=== PATIENT | female | born 1945 | race American Indian/Alaskan Native ===

== ENCOUNTER 2016-02-13 12:05 | Emergency (ER) | payer MEDICARE ==
[2016-02-13 12:13] VITALS: BP 118/74
--- NOTE | 2016-02-13 13:30 | Emergency Department Report ---
Chief Complaint: Chest Pain Stated Complaint: CHEST PAIN/EAR PAIN Time Seen by Provider: 02/13/16 13:30 - HPI History of Present Illness: Patient here complaining of mid chest pain and left ear pain 2 hours prior to coming to the emergency room. Patient says she has a history of fibromyalgia, hypertension, stage III kidney disease, dementia, left-sided., CHF in the past. She says she was in the hospital by [facility] felt January 30, 2020 716 for congestive heart failure. Her chest pain and ear pain is 6-7 out of 10 and feels sharp. She denies any shortness of breath. Denies any nausea vomiting. Denies any radiation of pain. - ROS Review of Systems: All systems are negative unless stated in HPI above. - Exam Vital Signs: Vital Signs 02/13/16 12:09 Temperature 98.3 F Pulse Rate 72 Respiratory 22 Rate Blood Pressure 118/74 O2 Sat by Pulse 100 Oximetry Physical Exam: General: This is a 70-year-old female well-nourished well-developed in no acute distress. CV: S1, S2. Regular rate rhythm negative murmur Lungs:Clear Auscultated bilaterally, no rhonchi wheezes or rales. Normal work of breathing Extremity: Trace edema to legs. No clubbing or cyanosis. +2 pedal pulses MSE screening note: Focused history and physical exam performed. Due to findings the following was ordered:see mdm ED Medical Decision Making - Medical Decision Making Medical decision making: Patient seen by provider in triage area. Appropriate protocol activated and patient to main ED to be seen by physician. ED Disposition for MSE Condition: Stable
[2016-02-13 14:05] LABS: Hematocrit 36.6 % (30.3-42.9); Hemoglobin 11.6 gm/dl (10.1-14.3); Mean Corpuscular HGB Conc 32 % (30-34); Mean Corpuscular Volume 74 fl (79-97); Platelet Count 278 K/mm3 (140-440); Red Blood Count 4.92 M/mm3 (3.65-5.03); Red Cell Distribution Width 16.3 % (13.2-15.2); White Blood Count 17.5 K/mm3 (4.5-11.0)
[2016-02-13 14:16] LABS: Mean Corpuscular Hemoglobin 24 pg (28-32)
[2016-02-13 14:18] LABS: BUN/Creatinine Ratio 14.28; Blood Urea Nitrogen 20 mg/dL (7-17); Calcium 9.2 mg/dL (8.4-10.2); Carbon Dioxide 26 mmol/L (22-30); Glucose 120 mg/dL (65-100)
[2016-02-13 14:19] LABS: Chloride 101.3 mmol/L (98-107); Potassium 4.4 mmol/L (3.6-5.0); Sodium 142 mmol/L (137-145)
[2016-02-13 14:20] LABS: Anion Gap 19 mmol/L
[2016-02-13 14:39] LABS: Creatine Kinase MB 1.5 ng/mL (0.0-4.0)
[2016-02-13 15:03] LABS: Bilirubin,Urine NEG (Negative); Blood,Urine NEG (Negative); Ketones,Urine NEG (Negative); Leukocyte Esterase,Urine LG (Negative); Mucus,Urine FEW /HPF; Nitrite,Urine NEG (Negative); Protein,Urine <15 mg/dL mg/dL (Negative); Urobilinogen,Urine < 2.0 mg/dL (<2.0)
[2016-02-13 15:10] LABS: Anisocytosis 1+; Basophils % (Manual) 0 % (0.0-1.8); Blastocytes % (Manual) 0 %
[2016-02-13 15:11] LABS: Hypochromasia 1+
[2016-02-13 15:12] LABS: Diff Status Complete; Target Cells 1+
--- NOTE | 2016-02-14 01:06 | ED Elopement Review ---
ED Pt Elopement review - Results review Lab results: Laboratory Tests 02/13/16 02/13/16 02/13/16 13:55 13:55 13:55 WBC 17.5 H RBC 4.92 Hgb 11.6 Hct 36.6 MCV 74 L MCH 24 L MCHC 32 RDW 16.3 H Plt Count 278 Add Manual Diff Complete Total Counted 100 Seg Neutrophils % Marine Gear Keeper Seg Neuts % (Manual) 82.0 H Band Neutrophils % 2.0 Lymphocytes % (Manual) 9.0 L Reactive Lymphs % (Man) 2.0 Monocytes % (Manual) 4.0 Eosinophils % (Manual) 1.0 Basophils % (Manual) 0 Metamyelocytes % 0 Myelocytes % 0 Promyelocytes % 0 Blast Cells % 0 Nucleated RBC % Not Reportable Seg Neutrophils # Man 14.4 H Band Neutrophils # 0.4 Lymphocytes # (Manual) 1.6 Abs React Lymphs (Man) 0.4 Monocytes # (Manual) 0.7 Eosinophils # (Manual) 0.2 Basophils # (Manual) 0.0 Metamyelocytes # 0.0 Myelocytes # 0.0 Promyelocytes # 0.0 Blast Cells # 0.0 WBC Morphology Not Reportable Hypersegmented Neuts Not Reportable Hyposegmented Neuts Not Reportable Hypogranular Neuts Not Reportable Smudge Cells Not Reportable Toxic Granulation Not Reportable Toxic Vacuolation Not Reportable Dohle Bodies Not Reportable Pelger-Huet Anomaly Not Reportable [place] Rods Not Reportable Platelet Estimate Not Reportable Clumped Platelets Not Reportable Plt Clumps, EDTA Not Reportable Large Platelets Not Reportable Giant Platelets Not Reportable Platelet Satelliting Not Reportable Plt Morphology Comment Not Reportable RBC Morphology Not Reportable Dimorphic RBCs Not Reportable Polychromasia Not Reportable Hypochromasia 1+ Poikilocytosis Not Reportable Anisocytosis 1+ Microcytosis Not Reportable Macrocytosis Not Reportable Spherocytes Not Reportable Pappenheimer Bodies Not Reportable Sickle Cells Not Reportable Target Cells 1+ Tear Drop Cells Not Reportable Ovalocytes Not Reportable Helmet Cells Not Reportable [place] Bodies Not Reportable [place] Rings Not Reportable Marcella Cells Not Reportable Bite Cells Not Reportable Crenated Cell Not Reportable Elliptocytes Not Reportable Acanthocytes (Spur) Not Reportable Rouleaux Not Reportable Hemoglobin C Crystals Not Reportable Schistocytes Not Reportable Malaria parasites Not Reportable Barrett Bodies Not Reportable Hem Pathologist Commnt No Sodium 142 Potassium 4.4 Chloride 101.3 Carbon Dioxide 26 Anion Gap 19 BUN 20 H Creatinine 1.4 H Estimated GFR 45 BUN/Creatinine Ratio 14.28 Glucose 120 H Calcium 9.2 Total Creatine Kinase 29 L CK-MB (CK-2) 1.5 CK-MB (CK-2) Rel Index 5.1 H Troponin T < 0.010 NT-Pro-B Natriuret Pep 219.5 Urine Color Urine Turbidity Urine pH Ur Specific [place] Urine Protein Urine Glucose (UA) Urine Ketones Urine Blood Urine Nitrite Urine Bilirubin Urine Urobilinogen Ur Leukocyte Esterase Urine WBC (Auto) Urine RBC (Auto) U Epithel Cells (Auto) Urine Mucus 02/13/16 14:10 WBC RBC Hgb Hct MCV MCH MCHC RDW Plt Count Add Manual Diff Total Counted Seg Neutrophils % Seg Neuts % (Manual) Band Neutrophils % Lymphocytes % (Manual) Reactive Lymphs % (Man) Monocytes % (Manual) Eosinophils % (Manual) Basophils % (Manual) Metamyelocytes % Myelocytes % Promyelocytes % Blast Cells % Nucleated RBC % Seg Neutrophils # Man Band Neutrophils # Lymphocytes # (Manual) Abs React Lymphs (Man) Monocytes # (Manual) Eosinophils # (Manual) Basophils # (Manual) Metamyelocytes # Myelocytes # Promyelocytes # Blast Cells # WBC Morphology Hypersegmented Neuts Hyposegmented Neuts Hypogranular Neuts Smudge Cells Toxic Granulation Toxic Vacuolation Dohle Bodies Pelger-Huet Anomaly [place] Rods Platelet Estimate Clumped Platelets Plt Clumps, EDTA Large Platelets Giant Platelets Platelet Satelliting Plt Morphology Comment RBC Morphology Dimorphic RBCs Polychromasia Hypochromasia Poikilocytosis Anisocytosis Microcytosis Macrocytosis Spherocytes Pappenheimer Bodies Sickle Cells Target Cells Tear Drop Cells Ovalocytes Helmet Cells Melgar-[place] Bodies [place] Rings Marcella Cells Bite Cells Crenated Cell Elliptocytes Acanthocytes (Spur) Rouleaux Hemoglobin C Crystals Schistocytes Malaria parasites Barrett Bodies Hem Pathologist Commnt Sodium Potassium Chloride Carbon Dioxide Anion Gap BUN Creatinine Estimated GFR BUN/Creatinine Ratio Glucose Calcium Total Creatine Kinase CK-MB (CK-2) CK-MB (CK-2) Rel Index Troponin T NT-Pro-B Natriuret Pep Urine Color Yellow Urine Turbidity Clear Urine pH 6.0 Ur Specific [place] 1.018 Urine Protein <15 mg/dl Urine Glucose (UA) Neg Urine Ketones Neg Urine Blood Neg Urine Nitrite Neg Urine Bilirubin Neg Urine Urobilinogen < 2.0 Ur Leukocyte Esterase Lg Urine WBC (Auto) 27.0 H Urine RBC (Auto) 3.0 U Epithel Cells (Auto) 7.0 Urine Mucus Few - Call Back decision Pt Call Back Decision: Call pt to return to ED JONNA (chest pain and leukocytosis should be further evaluated)
== END 2016-02-13 16:22 | disposition left against medical advice (07) ==
LOC: ED 12:05
DX: R07.89 Other chest pain (principal); H92.02 Otalgia, left ear; M79.7 Fibromyalgia; I13.0 Hypertensive heart and chronic kidney disease with heart failure and stage 1 through stage 4 chronic kidney disease, or unspecified chronic kidney disease; N18.3 Chronic kidney disease, stage 3 (moderate); F03.90 Unspecified dementia, unspecified severity, without behavioral disturbance, psychotic disturbance, mood disturbance, and anxiety; Z53.21 Procedure and treatment not carried out due to patient leaving prior to being seen by health care provider
CPT/HCPCS: 36415; 80048; 81001; 82550; 82553; 83880; 84484; 85007; 85025; 93005; 93010

== ENCOUNTER 2016-05-03 10:20 | Emergency (ER) | payer MEDICARE ==
[2016-05-03 12:15] LABS: Basophils % (Auto) 0.7 % (0.0-1.8); Eosinophils % (Auto) 1.5 % (0.0-4.3); Hematocrit 38.4 % (30.3-42.9); Hemoglobin 12.1 gm/dl (10.1-14.3); Mean Corpuscular HGB Conc 31 % (30-34); Mean Corpuscular Volume 75 fl (79-97); Platelet Count 220 K/mm3 (140-440); Red Blood Count 5.14 M/mm3 (3.65-5.03); White Blood Count 8.3 K/mm3 (4.5-11.0)
[2016-05-03 12:25] LABS: Mean Corpuscular Hemoglobin 24 pg (28-32)
[2016-05-03 12:30] LABS: BUN/Creatinine Ratio 15.83; Calcium 9.6 mg/dL (8.4-10.2); Chloride 102.7 mmol/L (98-107); Potassium 3.9 mmol/L (3.6-5.0)
[2016-05-03 15:38] LABS: Bilirubin,Urine NEG (Negative); Blood,Urine NEG (Negative); Ketones,Urine NEG (Negative); Leukocyte Esterase,Urine SM (Negative); Mucus,Urine FEW /HPF; Nitrite,Urine NEG (Negative); Protein,Urine <15 mg/dL mg/dL (Negative); Urobilinogen,Urine < 2.0 mg/dL (<2.0)
[2016-05-03] MEDS ORDERED: PERCOCET 5/325 PO ONE (19:34)
--- NOTE | 2016-05-03 20:58 | Cat Scan Report ---
FINAL REPORT PROCEDURE: CT ABDOMEN PELVIS WO CON TECHNIQUE: Computerized axial tomography of the abdomen and pelvis was performed without intravenous contrast. HISTORY: right flank COMPARISON: June 05, 2015 FINDINGS: Visualized lower thorax: No significant abnormality. Liver: Normal size and attenuation. Spleen: Normal size and attenuation. Gallbladder and biliary system: Cholecystectomy clips. Pancreas: Normal. Adrenals: Normal. Kidneys: Normal. No stones or hydronephrosis. GI tract: Normal. No dilated loops of large or small bowel. Appendix is not visualized Lymph nodes and mesentery: Normal. Vasculature: Atherosclerotic calcifications. Bladder: Normal. Reproductive organs: Atrophic uterus. Peritoneum: No free fluid. Musculoskeletal structures: Degenerative change of the lower spine. Other: None. IMPRESSION: No stones or hydronephrosis. No mass or obstruction. Appendix is not visualized.
--- NOTE | 2016-05-03 21:12 | Emergency Department Report ---
ED Back Pain/Injury HPI - General Chief Complaint: Pain General Stated Complaint: HAND AND FEET SWELLING Time Seen by Provider: 05/03/16 19:25 Source: patient Limitations: No Limitations - History of Present Illness Initial Comments: 70-year-old female with a past medical history of lupus, herniated disc, CVA, dementia, hypertension, hypothyroidism and previous appendectomy cholecystectomy presents to Hospital complaints of right flank painyesterday. Pain is rated moderate to severe in intensity, described as a constant ache along the right side of the back and flank, worse with palpation and movement. Improved with lying on the left side is to the right. Patient denies any recent fall or injury. Denies associated symptoms such as hematuria, dysuria, nausea, vomiting, urinary incontinence/retention, leg weakness or numbness. Patient complains of chronic intermittent swelling to bilateral feet that improves at leg elevation. Also complains of mild swelling to hands. Patient also complaining of diarrhea 1 week. Bowel movements are stimulated by eating and drinking. Patient states diarrhea usually worse with drinking coffee and milk products. - Related Data Home Medications Medication Instructions Recorded Confirmed Last Taken Carvedilol 25 mg PO BID 03/18/13 08/04/15 06/05/15 Levothyroxine [Synthroid] 0.25 tab PO DAILY 03/18/13 08/04/15 06/05/15 Namenda 10 mg PO BID 06/05/15 08/04/15 06/05/15 Prednisone 5 mg PO DAILY 06/05/15 08/04/15 06/05/15 Mirtazapine [Remeron] 45 mg PO QHS 08/04/15 08/04/15 Unknown Quetiapine Fumarate [SEROquel XR] 400 mg PO QDAY 08/04/15 08/04/15 Unknown Trazodone HCl 150 mg PO QHS 08/04/15 08/04/15 Unknown Previous Rx's Medication Instructions Recorded Last Taken Type Clopidogrel [Plavix] 75 mg PO QDAY #30 tablet 07/10/14 06/05/15 Rx Amlodipine Besylate [Norvasc] 2.5 mg PO DAILY #30 tab 06/05/15 Unknown Rx HYDROcodone/APAP 5-325 [[place] 1 each PO Q6HR PRN #12 tablet 08/04/15 Unknown Rx 5/325] Meclizine [Antivert] 12.5 mg PO BID PRN #14 tablet 08/04/15 Unknown Rx HYDROcodone/APAP 5-325 [[place] 1 each PO Q6HR PRN #20 tablet 05/03/16 Unknown Rx 5-325 mg TAB] Loperamide [Imodium] 2 mg PO Q2HR #20 capsule 05/03/16 Unknown Rx Allergies Allergy/AdvReac Type Severity Reaction Status Date / Time captopril Allergy Rash Verified 09/18/14 10:41 clindamycin Allergy Diarrhea Verified 09/18/14 10:41 NSAIDS (Non-Steroidal Allergy Rash Verified 09/18/14 10:41 Anti-Inflamma Penicillins Allergy Rash Verified 09/18/14 10:41 Sulfa (Sulfonamide Allergy Rash Verified 09/18/14 10:41 Antibiotics) ED Review of Systems ROS: Stated complaint: HAND AND FEET SWELLING Other details as noted in HPI Comment: All other systems reviewed and negative Other: Constitutional: No fevers chills Eyes: No eye pain visual changes ENT: No ear pain or throat pain Neck: Denies pain Respiratory: Denies cough wheezing shortness of breath Cardiovascular: Denies chest pain, palpitations, syncope GI: Denies abdominal pain, nausea, vomiting : Denies dysuria Musculoskeletal: as per hpi. Skin: Denies rash, lesions, erythema Neurologic: Denies headache, numbness, weakness Psychiatric: Denies suicidal ideation, hallucinations ED Past Medical Hx - Past Medical History Previous Medical History?: Yes Hx Hypertension: Yes Hx CVA: Yes (07/07/14) Hx Renal Disease: Yes (Stage III renal dx) Hx Asthma: No Hx COPD: No Hx Dementia: Yes (takes aricept) Additional medical history: 3 herniated discs. LUPUS. hypothyroid - Surgical History Past Surgical History?: Yes Hx Cholecystectomy: Yes Hx Appendectomy: Yes - Social History Smoking Status: Current Every Day Smoker Substance Use Type: Prescribed - Medications Home Medications: Home Medications Medication Instructions Recorded Confirmed Last Taken Type Carvedilol 25 mg PO BID 03/18/13 08/04/15 06/05/15 History Levothyroxine [Synthroid] 0.25 tab PO DAILY 03/18/13 08/04/15 06/05/15 History Clopidogrel [Plavix] 75 mg PO QDAY #30 tablet 07/10/14 08/04/15 06/05/15 Rx Amlodipine Besylate [Norvasc] 2.5 mg PO DAILY #30 tab 06/05/15 08/04/15 Unknown Rx Namenda 10 mg PO BID 06/05/15 08/04/15 06/05/15 History Prednisone 5 mg PO DAILY 06/05/15 08/04/15 06/05/15 History HYDROcodone/APAP 5-325 [[place] 1 each PO Q6HR PRN #12 tablet 08/04/15 Unknown Rx 5/325] Meclizine [Antivert] 12.5 mg PO BID PRN #14 tablet 08/04/15 Unknown Rx Mirtazapine [Remeron] 45 mg PO QHS 08/04/15 08/04/15 Unknown History Quetiapine Fumarate [SEROquel XR] 400 mg PO QDAY 08/04/15 08/04/15 Unknown History Trazodone HCl 150 mg PO QHS 08/04/15 08/04/15 Unknown History HYDROcodone/APAP 5-325 [[place] 1 each PO Q6HR PRN #20 tablet 05/03/16 Unknown Rx 5-325 mg TAB] Loperamide [Imodium] 2 mg PO Q2HR #20 capsule 05/03/16 Unknown Rx ED Physical Exam - General Limitations: No Limitations - Other Other exam information: General: No limitations, patient is alert in no acute distress Head exam: Atraumatic, normocephalic Eyes exam: Normal appearance ENT: Moist mucous membrane, normal oropharynx Neck exam: Normal inspection, full range of motion Respiratory exam: Clear to auscultation bilateral, no wheezes, rales, crackles Cardiovascular: Normal rate and rhythm, normal heart sounds Abdomen: Soft, nondistended, and nontender, with normal bowel sounds, no rebound, or guarding Extremity: Full range of motion normal inspection no deformity Back: Normal Inspection, full range of motion, right sided lower back tenderness to palpation, also inc with movement Neurologic: Alert, oriented x3, cranial nerves intact, no motor or sensory deficit Psychiatric: normal affect, normal mood Skin: Dark discoloration to bilateral feet back and chronic skin changes secondary to intermittent edema. No edema noted at this ED Course Vital Signs 05/03/16 05/03/16 05/03/16 11:34 16:49 16:55 Temperature 97.5 F L 97.7 F Pulse Rate 80 78 Respiratory 18 18 16 Rate Blood Pressure 154/91 Blood Pressure 150/77 [Left] O2 Sat by Pulse 100 100 100 Oximetry - Reevaluation(s) Reevaluation #1: 05/03/16 21:12 Patient received Percocet 5/325 ED Medical Decision Making - Lab Data Result diagrams: 05/03/16 11:54 05/03/16 11:54 Lab Results 05/03/16 05/03/16 05/03/16 Range/Units 11:54 11:54 14:42 WBC 8.3 (4.5-11.0) K/mm3 RBC 5.14 H (3.65-5.03) M/mm3 Hgb 12.1 (10.1-14.3) gm/dl Hct 38.4 (30.3-42.9) % MCV 75 L (79-97) fl MCH 24 L (28-32) pg MCHC 31 (30-34) % RDW 16.0 H (13.2-15.2) % Plt Count 220 (140-440) K/mm3 Lymph % (Auto) 16.6 (13.4-35.0) % [place] % (Auto) 6.3 (0.0-7.3) % Eos % (Auto) 1.5 (0.0-4.3) % Baso % (Auto) 0.7 (0.0-1.8) % Lymph # 1.4 (1.2-5.4) K/mm3 [place] # 0.5 (0.0-0.8) K/mm3 Eos # 0.1 (0.0-0.4) K/mm3 Baso # 0.1 (0.0-0.1) K/mm3 Seg Neutrophils % 74.9 H (40.0-70.0) % Seg Neutrophils # 6.2 (1.8-7.7) K/mm3 Sodium 140 (137-145) mmol/L Potassium 3.9 (3.6-5.0) mmol/L Chloride 102.7 (98-107) mmol/L Carbon Dioxide 24 (22-30) mmol/L Anion Gap 17 mmol/L BUN 19 H (7-17) mg/dL Creatinine 1.2 (0.7-1.2) mg/dL Estimated GFR 54 ml/min BUN/Creatinine Ratio 15.83 % Glucose 104 H (65-100) mg/dL Calcium 9.6 (8.4-10.2) mg/dL Urine Color Yellow (Yellow) Urine Turbidity Slightly-cloudy (Clear) Urine pH 5.0 (5.0-7.0) Ur Specific [place] 1.014 (1.003-1.030) Urine Protein <15 mg/dl (Negative) mg/dL Urine Glucose (UA) Neg (Negative) mg/dL Urine Ketones Neg (Negative) mg/dL Urine Blood Neg (Negative) Urine Nitrite Neg (Negative) Urine Bilirubin Neg (Negative) Urine Urobilinogen < 2.0 (<2.0) mg/dL Ur Leukocyte Esterase Sm (Negative) Urine WBC (Auto) 1.0 (0.0-6.0) /HPF Urine RBC (Auto) 2.0 (0.0-6.0) /HPF U Epithel Cells (Auto) 20.0 H (0-13.0) /HPF Urine Mucus Few /HPF - Medical Decision Making Patient has normal renal function today and has a surgeon's assistant that monitors her creatinine ratio provided a copy of her laboratory request. I suspect the patient's pain is musculoskeletal in origin with unremarkable ED workup including labs, UA, and CT. - Differential Diagnosis UTI, renal colic, renal sufficiency Critical Care Time: No Critical care attestation.: If time is entered above; I have spent that time in minutes in the direct care of this critically ill patient, excluding procedure time. ED Disposition Clinical Impression: Acute diarrhea, Back strain Disposition: DISCHARGED TO HOME OR SELFCARE Is pt being admited?: No Condition: Stable Instructions: Low Back Strain (ED), Acute Diarrhea (ED) Additional Instructions: Take the medications as prescribed. You have been provided a copy of the lab work as requested to take to your doctor. If the diarrhea does not improve or your symptoms worsen you may need GI follow-up. Follow up with your GI doctor for further workup and evaluation but she may return here if you feel worse. Avoid caffeine and milk product intake. Prescriptions: HYDROcodone/APAP 5-325 [[place] 5-325 mg TAB] 1 each PO Q6HR PRN #20 tablet PRN Reason: Pain Loperamide [Imodium] 2 mg PO Q2HR #20 capsule Referrals: ELOINA WARD MD [Primary Care Provider] - 2-3 Days your, gi [Other] - 3-5 Days Time of Disposition: 21:24
[2016-05-03 21:54] VITALS: BP 136/77
== END 2016-05-03 21:45 | disposition home or self-care (01) ==
LOC: ED 10:20
DX: S39.012A Strain of muscle, fascia and tendon of lower back, initial encounter (principal); R19.7 Diarrhea, unspecified; I12.9 Hypertensive chronic kidney disease with stage 1 through stage 4 chronic kidney disease, or unspecified chronic kidney disease; N18.3 Chronic kidney disease, stage 3 (moderate); F03.90 Unspecified dementia, unspecified severity, without behavioral disturbance, psychotic disturbance, mood disturbance, and anxiety; E03.9 Hypothyroidism, unspecified; F17.200 Nicotine dependence, unspecified, uncomplicated; Z86.73 Personal history of transient ischemic attack (TIA), and cerebral infarction without residual deficits; Z90.49 Acquired absence of other specified parts of digestive tract; Z88.0 Allergy status to penicillin; Z88.1 Allergy status to other antibiotic agents; Z88.2 Allergy status to sulfonamides; Z88.8 Allergy status to other drugs, medicaments and biological substances; X58.XXXA Exposure to other specified factors, initial encounter; Y93.89 Activity, other specified; Y99.8 Other external cause status; Y92.89 Other specified places as the place of occurrence of the external cause
CPT/HCPCS: 36415; 74176; 80048; 81001; 85025

== ENCOUNTER 2016-05-14 17:24 | Inpatient (IN) | payer MEDICARE ==
--- NOTE | 2016-05-14 18:03 | Cat Scan Report ---
FINAL REPORT EXAM: CT HEAD/BRAIN WO CON HISTORY: Syncope TECHNIQUE: CT examination of the head without IV contrast PRIORS: 03/12/2015 FINDINGS: No acute air-fluid level visualized in the included air-filled sinuses. Bone windows demonstrate no fracture. The brain is without mass, mass effect, hemorrhage, or acute infarct. There is no extra-axial intracranial bleed, brain bleed, or midline shift. The ventricles and sulci are age-appropriate. IMPRESSION: No acute CVA, intracranial bleed, or brain mass
[2016-05-14 18:50] LABS: Basophils % (Auto) 0.5 % (0.0-1.8); Eosinophils % (Auto) 0.9 % (0.0-4.3); Hematocrit 38.6 % (30.3-42.9); Hemoglobin 12.1 gm/dl (10.1-14.3); Mean Corpuscular HGB Conc 31 % (30-34); Mean Corpuscular Volume 75 fl (79-97); Platelet Count 217 K/mm3 (140-440); Red Blood Count 5.12 M/mm3 (3.65-5.03); Red Cell Distribution Width 15.7 % (13.2-15.2); White Blood Count 7.4 K/mm3 (4.5-11.0)
[2016-05-14 18:56] LABS: Creatine Kinase MB 1.6 ng/mL (0.0-4.0)
[2016-05-14 18:58] LABS: Alanine Aminotransferase 15 units/L (7-56); Albumin 3.4 g/dL (3.9-5); Albumin/Globulin Ratio 0.9 %; Alkaline Phosphatase 78 units/L (35-129); Anion Gap 19 mmol/L; BUN/Creatinine Ratio 24.54; Bilirubin,Total 0.2 mg/dL (0.1-1.2); Blood Urea Nitrogen 27 mg/dL (7-17); Calcium 9.3 mg/dL (8.4-10.2); Carbon Dioxide 25 mmol/L (22-30); Chloride 100.6 mmol/L (98-107); Creatine Kinase 46 units/L (30-135); Glucose 86 mg/dL (65-100); Mean Corpuscular Hemoglobin 24 pg (28-32); Sodium 141 mmol/L (137-145); Total Protein 7.4 g/dL (6.3-8.2)
[2016-05-14 19:20] LABS: Bilirubin,Urine NEG (Negative); Blood,Urine NEG (Negative); Ketones,Urine NEG (Negative); Leukocyte Esterase,Urine SM (Negative); Nitrite,Urine NEG (Negative); Protein,Urine <15 mg/dL mg/dL (Negative); Urobilinogen,Urine < 2.0 mg/dL (<2.0)
--- NOTE | 2016-05-14 21:13 | Emergency Department Report ---
ED Syncope HPI - General Chief Complaint: Syncope Stated Complaint: LT SIDE WEAKNESS Time Seen by Provider: 05/14/16 21:07 - History of Present Illness Initial Comments: This is a pleasant 70-year-old female who is brought in by her daughter after a syncopal episode at a restaurant today. The patient reports waking up this morning feeling increased fatigue in general. She does have history of lupus and frequently has fatigue. She describes a 52 spell today being greater than when she is typically experiencing with her lupus however. Patient indicates that she later on in bed for most of the day. She still slightly go out to dinner with her daughter this evening. While sitting at the dinner table she slumped over briefly. She was only out for a few seconds. She had no prodrome prior to this that she can recall. She states states in general that she is still feeling fatigued. She denies any headache or chest pain or shortness of breath. She denies any palpitations. She states that she's had decreased oral intake today. She does again endorse increased weakness that this global in nature. She does describe it feeling somewhat more weak on the left compared to right toe. She does indicate his while she's having some blurring of her vision. She has noted her blood pressure elevated today compared to her baseline. She states her blood pressure is normally 120/80. She states today her blood pressure is about 150/90. - Related Data Allergies/Adverse Reactions: Allergies captopril Allergy (Verified 09/18/14 10:41) Rash clindamycin Allergy (Verified 09/18/14 10:41) Diarrhea NSAIDS (Non-Steroidal Anti-Inflamma Allergy (Verified 09/18/14 10:41) Rash Penicillins Allergy (Verified 09/18/14 10:41) Rash Sulfa (Sulfonamide Antibiotics) Allergy (Verified 09/18/14 10:41) Rash Home Medications: Ambulatory Orders Carvedilol 25 mg PO BID 03/18/13 Levothyroxine [Synthroid] 0.25 tab PO DAILY 03/18/13 Clopidogrel [Plavix] 75 mg PO QDAY #30 tablet 07/10/14 Amlodipine Besylate [Norvasc] 2.5 mg PO DAILY #30 tab 06/05/15 Namenda 10 mg PO BID 06/05/15 Prednisone 5 mg PO DAILY 06/05/15 HYDROcodone/APAP 5-325 [[place] 5/325] 1 each PO Q6HR PRN #12 tablet 08/04/15 Meclizine [Antivert] 12.5 mg PO BID PRN #14 tablet 08/04/15 Mirtazapine [Remeron] 45 mg PO QHS 08/04/15 Quetiapine Fumarate [SEROquel XR] 400 mg PO QDAY 08/04/15 Trazodone HCl 150 mg PO QHS 08/04/15 HYDROcodone/APAP 5-325 [[place] 5-325 mg TAB] 1 each PO Q6HR PRN #20 tablet Loperamide [Imodium] 2 mg PO Q2HR #20 capsule 05/03/16 ED Review of Systems ROS: Stated complaint: LT SIDE WEAKNESS Other details as noted in HPI Comment: All other systems reviewed and negative Constitutional: weakness. denies: chills, fever Eyes: vision change. denies: eye pain, eye discharge ENT: denies: ear pain, throat pain Respiratory: denies: cough, shortness of breath, wheezing Cardiovascular: denies: chest pain, palpitations Endocrine: no symptoms reported Gastrointestinal: denies: abdominal pain, nausea, diarrhea Genitourinary: denies: urgency, dysuria, discharge Musculoskeletal: denies: back pain, joint swelling, arthralgia Skin: denies: rash, lesions Neurological: denies: headache, weakness, paresthesias Psychiatric: denies: anxiety, depression Hematological/Lymphatic: denies: easy bleeding, easy bruising ED Past Medical Hx - Past Medical History Hx Hypertension: Yes Hx CVA: Yes (07/07/14) Hx Renal Disease: Yes (Stage III renal dx) Hx Asthma: No Hx COPD: No Hx Dementia: Yes (takes aricept) Additional medical history: 3 herniated discs. LUPUS. hypothyroid - Surgical History Hx Cholecystectomy: Yes Hx Appendectomy: Yes - Social History Smoking Status: Never Smoker Substance Use Type: None - Medications Home Medications: Home Medications Medication Instructions Recorded Confirmed Last Taken Type Carvedilol 25 mg PO BID 03/18/13 08/04/15 06/05/15 History Levothyroxine [Synthroid] 0.25 tab PO DAILY 03/18/13 08/04/15 06/05/15 History Clopidogrel [Plavix] 75 mg PO QDAY #30 tablet 0608/04/15 06/05/15 Rx Amlodipine Besylate [Norvasc] 2.5 mg PO DAILY #30 tab 06/05/15 08/04/15 Unknown Rx Namenda 10 mg PO BID 06/05/15 08/04/15 06/05/15 History Prednisone 5 mg PO DAILY 06/05/15 08/04/15 06/05/15 History HYDROcodone/APAP 5-325 [[place] 1 each PO Q6HR PRN #12 tablet 08/04/15 Unknown Rx 5/325] Meclizine [Antivert] 12.5 mg PO BID PRN #14 tablet 08/04/15 Unknown Rx Mirtazapine [Remeron] 45 mg PO QHS 08/04/15 08/04/15 Unknown History Quetiapine Fumarate [SEROquel XR] 400 mg PO QDAY 08/04/15 08/04/15 Unknown History Trazodone HCl 150 mg PO QHS 08/04/15 08/04/15 Unknown History HYDROcodone/APAP 5-325 [[place] 1 each PO Q6HR PRN #20 tablet 05/03/16 Unknown Rx 5-325 mg TAB] Loperamide [Imodium] 2 mg PO Q2HR #20 capsule 05/03/16 Unknown Rx ED Physical Exam - General Limitations: No Limitations General appearance: alert, in no apparent distress - Head Head exam: Present: atraumatic, normocephalic - Eye Eye exam: Present: normal appearance, EOMI. Absent: scleral icterus - ENT ENT exam: Present: normal exam, normal orophraynx, mucous membranes moist - Neck Neck exam: Present: normal inspection. Absent: tenderness - Respiratory Respiratory exam: Present: normal lung sounds bilaterally, rales, other (mild chest wall defect tenderness diffusely.). Absent: respiratory distress, wheezes - Cardiovascular Cardiovascular Exam: Present: regular rate, normal rhythm. Absent: systolic murmur, diastolic murmur, rubs, gallop - GI/Abdominal GI/Abdominal exam: Present: soft, tenderness (mild tenderness diffusely.), normal bowel sounds - Extremities Exam Extremities exam: Present: normal inspection, normal capillary refill. Absent: tenderness, pedal edema, calf tenderness - Back Exam Back exam: Present: normal inspection. Absent: tenderness, CVA tenderness (R), CVA tenderness (L) - Neurological Exam Neurological exam: Present: alert, oriented X3, CN II-XII intact, other (moving all extremities properly for me. No facial droop is appreciated. Has excellent strength in the upper and lower extremities. Normal sensation is noted throughout as well.) - Psychiatric Psychiatric exam: Present: normal affect, normal mood - Skin Skin exam: Present: warm, dry, intact, normal color. Absent: rash ED Course Vital Signs 05/14/16 05/14/16 05/15/16 17:30 20:28 00:00 Temperature 97.8 F 97.5 F L Pulse Rate 74 70 72 Respiratory 18 19 18 Rate Blood Pressure 185/110 Blood Pressure 141/78 146/81 [Right] O2 Sat by Pulse 100 99 99 Oximetry - Reevaluation(s) Reevaluation #1: 05/14/16 21:08 ECG at 1741 with normal sinus rhythm at 66 bpm. Isoelectric. Normal [place] and QRS. Normal ECG. Reevaluation #2: 05/14/16 21:42 This patient has a nonfocal neurologic exam for me. She does appear tired in the bed but otherwise does not appear to be in any acute distress. Her ECG is normal. She has continued in sinus rhythm on the monitor. CT head is negative. I will give her a gentle saline bolus here. She does have normal vitals signs and normal labs for me as well. I have considered the possibility of stroke. This is a possibility. I just do not see specific objective evidence of this. Reevaluation #3: 05/14/16 23:30 Patient reports subjectively feeling somewhat improved after IV fluids. She still feels generally weak compared to her baseline though and still endorses a slight weakness on the left side compared to the right. I can't objectively I cannot appreciate this but it is of concern to me. I did have a long conversation with patient has not seen a hospital and she is agreeable with this. I feel this is inappropriate action given the syncopal episode as well as the weakness with questionable concerns regarding the weakness in the left side as well. Patient given an aspirin here. She is otherwise stable and appropriate. ED Medical Decision Making - Lab Data Result diagrams: 05/14/16 18:23 05/14/16 18:23 - Radiology Data Radiology results: report reviewed, image reviewed NEgative CT brain Critical care attestation.: If time is entered above; I have spent that time in minutes in the direct care of this critically ill patient, excluding procedure time. ED Disposition Clinical Impression: Weakness Syncope Qualifiers: Encounter type: initial encounter Disposition: OP ADMITTED IP TO THIS HOSP Is pt being admited?: Yes Does the pt Need Aspirin: No Condition: Stable Time of Disposition: 23:34
[2016-05-14] MEDS ORDERED: MORPHINE IV ONE (21:37)
[2016-05-14] MEDS ORDERED: NACL 0.9% 1000 ML 1,000 ML IV ONE (21:37)
[2016-05-14] MEDS ORDERED: PLAVIX PO ONE (23:33)
[2016-05-15] MEDS ORDERED: ANTIVERT PO PRN (01:49)
--- NOTE | 2016-05-15 01:49 | History and Physical Report ---
History of Present Illness Date of examination: 05/14/16 Date of admission: 05/14/16 Chief complaint: Loss of consciousness History of present illness: Patient is a 70-year-old woman with a plethora of co-morbidities including CVA, hypertension, SLE with nephritis, CKD3, discord lupus, bipolar with psych admissions for bipolar disorder, hypothyroidism and chronic back pain with osteoarthritis who presents with transient loss consciousness while sitting at the dinner table. GEN no prodromal symptoms such assessed pain or palpitation. Early in the morning she did have headaches with some blurry vision and her blood pressure was above normal. Currently she is denies any symptoms. She is awake alert oriented 3. There is no seizure activities. She denies any headaches. Past History Past Medical History: other (hpi) Past Surgical History: appendectomy, cholecystectomy, Other (venous stripping, tubal ligation) Social history: smoking, full code. denies: alcohol abuse, prescription drug abuse, IV drug use Family history: hypertension Medications and Allergies Allergies Allergy/AdvReac Type Severity Reaction Status Date / Time captopril Allergy Rash Verified 09/18/14 10:41 clindamycin Allergy Diarrhea Verified 09/18/14 10:41 NSAIDS (Non-Steroidal Allergy Rash Verified 09/18/14 10:41 Anti-Inflamma Penicillins Allergy Rash Verified 09/18/14 10:41 Sulfa (Sulfonamide Allergy Rash Verified 09/18/14 10:41 Antibiotics) Home Medications Medication Instructions Recorded Confirmed Last Taken Type Carvedilol 25 mg PO BID 03/18/13 08/04/15 06/05/15 History Levothyroxine [Synthroid] 0.25 tab PO DAILY 03/18/13 08/04/15 06/05/15 History Clopidogrel [Plavix] 75 mg PO QDAY #30 tablet 07/10/14 08/04/15 06/05/15 Rx Amlodipine Besylate [Norvasc] 2.5 mg PO DAILY #30 tab 06/05/15 08/04/15 Unknown Rx Namenda 10 mg PO BID 06/05/15 08/04/15 06/05/15 History Prednisone 5 mg PO DAILY 06/05/15 08/04/15 06/05/15 History HYDROcodone/APAP 5-325 [[place] 1 each PO Q6HR PRN #12 tablet 08/04/15 Unknown Rx 5/325] Meclizine [Antivert] 12.5 mg PO BID PRN #14 tablet 08/04/15 Unknown Rx Mirtazapine [Remeron] 45 mg PO QHS 08/04/15 08/04/15 Unknown History Quetiapine Fumarate [SEROquel XR] 400 mg PO QDAY 08/04/15 08/04/15 Unknown History Trazodone HCl 150 mg PO QHS 08/04/15 08/04/15 Unknown History HYDROcodone/APAP 5-325 [[place] 1 each PO Q6HR PRN #20 tablet 05/03/16 Unknown Rx 5-325 mg TAB] Loperamide [Imodium] 2 mg PO Q2HR #20 capsule 05/03/16 Unknown Rx Active Meds: Active Medications Heparin Sodium (Porcine) (Heparin) 5,000 unit SUB-Q Q12HR [place] Review of Systems All systems: negative (as HPI and all other ROS reviewed and negative.) Exam - Physical Exam Narrative exam: GEN: WDWN, NAD, AWAKE, ALERT, ORIENTATED 3 HEENT: NCAT, PERRL, EOMI, OP CLEAR NECK: SUPPLE, NO THYROMEGALY, NO JVD, NO LAD CVS: RRR, NORMAL S1S2 LUNGS/CHEST: CTA B, NORMAL CHEST EXPANSION B, GOOD AIR ENTRY B ABD: SOFT NTND, GBS, NO REBOUND OR GUARDING EXT/SKIN: NO SIGNIFICANT EDEMA OR RASH, Palms with discord lupus MSK: FROM X 4 EXTREMITIES NEURO: CN 2-12 GROSSLY INTACT, NO new FOCAL DEFICITS PSY: CALM - Constitutional Vitals: Temp Pulse Resp BP Pulse Ox 97.5 F L 70 19 141/78 99 05/14/16 20:28 05/14/16 20:28 05/14/16 20:28 05/14/16 20:28 05/14/16 20:28 Results - Labs CBC & Chem 7: 05/14/16 18:23 05/14/16 18:23 Labs: Abnormal lab results 05/14/16 05/14/16 Range/Units 18:23 18:23 RBC 5.12 H (3.65-5.03) M/mm3 MCV 75 L (79-97) fl MCH 24 L (28-32) pg RDW 15.7 H (13.2-15.2) % [place] % (Auto) 9.6 H (0.0-7.3) % BUN 27 H (7-17) mg/dL Albumin 3.4 L (3.9-5) g/dL Assessment and Plan Patient is a 70-year-old woman with a plethora of co-morbidities including CVA, hypertension, SLE with nephritis, CKD3, discord lupus, bipolar with psych admissions for bipolar disorder, hypothyroidism and chronic back pain with osteoarthritis who presents with transient loss consciousness while sitting at the dinner table. GEN no prodromal symptoms such assessed pain or palpitation. Early in the morning she did have headaches with some blurry vision but no vision loss or eye pains and her blood pressure was above normal. Currently, she is denies any symptoms. She is awake alert oriented 3. There is no seizure activities. She denies any headaches. - Syncope, appears vasovagal: monitor rhythm overnight, check echo - H/o cva: check lipid and carotid doppler - Accelerated hypertension: iv hydralazine prn - SLE, chronic, ? worsening - DVT prophylaxis with sc heparin
[2016-05-15] MEDS ORDERED: APRESOLINE IV PRN (01:51)
[2016-05-15] MEDS ORDERED: PLAVIX ONE (01:57)
[2016-05-15] MEDS ORDERED: IMODIUM PO PRN (02:00)
[2016-05-15] MEDS: NORCO 5/325 PO PRN ×3 (03:31→21:33)
[2016-05-15] MEDS ORDERED: SYNTHROID PO SCH (06:00)
[2016-05-15] MEDS: SYNTHROID PO SCH (06:22)
[2016-05-15] MEDS ORDERED: NON-FORMULARY (Quetiapine Fumarate [Seroquel Xr] 400 MG) PO SCH (10:00)
[2016-05-15] MEDS: NORVASC PO SCH (10:12)
[2016-05-15] MEDS: PLAVIX PO SCH (10:13)
[2016-05-15] MEDS: DELTASONE PO SCH (10:13)
[2016-05-15] MEDS: COREG PO SCH ×2 (10:14→21:32)
[2016-05-15] MEDS: NAMENDA XR PO SCH (10:14)
[2016-05-15] MEDS: HEPARIN SUB-Q SCH ×2 (10:15→21:33)
[2016-05-15] MEDS ORDERED: MILK OF MAGNESIA PO PRN (12:17)
--- NOTE | 2016-05-15 13:32 | Progress Note ---
Assessment and Plan Assessment and plan: Patient is a 70-year-old woman with a plethora of co-morbidities including CVA, hypertension, SLE with nephritis, CKD3, discord lupus, bipolar with psych admissions for bipolar disorder, hypothyroidism and chronic back pain with osteoarthritis who presents with transient loss consciousness while sitting at the dinner table. GEN no prodromal symptoms such assessed pain or palpitation. Early in the morning she did have headaches with some blurry vision and her blood pressure was above normal. Currently, she is denies any symptoms. She is awake alert oriented 3. There is no seizure activities. She denies any headaches. - Autonomic disequilibrium -Syncope, appears vasovagal: monitor rhythm overnight , check echo, obtain cardiology consultation she is well-developed. No events noted on telemetry May benefit from an event monitor. - H/o cva: check lipid and carotid doppler - Accelerated hypertension: iv hydralazine prn - SLE, chronic, ? worsening - DVT prophylaxis with sc heparin -1 of care discussed with patient also with hard tile setter anticipate discharge. If all symptoms remain the same. History Interval history: Patient seen and examined today in no acute distress, reports resolution of symptoms. Denies any chest pain, nausea, vomiting, diarrhea denies any palpitation . No other adverse events reported by nursing staff Hospitalist Physical - Physical exam Narrative exam: VITAL SIGNS: Reviewed. GENERAL: The patient appeared well nourished and normally developed. Vital signs as documented. HEAD: No signs of head trauma. EYES: Pupils are equal. Extraocular motions intact. EARS: Hearing grossly intact. MOUTH: Oropharynx is normal. NECK: No adenopathy, no JVD. CHEST: Chest with clear breath sounds bilaterally. No wheezes, rales, or rhonchi. CARDIAC: Regular rate and rhythm. S1 and S2, without murmurs, gallops, or rubs. VASCULAR: No Edema. Peripheral pulses normal and equal in all extremities. ABDOMEN: Soft, without detectable tenderness. No sign of distention. No rebound or guarding, and no masses palpated. Bowel Sounds normal. MUSCULOSKELETAL: Good range of motion of all major joints. Extremities without clubbing, cyanosis or edema. NEUROLOGIC EXAM: Alert and oriented x 3. No focal sensory or strength deficits. Speech normal. Follows commands. PSYCHIATRIC: Mood normal. SKIN: No rash or lesions. - Constitutional Vitals: Temp Pulse Resp BP Pulse Ox 97 F L 73 18 140/81 98 05/15/16 11:00 05/15/16 11:00 05/15/16 11:00 05/15/16 11:00 05/15/16 11:00 Results - Labs CBC & Chem 7: 05/14/16 18:23 05/14/16 18:23 Labs: Laboratory Last Values WBC 7.4 K/mm3 (4.5-11.0) 05/14/16 18:23 RBC 5.12 M/mm3 (3.65-5.03) H 05/14/16 18:23 Hgb 12.1 gm/dl (10.1-14.3) 05/14/16 18:23 Hct 38.6 % (30.3-42.9) 05/14/16 18: MCV 75 fl (79-97) L 05/14/16 18: MCH 24 pg (28-32) L 05/14/16 18: MCHC 31 % (30-34) 05/14/16 18:23 RDW 15.7 % (13.2-15.2) H 05/14/16 18:23 Plt Count 217 K/mm3 (140-440) 05/14/16 18:23 Lymph % (Auto) 28.2 % (13.4-35.0) 05/14/16 18:23 [place] % (Auto) 9.6 % (0.0-7.3) H 05/14/16 18:23 Eos % (Auto) 0.9 % (0.0-4.3) 05/14/16 18: Baso % (Auto) 0.5 % (0.0-1.8) 05/14/16 18:23 Lymph # 2.1 K/mm3 (1.2-5.4) 05/14/16 18:23 [place] # 0.7 K/mm3 (0.0-0.8) 05/14/16 18: Eos # 0.1 K/mm3 (0.0-0.4) 05/14/16 18:23 Baso # 0.0 K/mm3 (0.0-0.1) 05/14/16 18: Seg Neutrophils % 60.8 % (40.0-70.0) 05/14/16 18:23 Seg Neutrophils # 4.5 K/mm3 (1.8-7.7) 05/14/16 18:23 Carbon Dioxide 25 mmol/L (22-30) 05/14/16 18:23 BUN 27 mg/dL (7-17) H 05/14/16 18:23 Creatinine 1.1 mg/dL (0.7-1.2) 05/14/16 18:23 Estimated GFR 60 ml/min 05/14/16 18:23 BUN/Creatinine Ratio 24.54 % 05/14/16 18:23 Glucose 86 mg/dL (65-100) 05/14/16 18:23 POC Glucose 105 (70-105) 05/14/16 17:34 Calcium 9.3 mg/dL (8.4-10.2) 05/14/16 18:23 Total Bilirubin 0.2 mg/dL (0.1-1.2) 05/14/16 18:23 AST 17 units/L (5-40) 05/14/16 18:23 ALT 15 units/L (7-56) 05/14/16 18:23 Alkaline Phosphatase 78 units/L (35-129) 05/14/16 18:23 Total Creatine Kinase 46 units/L (30-135) 05/14/16 18:23 CK-MB (CK-2) Rel Index 3.4 (0-4) 05/14/16 18:23 Troponin T < 0.010 ng/mL (0.00-0.029) 05/14/16 18:23 Total Protein 7.4 g/dL (6.3-8.2) 05/14/16 18:23 Albumin 3.4 g/dL (3.9-5) L 05/14/16 18:23 Albumin/Globulin Ratio 0.9 % 05/14/16 18:23 Triglycerides 120 mg/dL (2-149) 05/15/16 06:51 Cholesterol 164 mg/dL (50-199) 05/15/16 06:51 LDL Cholesterol Direct 72 mg/dL (50-130) 05/15/16 06:51 HDL Cholesterol 68 mg/dL (40-59) H 05/15/16 06:51 Cholesterol/HDL Ratio 2.41 % 05/15/16 06:51 TSH 1.570 mlU/mL (0.270-4.200) 05/15/16 06:51 Urine Color Yellow (Yellow) 05/14/16 19:04 Urine Turbidity Clear (Clear) 05/14/16 19:04 Urine pH 6.0 (5.0-7.0) 05/14/16 19:04 Ur Specific [place] 1.018 (1.003-1.030) 05/14/16 19:04 Urine Protein <15 mg/dl mg/dL (Negative) 05/14/16 19:04 Urine Glucose (UA) Neg mg/dL (Negative) 05/14/16 19:04 Urine Ketones Neg mg/dL (Negative) 05/14/16 19:04 Urine Blood Neg (Negative) 05/14/16 19:04 Urine Nitrite Neg (Negative) 05/14/16 19:04 Urine Bilirubin Neg (Negative) 05/14/16 19:04 Urine Urobilinogen < 2.0 mg/dL (<2.0) 05/14/16 19:04 Ur Leukocyte Esterase Sm (Negative) 05/14/16 19:04 Urine WBC (Auto) 4.0 /HPF (0.0-6.0) 05/14/16 19:04 Urine RBC (Auto) 6.0 /HPF (0.0-6.0) 05/14/16 19:04 U Epithel Cells (Auto) 3.0 /HPF (0-13.0) 05/14/16 19:04 Amorphous Crystals Few 05/14/16 19:04 - Imaging and Cardiology CT Scan - head: image reviewed (no acute pathology)
[2016-05-15] MEDS ORDERED: XANAX PO PRN (13:46)
--- NOTE | 2016-05-15 14:02 | Consultation ---
History of Present Illness Consult date: 05/15/16 Consult reason: syncope History of present illness: The patient is a 70-year-old woman with multiple medical problems, history of bipolar disorder, lupus, chronic hypertension, prior CVA and chronic tobacco abuse. She presented to the hospital at this time with syncope. There was no chest pain, no palpitations and no shortness of breath. She has no lower extremity edema. Consultation was requested for syncope. EKG is normal sinus rhythm, a ECG. Initial cardiac enzymes and negative. The patient has no significant cardiac history on my review of her hospital records. Outpatient records are not available for review at this time. Patient is a poor historian. She is on Plavix therapy, uncertain if this is cardiac indication or for her history of CVA. Past History Past Medical History: other (hpi) Past Surgical History: appendectomy, cholecystectomy, Other (venous stripping, tubal ligation) Social history: smoking, full code. denies: alcohol abuse, prescription drug abuse, IV drug use Family history: hypertension Medications and Allergies Allergies Allergy/AdvReac Type Severity Reaction Status Date / Time captopril Allergy Rash Verified 09/18/14 10:41 clindamycin Allergy Diarrhea Verified 09/18/14 10:41 NSAIDS (Non-Steroidal Allergy Rash Verified 09/18/14 10:41 Anti-Inflamma Penicillins Allergy Rash Verified 09/18/14 10:41 Sulfa (Sulfonamide Allergy Rash Verified 09/18/14 10:41 Antibiotics) Home Medications Medication Instructions Recorded Confirmed Last Taken Type Carvedilol 25 mg PO BID 03/18/13 08/04/15 06/05/15 History Levothyroxine [Synthroid] 0.25 tab PO DAILY 03/18/13 08/04/15 06/05/15 History Clopidogrel [Plavix] 75 mg PO QDAY #30 tablet 07/10/14 08/04/15 06/05/15 Rx Amlodipine Besylate [Norvasc] 2.5 mg PO DAILY #30 tab 06/05/15 08/04/15 Unknown Rx Namenda 10 mg PO BID 06/05/15 08/04/15 06/05/15 History Prednisone 5 mg PO DAILY 06/05/15 08/04/15 06/05/15 History HYDROcodone/APAP 5-325 [[place] 1 each PO Q6HR PRN #12 tablet 08/04/15 Unknown Rx 5/325] Meclizine [Antivert] 12.5 mg PO BID PRN #14 tablet 08/04/15 Unknown Rx Mirtazapine [Remeron] 45 mg PO QHS 08/04/15 08/04/15 Unknown History Quetiapine Fumarate [SEROquel XR] 400 mg PO QDAY 08/04/15 08/04/15 Unknown History Trazodone HCl 150 mg PO QHS 08/04/15 08/04/15 Unknown History HYDROcodone/APAP 5-325 [[place] 1 each PO Q6HR PRN #20 tablet 05/03/16 Unknown Rx 5-325 mg TAB] Loperamide [Imodium] 2 mg PO Q2HR #20 capsule 05/03/16 Unknown Rx Active Meds: Active Medications Acetaminophen/Hydrocodone Bitart ([place] 5/325) 1 each PO Q6H PRN PRN Reason: Pain Last Admin: 05/15/16 13:42 Dose: 1 each Alprazolam (Xanax) 0.25 mg PO Q8H PRN PRN Reason: Anxiety Amlodipine Besylate (Norvasc) 2.5 mg PO DAILY [facility] Last Admin: 05/15/16 10:12 Dose: 2.5 mg Carvedilol (Coreg) 25 mg PO BID [facility] Last Admin: 05/15/16 10:14 Dose: 25 mg Clopidogrel Bisulfate (Plavix) 75 mg PO QDAY [facility] Last Admin: 05/15/16 10:13 Dose: 75 mg Heparin Sodium (Porcine) (Heparin) 5,000 unit SUB-Q Q12HR [facility] Last Admin: 05/15/16 10:15 Dose: 5,000 unit Hydralazine HCl (Apresoline) 10 mg IV Q4H PRN PRN Reason: Blood Pressure Levothyroxine Sodium (Synthroid) 50 mcg PO 0600 [facility] Last Admin: 05/15/16 06:22 Dose: 50 mcg Loperamide HCl (Imodium) 2 mg PO Q2H PRN PRN Reason: Diarrhea Magnesium Hydroxide (Milk Of Magnesia) 30 ml PO QDAY PRN PRN Reason: Constipation Meclizine HCl (Antivert) 12.5 mg PO BID PRN PRN Reason: Vertigo Memantine (Namenda Xr) 28 mg PO QAM [facility] Last Admin: 04/08/17 10:14 Dose: 28 mg Mirtazapine (Remeron) 45 mg PO QHS [facility] Miscellaneous Medication (Quetiapine Fumarate [Seroquel Xr]) 400 mg PO QDAY [facility] Prednisone (Deltasone) 5 mg PO DAILY [facility] Last Admin: 05/15/16 10:13 Dose: 5 mg Trazodone HCl (Desyrel) 150 mg PO QHS [facility] Review of Systems Cardiovascular: syncope, no chest pain, no orthopnea, no palpitations, no rapid/ irregular heart beat, no edema, no lightheadedness, no shortness of breath Physical Examination Vital Signs Temp Pulse Resp BP Pulse Ox 97.8 F 74 18 185/110 100 05/14/16 17:30 05/14/16 17:30 05/14/16 17:30 05/14/16 17:30 05/14/16 17:30 General appearance: no acute distress HEENT: Positive: PERRL Neck: Positive: neck supple Cardiac: Positive: Reg Rate and Rhythm Lungs: Positive: Decreased Breath Sounds Neuro: Positive: Grossly Intact Abdomen: Positive: Soft Female genitourinary: deferred Skin: Positive: Clear Extremities: Absent: edema Results 05/14/16 18:23 05/14/16 18:23 Lipids 05/15/16 Range/Units 06:51 Triglycerides 120 (2-149) mg/dL Cholesterol 164 (50-199) mg/dL HDL Cholesterol 68 H (40-59) mg/dL Cholesterol/HDL Ratio 2.41 % EKG interpretations - Telemetry EKG Rhythm: Sinus Rhythm Assessment and Plan - Patient Problems (1) Syncope Current Visit: Yes Status: Acute Qualifiers: Syncope type: S Encounter type: initial encounter Plan to address problem: Patient presented with syncope, ECG is normal, cardiac enzymes and negative. An echocardiogram has been ordered for left ventricular function assessment, and this will be reviewed. Further cardiac evaluation and management will depend on clinical course.
[2016-05-15] MEDS ORDERED: REMERON PO SCH (22:00)
[2016-05-15] MEDS ORDERED: DESYREL PO SCH (22:00)
--- NOTE | 2016-05-16 01:28 | Admit Criteria Form ---
Admission Criteria Documentation: SYNCOPE Clinical Indications for Admission to Inpatient Care ( Place 'X' for any and all applicable criteria): Admission is indicated for syncope and ANY ONE of the following (1)(2)(3)(4)(5) (6)(7) : [X ]I. Inpatient admission required rather than observation care (Also use Syncope: Observation Care Criteria as appropriate) because of ANY ONE of the following: [ ]a) Hemodynamic instability that is severe or persistent [ ]b) Cardiac arrhythmias of immediate concern identified or strongly suspected (eg, needs electrophysiologic study) [ ]c) Acute coronary syndrome identified (Also use Myocardial Infarction or Angina Criteria form ) [ ]d) Structural cardiac disorder (eg, aortic stenosis) suspected as cause that requires immediate correction [ ]e) Respiratory symptoms (eg, dyspnea, tachypnea) that are severe or persistent [ ]f) Neurologic signs or symptoms that are severe or persistent ( eg, stroke, seizures, altered mental status) [ ]g) Severe electrolyte abnormalities requiring inpatient care [ ]h) Supplemental oxygen or respiratory treatment for over 24 hrs that are performable only in acute inpatient setting [ ]i) IV fluid to replace significant ongoing (eg, for over 24 hrs ) losses (>3 L/m2 per day) [ ]j) Continuous intravenous infusion of anticoagulation, platelet inhibitor, vasoactive, or antiarrhythmic medication(15)(16) [ ]k) Pulmonary artery catheter monitoring [ ]l) Temporary pacemaker placement(17) [ ]m) Emergent cardioversion(18) [ X]n) Other conditions, treatment or monitoring requiring inpatient admission [ ]II. Suspicion of imminently dangerous cause (eg, rare causes like pericardial tamponade, pulmonary embolism) [ ]III. Syncope causing severe injury requiring hospitalization Extended stay beyond goal length of stay may be needed for(28) [ ]a) Dangerous arrhythmia(15)(23)(27)(29) [ ]b) Myocardial ischemia [ ]c) Seizure disorder [ ]d) Syncope-related injuries The original [employer] content created by [email or web address] has been revised. The portions of the content which have been revised are identified through the use of italic text or in bold, and [employer] has neither reviewed nor approved the modified material. All other unmodified content is copyright [email or web address]. Please see references footnoted in the original [facility] edition 2016 Admission Criteria Met: Yes
[2016-05-16] MEDS: NORCO 5/325 PO PRN (05:46)
[2016-05-16] MEDS: SYNTHROID PO SCH (05:46)
--- NOTE | 2016-05-16 10:20 | Discharge Summary ---
Providers - Providers Date of Admission: 05/15/16 01:41 Date of discharge: 05/16/16 Attending physician: IVETT FELIX MD 05/15/16 11:52 Consult to Physician [CONS] Routine Consulting Provider: GREGORIA VINES Reason For Exam: syncope Place consult to:: DR. VINES Notified:: ANSWERING SERVICE Phone number called:: [phone] Was contact made?: Yes If yes, spoke with:: CYNTHIA Time called:: 12:27 Comment:: CONSULT COMPLETED - APRIL Primary care physician: MEDICAL SUPERINTENDENT Hospitalization Reason for admission: syncope Condition: Stable Hospital course: Patient is a 70-year-old woman with a plethora of co-morbidities including CVA, hypertension, SLE with nephritis, CKD3, discord lupus, bipolar with psych admissions for bipolar disorder, hypothyroidism and chronic back pain with osteoarthritis who presents with transient loss consciousness while sitting at the dinner table. GEN no prodromal symptoms such assessed pain or palpitation. Early in the morning she did have headaches with some blurry vision and her blood pressure was above normal. Currently, she is denies any symptoms. She is awake alert oriented 3. There is no seizure activities. She denies any headaches. Patient was seen by cardiology echocardiogram was done and left ventricle looks normal. Did recommend to follow up with cardiology outpatient for further evaluation. We also recommended an event monitor. Benefit left eye irritation which appears with mild erythema she states that she was recently started on some eyedrops she does not recall the name I encouraged her to resume the eyedrops in the meantime advice and was given as this appears more from allergic reaction or erythema in the surrounding areas. No evidence of trauma. Discharge diagnosis - Autonomic disequilibrium -Syncope, - H/o cva: -Hypertensive urgency - SLE, Disposition: DC/TX HOME UNDER HOME HEALTH Time spent for discharge: 35 MINS Core Measure Documentation - Palliative Care Palliative Care/ Comfort Measures: Not Applicable - Core Measures Any of the following diagnoses?: none - VTE Discharge Requirements Deep Vein Thrombosis/Pulmonary Embolism Present on Admission: No Exam - Physical Exam Narrative exam: VITAL SIGNS: Reviewed. GENERAL: The patient appeared well nourished and normally developed. Vital signs as documented. HEAD: No signs of head trauma. EYES: Pupils are equal. Extraocular motions intact. EARS: Hearing grossly intact. MOUTH: Oropharynx is normal. NECK: No adenopathy, no JVD. CHEST: Chest with clear breath sounds bilaterally. No wheezes, rales, or rhonchi. CARDIAC: Regular rate and rhythm. S1 and S2, without murmurs, gallops, or rubs. VASCULAR: No Edema. Peripheral pulses normal and equal in all extremities. ABDOMEN: Soft, without detectable tenderness. No sign of distention. No rebound or guarding, and no masses palpated. Bowel Sounds normal. MUSCULOSKELETAL: Good range of motion of all major joints. Extremities without clubbing, cyanosis or edema. NEUROLOGIC EXAM: Alert and oriented x 3. No focal sensory or strength deficits. Speech normal. Follows commands. PSYCHIATRIC: Mood normal. SKIN: No rash or lesions. - Constitutional Vitals: Temp Pulse Resp BP Pulse Ox 97.7 F 84 20 102/62 97 05/16/16 08:00 05/16/16 08:00 05/16/16 08:00 05/16/16 08:00 05/16/16 08:00 Plan Activity: advance as tolerated, fall precautions Diet: low fat Special Instructions: record daily BP diary, home health RN Additional Instructions: NEEDS CARDIAC EVENT MONITOR OUTPATIENT. SHOULD FOLLOW UP WITH CARDIOLOGY FOR THIS TO BE SET UP. Follow up with: BAUDILIO DU MD [Primary Care Provider] - 3-5 Days GREGORIA VINES MD [Staff Physician] - 7 Days
[2016-05-16] MEDS: PLAVIX PO SCH (10:55)
[2016-05-16] MEDS: NAMENDA XR PO SCH (10:55)
[2016-05-16] MEDS: HEPARIN SUB-Q SCH (10:55)
[2016-05-16] MEDS: COREG PO SCH (10:55)
[2016-05-16] MEDS: DELTASONE PO SCH (10:55)
[2016-05-16] MEDS: NORVASC PO SCH (10:55)
--- NOTE | 2016-05-16 12:28 | Progress Note ---
Assessment and Plan - Patient Problems (1) Syncope Current Visit: Yes Status: Acute Qualifiers: Syncope type: S Encounter type: initial encounter Plan to address problem: Patient presented with syncope, ECG is normal, cardiac enzymes and negative. An echocardiogram has been ordered for left ventricular function assessment, and this will be reviewed. Further cardiac evaluation and management will depend on clinical course. Subjective Date of service: 05/16/16 Interval history: Patient looks and feels comfortable, no acute distress. No new cardiac complaints. Echocardiogram was done today, results pending. Objective Vital Signs Temp Pulse Pulse Pulse Resp Resp BP 05/16/16 10:55 84 102/62 05/16/16 08:00 97.7 F 84 20 05/16/16 06:46 20 05/16/16 05:46 98.3 F 79 20 05/16/16 01:03 97.9 F 72 96 H 05/15/16 22:33 20 05/15/16 21:37 20 05/15/16 21:33 20 05/15/16 21:32 75 172/65 05/15/16 21:01 97.7 F 75 20 05/15/16 19:59 74 20 05/15/16 19:56 74 05/15/16 19:44 20 BP Pulse Ox 05/16/16 10:55 05/16/16 08:00 102/62 97 05/16/16 06:46 05/16/16 05:46 135/69 95 05/16/16 01:03 147/73 96 05/15/16 22:33 05/15/16 21:37 05/15/16 21:33 05/15/16 21:32 05/15/16 21:01 172/65 99 05/15/16 19:59 99 05/15/16 19:56 05/15/16 19:44 - Physical Examination General: No Apparent Distress HEENT: Positive: PERRL Neck: Positive: neck supple Cardiac: Positive: Reg Rate and Rhythm Lungs: Positive: Decreased Breath Sounds Neuro: Positive: Grossly Intact Abdomen: Positive: Soft Skin: Positive: Clear Extremities: Absent: edema
[2016-05-16] MEDS ORDERED: VISINE-A OU PRN (13:00)
[2016-05-16 14:45] VITALS: BP 140/63
--- NOTE | 2016-05-19 08:04 | Vascular Lab Report ---
CAROTID DUPLEX STUDY: RIGHT PSVEDV CCA PROX:[id number] CCA DIST:[id number] ICA PROX:6513 ICA MID:7728 ICA DIST:6425 ECA: 56 VERT: 43 18 LEFT PSVEDV CCA PROX:9524 CCA DIST:5916 ICA PROX:7918 ICA MID:7628 ICA DIST:6724 ECA: 66 VERT: 48 18 REASON FOR EXAM: CVA. COMMENTS ON THE RIGHT: Doppler frequency analysis is consistent with 16 to 49 percent diameter reduction of the internal carotid artery. Minimal amount of plaque is seen. The common carotid artery is patent. The external carotid artery is patent. The vertebral artery has antegrade flow. COMMENTS ON THE LEFT: Doppler frequency analysis is consistent with 16 to 49 percent diameter reduction of the internal carotid artery. Minimal amount of plaque is seen. The common carotid artery is patent. The external carotid artery is patent. The vertebral artery has antegrade flow. IMPRESSION: Less than 50% diameter reduction in the internal carotid arteries bilaterally. Consider repeat carotid artery duplex in 12 months.
== END 2016-05-16 16:30 | disposition home health service (06) | DRG 312 ==
LOC: ED 17:24 → 4A 05-15 01:41
PROVIDERS: ADMIT Internal Medicine; ATTEND Internal Medicine
DX: R55 Syncope and collapse (principal); M32.9 Systemic lupus erythematosus, unspecified; I12.9 Hypertensive chronic kidney disease with stage 1 through stage 4 chronic kidney disease, or unspecified chronic kidney disease; N18.3 Chronic kidney disease, stage 3 (moderate); E87.8 Other disorders of electrolyte and fluid balance, not elsewhere classified; F31.9 Bipolar disorder, unspecified; I16.0 Hypertensive urgency; F17.200 Nicotine dependence, unspecified, uncomplicated; E03.9 Hypothyroidism, unspecified; F03.90 Unspecified dementia, unspecified severity, without behavioral disturbance, psychotic disturbance, mood disturbance, and anxiety; M19.90 Unspecified osteoarthritis, unspecified site; G89.29 Other chronic pain; Z82.49 Family history of ischemic heart disease and other diseases of the circulatory system; Z88.2 Allergy status to sulfonamides; Z88.1 Allergy status to other antibiotic agents; Z88.0 Allergy status to penicillin; Z88.8 Allergy status to other drugs, medicaments and biological substances; Z86.73 Personal history of transient ischemic attack (TIA), and cerebral infarction without residual deficits; Z90.49 Acquired absence of other specified parts of digestive tract; Z79.899 Other long term (current) drug therapy
CPT/HCPCS: 36415; 70450; 80053; 80061; 81001; 82550; 82553; 82962; 84443; 84484; 85025; 93005; 93010; 93306; 93880; 96361; 96374; 99406; J1644; J2270; J7030; J7512

== ENCOUNTER 2016-05-27 08:04 | Emergency (ER) | payer MEDICARE ==
[2016-05-27 08:54] LABS: Eosinophils % (Auto) 2.2 % (0.0-4.3); Hematocrit 38.5 % (30.3-42.9); Hemoglobin 12.2 gm/dl (10.1-14.3); Mean Corpuscular HGB Conc 32 % (30-34); Mean Corpuscular Volume 75 fl (79-97); Platelet Count 230 K/mm3 (140-440); Red Blood Count 5.11 M/mm3 (3.65-5.03); Red Cell Distribution Width 15.5 % (13.2-15.2); White Blood Count 6.8 K/mm3 (4.5-11.0)
[2016-05-27 08:59] LABS: BUN/Creatinine Ratio 17.5; Calcium 9.5 mg/dL (8.4-10.2); Chloride 104.5 mmol/L (98-107); Potassium 3.8 mmol/L (3.6-5.0)
[2016-05-27 09:00] LABS: Mean Corpuscular Hemoglobin 24 pg (28-32)
--- NOTE | 2016-05-27 10:23 | Emergency Department Report ---
ED General Adult HPI - General Chief complaint: Back Pain/Injury Stated complaint: LOWER BACK PAIN Time Seen by Provider: 05/27/16 10:22 Source: patient Mode of arrival: Ambulatory Limitations: Language Barrier - History of Present Illness Initial comments: Patient is here with chronic back pain. It is unknown and uncertain why she did not go to her primary care doctor Brock Ward. She admits that she has been chronic pain management the floor and somehow this was discontinued. SHe states he was seen by Brock Ward 2 weeks ago. SHe states the pain has been worse over the past 2 days. She describes it as lower back pain which is accompanied by a burning sensation down both her legs. This pain pattern has not changed for her. She reports no bowel or bladder symptoms. She really reports no focal weakness or numbness. She states she is out of her pain medicine. CT showed degenerative changes of the lower spine and 05/03/2016 there are is mention of any disc herniations or cord impingement. -: days(s) (worse for 2 days), year(s) (Present for years.) Location: back (lower) Radiation: other (burning both legs) Quality: burning Consistency: intermittent Improves with: movement Worsens with: none Associated Symptoms: denies other symptoms - Related Data Home Medications Medication Instructions Recorded Confirmed Last Taken Carvedilol 25 mg PO BID 03/18/13 05/27/16 06/05/15 Levothyroxine [Synthroid] 0.25 tab PO DAILY 03/18/13 05/27/16 06/05/15 Namenda 10 mg PO BID 06/05/15 05/27/16 06/05/15 Prednisone 5 mg PO DAILY 06/05/15 05/27/16 06/05/15 Mirtazapine [Remeron] 45 mg PO QHS 08/04/15 05/27/16 Unknown Quetiapine Fumarate [SEROquel XR] 400 mg PO QDAY 08/04/15 05/27/16 Unknown Trazodone HCl 150 mg PO QHS 08/04/15 05/27/16 Unknown Previous Rx's Medication Instructions Recorded Last Taken Type Clopidogrel [Plavix] 75 mg PO QDAY #30 tablet 07/10/14 06/05/15 Rx Amlodipine Besylate [Norvasc] 2.5 mg PO DAILY #30 tab 06/05/15 Unknown Rx HYDROcodone/APAP 5-325 [Point 1 each PO Q6HR PRN #12 tablet 08/04/15 Unknown Rx 5-325 mg TAB] Meclizine [Antivert] 12.5 mg PO BID PRN #14 tablet 08/04/15 Unknown Rx HYDROcodone/APAP 5-325 [Point 1 each PO Q6HR PRN #20 tablet 05/03/16 Unknown Rx 5-325 mg TAB] Loperamide [Imodium] 2 mg PO Q2HR #20 capsule 05/03/16 Unknown Rx Cyclobenzaprine HCl [Flexeril 5 MG 5 mg PO TID PRN #14 tab 05/27/16 Unknown Rx TAB] HYDROcodone/APAP 7.5-325 [Point 1 each PO Q6HR PRN #14 tablet 05/27/16 Unknown Rx 7.5/325] Allergies Allergy/AdvReac Type Severity Reaction Status Date / Time captopril Allergy Rash Verified 09/18/14 10:41 clindamycin Allergy Diarrhea Verified 09/18/14 10:41 NSAIDS (Non-Steroidal Allergy Rash Verified 09/18/14 10:41 Anti-Inflamma Penicillins Allergy Rash Verified 09/18/14 10:41 Sulfa (Sulfonamide Allergy Rash Verified 09/18/14 10:41 Antibiotics) ED Review of Systems ROS: Stated complaint: LOWER BACK PAIN Other details as noted in HPI Constitutional: denies: chills, fever Eyes: denies: eye pain, eye discharge, vision change ENT: denies: ear pain, throat pain Respiratory: denies: cough, shortness of breath, wheezing Cardiovascular: denies: chest pain, palpitations Endocrine: no symptoms reported Gastrointestinal: denies: abdominal pain, nausea, diarrhea Genitourinary: denies: urgency, dysuria, discharge Musculoskeletal: as per HPI, back pain. denies: joint swelling Skin: as per HPI. denies: rash, lesions Neurological: denies: headache, weakness, paresthesias Psychiatric: denies: anxiety, depression Hematological/Lymphatic: denies: easy bleeding, easy bruising ED Past Medical Hx - Past Medical History Previous Medical History?: Yes Hx Hypertension: Yes Hx CVA: Yes (07/07/14) Hx Heart Attack/AMI: No Hx Congestive Heart Failure: No Hx Diabetes: No Hx Deep Vein Thrombosis: No Hx Pulmonary Embolism: No Hx Liver Disease: No Hx Renal Disease: Yes (Stage III renal dx) Hx Sickle Cell Disease: No Hx Arthritis: Yes Hx Seizures: No Hx Kidney Stones: No Hx Asthma: No Hx COPD: No Hx Tuberculosis: No Hx Dementia: Yes (takes aricept) Hx HIV: No Additional medical history: 3 herniated discs. LUPUS. hypothyroid - Surgical History Past Surgical History?: Yes Hx Coronary Stent: No Hx Open Heart Surgery: No Hx Pacemaker: No Hx Internal Defibrillator: No Hx Cholecystectomy: Yes Hx Appendectomy: Yes Hx Breast Surgery: No - Social History Smoking Status: Current Every Day Smoker Substance Use Type: None - Medications Home Medications: Home Medications Medication Instructions Recorded Confirmed Last Taken Type Carvedilol 25 mg PO BID 03/18/13 05/27/16 06/05/15 History Levothyroxine [Synthroid] 0.25 tab PO DAILY 03/18/13 05/27/16 06/05/15 History Clopidogrel [Plavix] 75 mg PO QDAY #30 tablet 07/10/14 05/27/16 06/05/15 Rx Amlodipine Besylate [Norvasc] 2.5 mg PO DAILY #30 tab 06/05/15 05/27/16 Unknown Rx Namenda 10 mg PO BID 06/05/15 05/27/16 06/05/15 History Prednisone 5 mg PO DAILY 06/05/15 05/27/16 06/05/15 History HYDROcodone/APAP 5-325 [Point 1 each PO Q6HR PRN #12 tablet 08/04/15 05/27/16 Unknown Rx 5-325 mg TAB] Meclizine [Antivert] 12.5 mg PO BID PRN #14 tablet 08/04/15 05/27/16 Unknown Rx Mirtazapine [Remeron] 45 mg PO QHS 08/04/15 05/27/16 Unknown History Quetiapine Fumarate [SEROquel XR] 400 mg PO QDAY 08/04/15 05/27/16 Unknown History Trazodone HCl 150 mg PO QHS 08/04/15 05/27/16 Unknown History HYDROcodone/APAP 5-325 [Point 1 each PO Q6HR PRN #20 tablet 05/03/16 05/27/16 Unknown Rx 5-325 mg TAB] Loperamide [Imodium] 2 mg PO Q2HR #20 capsule 05/03/16 05/27/16 Unknown Rx Cyclobenzaprine HCl [Flexeril 5 MG 5 mg PO TID PRN #14 tab 05/27/16 Unknown Rx TAB] HYDROcodone/APAP 7.5-325 [Point 1 each PO Q6HR PRN #14 tablet 05/27/16 Unknown Rx 7.5/325] ED Physical Exam - General Limitations: Language Barrier General appearance: alert, in no apparent distress - Head Head exam: Present: atraumatic, normocephalic - Eye Eye exam: Present: normal appearance. Absent: scleral icterus - ENT ENT exam: Present: normal exam, mucous membranes moist - Neck Neck exam: Present: normal inspection - Respiratory Respiratory exam: Present: normal lung sounds bilaterally. Absent: respiratory distress - Cardiovascular Cardiovascular Exam: Present: regular rate, normal rhythm. Absent: systolic murmur, diastolic murmur, rubs, gallop - GI/Abdominal GI/Abdominal exam: Present: soft, normal bowel sounds. Absent: distended, tenderness, guarding, rebound, rigid, organomegaly, mass, bruit, pulsatile mass , hernia - Extremities Exam Extremities exam: Present: normal inspection, other (straight leg raise negative laterally) - Back Exam Back exam: Present: normal inspection, paraspinal tenderness. Absent: full ROM (not full but no acute change), tenderness, CVA tenderness (L), muscle spasm, vertebral tenderness - Neurological Exam Neurological exam: Present: alert, oriented X3, CN II-XII intact. Absent: motor sensory deficit - Psychiatric Psychiatric exam: Present: normal affect, normal mood - Skin Skin exam: Present: warm, dry, intact, normal color. Absent: rash ED Course Vital Signs 05/27/16 05/27/16 05/27/16 08:14 10:04 10:10 Temperature 97.7 F Pulse Rate 93 H Respiratory 20 Rate Blood Pressure 187/122 140/91 140/91 Blood Pressure [Left] O2 Sat by Pulse 100 100 Oximetry 05/27/16 05/27/16 05/27/16 10:21 10:27 10:31 Temperature 97.5 F L Pulse Rate 70 Respiratory 16 16 Rate Blood Pressure 140/91 Blood Pressure 140/91 [Left] O2 Sat by Pulse 100 100 Oximetry - Reevaluation(s) Reevaluation #1: Analgesia given. Orthopedic referral. Chronic pain management recommended. 05/27/16 10:57 ED Medical Decision Making - Lab Data Result diagrams: 05/27/16 08:26 05/27/16 08:26 Laboratory Results - last 24 hr 05/27/16 05/27/16 05/27/16 08:26 08:26 08:26 WBC 6.8 RBC 5.11 H Hgb 12.2 Hct 38.5 MCV 75 L MCH 24 L MCHC 32 RDW 15.5 H Plt Count 230 Lymph % (Auto) 38.3 H Mcnairy % (Auto) 8.7 H Eos % (Auto) 2.2 Baso % (Auto) 1.0 Lymph # 2.6 Mcnairy # 0.6 Eos # 0.1 Baso # 0.1 Seg Neutrophils % 49.8 Seg Neutrophils # 3.4 Sodium 142 Potassium 3.8 Chloride 104.5 Carbon Dioxide 24 Anion Gap 17 BUN 21 H Creatinine 1.2 Estimated GFR 54 BUN/Creatinine Ratio 17.50 Glucose 80 Calcium 9.5 Troponin T < 0.010 - EKG Data -: EKG Interpreted by Me EKG shows normal: sinus rhythm, axis, intervals, QRS complexes, ST-T waves Rate: normal - EKG Data Interpretation: normal EKG Critical care attestation.: If time is entered above; I have spent that time in minutes in the direct care of this critically ill patient, excluding procedure time. ED Disposition Clinical Impression: Lower back pain Qualifiers: Chronicity: unspecified Back pain laterality: bilateral Sciatica presence: without sciatica Qualified Code(s): M54.5 - Low back pain Chronic pain Qualifiers: Chronic pain type: other chronic pain Qualified Code(s): G89.29 - Other chronic pain Disposition: DISCHARGED TO HOME OR SELFCARE Is pt being admited?: No Does the pt Need Aspirin: No Condition: Stable Instructions: Low Back Strain (ED), Arthralgia (ED) Additional Instructions: Return any acute change or problem. I've given you an orthopedic referral. Please discuss chronic pain management with Dr. Brock Ward walk with him as well. Prescriptions: Cyclobenzaprine HCl [Flexeril 5 MG TAB] 5 mg PO TID PRN #14 tab PRN Reason: Spasms HYDROcodone/APAP 7.5-325 [Point 7.5/325] 1 each PO Q6HR PRN #14 tablet PRN Reason: Pain Referrals: BROCK WARD MD [Primary Care Provider] - 2-3 Days VINCENT GOLDEN MD [Staff Physician] - 3-5 Days Time of Disposition: 11:00
[2016-05-27] MEDS ORDERED: DILAUDID IM ONE (11:02)
[2016-05-27] MEDS ORDERED: BENADRYL PO ONE (11:03)
[2016-05-27] MEDS ORDERED: ZOFRAN ODT PO ONE (11:03)
[2016-05-27 11:22] LABS: Creatine Kinase MB 1.4 ng/mL (0.0-4.0)
[2016-05-27 11:31] VITALS: BP 135/65
== END 2016-05-27 11:50 | disposition home or self-care (01) ==
LOC: ED 08:04
DX: M54.5 Low back pain (principal); G89.29 Other chronic pain; F17.200 Nicotine dependence, unspecified, uncomplicated; I10 Essential (primary) hypertension; N18.3 Chronic kidney disease, stage 3 (moderate); F03.90 Unspecified dementia, unspecified severity, without behavioral disturbance, psychotic disturbance, mood disturbance, and anxiety; E03.9 Hypothyroidism, unspecified; Z86.73 Personal history of transient ischemic attack (TIA), and cerebral infarction without residual deficits; Z90.49 Acquired absence of other specified parts of digestive tract
CPT/HCPCS: 36415; 80048; 82550; 82553; 84484; 85025; 93005; 93010; 96372; 99284; J1170; Q0162

== ENCOUNTER 2016-09-03 08:48 | Emergency (ER) | payer MEDICARE ==
[2016-09-03 09:47] LABS: Basophils % (Auto) 0.8 % (0.0-1.8); Eosinophils % (Auto) 2.4 % (0.0-4.3); Hematocrit 39.1 % (30.3-42.9); Hemoglobin 12.3 gm/dl (10.1-14.3); Mean Corpuscular HGB Conc 31 % (30-34); Mean Corpuscular Hemoglobin 23 pg (28-32); Mean Corpuscular Volume 74 fl (79-97); Platelet Count 225 K/mm3 (140-440); Red Blood Count 5.32 M/mm3 (3.65-5.03); Red Cell Distribution Width 15.8 % (13.2-15.2); White Blood Count 6.5 K/mm3 (4.5-11.0)
[2016-09-03 10:02] LABS: Albumin 3.7 g/dL (3.9-5); Albumin/Globulin Ratio 0.9 %; BUN/Creatinine Ratio 12.14; Bilirubin,Total 0.4 mg/dL (0.1-1.2); Calcium 9.3 mg/dL (8.4-10.2); Chloride 103.4 mmol/L (98-107); Magnesium 1.8 mg/dL (1.7-2.3); Potassium 3.9 mmol/L (3.6-5.0); Total Protein 7.9 g/dL (6.3-8.2)
--- NOTE | 2016-09-03 11:15 | Emergency Department Report ---
ED General Adult HPI - General Chief complaint: Altered Mental Status Stated complaint: FATIGUE/TIRED SHAKEN/CONFUSED Time Seen by Provider: 09/03/16 10:22 Source: patient Mode of arrival: Ambulatory Limitations: No Limitations - History of Present Illness Initial comments: Patient is a 70-year-old female who presents with confusion, decrease appetite has been going on for the last week and a half. Patient states she has been stressed by her son is in rehabilitation. Because of this she has not been eating much. She states she is lost 4 pounds without trying. Patient denies any headache or vision changes. Patient has been compliant with all her medications. Nothing makes her symptoms better or worse. Patient denies having any suicidal or homicidal thoughts. - Related Data Home Medications Medication Instructions Recorded Confirmed Last Taken Carvedilol 25 mg PO BID 03/18/13 05/27/16 06/05/15 Levothyroxine [Synthroid] 0.25 tab PO DAILY 03/18/13 05/27/16 06/05/15 Namenda 10 mg PO BID 06/05/15 05/27/16 06/05/15 Prednisone 5 mg PO DAILY 06/05/15 05/27/16 06/05/15 Mirtazapine [Remeron] 45 mg PO QHS 08/04/15 05/27/16 Unknown Quetiapine Fumarate [SEROquel XR] 400 mg PO QDAY 08/04/15 05/27/16 Unknown Trazodone HCl 150 mg PO QHS 08/04/15 05/27/16 Unknown Previous Rx's Medication Instructions Recorded Last Taken Type Clopidogrel [Plavix] 75 mg PO QDAY #30 tablet 07/10/14 06/05/15 Rx Amlodipine Besylate [Norvasc] 2.5 mg PO DAILY #30 tab 06/05/15 Unknown Rx HYDROcodone/APAP 5-325 [[place] 1 each PO Q6HR PRN #12 tablet 08/04/15 Unknown Rx 5-325 mg TAB] Meclizine [Antivert] 12.5 mg PO BID PRN #14 tablet 08/04/15 Unknown Rx HYDROcodone/APAP 5-325 [[place] 1 each PO Q6HR PRN #20 tablet 05/03/16 Unknown Rx 5-325 mg TAB] Loperamide [Imodium] 2 mg PO Q2HR #20 capsule 05/03/16 Unknown Rx Cyclobenzaprine HCl [Flexeril 5 MG 5 mg PO TID PRN #14 tab 05/27/16 Unknown Rx TAB] HYDROcodone/APAP 7.5-325 [[place] 1 each PO Q6HR PRN #14 tablet 05/27/16 Unknown Rx 7.5-325 mg TAB] Ciprofloxacin HCl [Ciprofloxacin 500 mg PO BID #10 tablet 09/03/16 Unknown Rx TAB] Allergies Allergy/AdvReac Type Severity Reaction Status Date / Time captopril Allergy Rash Verified 09/18/14 10:41 clindamycin Allergy Diarrhea Verified 09/18/14 10:41 NSAIDS (Non-Steroidal Allergy Rash Verified 09/18/14 10:41 Anti-Inflamma Penicillins Allergy Rash Verified 09/18/14 10:41 Sulfa (Sulfonamide Allergy Rash Verified 09/18/14 10:41 Antibiotics) ED Review of Systems ROS: Stated complaint: FATIGUE/TIRED SHAKEN/CONFUSED Other details as noted in HPI Constitutional: denies: chills, fever Eyes: denies: eye pain, eye discharge, vision change ENT: denies: ear pain, throat pain Respiratory: denies: cough, shortness of breath, wheezing Cardiovascular: denies: chest pain, palpitations Endocrine: no symptoms reported Gastrointestinal: denies: abdominal pain, nausea, diarrhea Genitourinary: denies: urgency, dysuria, discharge Musculoskeletal: denies: back pain, joint swelling, arthralgia Skin: denies: rash, lesions Neurological: weakness, confusion, other Psychiatric: anxiety, depression. denies: homicidal thoughts, suicidal thoughts Hematological/Lymphatic: denies: easy bleeding, easy bruising ED Past Medical Hx - Past Medical History Previous Medical History?: Yes Hx Hypertension: Yes Hx CVA: Yes (07/07/14) Hx Heart Attack/AMI: No Hx Congestive Heart Failure: No Hx Diabetes: No Hx Deep Vein Thrombosis: No Hx Pulmonary Embolism: No Hx Liver Disease: No Hx Renal Disease: Yes (Stage III renal dx) Hx Sickle Cell Disease: No Hx Arthritis: Yes Hx Seizures: No Hx Kidney Stones: No Hx Psychiatric Treatment: Yes (Depression) Hx Asthma: No Hx COPD: No Hx Tuberculosis: No Hx Dementia: Yes (takes aricept) Hx HIV: No Additional medical history: 3 herniated discs. LUPUS. hypothyroid - Surgical History Hx Coronary Stent: No Hx Open Heart Surgery: No Hx Pacemaker: No Hx Internal Defibrillator: No Hx Cholecystectomy: Yes Hx Appendectomy: Yes Hx Breast Surgery: No - Social History Smoking Status: Current Every Day Smoker Substance Use Type: None - Medications Home Medications: Home Medications Medication Instructions Recorded Confirmed Last Taken Type Carvedilol 25 mg PO BID 03/18/13 05/27/16 06/05/15 History Levothyroxine [Synthroid] 0.25 tab PO DAILY 03/18/13 05/27/16 06/05/15 History Clopidogrel [Plavix] 75 mg PO QDAY #30 tablet 07/10/14 05/27/16 06/05/15 Rx Amlodipine Besylate [Norvasc] 2.5 mg PO DAILY #30 tab 06/05/15 05/27/16 Unknown Rx Namenda 10 mg PO BID 06/05/15 05/27/16 06/05/15 History Prednisone 5 mg PO DAILY 06/05/15 05/27/16 06/05/15 History HYDROcodone/APAP 5-325 [[place] 1 each PO Q6HR PRN #12 tablet 08/04/15 05/27/16 Unknown Rx 5-325 mg TAB] Meclizine [Antivert] 12.5 mg PO BID PRN #14 tablet 08/04/15 05/27/16 Unknown Rx Mirtazapine [Remeron] 45 mg PO QHS 08/04/15 05/27/16 Unknown History Quetiapine Fumarate [SEROquel XR] 400 mg PO QDAY 08/04/15 05/27/16 Unknown History Trazodone HCl 150 mg PO QHS 08/04/15 05/27/16 Unknown History HYDROcodone/APAP 5-325 [[place] 1 each PO Q6HR PRN #20 tablet 05/03/16 05/27/16 Unknown Rx 5-325 mg TAB] Loperamide [Imodium] 2 mg PO Q2HR #20 capsule 05/03/16 05/27/16 Unknown Rx Cyclobenzaprine HCl [Flexeril 5 MG 5 mg PO TID PRN #14 tab 05/27/16 Unknown Rx TAB] HYDROcodone/APAP 7.5-325 [[place] 1 each PO Q6HR PRN #14 tablet 05/27/16 Unknown Rx 7.5-325 mg TAB] Ciprofloxacin HCl [Ciprofloxacin 500 mg PO BID #10 tablet 09/03/16 Unknown Rx TAB] ED Physical Exam - General Limitations: No Limitations General appearance: alert, in no apparent distress - Head Head exam: Present: atraumatic, normocephalic - Eye Eye exam: Present: normal appearance, EOMI - ENT ENT exam: Present: normal exam - Neck Neck exam: Present: normal inspection - Respiratory Respiratory exam: Present: normal lung sounds bilaterally - Cardiovascular Cardiovascular Exam: Present: regular rate, normal rhythm - GI/Abdominal GI/Abdominal exam: Present: soft. Absent: distended, tenderness - Extremities Exam Extremities exam: Present: normal inspection - Neurological Exam Neurological exam: Present: alert, oriented X3, CN II-XII intact, reflexes normal - Psychiatric Psychiatric exam: Present: depressed, anxious. Absent: homicidal ideation, suicidal ideation - Skin Skin exam: Present: warm, dry. Absent: intact ED Course Vital Signs 09/03/16 09/03/16 09/03/16 09:06 10:45 12:03 Temperature 98.4 F Pulse Rate 80 68 Respiratory 16 16 16 Rate Blood Pressure 157/90 Blood Pressure 149/85 [Left] O2 Sat by Pulse 100 98 98 Oximetry - Reevaluation(s) Reevaluation #1: 09/03/16 11:25 Patient gave urine sample she states that she has a slight headache but does not want any pain medication. Patient is still waiting for CT head. Reevaluation #2: 09/03/16 13:08 Patient has some WBCs in her urine will treat patient with cipro and I will send pt home. Reevaluation #3: 09/03/16 13:18 Discussed with patient mild creatinine elevation of 1.4 patient states that she will take oral rehydration at home and that she does not want IV hydration in the hospital. l will send patient home. L ED Medical Decision Making - Lab Data Result diagrams: 09/03/16 09:22 09/03/16 09:22 Laboratory Tests 09/03/16 09/03/16 09/03/16 09:22 09:22 09:22 WBC 6.5 RBC 5.32 H Hgb 12.3 Hct 39.1 MCV 74 L MCH 23 L MCHC 31 RDW 15.8 H Plt Count 225 Lymph % (Auto) 28.2 [place] % (Auto) 9.5 H Eos % (Auto) 2.4 Baso % (Auto) 0.8 Lymph # 1.8 [place] # 0.6 Eos # 0.2 Baso # 0.1 Seg Neutrophils % 59.1 Seg Neutrophils # 3.8 Sodium 143 Potassium 3.9 Chloride 103.4 Carbon Dioxide 23 Anion Gap 21 BUN 17 Creatinine 1.4 H Estimated GFR 45 BUN/Creatinine Ratio 12.14 Glucose 89 Lactic Acid 2.00 Calcium 9.3 Magnesium 1.80 Total Bilirubin 0.40 AST 20 ALT 17 Alkaline Phosphatase 83 Total Protein 7.9 Albumin 3.7 L Albumin/Globulin Ratio 0.9 TSH 09/03/16 09:22 WBC RBC Hgb Hct MCV MCH MCHC RDW Plt Count Lymph % (Auto) [place] % (Auto) Eos % (Auto) Baso % (Auto) Lymph # [place] # Eos # Baso # Seg Neutrophils % Seg Neutrophils # Sodium Potassium Chloride Carbon Dioxide Anion Gap BUN Creatinine Estimated GFR BUN/Creatinine Ratio Glucose Lactic Acid Calcium Magnesium Total Bilirubin AST ALT Alkaline Phosphatase Total Protein Albumin Albumin/Globulin Ratio TSH 1.230 - Radiology Data Radiology results: pending - Medical Decision Making Chief medical diagnosis: Depression Differential diagnosis: Metabolic abnormality, drug use, pneumonia, UTI We'll urinalysis, CBC, UDS, troponin, chest x-ray, CT head, lactic acid. Urinalysis shows some wbc's in the urine we'll treat for UTI and give patient's we'll send patient home. Critical care attestation.: If time is entered above; I have spent that time in minutes in the direct care of this critically ill patient, excluding procedure time. ED Disposition Clinical Impression: Anxiety, UTI (urinary tract infection), Weakness, Lupus Disposition: TO HOME OR SELFCARE Is pt being admited?: No Does the pt Need Aspirin: No Condition: Good Instructions: Urinary Tract Infection in Women (ED) Prescriptions: Ciprofloxacin HCl [Ciprofloxacin TAB] 500 mg PO BID #10 tablet Referrals: ELOINA WARD MD [Primary Care Provider] - 3-5 Days Time of Disposition: 13:10
[2016-09-03 11:34] LABS: Urine Drugs of Abuse Note Disclamer
[2016-09-03 11:45] LABS: Bacteria,Urine 1+ /HPF (Negative); Bilirubin,Urine NEG (Negative); Blood,Urine NEG (Negative); Ketones,Urine NEG (Negative); Leukocyte Esterase,Urine LG (Negative); Mucus,Urine FEW /HPF; Nitrite,Urine NEG (Negative); Urobilinogen,Urine < 2.0 mg/dL (<2.0)
--- NOTE | 2016-09-03 12:00 | Cat Scan Report ---
CT HEAD WITHOUT CONTRAST INDICATION: Confusion. COMPARISON: 05/14/2016. FINDINGS: Noncontrast head CT demonstrates symmetric, age-appropriate ventricles and sulci without acute or recent infarct, hemorrhage, mass effect or midline shift. Minimal benign right basal ganglia calcification and a 3 mm left basal ganglia lacunar infarct again noted. No abnormal extra-axial fluid collections. Posterior fossa structures and basilar cisterns appear within normal limits. Symmetric eye globes. Clear paranasal sinuses and mastoid air cells. Intact calvarium. Normal overlying scalp soft tissues. Mild ICA atherosclerotic calcifications. Numerous missing teeth. CONCLUSION: No acute intracranial CT abnormality, as described. Thank you for the opportunity to participate in this patient's care.
[2016-09-03 13:49] VITALS: BP 146/86
== END 2016-09-03 13:45 | disposition home or self-care (01) ==
LOC: ED 08:48
DX: N39.0 Urinary tract infection, site not specified (principal); L93.0 Discoid lupus erythematosus; F41.9 Anxiety disorder, unspecified; R53.1 Weakness; I12.9 Hypertensive chronic kidney disease with stage 1 through stage 4 chronic kidney disease, or unspecified chronic kidney disease; N18.3 Chronic kidney disease, stage 3 (moderate); F17.200 Nicotine dependence, unspecified, uncomplicated
CPT/HCPCS: 36415; 70450; 80053; 80307; 81001; 82140; 83735; 84443; 84484; 85025; 93005; 93010; 99285; G0480; 80320

== ENCOUNTER 2016-09-23 10:53 | Emergency (ER) | payer MEDICARE ==
[2016-09-23 11:55] VITALS: BP 118/77
--- NOTE | 2016-09-23 22:45 | Emergency Department Report ---
Entered by BATHSEVA MILLER, acting as scribe for EDWIN JENSEN NP. - General Chief complaint: Multiple Trauma Stated complaint: HEAD SORE Time Seen by Provider: 09/23/16 12:19 Source: patient Mode of arrival: Ambulatory Limitations: No Limitations - History of Present Illness Initial comments: This is a 70 y/o female, nontoxic, well nourished in appearance, no acute signs of distress pwith a PMHx of arthritis, CVA, depression, renal disease, lupus, and hypothyroidism presents to the ED c/o a gradually worsening wound to top of scalp that began 8 days ago. Rates pain an 8/10 in severity, which she describes as sharp and burning in quality. Aggravated with palpation and alleviated with nothing. Reports associated purulent drainage, but she denies fever, chills, chest pain, SOB, LORD or dizziness, numbness, tingling. Notes Hx of similar scalp wounds. Denies getting bit by an insect. MD complaint: other (wound) Onset/Timin -: days(s) Tetanus Up to Date: unsure Location: head (top of scalp) Severity: severe Severity scale (0 -10): 8 Quality: burning, sharp Consistency: constant Improves with: none Worsens with: palpation Associated symptoms: denies other symptoms Treatments Prior to Arrival: none - Related Data Home Medications Medication Instructions Recorded Confirmed Last Taken Carvedilol 25 mg PO BID 03/18/13 05/27/16 06/05/15 Levothyroxine [Synthroid] 0.25 tab PO DAILY 03/18/13 05/27/16 06/05/15 Namenda 10 mg PO BID 06/05/15 05/27/16 06/05/15 Prednisone 5 mg PO DAILY 06/05/15 05/27/16 06/05/15 Mirtazapine [Remeron] 45 mg PO QHS 08/04/15 05/27/16 Unknown Quetiapine Fumarate [SEROquel XR] 400 mg PO QDAY 08/04/15 05/27/16 Unknown Trazodone HCl 150 mg PO QHS 08/04/15 05/27/16 Unknown Previous Rx's Medication Instructions Recorded Last Taken Type Clopidogrel [Plavix] 75 mg PO QDAY #30 tablet 07/10/14 06/05/15 Rx Amlodipine Besylate [Norvasc] 2.5 mg PO DAILY #30 tab 06/05/15 Unknown Rx HYDROcodone/APAP 5-325 [[place] 1 each PO Q6HR PRN #12 tablet 08/04/15 Unknown Rx 5-325 mg TAB] Meclizine [Antivert] 12.5 mg PO BID PRN #14 tablet 08/04/15 Unknown Rx HYDROcodone/APAP 5-325 [[place] 1 each PO Q6HR PRN #20 tablet 05/03/16 Unknown Rx 5-325 mg TAB] Loperamide [Imodium] 2 mg PO Q2HR #20 capsule 05/03/16 Unknown Rx Cyclobenzaprine HCl [Flexeril 5 MG 5 mg PO TID PRN #14 tab 05/27/16 Unknown Rx TAB] HYDROcodone/APAP 7.5-325 [[place] 1 each PO Q6HR PRN #14 tablet 05/27/16 Unknown Rx 7.5-325 mg TAB] Ciprofloxacin HCl [Ciprofloxacin 500 mg PO BID #10 tablet 09/03/16 Unknown Rx TAB] Doxycycline [Vibramycin CAP] 100 mg PO Q12HR #14 capsule 09/23/16 Unknown Rx Allergies Allergy/AdvReac Type Severity Reaction Status Date / Time captopril Allergy Rash Verified 09/18/14 10:41 clindamycin Allergy Diarrhea Verified 09/18/14 10:41 NSAIDS (Non-Steroidal Allergy Rash Verified 09/18/14 10:41 Anti-Inflamma Penicillins Allergy Rash Verified 09/18/14 10:41 Sulfa (Sulfonamide Allergy Rash Verified 09/18/14 10:41 Antibiotics) Abscess Boil HPI - HPI Chief Complaint: Multiple Trauma Stated Complaint: HEAD SORE Duration: >1 Week (8 days) Location: Head (top of head) Severity: Severe (09/16) History: Yes Pain (to affected area on top of scalp), Yes Purulent Drainage (to affected area on top of scalp), Yes Previous History, No Fever, No Numbness, No Foreign Body, No Insect Bite Home Medications: Home Medications Medication Instructions Recorded Confirmed Last Taken Carvedilol 25 mg PO BID 03/18/13 05/27/16 06/05/15 Levothyroxine [Synthroid] 0.25 tab PO DAILY 03/18/13 05/27/16 06/05/15 Namenda 10 mg PO BID 06/05/15 05/27/1606/04/16 Prednisone 5 mg PO DAILY 06/05/15 05/27/16 06/05/15 Mirtazapine [Remeron] 45 mg PO QHS 08/04/15 05/27/16 Unknown Quetiapine Fumarate [SEROquel XR] 400 mg PO QDAY 08/04/15 05/27/16 Unknown Trazodone HCl 150 mg PO QHS 08/04/15 05/27/16 Unknown Previous Rx's Medication Instructions Recorded Last Taken Type Clopidogrel [Plavix] 75 mg PO QDAY #30 tablet 07/10/14 06/05/15 Rx Amlodipine Besylate [Norvasc] 2.5 mg PO DAILY #30 tab 06/05/15 Unknown Rx HYDROcodone/APAP 5-325 [[place] 1 each PO Q6HR PRN #12 tablet 08/04/15 Unknown Rx 5-325 mg TAB] Meclizine [Antivert] 12.5 mg PO BID PRN #14 tablet 08/04/15 Unknown Rx HYDROcodone/APAP 5-325 [[place] 1 each PO Q6HR PRN #20 tablet 05/03/16 Unknown Rx 5-325 mg TAB] Loperamide [Imodium] 2 mg PO Q2HR #20 capsule 05/03/16 Unknown Rx Cyclobenzaprine HCl [Flexeril 5 MG 5 mg PO TID PRN #14 tab 05/27/16 Unknown Rx TAB] HYDROcodone/APAP 7.5-325 [[place] 1 each PO Q6HR PRN #14 tablet 05/27/16 Unknown Rx 7.5-325 mg TAB] Ciprofloxacin HCl [Ciprofloxacin 500 mg PO BID #10 tablet 09/03/16 Unknown Rx TAB] Doxycycline [Vibramycin CAP] 100 mg PO Q12HR #14 capsule 09/23/16 Unknown Rx Allergies/Adverse Reactions: Allergies Allergy/AdvReac Type Severity Reaction Status Date / Time captopril Allergy Rash Verified 09/18/14 10:41 clindamycin Allergy Diarrhea Verified 09/18/14 10:41 NSAIDS (Non-Steroidal Allergy Rash Verified 09/18/14 10:41 Anti-Inflamma Penicillins Allergy Rash Verified 09/18/14 10:41 Sulfa (Sulfonamide Allergy Rash Verified 09/18/14 10:41 Antibiotics) ED Review of Systems Comment: All other systems reviewed and negative Constitutional: denies: chills, diaphoresis, fever, weakness Eyes: denies: eye pain, eye discharge, vision change ENT: denies: ear pain, throat pain Respiratory: denies: cough, orthopnea, shortness of breath, SOB with exertion, SOB at rest, stridor, wheezing Cardiovascular: denies: chest pain, palpitations, dyspnea on exertion, orthopnea , edema, syncope, paroxysmal nocturnal dyspnea Endocrine: no symptoms reported Gastrointestinal: denies: abdominal pain, nausea, vomiting, diarrhea Genitourinary: denies: urgency, dysuria, discharge Musculoskeletal: denies: back pain, joint swelling, arthralgia Skin: other (wound on top of scalp). denies: rash, lesions Neurological: denies: headache, weakness, numbness, paresthesias Psychiatric: denies: anxiety, depression Hematological/Lymphatic: denies: easy bleeding, easy bruising ED Past Medical Hx - Past Medical History Previous Medical History?: Yes Hx Hypertension: Yes Hx CVA: Yes (07/07/14) Hx Heart Attack/AMI: No Hx Congestive Heart Failure: No Hx Diabetes: No Hx Deep Vein Thrombosis: No Hx Pulmonary Embolism: No Hx GERD: No Hx Liver Disease: No Hx Renal Disease: Yes (Stage III renal dx) Hx of Cancer: No Hx Sickle Cell Disease: No Hx Arthritis: Yes Hx Headaches / Migraines: No Hx Seizures: No Hx Kidney Stones: No Hx Psychiatric Treatment: Yes (Depression) Hx Asthma: No Hx COPD: No Hx Tuberculosis: No Hx Dementia: Yes (takes aricept) Hx HIV: No Additional medical history: 3 herniated discs. LUPUS. hypothyroid - Surgical History Past Surgical History?: Yes Hx Coronary Stent: No Hx Open Heart Surgery: No Hx Pacemaker: No Hx Internal Defibrillator: No Hx Cholecystectomy: Yes Hx Appendectomy: Yes Hx Breast Surgery: No Additional Surgical History: vein stripping - Family History Family history: no significant - Social History Smoking Status: Current Every Day Smoker Substance Use Type: None - Medications Home Medications: Home Medications Medication Instructions Recorded Confirmed Last Taken Type Carvedilol 25 mg PO BID 03/18/13 05/27/16 06/05/15 History Levothyroxine [Synthroid] 0.25 tab PO DAILY 03/18/13 05/27/16 06/05/15 History Clopidogrel [Plavix] 75 mg PO QDAY #30 tablet 06/04/2105/27/16 06/05/15 Rx Amlodipine Besylate [Norvasc] 2.5 mg PO DAILY #30 tab 06/05/15 05/27/16 Unknown Rx Namenda 10 mg PO BID 06/05/15 05/27/16 06/05/15 History Prednisone 5 mg PO DAILY 06/05/15 05/27/16 06/05/15 History HYDROcodone/APAP 5-325 [[place] 1 each PO Q6HR PRN #12 tablet 08/04/15 05/27/16 Unknown Rx 5-325 mg TAB] Meclizine [Antivert] 12.5 mg PO BID PRN #14 tablet 08/04/15 05/27/16 Unknown Rx Mirtazapine [Remeron] 45 mg PO QHS 08/04/15 05/27/16 Unknown History Quetiapine Fumarate [SEROquel XR] 400 mg PO QDAY 08/04/15 05/27/16 Unknown History Trazodone HCl 150 mg PO QHS 08/04/15 05/27/16 Unknown History HYDROcodone/APAP 5-325 [[place] 1 each PO Q6HR PRN #20 tablet 05/03/16 05/27/16 Unknown Rx 5-325 mg TAB] Loperamide [Imodium] 2 mg PO Q2HR #20 capsule 05/03/16 05/27/16 Unknown Rx Cyclobenzaprine HCl [Flexeril 5 MG 5 mg PO TID PRN #14 tab 05/27/16 Unknown Rx TAB] HYDROcodone/APAP 7.5-325 [[place] 1 each PO Q6HR PRN #14 tablet 05/27/16 Unknown Rx 7.5-325 mg TAB] Ciprofloxacin HCl [Ciprofloxacin 500 mg PO BID #10 tablet 09/03/16 Unknown Rx TAB] Doxycycline [Vibramycin CAP] 100 mg PO Q12HR #14 capsule 09/23/16 Unknown Rx ED Physical Exam - General Limitations: No Limitations General appearance: alert, in no apparent distress - Head Head exam: Present: atraumatic, normocephalic, other (2 cm erythema with purulant drainage to occiptal scalp region. no induration or swelling. ) - Eye Eye exam: Present: normal appearance, PERRL, EOMI. Absent: scleral icterus, conjunctival injection, nystagmus, periorbital swelling, periorbital tenderness Pupils: Present: normal accommodation - ENT ENT exam: Present: normal exam, normal orophraynx, mucous membranes moist, TM's normal bilaterally, normal external ear exam - Neck Neck exam: Present: normal inspection, full ROM. Absent: tenderness, meningismus, lymphadenopathy, thyromegaly - Respiratory Respiratory exam: Present: normal lung sounds bilaterally. Absent: respiratory distress, wheezes, rales, rhonchi, stridor, chest wall tenderness, accessory muscle use, decreased breath sounds, prolonged expiratory - Cardiovascular Cardiovascular Exam: Present: regular rate, normal rhythm, normal heart sounds. Absent: bradycardia, tachycardia, irregular rhythm, systolic murmur, diastolic murmur, rubs, gallop - GI/Abdominal GI/Abdominal exam: Present: soft, normal bowel sounds. Absent: distended, tenderness, guarding, rebound, rigid - Extremities Exam Extremities exam: Present: normal inspection, full ROM, normal capillary refill. Absent: tenderness, pedal edema, joint swelling, calf tenderness - Back Exam Back exam: Present: normal inspection, full ROM. Absent: tenderness, CVA tenderness (R), CVA tenderness (L), muscle spasm, paraspinal tenderness, vertebral tenderness, rash noted - Neurological Exam Neurological exam: Present: alert, oriented X3, CN II-XII intact, normal gait, reflexes normal. Absent: motor sensory deficit - Psychiatric Psychiatric exam: Present: normal affect, normal mood - Skin Skin exam: Present: warm, dry, intact. Absent: rash ED Course Vital Signs 09/23/16 11:49 Temperature 97.9 F Pulse Rate 68 Respiratory 12 Rate Blood Pressure 118/77 Blood Pressure 118/77 [Right] O2 Sat by Pulse 100 Oximetry - Reevaluation(s) Reevaluation #1: 09/23/16 12:43 Patient is speaking in full sentences with no signs of distress. ED Medical Decision Making - Medical Decision Making Patient was examined myself. Patient is stable. Signs and symptoms consists with cellulitis. Patient will be treated with Doxy due to type I allergies for PCN, Sulfa, and clinda. Patient agrees to the plan of care with no signs noted. ED Disposition Clinical Impression: Cellulitis Qualifiers: Site of cellulitis: head Qualified Code(s): L03.811 - Cellulitis of head [any part, except face] Disposition: DC-01 TO HOME OR SELFCARE Is pt being admited?: No Does the pt Need Aspirin: No Condition: Stable Instructions: Cellulitis (ED), Doxycycline (By mouth) Additional Instructions: Follow-up with your primary care doctor in 3-5 days or if symptoms worse and continue return to the ED as soon as possible. Prescriptions: Doxycycline [Vibramycin CAP] 100 mg PO Q12HR #14 capsule Referrals: PRIMARY CARE, [Primary Care Provider] - 3-5 Days MELODY DEJESUS MD [Staff Physician] - 3-5 Days [facility] [Outside] - 3-5 Days [facility] [Outside] - 3-5 Days This documentation as recorded by the ANGELA daigle JASMINE,accurately reflects the service I personally performed and the decisions made by me,EDWIN JENSEN, [employer].
== END 2016-09-23 12:54 | disposition home or self-care (01) ==
LOC: ED 10:53
DX: L03.811 Cellulitis of head [any part, except face] (principal); I12.9 Hypertensive chronic kidney disease with stage 1 through stage 4 chronic kidney disease, or unspecified chronic kidney disease; N18.3 Chronic kidney disease, stage 3 (moderate); M19.90 Unspecified osteoarthritis, unspecified site; F17.210 Nicotine dependence, cigarettes, uncomplicated; Z79.02 Long term (current) use of antithrombotics/antiplatelets; Z88.1 Allergy status to other antibiotic agents; Z88.0 Allergy status to penicillin; Z88.2 Allergy status to sulfonamides; Z88.8 Allergy status to other drugs, medicaments and biological substances; Z86.73 Personal history of transient ischemic attack (TIA), and cerebral infarction without residual deficits
CPT/HCPCS: 99282

== ENCOUNTER 2016-09-30 09:13 | Emergency (ER) | payer MEDICARE ==
[2016-09-30 10:01] LABS: Basophils % (Auto) 0.7 % (0.0-1.8); Eosinophils % (Auto) 1.5 % (0.0-4.3); Hematocrit 35.7 % (30.3-42.9); Hemoglobin 11.6 gm/dl (10.1-14.3); Mean Corpuscular HGB Conc 33 % (30-34); Mean Corpuscular Volume 73 fl (79-97); Platelet Count 205 K/mm3 (140-440); Red Blood Count 4.92 M/mm3 (3.65-5.03); Red Cell Distribution Width 15.5 % (13.2-15.2)
[2016-09-30 10:04] LABS: Mean Corpuscular Hemoglobin 24 pg (28-32)
[2016-09-30 10:16] LABS: BUN/Creatinine Ratio 18.57; Calcium 8.9 mg/dL (8.4-10.2); Chloride 106.1 mmol/L (98-107); Potassium 3.8 mmol/L (3.6-5.0)
--- NOTE | 2016-09-30 10:34 | Emergency Department Report ---
HPI - General Chief Complaint: Psych Time Seen by Provider: 09/30/16 10:13 - HPI HPI: 70-year-old -[place] female presents to the emergency department with complaint of depression and suicidal ideations. She says she has been depressed for the past 2 weeks and suicidal for the past 3 days with a plan to overdose on her medications. The patient says that she has been feeling depressed due to her her and leaving her 2 years ago, she is "tired of being sick" with lupus, "my son is in rehabilitation" and "my daughter is always fussing." She has a past medical history of CVA, mild dementia but is AAO 3, hypertension, chronic kidney disease, lupus and hypothyroidism. She has a psychiatric history of depression and bipolar disorder. Her primary care doctor is Dr. Brock Zepeda and her psychiatrist is Dr. Eagle. ED Past Medical Hx - Past Medical History Hx Hypertension: Yes Hx CVA: Yes (07/07/14) Hx Heart Attack/AMI: No Hx Congestive Heart Failure: No Hx Diabetes: No Hx Deep Vein Thrombosis: No Hx Pulmonary Embolism: No Hx GERD: No Hx Liver Disease: No Hx Renal Disease: Yes (Stage III renal dx) Hx Sickle Cell Disease: No Hx Arthritis: Yes Hx Headaches / Migraines: No Hx Seizures: No Hx Kidney Stones: No Hx Psychiatric Treatment: Yes (Depression) Hx Asthma: No Hx COPD: No Hx Tuberculosis: No Hx Dementia: Yes (takes aricept) Hx HIV: No Additional medical history: 3 herniated discs. LUPUS. hypothyroid - Surgical History Past Surgical History?: Yes Hx Coronary Stent: No Hx Open Heart Surgery: No Hx Pacemaker: No Hx Internal Defibrillator: No Hx Cholecystectomy: Yes Hx Appendectomy: Yes Hx Breast Surgery: No Additional Surgical History: vein stripping - Social History Smoking Status: Current Every Day Smoker Substance Use Type: None - Medications Home Medications: Home Medications Medication Instructions Recorded Confirmed Last Taken Type Carvedilol 25 mg PO BID 03/18/13 09/30/16 06/05/15 History Clopidogrel [Plavix] 75 mg PO QDAY #30 tablet 07/10/14 09/30/16 06/05/15 Rx Mirtazapine [Remeron] 45 mg PO QHS 08/04/15 09/30/16 Unknown History Amlodipine Besylate [Norvasc] 5 mg PO DAILY 09/30/16 09/30/16 Unknown History Calcitriol [Rocaltrol] 1 tab PO DAILY 09/30/16 09/30/16 Unknown History Donepezil HCl 10 mg PO QPM 09/30/16 09/30/16 Unknown History Ergocalciferol [Vitamin D2] 1 cap PO QWEEK 09/30/16 09/30/16 Unknown History Levothyroxine [Synthroid] 50 mcg PO QAM 09/30/16 09/30/16 Unknown History Memantine HCl 10 mg PO DAILY 09/30/16 09/30/16 Unknown History Sertraline HCl [Zoloft] 50 mg PO DAILY 09/30/16 09/30/16 Unknown History Solifenacin Succinate (Nf) 10 mg PO DAILY 09/30/16 09/30/16 Unknown History [Vesicare (Nf)] hydrOXYzine PAMOATE [Vistaril] 50 mg PO QPM 09/30/16 09/30/16 Unknown History predniSONE [Deltasone] 5 mg PO QDAY 09/30/16 09/30/16 Unknown History ED Review of Systems ROS: Stated complaint: SUICIDAL THOUGHTS/MH Other details as noted in HPI Comment: All other systems reviewed and negative Constitutional: denies: chills, fever Eyes: denies: eye pain, eye discharge, vision change ENT: denies: ear pain, throat pain Respiratory: denies: cough, shortness of breath, wheezing Cardiovascular: denies: chest pain, palpitations Gastrointestinal: denies: abdominal pain, nausea, diarrhea Genitourinary: denies: urgency, dysuria, discharge Musculoskeletal: denies: back pain, joint swelling, arthralgia Skin: denies: rash, lesions Neurological: denies: headache, weakness, paresthesias Psychiatric: depression, suicidal thoughts. denies: auditory hallucinations, visual hallucinations, homicidal thoughts Physical Exam - Physical Exam Physical Exam: GENERAL: The patient is well-developed well-nourished. HENT: Normocephalic. Atraumatic. Patient has moist mucous membranes. EYES: Extraocular motions are intact. Pupils equal reactive to light bilaterally. NECK: Supple. Trachea is midline. CHEST/LUNGS: Clear to auscultation. There is no respiratory distress noted. HEART/CARDIOVASCULAR: Regular. There is no tachycardia. There is no gallop rub or murmur. ABDOMEN: Abdomen is soft, nontender. Patient has normal bowel sounds. There is no abdominal distention. SKIN: Skin is warm and dry. NEURO: The patient is awake, alert, and oriented. The patient is cooperative. The patient has no focal neurologic deficits. The patient has normal speech and gait. MUSCULOSKELETAL: There is no tenderness or deformity. There is no limitation range of motion. There is no evidence of acute injury. ED Medical Decision Making - Lab Data Result diagrams: 09/30/16 09:46 09/30/16 09:46 - Medical Decision Making 70-year-old female presents to the emergency department with complaint of depression and suicidal ideations. She is depressed about multiple issues with her family including divorce from 2 years ago, son's rehabilitation and the daughter is "fussy." She has a history of depression and bipolar disorder. Because of her suicidal ideation she has been rated a 1013. Vital signs stable. He course. She does have some renal insufficiency but does have a history of chronic kidney disease. The rest of her labs are mostly unremarkable. She is medically clear for psychiatric placement. - Differential Diagnosis depression, bipolar disorder, schizophrenia, substance abuse Critical Care Time: No Critical care attestation.: If time is entered above; I have spent that time in minutes in the direct care of this critically ill patient, excluding procedure time. ED Disposition Clinical Impression: Suicidal ideations Depression Qualifiers: Depression Type: unspecified Qualified Code(s): F32.9 - Major depressive disorder, single episode, unspecified CKD (chronic kidney disease) Qualifiers: Chronic kidney disease stage: unspecified stage Qualified Code(s): N18.9 - Chronic kidney disease, unspecified Disposition: DC/TX-65 PSY HOSP/PSY UNIT Is pt being admited?: No Condition: Stable Referrals: PRIMARY CARE, [Primary Care Provider] - 3-5 Days Time of Disposition: 12:42
[2016-09-30 11:00] LABS: Urine Drugs of Abuse Note Disclamer
[2016-09-30 11:18] LABS: Bacteria,Urine 1+ /HPF (Negative); Bilirubin,Urine NEG (Negative); Blood,Urine NEG (Negative); Ketones,Urine NEG (Negative); Leukocyte Esterase,Urine TR (Negative); Mucus,Urine FEW /HPF; Nitrite,Urine NEG (Negative); Protein,Urine <15 mg/dL mg/dL (Negative); Urobilinogen,Urine < 2.0 mg/dL (<2.0)
[2016-09-30 19:20] VITALS: BP 134/86
== END 2016-09-30 19:37 ==
LOC: ED 09:13
DX: F32.9 Major depressive disorder, single episode, unspecified (principal); I12.9 Hypertensive chronic kidney disease with stage 1 through stage 4 chronic kidney disease, or unspecified chronic kidney disease; N18.3 Chronic kidney disease, stage 3 (moderate); M19.90 Unspecified osteoarthritis, unspecified site; F17.210 Nicotine dependence, cigarettes, uncomplicated; Z86.73 Personal history of transient ischemic attack (TIA), and cerebral infarction without residual deficits; Z79.02 Long term (current) use of antithrombotics/antiplatelets
CPT/HCPCS: 36415; 80048; 80307; 81001; 84443; 85025; 99285; G0480; 80320

== ENCOUNTER 2016-11-02 10:01 | Emergency (ER) | payer MEDICARE ==
[2016-11-02] MEDS ORDERED: XYLOCAINE 2% INFILTRATI ONE ×2 (15:36→15:39)
--- NOTE | 2016-11-02 16:04 | Emergency Department Report ---
- General Chief complaint: Skin/Abscess/Foreign Body Stated complaint: VAGINAL BOIL Time Seen by Provider: 11/02/16 14:03 Source: patient Mode of arrival: Ambulatory Limitations: No Limitations - Related Data Home Medications Medication Instructions Recorded Confirmed Last Taken Carvedilol 25 mg PO BID 03/18/13 09/30/16 06/05/15 Mirtazapine [Remeron] 45 mg PO QHS 08/04/15 09/30/16 Unknown Amlodipine Besylate [Norvasc] 5 mg PO DAILY 09/30/16 09/30/16 Unknown Calcitriol [Rocaltrol] 1 tab PO DAILY 09/30/16 09/30/16 Unknown Donepezil HCl 10 mg PO QPM 09/30/16 09/30/16 Unknown Ergocalciferol [Vitamin D2] 1 cap PO QWEEK 09/30/16 09/30/16 Unknown Levothyroxine [Synthroid] 50 mcg PO QAM 09/30/16 09/30/16 Unknown Memantine HCl 10 mg PO DAILY 09/30/16 09/30/16 Unknown Sertraline HCl [Zoloft] 50 mg PO DAILY 09/30/16 09/30/16 Unknown Solifenacin Succinate (Nf) 10 mg PO DAILY 09/30/16 09/30/16 Unknown [Vesicare (Nf)] hydrOXYzine PAMOATE [Vistaril] 50 mg PO QPM 09/30/16 09/30/16 Unknown predniSONE [Deltasone] 5 mg PO QDAY 09/30/16 09/30/16 Unknown Previous Rx's Medication Instructions Recorded Last Taken Type Clopidogrel [Plavix] 75 mg PO QDAY #30 tablet 07/10/14 06/05/15 Rx Acetaminophen/Codeine [Tylenol 1 tab PO Q6H PRN #15 tab 11/02/16 Unknown Rx /Codeine # 3 tab] Doxycycline [Vibramycin CAP] 100 mg PO Q12HR #14 capsule 11/02/16 Unknown Rx Allergies Allergy/AdvReac Type Severity Reaction Status Date / Time captopril Allergy Rash Verified 09/18/14 10:41 clindamycin Allergy Diarrhea Verified 09/18/14 10:41 NSAIDS (Non-Steroidal Allergy Rash Verified 09/18/14 10:41 Anti-Inflamma Penicillins Allergy Rash Verified 09/18/14 10:41 Sulfa (Sulfonamide Allergy Rash Verified 09/18/14 10:41 Antibiotics) Abscess Boil HPI - HPI Chief Complaint: Skin/Abscess/Foreign Body Stated Complaint: VAGINAL BOIL Time Seen by Provider: 11/02/16 14:03 Duration: 4 Days Location: Other (left labia) Severity: Mild History: Yes Pain, No Fever, No Purulent Drainage, No Numbness, No Foreign Body , No Previous History, No Insect Bite HPI: Patient is a 70 y/o female who presents due to abscess in the left labia x 4 days. Patient denies any fever or chills. Patient denies any h/o diabetes. Home Medications: Home Medications Medication Instructions Recorded Confirmed Last Taken Carvedilol 25 mg PO BID 03/18/13 09/30/16 06/05/15 Mirtazapine [Remeron] 45 mg PO QHS 08/04/15 09/30/16 Unknown Amlodipine Besylate [Norvasc] 5 mg PO DAILY 09/30/16 09/30/16 Unknown Calcitriol [Rocaltrol] 1 tab PO DAILY 09/30/16 09/30/16 Unknown Donepezil HCl 10 mg PO QPM 09/30/16 09/30/16 Unknown Ergocalciferol [Vitamin D2] 1 cap PO QWEEK 09/30/16 09/30/16 Unknown Levothyroxine [Synthroid] 50 mcg PO QAM 09/30/16 09/30/16 Unknown Memantine HCl 10 mg PO DAILY 09/30/16 09/30/16 Unknown Sertraline HCl [Zoloft] 50 mg PO DAILY 09/30/16 09/30/16 Unknown Solifenacin Succinate (Nf) 10 mg PO DAILY 09/30/16 09/30/16 Unknown [Vesicare (Nf)] hydrOXYzine PAMOATE [Vistaril] 50 mg PO QPM 09/30/16 09/30/16 Unknown predniSONE [Deltasone] 5 mg PO QDAY 09/30/16 09/30/16 Unknown Previous Rx's Medication Instructions Recorded Last Taken Type Clopidogrel [Plavix] 75 mg PO QDAY #30 tablet 07/10/14 06/05/15 Rx Acetaminophen/Codeine [Tylenol 1 tab PO Q6H PRN #15 tab 11/02/16 Unknown Rx /Codeine # 3 tab] Doxycycline [Vibramycin CAP] 100 mg PO Q12HR #14 capsule 11/02/16 Unknown Rx Allergies/Adverse Reactions: Allergies Allergy/AdvReac Type Severity Reaction Status Date / Time captopril Allergy Rash Verified 09/18/14 10:41 clindamycin Allergy Diarrhea Verified 09/18/14 10:41 NSAIDS (Non-Steroidal Allergy Rash Verified 09/18/14 10:41 Anti-Inflamma Penicillins Allergy Rash Verified 09/18/14 10:41 Sulfa (Sulfonamide Allergy Rash Verified 09/18/14 10:41 Antibiotics) ED Review of Systems ROS: Stated complaint: VAGINAL BOIL Other details as noted in HPI Comment: All other systems reviewed and negative Constitutional: no symptoms reported. denies: chills, diaphoresis, fever, malaise, weakness Gastrointestinal: denies: abdominal pain, nausea, vomiting Skin: other (abscess in the left labia) Neurological: denies: headache ED Past Medical Hx - Past Medical History Previous Medical History?: Yes Hx Hypertension: Yes Hx CVA: Yes (07/07/14) Hx Heart Attack/AMI: No Hx Congestive Heart Failure: No Hx Diabetes: No Hx Deep Vein Thrombosis: No Hx Pulmonary Embolism: No Hx GERD: No Hx Liver Disease: No Hx Renal Disease: Yes (Stage III renal dx) Hx Sickle Cell Disease: No Hx Arthritis: Yes Hx Headaches / Migraines: No Hx Seizures: No Hx Kidney Stones: No Hx Psychiatric Treatment: Yes (Depression) Hx Asthma: No Hx COPD: No Hx Tuberculosis: No Hx Dementia: Yes (takes aricept) Hx HIV: No Additional medical history: 3 herniated discs. LUPUS. hypothyroid - Surgical History Past Surgical History?: Yes Hx Coronary Stent: No Hx Open Heart Surgery: No Hx Pacemaker: No Hx Internal Defibrillator: No Hx Cholecystectomy: Yes Hx Appendectomy: Yes Hx Breast Surgery: No Additional Surgical History: vein stripping - Social History Smoking Status: Current Every Day Smoker Substance Use Type: None - Medications Home Medications: Home Medications Medication Instructions Recorded Confirmed Last Taken Type Carvedilol 25 mg PO BID 03/18/13 09/30/16 06/05/15 History Clopidogrel [Plavix] 75 mg PO QDAY #30 tablet 07/10/14 09/30/16 06/05/15 Rx Mirtazapine [Remeron] 45 mg PO QHS 08/04/15 09/30/16 Unknown History Amlodipine Besylate [Norvasc] 5 mg PO DAILY 09/30/16 09/30/16 Unknown History Calcitriol [Rocaltrol] 1 tab PO DAILY 09/30/16 09/30/16 Unknown History Donepezil HCl 10 mg PO QPM 09/30/16 09/30/16 Unknown History Ergocalciferol [Vitamin D2] 1 cap PO QWEEK 09/30/16 09/30/16 Unknown History Levothyroxine [Synthroid] 50 mcg PO QAM 09/30/16 09/30/16 Unknown History Memantine HCl 10 mg PO DAILY 09/30/16 09/30/16 Unknown History Sertraline HCl [Zoloft] 50 mg PO DAILY 09/30/16 09/30/16 Unknown History Solifenacin Succinate (Nf) 10 mg PO DAILY 09/30/16 09/30/16 Unknown History [Vesicare (Nf)] hydrOXYzine PAMOATE [Vistaril] 50 mg PO QPM 09/30/16 09/30/16 Unknown History predniSONE [Deltasone] 5 mg PO QDAY 09/30/16 09/30/16 Unknown History Acetaminophen/Codeine [Tylenol 1 tab PO Q6H PRN #15 tab 11/02/16 Unknown Rx /Codeine # 3 tab] Doxycycline [Vibramycin CAP] 100 mg PO Q12HR #14 capsule 11/02/16 Unknown Rx ED Physical Exam - General Limitations: No Limitations General appearance: alert, in no apparent distress - Head Head exam: Present: atraumatic, normocephalic, normal inspection - External exam: Present: other (patient had a 2 x 2 cm area of fluctauation in the left outer labia. no erythema, no streaking. ) - Back Exam Back exam: Present: normal inspection, full ROM. Absent: tenderness, CVA tenderness (R) - Neurological Exam Neurological exam: Present: alert, oriented X3, normal gait - Psychiatric Psychiatric exam: Present: normal affect - Skin Skin exam: Present: warm, dry ED Course Vital Signs 11/02/16 10:26 Temperature 98.4 F Pulse Rate 76 Respiratory 16 Rate Blood Pressure 155/86 O2 Sat by Pulse 98 Oximetry - I & D Vagina Type of Procedure: Simple Site: left labia majora Blade Size: 11 I & D Procedure: betadine prep Progress: the area of fluctuation in the left labia majora was prepped with betadine. 2% lidocaine was used anesthetize the area. 11 blade was used to make an incision, small purulent fluid was drained. the area was packed with iodoform packing. Pressure dressing was applied and patient tolerated procedure well. ED Medical Decision Making - Medical Decision Making Patient was in no acute distress, incision and drainage was performed on the left labia majora. Packing was inserted and pressure dressing was applied. Patient was told to return in 2-3 days for packing removal and abscess check. Patient was discharged with a prescription for doxycycline and Tylenol with codeine. - Differential Diagnosis Bartholin's cyst, cellulitis, folliculitis, abscess Critical care attestation.: If time is entered above; I have spent that time in minutes in the direct care of this critically ill patient, excluding procedure time. ED Disposition Clinical Impression: Bartholin's cyst Disposition: TO HOME OR SELFCARE Is pt being admited?: No Does the pt Need Aspirin: No Condition: Good Instructions: Bartholin Cyst (ED), Incision and Drainage (ED) Additional Instructions: Take doxycycline 100 mg be twice a day for 7 days. Take Tylenol with codeine 1 tablet every 6 hours as needed for moderate pain. You can change the dressing daily, you can apply warm compress. Try not to pull out the packing. Return to the ER in 2-3 days for packing removal and abscess check. Prescriptions: Acetaminophen/Codeine [Tylenol /Codeine # 3 tab] 1 tab PO Q6H PRN #15 tab PRN Reason: pain Doxycycline [Vibramycin CAP] 100 mg PO Q12HR #14 capsule Referrals: ELOINA WARD MD [Primary Care Provider] - 3-5 Days Time of Disposition: 16:10
[2016-11-02 16:18] VITALS: BP 143/80
== END 2016-11-02 16:18 | disposition home or self-care (01) ==
LOC: ED 10:01
DX: N75.0 Cyst of Bartholin's gland (principal); Z86.73 Personal history of transient ischemic attack (TIA), and cerebral infarction without residual deficits; M19.90 Unspecified osteoarthritis, unspecified site; F32.9 Major depressive disorder, single episode, unspecified; Z88.2 Allergy status to sulfonamides; Z88.0 Allergy status to penicillin; I12.9 Hypertensive chronic kidney disease with stage 1 through stage 4 chronic kidney disease, or unspecified chronic kidney disease; N18.3 Chronic kidney disease, stage 3 (moderate); F17.200 Nicotine dependence, unspecified, uncomplicated; Z88.8 Allergy status to other drugs, medicaments and biological substances

== ENCOUNTER 2016-11-04 09:46 | Emergency (ER) | payer MEDICARE ==
--- NOTE | 2016-11-04 13:49 | Emergency Department Report ---
ED Recheck HPI - General Chief Complaint: Skin/Abscess/Foreign Body Stated Complaint: BOIL, PACKING TAKEN OUT Time Seen by Provider: 11/04/16 13:00 Source: patient Mode of arrival: Ambulatory Limitations: No Limitations - History of Present Illness Initial Comments: This is a 70-year-old female nontoxic, well nourished in appearance, no acute signs of distress presents to the ED complaining of reevaluation of abscess that was incision and drained in the left Bartholin abscess 2 days ago in the ED. Patient denies any pus, drainage, fever, chills, nausea, vomiting, abdominal pain, stiff neck, chest pain or shortness of breath. Patient stated swelling has subsided. Patient allergies to clindamycin, NSAIDs, penicillin, sulfa, and captopril. Past medical history includes arthritis, CVA, dementia, hypertension, depression, renal disease. Patient states she is still currently taking her doxycycline that was prescribed. Patient also stated that the packing has fell off the same night that the incision and drainage was performed. MD Complaint: wound re-check -: Gradual, days(s) (2) Initial Visit For: abscess Returns Today for: wound recheck Symptoms Since Prior Visit: no new symptoms, improved Context: planned re-check Associated Symptoms: none. denies: fever, chills, chest pain, shortness of breath, rash, malaise, nasuea, abdominal pain - Related Data Home Medications Medication Instructions Recorded Confirmed Last Taken Carvedilol 25 mg PO BID 03/18/13 09/30/16 06/05/15 Mirtazapine [Remeron] 45 mg PO QHS 08/04/15 09/30/16 Unknown Amlodipine Besylate [Norvasc] 5 mg PO DAILY 09/30/16 09/30/16 Unknown Calcitriol [Rocaltrol] 1 tab PO DAILY 09/30/16 09/30/16 Unknown Donepezil HCl 10 mg PO QPM 09/30/16 09/30/16 Unknown Ergocalciferol [Vitamin D2] 1 cap PO QWEEK 09/30/16 09/30/16 Unknown Levothyroxine [Synthroid] 50 mcg PO QAM 09/30/16 09/30/16 Unknown Memantine HCl 10 mg PO DAILY 09/30/16 09/30/16 Unknown Sertraline HCl [Zoloft] 50 mg PO DAILY 09/30/16 09/30/16 Unknown Solifenacin Succinate (Nf) 10 mg PO DAILY 09/30/16 09/30/16 Unknown [Vesicare (Nf)] hydrOXYzine PAMOATE [Vistaril] 50 mg PO QPM 09/30/16 09/30/16 Unknown predniSONE [Deltasone] 5 mg PO QDAY 09/30/16 09/30/16 Unknown Previous Rx's Medication Instructions Recorded Last Taken Type Clopidogrel [Plavix] 75 mg PO QDAY #30 tablet 07/10/14 06/05/15 Rx Acetaminophen/Codeine [Tylenol 1 tab PO Q6H PRN #15 tab 11/02/16 Unknown Rx /Codeine # 3 tab] Doxycycline [Vibramycin CAP] 100 mg PO Q12HR #14 capsule 11/02/16 Unknown Rx Allergies Allergy/AdvReac Type Severity Reaction Status Date / Time captopril Allergy Rash Verified 09/18/14 10:41 clindamycin Allergy Diarrhea Verified 09/18/14 10:41 NSAIDS (Non-Steroidal Allergy Rash Verified 09/18/14 10:41 Anti-Inflamma Penicillins Allergy Rash Verified 09/18/14 10:41 Sulfa (Sulfonamide Allergy Rash Verified 09/18/14 10:41 Antibiotics) ED Review of Systems ROS: Stated complaint: BOIL, PACKING TAKEN OUT Other details as noted in HPI Constitutional: denies: chills, fever Eyes: denies: eye pain, eye discharge, vision change ENT: denies: ear pain, throat pain Respiratory: denies: cough, shortness of breath, wheezing Cardiovascular: denies: chest pain, palpitations Endocrine: no symptoms reported Gastrointestinal: denies: abdominal pain, nausea, diarrhea Genitourinary: denies: urgency, dysuria, discharge Musculoskeletal: denies: back pain, joint swelling, arthralgia Skin: denies: rash, lesions Neurological: denies: headache, weakness, paresthesias Psychiatric: denies: anxiety, depression Hematological/Lymphatic: denies: easy bleeding, easy bruising ED Past Medical Hx - Past Medical History Hx Hypertension: Yes Hx CVA: Yes (07/07/14) Hx Heart Attack/AMI: No Hx Congestive Heart Failure: No Hx Diabetes: No Hx Deep Vein Thrombosis: No Hx Pulmonary Embolism: No Hx GERD: No Hx Liver Disease: No Hx Renal Disease: Yes (Stage III renal dx) Hx Sickle Cell Disease: No Hx Arthritis: Yes Hx Headaches / Migraines: No Hx Seizures: No Hx Kidney Stones: No Hx Psychiatric Treatment: Yes (Depression) Hx Asthma: No Hx COPD: No Hx Tuberculosis: No Hx Dementia: Yes (takes aricept) Hx HIV: No Additional medical history: 3 herniated discs. LUPUS. hypothyroid - Surgical History Hx Coronary Stent: No Hx Open Heart Surgery: No Hx Pacemaker: No Hx Internal Defibrillator: No Hx Cholecystectomy: Yes Hx Appendectomy: Yes Hx Breast Surgery: No Additional Surgical History: vein stripping - Social History Smoking Status: Current Every Day Smoker - Medications Home Medications: Home Medications Medication Instructions Recorded Confirmed Last Taken Type Carvedilol 25 mg PO BID 03/18/13 09/30/16 06/05/15 History Clopidogrel [Plavix] 75 mg PO QDAY #30 tablet 07/10/14 09/30/16 06/05/15 Rx Mirtazapine [Remeron] 45 mg PO QHS 08/04/15 09/30/16 Unknown History Amlodipine Besylate [Norvasc] 5 mg PO DAILY 09/30/16 09/30/16 Unknown History Calcitriol [Rocaltrol] 1 tab PO DAILY 09/30/16 09/30/16 Unknown History Donepezil HCl 10 mg PO QPM 09/30/16 09/30/16 Unknown History Ergocalciferol [Vitamin D2] 1 cap PO QWEEK 09/30/16 09/30/16 Unknown History Levothyroxine [Synthroid] 50 mcg PO QAM 09/30/16 09/30/16 Unknown History Memantine HCl 10 mg PO DAILY 09/30/16 09/30/16 Unknown History Sertraline HCl [Zoloft] 50 mg PO DAILY 09/30/16 09/30/16 Unknown History Solifenacin Succinate (Nf) 10 mg PO DAILY 09/30/16 09/30/16 Unknown History [Vesicare (Nf)] hydrOXYzine PAMOATE [Vistaril] 50 mg PO QPM 09/30/16 09/30/16 Unknown History predniSONE [Deltasone] 5 mg PO QDAY 09/30/16 09/30/16 Unknown History Acetaminophen/Codeine [Tylenol 1 tab PO Q6H PRN #15 tab 11/02/16 Unknown Rx /Codeine # 3 tab] Doxycycline [Vibramycin CAP] 100 mg PO Q12HR #14 capsule 11/02/16 Unknown Rx ED Physical Exam - General Limitations: No Limitations General appearance: alert, in no apparent distress - Head Head exam: Present: atraumatic, normocephalic, normal inspection - Eye Eye exam: Present: normal appearance, PERRL, EOMI. Absent: scleral icterus, conjunctival injection, nystagmus, periorbital swelling, periorbital tenderness Pupils: Present: normal accommodation - ENT ENT exam: Present: normal exam, normal orophraynx, mucous membranes moist, TM's normal bilaterally, normal external ear exam - Neck Neck exam: Present: normal inspection, full ROM. Absent: tenderness, meningismus, lymphadenopathy, thyromegaly - Respiratory Respiratory exam: Present: normal lung sounds bilaterally. Absent: respiratory distress, wheezes, rales, rhonchi, stridor, chest wall tenderness, accessory muscle use, decreased breath sounds, prolonged expiratory - Cardiovascular Cardiovascular Exam: Present: regular rate, normal rhythm, normal heart sounds. Absent: bradycardia, tachycardia, irregular rhythm, systolic murmur, diastolic murmur, rubs, gallop - GI/Abdominal GI/Abdominal exam: Present: soft, normal bowel sounds. Absent: distended, tenderness, guarding, rebound, rigid, diminished bowel sounds - Rectal Rectal exam: Present: deferred - External exam: Present: normal external exam, other (1 cm closed wound. Healing well with no signs of induration or fluctuance. No postnasal drainage noted. No packing seen. Bilingual Manager Judi present during exam). Absent: erythema, swelling, lesions, lacerations, ecchymosis, bleeding - Extremities Exam Extremities exam: Present: normal inspection, full ROM, normal capillary refill. Absent: tenderness, pedal edema, joint swelling, calf tenderness - Back Exam Back exam: Present: normal inspection, full ROM. Absent: tenderness, CVA tenderness (R), CVA tenderness (L), muscle spasm, paraspinal tenderness, vertebral tenderness, rash noted - Neurological Exam Neurological exam: Present: alert, oriented X3, CN II-XII intact, normal gait, reflexes normal - Psychiatric Psychiatric exam: Present: normal affect, normal mood - Skin Skin exam: Present: warm, dry, intact, normal color. Absent: rash ED Course Vital Signs 11/04/16 09:52 Temperature 98.6 F Pulse Rate 76 Respiratory 20 Rate Blood Pressure 148/86 O2 Sat by Pulse 98 Oximetry - Reevaluation(s) Reevaluation #1: 11/04/16 13:50 Patient is speaking in full sentences with no signs of distress noted. Critical care attestation.: If time is entered above; I have spent that time in minutes in the direct care of this critically ill patient, excluding procedure time. ED Disposition Clinical Impression: Encounter for recheck of abscess following incision and drainage Disposition: DC-01 TO HOME OR SELFCARE Is pt being admited?: No Does the pt Need Aspirin: No Condition: Stable Instructions: Acute Wound Care (ED) Additional Instructions: Follow-up with a primary care doctor in 3-5 days or if symptoms worsen and continue return to emergency room as soon as possible possible. Continue taking full course of antibiotic that was prescribed. Referrals: PRIMARY MD ANA LAURA [Primary Care Provider] - 3-5 Days MELODY DEJESUS MD [Staff Physician] - 3-5 Days [facility] [Outside] - 3-5 Days [facility] [Outside] - 3-5 Days Forms: Work/School Release Form(ED)
[2016-11-04 14:00] VITALS: BP 144/92
== END 2016-11-04 14:01 | disposition home or self-care (01) ==
LOC: ED 09:46
DX: Z48.01 Encounter for change or removal of surgical wound dressing (principal); I10 Essential (primary) hypertension; F03.90 Unspecified dementia, unspecified severity, without behavioral disturbance, psychotic disturbance, mood disturbance, and anxiety

== ENCOUNTER 2016-11-21 08:00 | Emergency (ER) | payer MEDICARE ==
--- NOTE | 2016-11-21 11:35 | Emergency Department Report ---
ED Back Pain/Injury HPI - General Chief Complaint: Back Pain/Injury Stated Complaint: BACK PAIN Time Seen by Provider: 11/21/16 10:29 Source: patient Mode of arrival: Ambulatory Limitations: No Limitations - History of Present Illness Complaint: back pain, other (stepped off curb funny about a week ago and has had pain since but given her ckd she is worried about kidney) -: Gradual Similar Symptoms Previously: No Place: home Radiation: none Severity: mild Quality: dull Consistency: constant Improves With: none Worsens With: movement Associated Symptoms: denies: confusion, weakness, chest pain, numbness, difficulty walking, cough, difficulty urinating, diaphoresis, incontinence, fever/chills, constipation, headaches, abdominal pain, loss of appetite, malaise , nausea/vomiting, rash, seizure, shortness of breath, syncope - Related Data Home Medications Medication Instructions Recorded Confirmed Last Taken Carvedilol 25 mg PO BID 03/18/13 09/30/16 06/05/15 Mirtazapine [Remeron] 45 mg PO QHS 08/04/15 09/30/16 Unknown Amlodipine Besylate [Norvasc] 5 mg PO DAILY 09/30/16 09/30/16 Unknown Calcitriol [Rocaltrol] 1 tab PO DAILY 09/30/16 09/30/16 Unknown Donepezil HCl 10 mg PO QPM 09/30/16 09/30/16 Unknown Ergocalciferol [Vitamin D2] 1 cap PO QWEEK 09/30/16 09/30/16 Unknown Levothyroxine [Synthroid] 50 mcg PO QAM 09/30/16 09/30/16 Unknown Memantine HCl 10 mg PO DAILY 09/30/16 09/30/16 Unknown Sertraline HCl [Zoloft] 50 mg PO DAILY 09/30/16 09/30/16 Unknown Solifenacin Succinate (Nf) 10 mg PO DAILY 09/30/16 09/30/16 Unknown [Vesicare (Nf)] hydrOXYzine PAMOATE [Vistaril] 50 mg PO QPM 09/30/16 09/30/16 Unknown predniSONE [Deltasone] 5 mg PO QDAY 09/30/16 09/30/16 Unknown Previous Rx's Medication Instructions Recorded Last Taken Type Clopidogrel [Plavix] 75 mg PO QDAY #30 tablet 07/10/14 06/05/15 Rx traMADol [Ultram] 50 mg PO Q6HR PRN #12 tablet 11/21/16 Unknown Rx Allergies Allergy/AdvReac Type Severity Reaction Status Date / Time captopril Allergy Rash Verified 09/18/14 10:41 clindamycin Allergy Diarrhea Verified 09/18/14 10:41 NSAIDS (Non-Steroidal Allergy Rash Verified 09/18/14 10:41 Anti-Inflamma Penicillins Allergy Rash Verified 09/18/14 10:41 Sulfa (Sulfonamide Allergy Rash Verified 09/18/14 10:41 Antibiotics) ED Review of Systems ROS: Stated complaint: BACK PAIN Other details as noted in HPI Comment: Unobtainable due to pts medical conditions Constitutional: no symptoms reported, see HPI. denies: fever Eyes: as per HPI. denies: eye pain ENT: as per HPI. denies: ear pain, throat pain Respiratory: no symptoms reported. denies: see HPI, cough, orthopnea, shortness of breath, SOB with exertion, SOB at rest, stridor Cardiovascular: as per HPI. denies: chest pain, palpitations, dyspnea on exertion, orthopnea Endocrine: no symptoms reported, see HPI. denies: excessive sweating, flushing , intolerance to cold, intolerance to heat Gastrointestinal: as per HPI. denies: abdominal pain, nausea, vomiting Genitourinary: as per HPI. denies: urgency, dysuria Musculoskeletal: as per HPI, back pain Skin: as per HPI. denies: rash, lesions Neurological: as per HPI. denies: headache, weakness Psychiatric: as per HPI. denies: anxiety, depression Hematological/Lymphatic: as per HPI. denies: easy bleeding ED Past Medical Hx - Past Medical History Previous Medical History?: Yes Hx Hypertension: Yes Hx CVA: Yes (07/07/14) Hx Heart Attack/AMI: No Hx Congestive Heart Failure: No Hx Diabetes: No Hx Deep Vein Thrombosis: No Hx Pulmonary Embolism: No Hx GERD: No Hx Liver Disease: No Hx Renal Disease: Yes (Stage III renal dx) Hx Sickle Cell Disease: No Hx Arthritis: Yes Hx Headaches / Migraines: No Hx Seizures: No Hx Kidney Stones: No Hx Psychiatric Treatment: Yes (Depression) Hx Asthma: No Hx COPD: No Hx Tuberculosis: No Hx Dementia: Yes (takes aricept) Hx HIV: No Additional medical history: 3 herniated discs. LUPUS. hypothyroid - Surgical History Past Surgical History?: Yes Hx Coronary Stent: No Hx Open Heart Surgery: No Hx Pacemaker: No Hx Internal Defibrillator: No Hx Cholecystectomy: Yes Hx Appendectomy: Yes Hx Breast Surgery: No Additional Surgical History: vein stripping - Social History Smoking Status: Current Every Day Smoker Substance Use Type: Prescribed - Medications Home Medications: Home Medications Medication Instructions Recorded Confirmed Last Taken Type Carvedilol 25 mg PO BID 03/18/13 09/30/16 06/05/15 History Clopidogrel [Plavix] 75 mg PO QDAY #30 tablet 07/10/14 09/30/16 06/05/15 Rx Mirtazapine [Remeron] 45 mg PO QHS 08/04/15 09/30/16 Unknown History Amlodipine Besylate [Norvasc] 5 mg PO DAILY 09/30/16 09/30/16 Unknown History Calcitriol [Rocaltrol] 1 tab PO DAILY 09/30/16 09/30/16 Unknown History Donepezil HCl 10 mg PO QPM 09/30/16 09/30/16 Unknown History Ergocalciferol [Vitamin D2] 1 cap PO QWEEK 09/30/16 09/30/16 Unknown History Levothyroxine [Synthroid] 50 mcg PO QAM 09/30/16 09/30/16 Unknown History Memantine HCl 10 mg PO DAILY 09/30/16 09/30/16 Unknown History Sertraline HCl [Zoloft] 50 mg PO DAILY 09/30/16 09/30/16 Unknown History Solifenacin Succinate (Nf) 10 mg PO DAILY 09/30/16 09/30/16 Unknown History [Vesicare (Nf)] hydrOXYzine PAMOATE [Vistaril] 50 mg PO QPM 09/30/16 09/30/16 Unknown History predniSONE [Deltasone] 5 mg PO QDAY 09/30/16 09/30/16 Unknown History traMADol [Ultram] 50 mg PO Q6HR PRN #12 tablet 11/21/16 Unknown Rx ED Physical Exam - General Limitations: No Limitations General appearance: alert - Head Head exam: Present: atraumatic - Eye Eye exam: Present: PERRL - ENT ENT exam: Present: mucous membranes moist - Neck Neck exam: Present: normal inspection - Respiratory Respiratory exam: Present: normal lung sounds bilaterally - Cardiovascular Cardiovascular Exam: Present: regular rate - GI/Abdominal GI/Abdominal exam: Present: soft, normal bowel sounds - Rectal Rectal exam: Present: deferred - Extremities Exam Extremities exam: Present: normal inspection, full ROM - Back Exam Back exam: Present: normal inspection, full ROM. Absent: tenderness, CVA tenderness (R), CVA tenderness (L), muscle spasm, paraspinal tenderness, vertebral tenderness - Neurological Exam Neurological exam: Present: alert, oriented X3 - Psychiatric Psychiatric exam: Present: normal affect, normal mood - Skin Skin exam: Present: warm, dry, intact ED Course Vital Signs 11/21/16 08:19 Temperature 97.4 F L Pulse Rate 83 Respiratory 20 Rate Blood Pressure 152/88 O2 Sat by Pulse 98 Oximetry - Reevaluation(s) Reevaluation #1: 11/21/16 13:43 to er today w r sided thoracic- butt - to lle pain she stepped off curb tues when this then started however, she adds she has ckd IV and shes concerned its her kidney no fall no cva tenderness no abd pain no fever non toxic neuro intact pain is worse w movement. ua noted cx sent labs noted pt updated will dc home w ultram ED Medical Decision Making - Lab Data Result diagrams: 11/21/16 12:15 11/21/16 12:15 - Medical Decision Making see note Critical care attestation.: If time is entered above; I have spent that time in minutes in the direct care of this critically ill patient, excluding procedure time. ED Disposition Clinical Impression: Musculoligamentous strain, Hypertension Disposition: DC-01 TO HOME OR SELFCARE Is pt being admited?: No Does the pt Need Aspirin: No Condition: Stable Instructions: Musculoskeletal Pain (ED) Additional Instructions: warm compresses continue home meds labs look good today urine has been sent for culture follow up pcp and let him know you where here and seen Prescriptions: traMADol [Ultram] 50 mg PO Q6HR PRN #12 tablet PRN Reason: Pain Referrals: ELOINA WARD MD [Primary Care Provider] - 3-5 Days Time of Disposition: 13:22
[2016-11-21 11:43] LABS: Bacteria,Urine 1+ /HPF (Negative); Bilirubin,Urine NEG (Negative); Blood,Urine NEG (Negative); Ketones,Urine NEG (Negative); Leukocyte Esterase,Urine TR (Negative); Mucus,Urine FEW /HPF; Nitrite,Urine NEG (Negative); Protein,Urine <15 mg/dL mg/dL (Negative); Urobilinogen,Urine < 2.0 mg/dL (<2.0)
[2016-11-21 12:34] LABS: Mean Corpuscular HGB Conc 30 % (30-34); Mean Corpuscular Volume 78 fl (79-97); Platelet Count 216 K/mm3 (140-440); Red Blood Count 5.49 M/mm3 (3.65-5.03); Red Cell Distribution Width 16.9 % (13.2-15.2); White Blood Count 7.8 K/mm3 (4.5-11.0)
[2016-11-21 12:40] LABS: Hematocrit 42.6 % (30.3-42.9); Mean Corpuscular Hemoglobin 23 pg (28-32)
[2016-11-21 12:41] LABS: Hemoglobin 12.8 gm/dl (10.1-14.3)
[2016-11-21 13:17] LABS: Alanine Aminotransferase 25 units/L (7-56); Albumin 4.2 g/dL (3.9-5); Albumin/Globulin Ratio 1.3 %; Alkaline Phosphatase 76 units/L (35-129); Anion Gap 22 mmol/L; BUN/Creatinine Ratio 17; Blood Urea Nitrogen 17 mg/dL (7-17); Calcium 9.6 mg/dL (8.4-10.2); Carbon Dioxide 20 mmol/L (22-30); Chloride 102.3 mmol/L (98-107); Glucose 80 mg/dL (65-100); Potassium 4.5 mmol/L (3.6-5.0); Sodium 140 mmol/L (137-145); Total Protein 7.5 g/dL (6.3-8.2)
[2016-11-21 13:29] LABS: Anisocytosis 1+; Blastocytes % (Manual) 0 %; Diff Status Complete; Hypochromasia Few; Platelet Estimate Consistent w Auto
[2016-11-21 13:50] VITALS: BP 167/94
== END 2016-11-21 13:51 | disposition home or self-care (01) ==
LOC: ED 08:00
DX: S39.012A Strain of muscle, fascia and tendon of lower back, initial encounter (principal); I10 Essential (primary) hypertension; M19.90 Unspecified osteoarthritis, unspecified site; E03.9 Hypothyroidism, unspecified; F17.200 Nicotine dependence, unspecified, uncomplicated; X58.XXXA Exposure to other specified factors, initial encounter; Y93.9 Activity, unspecified; Y99.9 Unspecified external cause status; Y92.009 Unspecified place in unspecified non-institutional (private) residence as the place of occurrence of the external cause
CPT/HCPCS: 36415; 80053; 81001; 85007; 85025; 87086; 99283

== ENCOUNTER 2017-05-18 07:45 | Emergency (ER) | payer MEDICARE ==
--- NOTE | 2017-05-18 08:20 | Emergency Department Report ---
ED Back Pain/Injury HPI - General Chief Complaint: Back Pain/Injury Stated Complaint: BACK PAIN Time Seen by Provider: 05/18/17 08:01 Source: patient Limitations: No Limitations - History of Present Illness Initial Comments: This is a 71 y.o. female that presents with low bilateral low back pain that started yesterday. Patient reports going to [employer] yesterday to workout, which is something she has been doing for the past year with no problems. History of 3 herniated disc, which have not been bothering her for 1 year. She was seeing [place] [facility] but they closed and she has been feeling okay without pain medication. She denies lifting weights or hearing a loud pop while working out. She is taking tylenol with no improvement of symptoms. States pain to low back is worse on left and constant. Admits to frequency, urgency, and dysuria for 2 weeks. MD Complaint: back pain (bilateral low back pain) -: days(s) (1) Similar Symptoms Previously: No Place: home Radiation: none Severity: moderate Severity scale (0 -10): 6 Quality: aching Consistency: constant Improves With: none Worsens With: none Context: unknown Associated Symptoms: denies other symptoms Treatments Prior to Arrival: acetaminophen - Related Data Home Medications Medication Instructions Recorded Confirmed Last Taken Carvedilol 25 mg PO BID 03/18/13 09/30/16 06/05/15 Mirtazapine [Remeron] 45 mg PO QHS 08/04/15 09/30/16 Unknown Amlodipine Besylate [Norvasc] 5 mg PO DAILY 09/30/16 09/30/16 Unknown Calcitriol [Rocaltrol] 1 tab PO DAILY 09/30/16 09/30/16 Unknown Donepezil HCl 10 mg PO QPM 09/30/16 09/30/16 Unknown Ergocalciferol [Vitamin D2] 1 cap PO QWEEK 09/30/16 09/30/16 Unknown Levothyroxine [Synthroid] 50 mcg PO QAM 09/30/16 09/30/16 Unknown Memantine HCl 10 mg PO DAILY 09/30/16 09/30/16 Unknown Sertraline HCl [Zoloft] 50 mg PO DAILY 09/30/16 09/30/16 Unknown Solifenacin Succinate (Nf) 10 mg PO DAILY 09/30/16 09/30/16 Unknown [Vesicare (Nf)] hydrOXYzine PAMOATE [Vistaril] 50 mg PO QPM 09/30/16 09/30/16 Unknown predniSONE [Deltasone] 5 mg PO QDAY 09/30/16 09/30/16 Unknown Previous Rx's Medication Instructions Recorded Last Taken Type Clopidogrel [Plavix] 75 mg PO QDAY #30 tablet 07/10/14 06/05/15 Rx traMADol [Ultram] 50 mg PO Q6HR PRN #12 tablet 11/21/16 Unknown Rx Ciprofloxacin HCl [Cipro] 500 mg PO BID 5 Days #10 tablet 05/18/17 Unknown Rx Phenazopyridine [Pyridium] 200 mg PO TID #6 tab 05/18/17 Unknown Rx Allergies Allergy/AdvReac Type Severity Reaction Status Date / Time captopril Allergy Rash Verified 09/18/14 10:41 clindamycin Allergy Diarrhea Verified 09/18/14 10:41 NSAIDS (Non-Steroidal Allergy Rash Verified 09/18/14 10:41 Anti-Inflamma Penicillins Allergy Rash Verified 09/18/14 10:41 Sulfa (Sulfonamide Allergy Rash Verified 09/18/14 10:41 Antibiotics) ED Review of Systems ROS: Stated complaint: BACK PAIN Other details as noted in HPI Constitutional: denies: chills, fever Respiratory: denies: cough, shortness of breath, wheezing Cardiovascular: denies: chest pain, palpitations Gastrointestinal: denies: abdominal pain, nausea, diarrhea Genitourinary: urgency, dysuria, frequency. denies: discharge Musculoskeletal: back pain (bilateral low back pain). denies: joint swelling, arthralgia Skin: denies: rash, lesions Psychiatric: denies: anxiety, depression ED Past Medical Hx - Past Medical History 3 herniated discs. LUPUS. hypothyroid Family history: no significant family history ED Back Pain Physical Exam - Exam General: Vital signs noted. No distress. Alert and acting appropriately. Back/Abdomen: Yes Flank Tenderness (bilateral CVA tenderness), No Abdominal Tenderness, No Perithoracic Tenderness, No Perilumbar Tenderness, No Sacroiliac Tenderness, No Straight Leg Raise Pain Neuro: Yes Normal Sensation, Yes Normal DTR's, Yes Normal Gait, No Motor Weakness ED Course Vital Signs 05/18/17 07:48 Temperature 97.6 F Pulse Rate 80 Respiratory 18 Rate Blood Pressure 164/87 O2 Sat by Pulse 100 Oximetry Ed Back Pain Tests - Tests Tests: Abnormal UA ED Medical Decision Making - Medical Decision Making 71 y.o. female that presents with low back pain for 1 day. Patient examined by me and stable. No distress noted. Obtained urinalysis. Vitals stable. Physical findings susceptible of acute cystitis, bilateral CVA tenderness. Discharged home. Start cipro 500 mg po bid x 5 days and pyridium 100 mg po tid x 2 days. Discussed plan with patient and she agreed with plan. Follow up with PCP in 2-3 days. Critical care attestation.: If time is entered above; I have spent that time in minutes in the direct care of this critically ill patient, excluding procedure time. ED Disposition Clinical Impression: Acute cystitis Qualifiers: Hematuria presence: without hematuria Qualified Code(s): N30.00 - Acute cystitis without hematuria Disposition: TO HOME OR SELFCARE Is pt being admited?: No Does the pt Need Aspirin: No Condition: Stable Instructions: Urinary Tract Infection in Women (ED) Additional Instructions: Increase fluid intake. Wipe from front to back. Attempt to urinate every time you have the urge to and avoid holding urine. Follow up with primary care provider in 2-3 days. Prescriptions: Ciprofloxacin HCl [Cipro] 500 mg PO BID 5 Days #10 tablet Phenazopyridine [Pyridium] 200 mg PO TID #6 tab Referrals: OSEAS ZARATE MD [Staff Physician] - 3-5 Days [facility], [facility] [Provider Group] - 3-5 Days [facility] [Provider Group] - 3-5 Days Time of Disposition: 08:45 Print Language: UKRAINIAN
[2017-05-18 08:24] LABS: Bilirubin,Urine NEG (Negative); Blood,Urine NEG (Negative); Color,Urine Yellow (Yellow); Mucus,Urine FEW /HPF; Protein,Urine <15 mg/dL mg/dL (Negative); Urobilinogen,Urine < 2.0 mg/dL (<2.0)
[2017-05-18 09:15] VITALS: BP 147/82
== END 2017-05-18 09:15 | disposition home or self-care (01) ==
LOC: ED 07:45
DX: N30.00 Acute cystitis without hematuria (principal); Z88.1 Allergy status to other antibiotic agents; Z88.0 Allergy status to penicillin; Z88.2 Allergy status to sulfonamides; Z88.8 Allergy status to other drugs, medicaments and biological substances
CPT/HCPCS: 81001; 99283

== ENCOUNTER 2017-06-17 11:02 | Outpatient (CLI) | payer MEDICARE ==
[2017-06-17 11:22] LABS: Hematocrit 37.1 % (30.3-42.9); Hemoglobin 11.6 gm/dl (10.1-14.3)
[2017-06-17 11:45] LABS: Albumin 3.6 g/dL (3.9-5); Calcium 9.3 mg/dL (8.4-10.2); Uric Acid 4.9 mg/dL (3.5-7.6)
[2017-06-17 11:59] LABS: Creatinine,Urine 228.8 mg/dL (0.1-20.0); Protein/Creatinine Ratio,Urine 0.18
== END 2017-06-17 11:03 | disposition home or self-care (01) ==
LOC: LAB 11:02
PROVIDERS: ATTEND Internal Medicine Nephrology
DX: R94.4 Abnormal results of kidney function studies (principal); I10 Essential (primary) hypertension; E78.00 Pure hypercholesterolemia, unspecified; E03.9 Hypothyroidism, unspecified; F17.200 Nicotine dependence, unspecified, uncomplicated
CPT/HCPCS: 36415; 80048; 82040; 82570; 84100; 84156; 84550; 85014; 85018

== ENCOUNTER 2017-07-14 13:40 | Emergency (ER) | payer MEDICARE ==
[2017-07-14 14:24] VITALS: BP 149/78
[2017-07-14] MEDS ORDERED: ULTRAM PO ONE (14:50)
--- NOTE | 2017-07-14 14:52 | Emergency Department Report ---
Tamia Doc - Documentation Documentation: Patient is a 71-year-old [place] female who last night fell and struck the left side of her head. Patient states that she was walking and her knees gave out and she fell backwards. Patient states she hit her head with his no loss of consciousness. Patient also complaining of generalized body soreness most notably in the left humerus where she does have a bruise, the lower back, and the bilateral thighs. Patient is able to walk exam with Toradol states it does hurt when she tries to stand secondary to soreness. Patient also is complaining of some mild neck tenderness on the left side as well. Patient will have x-rays and CTs done to rule o injury and the patient will be reassessed by the JAIR
--- NOTE | 2017-07-14 15:08 | Emergency Department Report ---
<NORMA العلي - Last Filed: 07/14/17 15:08> ED Fall HPI - General Chief Complaint: Fall Stated Complaint: HIT HEAD ON LEFT SIDE, BRUISE ON LEFT ARM Time Seen by Provider: 07/14/17 14:42 Source: patient Mode of arrival: Ambulatory - History of Present Illness Initial Comments: Patient is a 71-year-old [place] female who last night fell and struck the left side of her head. Patient states that she was walking and her knees gave out and she fell backwards. Patient states she hit her head with his no loss of consciousness. Patient also complaining of generalized body soreness most notably in the left humerus where she does have a bruise, the lower back, and the bilateral thighs. Patient is able to walk exam with Toradol states it does hurt when she tries to stand secondary to soreness. Patient also is complaining of some mild neck tenderness on the left side as well. Patient will have x-rays and CTs done to rule o injury and the patient will be reassessed by the JAIR MD Complaint: fall - Related Data Home Medications Medication Instructions Recorded Confirmed Last Taken Carvedilol 25 mg PO BID 03/18/13 09/30/16 06/05/15 Mirtazapine [Remeron] 45 mg PO QHS 08/04/15 09/30/16 Unknown Amlodipine Besylate [Norvasc] 5 mg PO DAILY 09/30/16 09/30/16 Unknown Calcitriol [Rocaltrol] 1 tab PO DAILY 09/30/16 09/30/16 Unknown Donepezil HCl 10 mg PO QPM 09/30/16 09/30/16 Unknown Ergocalciferol [Vitamin D2] 1 cap PO QWEEK 09/30/16 09/30/16 Unknown Levothyroxine [Synthroid] 50 mcg PO QAM 09/30/16 09/30/16 Unknown Memantine HCl 10 mg PO DAILY 09/30/16 09/30/16 Unknown Sertraline HCl [Zoloft] 50 mg PO DAILY 09/30/16 09/30/16 Unknown Solifenacin Succinate (Nf) 10 mg PO DAILY 09/30/16 09/30/16 Unknown [Vesicare (Nf)] hydrOXYzine PAMOATE [Vistaril] 50 mg PO QPM 09/30/16 09/30/16 Unknown predniSONE [Deltasone] 5 mg PO QDAY 09/30/16 09/30/16 Unknown Previous Rx's Medication Instructions Recorded Last Taken Type Clopidogrel [Plavix] 75 mg PO QDAY #30 tablet 07/10/14 06/05/15 Rx traMADol [Ultram] 50 mg PO Q6HR PRN #12 tablet 11/21/16 Unknown Rx Ciprofloxacin HCl [Cipro] 500 mg PO BID 5 Days #10 tablet 05/18/17 Unknown Rx Phenazopyridine [Pyridium] 200 mg PO TID #6 tab 05/18/17 Unknown Rx traMADol [Ultram] 50 mg PO Q6HR PRN #10 tablet 07/14/17 Unknown Rx Allergies Allergy/AdvReac Type Severity Reaction Status Date / Time captopril Allergy Rash Verified 09/18/14 10:41 clindamycin Allergy Diarrhea Verified 09/18/14 10:41 NSAIDS (Non-Steroidal Allergy Rash Verified 09/18/14 10:41 Anti-Inflamma Penicillins Allergy Rash Verified 09/18/14 10:41 Sulfa (Sulfonamide Allergy Rash Verified 09/18/14 10:41 Antibiotics) ED Review of Systems ROS: Stated complaint: HIT HEAD ON LEFT SIDE, BRUISE ON LEFT ARM Other details as noted in HPI ED Past Medical Hx - Past Medical History Previous Medical History?: Yes Hx Hypertension: Yes Hx CVA: Yes (07/07/14) Hx Heart Attack/AMI: No Hx Congestive Heart Failure: No Hx Diabetes: No Hx Deep Vein Thrombosis: No Hx Pulmonary Embolism: No Hx GERD: No Hx Liver Disease: No Hx Renal Disease: Yes (Stage III renal dx) Hx of Cancer: No Hx Sickle Cell Disease: No Hx Arthritis: Yes Hx Headaches / Migraines: No Hx Seizures: No Hx Kidney Stones: No Hx Psychiatric Treatment: Yes (Depression) Hx Asthma: No Hx COPD: No Hx Tuberculosis: No Hx Dementia: Yes (takes aricept) Hx HIV: No Additional medical history: 3 herniated discs. LUPUS. hypothyroid - Surgical History Past Surgical History?: Yes Hx Coronary Stent: No Hx Open Heart Surgery: No Hx Pacemaker: No Hx Internal Defibrillator: No Hx Cholecystectomy: Yes Hx Appendectomy: Yes Hx Breast Surgery: No Additional Surgical History: vein stripping - Social History Smoking Status: Current Every Day Smoker Substance Use Type: None - Medications Home Medications: Home Medications Medication Instructions Recorded Confirmed Last Taken Type Carvedilol 25 mg PO BID 03/18/13 09/30/16 06/05/15 History Clopidogrel [Plavix] 75 mg PO QDAY #30 tablet 07/10/14 09/30/16 06/05/15 Rx Mirtazapine [Remeron] 45 mg PO QHS 08/04/15 09/30/16 Unknown History Amlodipine Besylate [Norvasc] 5 mg PO DAILY 09/30/16 09/30/16 Unknown History Calcitriol [Rocaltrol] 1 tab PO DAILY 09/30/16 09/30/16 Unknown History Donepezil HCl 10 mg PO QPM 09/30/16 09/30/16 Unknown History Ergocalciferol [Vitamin D2] 1 cap PO QWEEK 09/30/16 09/30/16 Unknown History Levothyroxine [Synthroid] 50 mcg PO QAM 09/30/16 09/30/16 Unknown History Memantine HCl 10 mg PO DAILY 09/30/16 09/30/16 Unknown History Sertraline HCl [Zoloft] 50 mg PO DAILY 09/30/16 09/30/16 Unknown History Solifenacin Succinate (Nf) 10 mg PO DAILY 09/30/16 09/30/16 Unknown History [Vesicare (Nf)] hydrOXYzine PAMOATE [Vistaril] 50 mg PO QPM 09/30/16 09/30/16 Unknown History predniSONE [Deltasone] 5 mg PO QDAY 09/30/16 09/30/16 Unknown History traMADol [Ultram] 50 mg PO Q6HR PRN #12 tablet 11/21/16 Unknown Rx Ciprofloxacin HCl [Cipro] 500 mg PO BID 5 Days #10 tablet 05/18/17 Unknown Rx Phenazopyridine [Pyridium] 200 mg PO TID #6 tab 05/18/17 Unknown Rx traMADol [Ultram] 50 mg PO Q6HR PRN #10 tablet 07/14/17 Unknown Rx ED Physical Exam - General Limitations: No Limitations ED Course Vital Signs 07/14/17 07/14/17 14:18 15:00 Temperature 98.8 F Pulse Rate 93 H Respiratory 18 18 Rate Blood Pressure 149/78 Blood Pressure 149/78 [Right] O2 Sat by Pulse 98 Oximetry Critical care attestation.: If time is entered above; I have spent that time in minutes in the direct care of this critically ill patient, excluding procedure time. ED Disposition Clinical Impression: Musculoskeletal pain, Chest wall pain Fall with injury Qualifiers: Encounter type: initial encounter Qualified Code(s): W19.XXXA - Unspecified fall, initial encounter Closed head injury Qualifiers: Encounter type: initial encounter Qualified Code(s): S09.90XA - Unspecified injury of head, initial encounter Disposition: TO HOME OR SELFCARE Condition: Stable Instructions: Musculoskeletal Pain (ED) Additional Instructions: Please follow-up with your primary care physician as needed <EMERY CHINO - Last Filed: 07/14/17 16:48> ED Medical Decision Making - Medical Decision Making X-ray of the humerus on the left the lumbar spine and the pelvis are all within normal limits and show no acute bony abnormality. Head CT and CT of the C- spine also showed no acute abnormality. ED Disposition Is pt being admited?: No Does the pt Need Aspirin: No
--- NOTE | 2017-07-14 15:34 | Cat Scan Report ---
FINAL REPORT EXAM: CT CERVICAL SPINE WO CON HISTORY: fall neck pain TECHNIQUE: CT of the Cervical Spine without IV contrast. Coronal and sagittal reformatted images were provided. PRIORS: None currently available. FINDINGS: There is no fracture. There is no subluxation. There is no atlantooccipital dislocation. Occipitocervical joint is intact. C1-C2: Mild arthrosis with exostosis or dystrophic calcification the tip of the dens. No significant canal narrowing. No significant subluxation. Mild discogenic disease at C4-C6. No significant canal or foraminal narrowing. Remaining cervical levels do not demonstrate significant canal or foraminal narrowing. Prevertebral soft tissue structures are unremarkable. Mild emphysema noted within both apical lungs. Small retention cysts in the left maxillary sinus. Heterogenous thyroid gland. A distinct nodules not evident; however, nodules are not excluded. IMPRESSION: No acute fracture.
--- NOTE | 2017-07-14 15:39 | Cat Scan Report ---
FINAL REPORT EXAM: CT HEAD/BRAIN WO CON HISTORY: fall TECHNIQUE: CT of the Head without IV contrast. PRIORS: CT head September 03, 2016. FINDINGS: There is no evidence for acute ischemia. There is no hemorrhage. There is no midline shift. There is no hydrocephalus. There is no mass. Age appropriate davidson-white matter attenuation is noted. There is no calvarial fracture. The temporal bones demonstrate aerated mastoid air cells. The middle ears appear unremarkable. Small retention cyst in the right maxillary sinus measures 7 mm. Globes are intact. IMPRESSION: No acute intracranial findings.
--- NOTE | 2017-07-14 16:12 | XRay Report ---
FINAL REPORT EXAM: XR HUMERUS 2+V LT HISTORY: fall with left upper arm pain TECHNIQUE: AP and lateral views of the left humerus PRIORS: None. FINDINGS: There is no evidence for acute fracture or dislocation. No soft tissue swelling or radiopaque foreign bodies are seen. Bony mineralization is normal and joint spaces are maintained. IMPRESSION: No acute bony or soft tissue abnormality noted.
--- NOTE | 2017-07-14 16:24 | XRay Report ---
FINAL REPORT EXAM: XR SPINE LUMBOSACRAL 2-3V HISTORY: fall with low back pain TECHNIQUE: AP and lateral views of the lumbar spine PRIORS: None. FINDINGS: The vertebral body heights are well maintained. The alignment is normal. No evidence for spondylolysis or spondylolisthesis is seen. Pedicles are intact bilaterally at all levels. The paraspinal soft tissues are unremarkable. Surgical clips in the right upper quadrant are noted. Moderate to severe degenerative narrowing of the L4-L5 and L5-S1 disc spaces is seen. IMPRESSION: No acute abnormality. Moderate to severe degenerative disc narrowing at L4 through S1.
--- NOTE | 2017-07-14 16:25 | XRay Report ---
FINAL REPORT EXAM: XR PELVIS 1-2V HISTORY: fall with pelvic pain TECHNIQUE: AP view of the pelvis PRIORS: None FINDINGS: No evidence for acute fracture or dislocation is seen. Joint spaces are maintained. Sacroiliac joints are normal. The soft tissues are unremarkable. Bony mineralization is normal. IMPRESSION: No acute soft tissue or bony abnormality noted in pelvis.
== END 2017-07-14 17:03 | disposition home or self-care (01) ==
LOC: ED 13:40
DX: S09.90XA Unspecified injury of head, initial encounter (principal); R07.89 Other chest pain; M79.652 Pain in left thigh; M79.651 Pain in right thigh; M54.2 Cervicalgia; I12.9 Hypertensive chronic kidney disease with stage 1 through stage 4 chronic kidney disease, or unspecified chronic kidney disease; N18.3 Chronic kidney disease, stage 3 (moderate); M19.90 Unspecified osteoarthritis, unspecified site; F17.200 Nicotine dependence, unspecified, uncomplicated; Z88.1 Allergy status to other antibiotic agents; Z88.0 Allergy status to penicillin; Z88.2 Allergy status to sulfonamides; Z88.8 Allergy status to other drugs, medicaments and biological substances; Z86.73 Personal history of transient ischemic attack (TIA), and cerebral infarction without residual deficits; W18.30XA Fall on same level, unspecified, initial encounter; Y93.89 Activity, other specified; Y92.89 Other specified places as the place of occurrence of the external cause; Y99.8 Other external cause status
CPT/HCPCS: 70450; 72100; 72125; 72170; 93005; 93010; 99284

== ENCOUNTER 2017-09-13 16:43 | Emergency (ER) | payer MEDICARE ==
[2017-09-13 16:58] VITALS: BP 131/85
[2017-09-13] MEDS ORDERED: ASPIRIN PO ONE (16:58)
[2017-09-13 17:27] LABS: Basophils # (Auto) 0.1 K/mm3 (0.0-0.1); Eosinophils # (Auto) 0.1 K/mm3 (0.0-0.4); Eosinophils % (Auto) 0.9 % (0.0-4.3); Hematocrit 37.9 % (30.3-42.9); Hemoglobin 12.1 gm/dl (10.1-14.3); Lymphocytes # (Auto) 1.6 K/mm3 (1.2-5.4); Lymphocytes % (Auto) 20.8 % (13.4-35.0); Mean Corpuscular HGB Conc 32 % (30-34); Mean Corpuscular Hemoglobin 24 pg (28-32); Mean Corpuscular Volume 74 fl (79-97); Monocytes # (Auto) 0.5 K/mm3 (0.0-0.8); Monocytes % (Auto) 6.3 % (0.0-7.3); Platelet Count 206 K/mm3 (140-440); Red Blood Count 5.15 M/mm3 (3.65-5.03); Red Cell Distribution Width 16.1 % (13.2-15.2)
[2017-09-13 17:46] LABS: BUN/Creatinine Ratio 11; Blood Urea Nitrogen 16 mg/dL (7-17); Calcium 9.4 mg/dL (8.4-10.2); Hemolysis Index 66
--- NOTE | 2017-09-13 20:28 | Emergency Department Report ---
ED Chest Pain HPI - General Chief Complaint: Chest Pain Stated Complaint: LFT BREAST PAIN Time Seen by Provider: 09/13/17 20:07 Source: patient Mode of arrival: Ambulatory Limitations: No Limitations - History of Present Illness Initial Comments: Patient 8-year-old female history of hypertension and CAD COPD Lupus NH 2 years ago presents for left-sided ch est pain started on yesterday pain described as aching exacerbated by deep breathing associated symptoms include bilateral lower extremity edema patient denies shortness of breath no nausea vomiting no back pain No dizziness no lightheadedness patientappears to all medication regimen there is no shortness of breath this time Onset/Timin -: days(s) Onset: during rest Pain Location: left chest Pain Radiation: LUE Severity: moderate Quality: aching Consistency: intermittent Improves With: rest Worsens With: inspiration, movement re: denies: nausea, vomting, diaphoresis, dyspnea, sense of impending doom Other Symptoms: leg swelling. denies: cough, fever, syncope, rash, acid taste in mouth, palpitations, burping Treatments Prior to Arrival: none Aspirin use within the Past 7 Days: (0) No - Related Data On Oral Contraceptives: No Home Medications Medication Instructions Recorded Confirmed Last Taken Carvedilol 25 mg PO BID 03/18/13 09/30/16 06/05/15 Mirtazapine [Remeron] 45 mg PO QHS 08/04/15 09/30/16 Unknown Amlodipine Besylate [Norvasc] 5 mg PO DAILY 09/30/16 09/30/16 Unknown Calcitriol [Rocaltrol] 1 tab PO DAILY 09/30/16 09/30/16 Unknown Donepezil HCl 10 mg PO QPM 09/30/16 09/30/16 Unknown Ergocalciferol [Vitamin D2] 1 cap PO QWEEK 09/30/16 09/30/16 Unknown Levothyroxine [Synthroid] 50 mcg PO QAM 09/30/16 09/30/16 Unknown Memantine HCl 10 mg PO DAILY 09/30/16 09/30/16 Unknown Sertraline HCl [Zoloft] 50 mg PO DAILY 09/30/16 09/30/16 Unknown Solifenacin Succinate (Nf) 10 mg PO DAILY 09/30/16 09/30/16 Unknown [Vesicare (Nf)] hydrOXYzine PAMOATE [Vistaril] 50 mg PO QPM 09/30/16 09/30/16 Unknown predniSONE [Deltasone] 5 mg PO QDAY 09/30/16 09/30/16 Unknown Previous Rx's Medication Instructions Recorded Last Taken Type Clopidogrel [Plavix] 75 mg PO QDAY #30 tablet 07/10/14 06/05/15 Rx traMADol [Ultram] 50 mg PO Q6HR PRN #12 tablet 11/21/16 Unknown Rx Ciprofloxacin HCl [Cipro] 500 mg PO BID 5 Days #10 tablet 05/18/17 Unknown Rx Phenazopyridine [Pyridium] 200 mg PO TID #6 tab 05/18/17 Unknown Rx traMADol [Ultram] 50 mg PO Q6HR PRN #10 tablet 07/14/17 Unknown Rx Acetaminophen 650 mg PO QID #60 tablet 09/13/17 Unknown Rx Allergies Allergy/AdvReac Type Severity Reaction Status Date / Time captopril Allergy Rash Verified 09/18/14 10:41 clindamycin Allergy Diarrhea Verified 09/18/14 10:41 NSAIDS (Non-Steroidal Allergy Rash Verified 09/18/14 10:41 Anti-Inflamma Penicillins Allergy Rash Verified 09/18/14 10:41 Sulfa (Sulfonamide Allergy Rash Verified 09/18/14 10:41 Antibiotics) Heart Score - HEART Score History: Slightly suspicious EKG: Normal Age: > 65 Risk factors: > 3 risk factors or hx of atherosclerotic disease Troponin: < normal limit HEART Score: 4 - Critical Actions Critical Actions: 0-3 pts:0.9-1.7%risk of adverse cardiac event.Candidate for discharge ED Review of Systems ROS: Stated complaint: LFT BREAST PAIN Other details as noted in HPI Constitutional: denies: chills, fever Eyes: denies: eye pain, eye discharge, vision change ENT: denies: ear pain, throat pain Respiratory: denies: cough, shortness of breath, wheezing Cardiovascular: chest pain Endocrine: no symptoms reported Gastrointestinal: denies: abdominal pain, nausea, diarrhea Genitourinary: denies: urgency, dysuria, discharge Musculoskeletal: denies: back pain, joint swelling, arthralgia Skin: denies: rash, lesions Neurological: denies: headache, weakness, paresthesias Psychiatric: denies: anxiety, depression Hematological/Lymphatic: denies: easy bleeding, easy bruising ED Past Medical Hx - Past Medical History Hx Hypertension: Yes Hx CVA: Yes (07/07/14) Hx Heart Attack/AMI: No Hx Congestive Heart Failure: No Hx Diabetes: No Hx Deep Vein Thrombosis: No Hx Pulmonary Embolism: No Hx GERD: No Hx Liver Disease: No Hx Renal Disease: Yes (Stage III renal dx) Hx Sickle Cell Disease: No Hx Arthritis: Yes Hx Headaches / Migraines: No Hx Seizures: No Hx Kidney Stones: No Hx Psychiatric Treatment: Yes (Depression) Hx Asthma: No Hx COPD: No Hx Tuberculosis: No Hx Dementia: Yes (takes aricept) Hx HIV: No Additional medical history: 3 herniated discs. LUPUS. hypothyroid - Surgical History Hx Coronary Stent: No Hx Open Heart Surgery: No Hx Pacemaker: No Hx Internal Defibrillator: No Hx Cholecystectomy: Yes Hx Appendectomy: Yes Hx Breast Surgery: No Additional Surgical History: vein stripping - Social History Smoking Status: Current Every Day Smoker Substance Use Type: None - Medications Home Medications: Home Medications Medication Instructions Recorded Confirmed Last Taken Type Carvedilol 25 mg PO BID 03/18/13 09/30/16 06/05/15 History Clopidogrel [Plavix] 75 mg PO QDAY #30 tablet 07/10/14 09/30/16 06/05/15 Rx Mirtazapine [Remeron] 45 mg PO QHS 08/04/15 09/30/16 Unknown History Amlodipine Besylate [Norvasc] 5 mg PO DAILY 09/30/16 09/30/16 Unknown History Calcitriol [Rocaltrol] 1 tab PO DAILY 09/30/16 09/30/16 Unknown History Donepezil HCl 10 mg PO QPM 09/30/16 09/30/16 Unknown History Ergocalciferol [Vitamin D2] 1 cap PO QWEEK 09/30/16 09/30/16 Unknown History Levothyroxine [Synthroid] 50 mcg PO QAM 09/30/16 09/30/16 Unknown History Memantine HCl 10 mg PO DAILY 09/30/16 09/30/16 Unknown History Sertraline HCl [Zoloft] 50 mg PO DAILY 09/30/16 09/30/16 Unknown History Solifenacin Succinate (Nf) 10 mg PO DAILY 09/30/16 09/30/16 Unknown History [Vesicare (Nf)] hydrOXYzine PAMOATE [Vistaril] 50 mg PO QPM 09/30/16 09/30/16 Unknown History predniSONE [Deltasone] 5 mg PO QDAY 09/30/16 09/30/16 Unknown History traMADol [Ultram] 50 mg PO Q6HR PRN #12 tablet 11/21/16 Unknown Rx Ciprofloxacin HCl [Cipro] 500 mg PO BID 5 Days #10 tablet 05/18/17 Unknown Rx Phenazopyridine [Pyridium] 200 mg PO TID #6 tab 05/18/17 Unknown Rx traMADol [Ultram] 50 mg PO Q6HR PRN #10 tablet 07/14/17 Unknown Rx Acetaminophen 650 mg PO QID #60 tablet 09/13/17 Unknown Rx ED Physical Exam - General Limitations: No Limitations General appearance: alert, in no apparent distress - Head Head exam: Present: atraumatic, normocephalic - Eye Eye exam: Present: normal appearance, PERRL - ENT ENT exam: Present: normal exam, mucous membranes moist - Neck Neck exam: Present: normal inspection, full ROM. Absent: lymphadenopathy, thyromegaly - Respiratory Respiratory exam: Present: normal lung sounds bilaterally, chest wall tenderness. Absent: respiratory distress, wheezes, stridor, accessory muscle use, decreased breath sounds, prolonged expiratory - Cardiovascular Cardiovascular Exam: Present: regular rate, normal rhythm. Absent: systolic murmur, diastolic murmur, rubs, gallop - GI/Abdominal GI/Abdominal exam: Present: soft, normal bowel sounds. Absent: distended, rebound, organomegaly, mass, bruit, pulsatile mass - Rectal Rectal exam: Present: deferred - Extremities Exam Extremities exam: Present: full ROM, normal capillary refill. Absent: calf tenderness - Back Exam Back exam: Present: normal inspection, full ROM. Absent: tenderness, CVA tenderness (R), CVA tenderness (L), muscle spasm, paraspinal tenderness, vertebral tenderness - Neurological Exam Neurological exam: Present: alert, oriented X3, CN II-XII intact, normal gait. Absent: reflexes normal - Psychiatric Psychiatric exam: Present: normal affect, normal mood - Skin Skin exam: Present: warm, dry, intact, normal color. Absent: rash ED Course Vital Signs 09/13/17 16:55 Temperature 98.5 F Pulse Rate 82 Respiratory 16 Rate Blood Pressure 131/85 O2 Sat by Pulse 98 Oximetry LINETTE score - Linette Score Age > 65: (1) Yes Aspirin use within the Past 7 Days: (0) No 3 or more CAD Risk Factors: (1) Yes 2 or more Angina events in past 24 hrs: (0) No Known CAD with more than 50% Stenosis: (1) Yes Elevated Cardiac Markers: (0) No ST Deviation Greater than 0.5mm: (0) No LINETTE Score: 3 ED Medical Decision Making - Lab Data Result diagrams: 09/13/17 17:11 09/13/17 17:11 - Radiology Data Radiology results: report reviewed, image reviewed no infiltrates no opacities - Medical Decision Making Chest pain relieved to 0 10 there is no chest pain or shortness of breath no dizziness no headache no nausea vomiting troponin negative 3 heart scores 3 LINETTE score for patient has been overweight for UA Ativan for negative UA symptoms no dysuria no hematuria no frequency no urgency plan DC home with Tylenol when necessary for chest wall pain follow up with PCP Dr. Eloina Ward tomorrow patient patient verbalized understanding and agreement with same will be DC'd home in stable condition at this time Critical care attestation.: If time is entered above; I have spent that time in minutes in the direct care of this critically ill patient, excluding procedure time. ED Disposition Clinical Impression: Chest wall pain, Atypical chest pain Disposition: DC-01 TO HOME OR SELFCARE Is pt being admited?: No Does the pt Need Aspirin: No Condition: Good Instructions: Chest Pain (ED) Prescriptions: Acetaminophen 650 mg PO QID #60 tablet Referrals: ELOINA WARD MD [Staff Physician] - 3-5 Days Forms: Work/School Release Form(ED) Time of Disposition: 23:43
--- NOTE | 2017-09-13 21:10 | XRay Report ---
FINAL REPORT PROCEDURE: XR CHEST ROUTINE 2V TECHNIQUE: PA and lateral chest radiographs were obtained. CPT 57825 HISTORY: chest pain COMPARISON: No prior studies are available for comparison. FINDINGS: Heart: Normal. Mediastinum/Vessels: Normal. Lungs/Pleural space: No infiltrate, effusion, or pneumothorax. Bony thorax: No acute osseous abnormality. Other: IMPRESSION: No radiographic evidence of acute abnormality
[2017-09-13] MEDS ORDERED: TYLENOL #3 PO ONE (22:01)
== END 2017-09-13 23:55 | disposition home or self-care (01) ==
LOC: ED 16:43
DX: R07.89 Other chest pain (principal); R22.43 Localized swelling, mass and lump, lower limb, bilateral; F17.200 Nicotine dependence, unspecified, uncomplicated; N18.3 Chronic kidney disease, stage 3 (moderate); F03.90 Unspecified dementia, unspecified severity, without behavioral disturbance, psychotic disturbance, mood disturbance, and anxiety; F32.9 Major depressive disorder, single episode, unspecified; Z86.73 Personal history of transient ischemic attack (TIA), and cerebral infarction without residual deficits; Z90.49 Acquired absence of other specified parts of digestive tract; Z79.899 Other long term (current) drug therapy; Z88.0 Allergy status to penicillin; Z88.1 Allergy status to other antibiotic agents; Z88.2 Allergy status to sulfonamides; Z88.8 Allergy status to other drugs, medicaments and biological substances
CPT/HCPCS: 36415; 71046; 80048; 84484; 85025; 93005; 93010

== ENCOUNTER 2017-09-26 09:45 | Outpatient (CLI) | payer MEDICARE ==
[2017-09-26 10:51] LABS: Basophils # (Auto) 0.1 K/mm3 (0.0-0.1); Basophils % (Auto) 0.9 % (0.0-1.8); Eosinophils # (Auto) 0.1 K/mm3 (0.0-0.4); Eosinophils % (Auto) 1.4 % (0.0-4.3); Hematocrit 36.8 % (30.3-42.9); Hemoglobin 11.7 gm/dl (10.1-14.3); Lymphocytes # (Auto) 2.2 K/mm3 (1.2-5.4); Lymphocytes % (Auto) 31.9 % (13.4-35.0); Mean Corpuscular HGB Conc 32 % (30-34); Mean Corpuscular Volume 74 fl (79-97); Monocytes # (Auto) 0.5 K/mm3 (0.0-0.8); Monocytes % (Auto) 7.3 % (0.0-7.3); Platelet Count 228 K/mm3 (140-440); Red Blood Count 5.01 M/mm3 (3.65-5.03); Red Cell Distribution Width 16.2 % (13.2-15.2)
[2017-09-26 10:53] LABS: Mean Corpuscular Hemoglobin 23 pg (28-32)
[2017-09-26 11:00] LABS: Albumin 3.8 g/dL (3.9-5); Calcium 9.4 mg/dL (8.4-10.2); Uric Acid 4.2 mg/dL (3.5-7.6)
[2017-09-26 12:56] LABS: Creatinine,Urine 123.7 mg/dL (0.1-20.0)
== END 2017-09-26 09:46 | disposition home or self-care (01) ==
LOC: LAB 09:45
PROVIDERS: ATTEND Internal Medicine Nephrology
DX: R94.4 Abnormal results of kidney function studies (principal); I12.9 Hypertensive chronic kidney disease with stage 1 through stage 4 chronic kidney disease, or unspecified chronic kidney disease; N18.3 Chronic kidney disease, stage 3 (moderate); E78.00 Pure hypercholesterolemia, unspecified; M19.90 Unspecified osteoarthritis, unspecified site; E03.9 Hypothyroidism, unspecified; Z88.6 Allergy status to analgesic agent; Z88.2 Allergy status to sulfonamides; Z88.8 Allergy status to other drugs, medicaments and biological substances; Z88.1 Allergy status to other antibiotic agents; Z90.49 Acquired absence of other specified parts of digestive tract; Z86.73 Personal history of transient ischemic attack (TIA), and cerebral infarction without residual deficits; F17.210 Nicotine dependence, cigarettes, uncomplicated
CPT/HCPCS: 36415; 80048; 82040; 82565; 82570; 82575; 84100; 84156; 84550; 85025

== ENCOUNTER 2017-11-16 09:34 | Outpatient (CLI) | payer MEDICARE ==
[2017-11-16 09:57] LABS: Hematocrit 37.3 % (30.3-42.9); Hemoglobin 11.9 gm/dl (10.1-14.3); Mean Corpuscular HGB Conc 32 % (30-34); Mean Corpuscular Volume 74 fl (79-97); Platelet Count 243 K/mm3 (140-440); Red Blood Count 5.04 M/mm3 (3.65-5.03); Red Cell Distribution Width 16.1 % (13.2-15.2)
[2017-11-16 10:01] LABS: Mean Corpuscular Hemoglobin 24 pg (28-32)
[2017-11-16 10:23] LABS: Calcium 9.6 mg/dL (8.4-10.2)
== END 2017-11-16 09:35 | disposition home or self-care (01) ==
LOC: LAB 09:34
PROVIDERS: ATTEND Internal Medicine Rheumatology
DX: M32.10 Systemic lupus erythematosus, organ or system involvement unspecified (principal); R53.83 Other fatigue; I10 Essential (primary) hypertension; E78.00 Pure hypercholesterolemia, unspecified; M19.90 Unspecified osteoarthritis, unspecified site; Z90.49 Acquired absence of other specified parts of digestive tract; Z87.891 Personal history of nicotine dependence; Z79.899 Other long term (current) drug therapy
CPT/HCPCS: 36415; 80053; 82607; 85027; 86038

== ENCOUNTER 2018-02-08 08:38 | Emergency (ER) | payer MEDICARE ==
[2018-02-08 08:46] VITALS: BP 174/84
[2018-02-08] MEDS ORDERED: IBUPROFEN PO ONE (09:05)
[2018-02-08] MEDS ORDERED: DELTASONE PO ONE (09:05)
[2018-02-08] MEDS ORDERED: TYLENOL #3 PO ONE (09:08)
--- NOTE | 2018-02-08 09:11 | Emergency Department Report ---
ED Back Pain/Injury HPI - General Chief Complaint: Extremity Problem,Nontraumatic Stated Complaint: LT CHEEK PAIN/RASH IN MOUTH Time Seen by Provider: 02/08/18 09:01 Source: patient Limitations: No Limitations - History of Present Illness Initial Comments: This is a 72-year-old female nontoxic, well nourished in appearance, no acute signs of distress presents to the ED with c/o of acute on chronic lower back pain. Patient stated she has history of lumbar herniated disc. Patient stated has a pain specialist and orthopedic appointment beginning of this month. Patient states has history of sciatica nerve pain which is similar symptoms as today. Patient states that pain radiates through to his left lower extremity. Patient denies any trauma. Denies any bladder or bowel instability. Patient denies any urinary symptoms. Denies any fever, chills, nausea, vomiting, headache, stiff neck, chest pain or shortness of breath. Patient denies any numbness or tingling. Patient states allergies to Toradol, clindamycin, NSAIDs, penicillin and sulfa drugs. MD Complaint: back pain -: This morning Similar Symptoms Previously: Yes Place: home Radiation: left leg Severity: mild Severity scale (0 -10): 8 Quality: aching Consistency: intermittent Improves With: immobilization, sitting upright Worsens With: movement, walking Associated Symptoms: denies other symptoms. denies: confusion, weakness, chest pain, numbness, difficulty walking, cough, difficulty urinating, diaphoresis, incontinence, fever/chills, constipation, headaches, abdominal pain, loss of appetite, malaise, nausea/vomiting, rash, seizure, shortness of breath, syncope - Related Data Home Medications Medication Instructions Recorded Confirmed Last Taken Carvedilol 25 mg PO BID 03/18/13 09/30/16 06/05/15 Mirtazapine [Remeron] 45 mg PO QHS 08/04/15 09/30/16 Unknown Amlodipine Besylate [Norvasc] 5 mg PO DAILY 09/30/16 09/30/16 Unknown Calcitriol [Rocaltrol] 1 tab PO DAILY 09/30/16 09/30/16 Unknown Donepezil HCl 10 mg PO QPM 09/30/16 09/30/16 Unknown Ergocalciferol [Vitamin D2] 1 cap PO QWEEK 09/30/16 09/30/16 Unknown Levothyroxine [Synthroid] 50 mcg PO QAM 09/30/16 09/30/16 Unknown Memantine HCl 10 mg PO DAILY 09/30/16 09/30/16 Unknown Sertraline HCl [Zoloft] 50 mg PO DAILY 09/30/16 09/30/16 Unknown Solifenacin Succinate (Nf) 10 mg PO DAILY 09/30/16 09/30/16 Unknown [Vesicare (Nf)] hydrOXYzine PAMOATE [Vistaril] 50 mg PO QPM 09/30/16 09/30/16 Unknown predniSONE [Deltasone] 5 mg PO QDAY 09/30/16 09/30/16 Unknown Previous Rx's Medication Instructions Recorded Last Taken Type Clopidogrel [Plavix] 75 mg PO QDAY #30 tablet 07/10/14 06/05/15 Rx traMADol [Ultram] 50 mg PO Q6HR PRN #12 tablet 11/21/16 Unknown Rx Ciprofloxacin HCl [Cipro] 500 mg PO BID 5 Days #10 tablet 05/18/17 Unknown Rx Phenazopyridine [Pyridium] 200 mg PO TID #6 tab 05/18/17 Unknown Rx traMADol [Ultram] 50 mg PO Q6HR PRN #10 tablet 07/14/17 Unknown Rx Acetaminophen 650 mg PO QID #60 tablet 09/13/17 Unknown Rx HYDROcodone/ACETAMINOPHEN [[place] 1 each PO Q6HR PRN #15 tablet 01/25/18 Unknown Rx 5-325 Tablet] Prednisone [predniSONE 10 mg 10 mg PO .TAPER #1 tab.ds.pk 01/25/18 Unknown Rx (6-Day Pack, 21 Tabs)] Acetaminophen/Codeine [Tylenol 1 tab PO Q6H PRN #12 tab 02/08/18 Unknown Rx /Codeine # 3 tab] methOCARBAMOL [Robaxin TAB] 500 mg PO BID PRN #10 tab 02/08/18 Unknown Rx Allergies Allergy/AdvReac Type Severity Reaction Status Date / Time captopril Allergy Rash Verified 09/18/14 10:41 clindamycin Allergy Diarrhea Verified 09/18/14 10:41 NSAIDS (Non-Steroidal Allergy Rash Verified 09/18/14 10:41 Anti-Inflamma Penicillins Allergy Rash Verified 09/18/14 10:41 Sulfa (Sulfonamide Allergy Rash Verified 09/18/14 10:41 Antibiotics) ED Review of Systems ROS: Stated complaint: LT CHEEK PAIN/RASH IN MOUTH Other details as noted in HPI Constitutional: denies: chills, fever Eyes: denies: eye pain, eye discharge, vision change ENT: denies: ear pain, throat pain Respiratory: denies: cough, shortness of breath, wheezing Cardiovascular: denies: chest pain, palpitations Endocrine: no symptoms reported Gastrointestinal: denies: abdominal pain, nausea, diarrhea Genitourinary: denies: urgency, dysuria, discharge Musculoskeletal: back pain. denies: joint swelling, arthralgia Skin: denies: rash, lesions Neurological: denies: headache, weakness, paresthesias Psychiatric: denies: anxiety, depression Hematological/Lymphatic: denies: easy bleeding, easy bruising ED Past Medical Hx - Past Medical History Previous Medical History?: Yes Hx Hypertension: Yes Hx CVA: Yes (07/07/14) Hx Heart Attack/AMI: No Hx Congestive Heart Failure: No Hx Diabetes: No Hx Deep Vein Thrombosis: No Hx Pulmonary Embolism: No Hx GERD: No Hx Liver Disease: No Hx Renal Disease: Yes (Stage III renal dx) Hx Sickle Cell Disease: No Hx Arthritis: Yes Hx Headaches / Migraines: No Hx Seizures: No Hx Kidney Stones: No Hx Psychiatric Treatment: Yes (Depression) Hx Asthma: No Hx COPD: No Hx Tuberculosis: No Hx Dementia: Yes (takes aricept) Hx HIV: No Additional medical history: 3 herniated discs. LUPUS. hypothyroid. Lung Nodules 01/2018 - Surgical History Past Surgical History?: Yes Hx Coronary Stent: No Hx Open Heart Surgery: No Hx Pacemaker: No Hx Internal Defibrillator: No Hx Cholecystectomy: Yes Hx Appendectomy: Yes Hx Breast Surgery: No Additional Surgical History: vein stripping - Social History Smoking Status: Current Every Day Smoker Substance Use Type: None - Medications Home Medications: Home Medications Medication Instructions Recorded Confirmed Last Taken Type Carvedilol 25 mg PO BID 03/18/13 09/30/16 06/05/15 History Clopidogrel [Plavix] 75 mg PO QDAY #30 tablet 07/10/14 09/30/16 06/05/15 Rx Mirtazapine [Remeron] 45 mg PO QHS 08/04/15 09/30/16 Unknown History Amlodipine Besylate [Norvasc] 5 mg PO DAILY 09/30/16 09/30/16 Unknown History Calcitriol [Rocaltrol] 1 tab PO DAILY 09/30/16 09/30/16 Unknown History Donepezil HCl 10 mg PO QPM 09/30/16 09/30/16 Unknown History Ergocalciferol [Vitamin D2] 1 cap PO QWEEK 09/30/16 09/30/16 Unknown History Levothyroxine [Synthroid] 50 mcg PO QAM 09/30/16 09/30/16 Unknown History Memantine HCl 10 mg PO DAILY 09/30/16 09/30/16 Unknown History Sertraline HCl [Zoloft] 50 mg PO DAILY 09/30/16 09/30/16 Unknown History Solifenacin Succinate (Nf) 10 mg PO DAILY 09/30/16 09/30/16 Unknown History [Vesicare (Nf)] hydrOXYzine PAMOATE [Vistaril] 50 mg PO QPM 09/30/16 09/30/16 Unknown History predniSONE [Deltasone] 5 mg PO QDAY 09/30/16 09/30/16 Unknown History traMADol [Ultram] 50 mg PO Q6HR PRN #12 tablet 11/21/16 Unknown Rx Ciprofloxacin HCl [Cipro] 500 mg PO BID 5 Days #10 tablet 05/18/17 Unknown Rx Phenazopyridine [Pyridium] 200 mg PO TID #6 tab 05/18/17 Unknown Rx traMADol [Ultram] 50 mg PO Q6HR PRN #10 tablet 07/14/17 Unknown Rx Acetaminophen 650 mg PO QID #60 tablet 09/13/17 Unknown Rx HYDROcodone/ACETAMINOPHEN [[place] 1 each PO Q6HR PRN #15 tablet 01/25/18 Unknown Rx 5-325 Tablet] Prednisone [predniSONE 10 mg 10 mg PO .TAPER #1 tab.ds.pk 01/25/18 Unknown Rx (6-Day Pack, 21 Tabs)] Acetaminophen/Codeine [Tylenol 1 tab PO Q6H PRN #12 tab 02/08/18 Unknown Rx /Codeine # 3 tab] methOCARBAMOL [Robaxin TAB] 500 mg PO BID PRN #10 tab 02/08/18 Unknown Rx ED Physical Exam - General Limitations: No Limitations General appearance: alert, in no apparent distress - Head Head exam: Present: atraumatic, normocephalic - Neck Neck exam: Present: normal inspection, full ROM - Extremities Exam Extremities exam: Present: normal inspection, full ROM - Back Exam Back exam: Present: normal inspection, full ROM, paraspinal tenderness (left lumbar paraspinal). Absent: tenderness, CVA tenderness (R), CVA tenderness (L), muscle spasm, vertebral tenderness, rash noted - Expanded Back Exam Expanded Back exam: Negative Straight Leg Raising: Left, Right - Neurological Exam Neurological exam: Present: alert, oriented X3 - Psychiatric Psychiatric exam: Present: normal affect, normal mood - Skin Skin exam: Present: warm, dry, intact, normal color. Absent: rash ED Course Vital Signs 02/08/18 08:43 Temperature 98.1 F Pulse Rate 88 Respiratory 18 Rate Blood Pressure 174/84 O2 Sat by Pulse 97 Oximetry - Reevaluation(s) Reevaluation #1: 02/08/18 09:10 Patient is speaking in full sentences with no signs of distress noted. ED Medical Decision Making - Medical Decision Making This is a 72-year-old female that presents with low back strain. Patient is stable was examined by me. There is no spinal tenderness. There is no cauda equina syndrome during examination. No bladder or bowel instability. Patient received Tyneol #3 and Predsnieon in the ED which stated that her symptoms has resolved and subsided. Patient stated that a family member will drive her home after discharged to possible drowsiness of Tylenol 3. Patient is discharged with muscle relaxant and Tylenol #3. Patient was instructed not to operate any machinery while taking muscle relaxant as they cause her drowsiness. Patient was referred to Follow-up with a primary care doctor in 3-5 days or if symptoms worsen and continue return to emergency room as soon as possible. At time of discharge, the patient does not seem toxic or ill in appearance. No acute signs of distress noted. Patient agrees to discharge treatment plan of care. No further questions noted by the patient. This chart is dictated with using [employer] Critical care attestation.: If time is entered above; I have spent that time in minutes in the direct care of this critically ill patient, excluding procedure time. ED Disposition Clinical Impression: Lumbar radiculopathy Low back strain Qualifiers: Encounter type: initial encounter Qualified Code(s): S39.012A - Strain of muscle, fascia and tendon of lower back, initial encounter Sciatica Qualifiers: Laterality: left Qualified Code(s): M54.32 - Sciatica, left side Disposition: DC-01 TO HOME OR SELFCARE Is pt being admited?: No Does the pt Need Aspirin: No Condition: Stable Instructions: Lumbar Radiculopathy (ED), Methocarbamol (By mouth), Acetaminophen/Codeine (By mouth) Additional Instructions: Follow-up with a primary care doctor in 3-5 days or if symptoms worsen and cont inue return to emergency room as soon as possible. Do not operate any machinery while taking Tylenol with codeine as this may cause drowsiness. Prescriptions: Acetaminophen/Codeine [Tylenol /Codeine # 3 tab] 1 tab PO Q6H PRN #12 tab PRN Reason: Pain , Severe (7-10) methOCARBAMOL [Robaxin TAB] 500 mg PO BID PRN #10 tab PRN Reason: Muscle Spasm Referrals: PRIMARY CARE, [Primary Care Provider] - 3-5 Days AUNDREA TAYLOR MD [Staff Physician] - 3-5 Days [facility] [place] [Outside] - 3-5 Days [facility] [Outside] - 3-5 Days Forms: Work/School Release Form(ED)
== END 2018-02-08 09:18 | disposition home or self-care (01) ==
LOC: ED 08:38
DX: S39.012A Strain of muscle, fascia and tendon of lower back, initial encounter (principal); M54.16 Radiculopathy, lumbar region; M54.32 Sciatica, left side; I12.9 Hypertensive chronic kidney disease with stage 1 through stage 4 chronic kidney disease, or unspecified chronic kidney disease; N18.3 Chronic kidney disease, stage 3 (moderate); F03.90 Unspecified dementia, unspecified severity, without behavioral disturbance, psychotic disturbance, mood disturbance, and anxiety; F32.9 Major depressive disorder, single episode, unspecified; F17.200 Nicotine dependence, unspecified, uncomplicated
CPT/HCPCS: 99282; J7512

== ENCOUNTER 2018-03-24 14:54 | Inpatient (IN) | payer MEDICARE ==
--- NOTE | 2018-03-24 15:05 | Emergency Department Report ---
Chief Complaint: Extremity Injury, Upper Stated Complaint: LFT ARM PAIN/LFT BREAST PAIN Time Seen by Provider: 03/24/18 15:04 - HPI History of Present Illness: l breast pain no abscess/rash no n/v/d pain is described as superficial pmh sle htn abc intact VSS MSE completed - Exam Vital Signs: Vital Signs 03/24/18 14:59 Temperature 97.9 F Pulse Rate 99 H Respiratory 16 Rate Blood Pressure 189/94 O2 Sat by Pulse 97 Oximetry MSE screening note: Focused history and physical exam performed. Due to findings the following was ordered: ED Disposition for MSE Condition: Stable
[2018-03-24 16:59] LABS: Alanine Aminotransferase 19 units/L (7-56); Albumin 3.9 g/dL (3.9-5); BUN/Creatinine Ratio 12; Blood Urea Nitrogen 15 mg/dL (7-17); Calcium 9.3 mg/dL (8.4-10.2); Hemolysis Index 60
[2018-03-24 18:17] LABS: Hemoglobin 11.8 gm/dl (10.1-14.3); Mean Corpuscular HGB Conc 32 % (30-34); Mean Corpuscular Volume 74 fl (79-97); Red Blood Count 5.03 M/mm3 (3.65-5.03); Red Cell Distribution Width 16.8 % (13.2-15.2)
[2018-03-24 18:20] LABS: Platelet Count 211 K/mm3 (140-440)
--- NOTE | 2018-03-24 18:30 | Emergency Department Report ---
ED Chest Pain HPI - General Chief Complaint: Extremity Injury, Upper Stated Complaint: LFT ARM PAIN/LFT BREAST PAIN Time Seen by Provider: 03/24/18 15:04 Source: patient Mode of arrival: Ambulatory Limitations: No Limitations - History of Present Illness Initial Comments: 72-year-old female with history of lupus and hypertension presents the ED with complaint of left-sided chest pain. Patient states pain feels like a squeezing sensation, is intermittent,and radiates to the left arm and neck. Reports associated dizziness. Patient denies shortness of breath, nausea, vomiting or diaphoresis, leg pain or leg swelling. Patient denies history of CAD. 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 Complaint: chest pain -: This morning Onset: during rest Pain Location: left chest Pain Radiation: LUE, neck Severity: moderate Severity scale (0 -10): 5 Quality: squeezing Consistency: intermittent Improves With: nothing Worsens With: nothing re: denies: nausea, vomting, diaphoresis, dyspnea Other Symptoms: denies: cough, fever, leg swelling Treatments Prior to Arrival: none - Related Data Home Medications Medication Instructions Recorded Confirmed Last Taken Carvedilol 25 mg PO BID 03/18/13 09/30/16 06/05/15 Mirtazapine [Remeron] 45 mg PO QHS 08/04/15 09/30/16 Unknown Amlodipine Besylate [Norvasc] 5 mg PO DAILY 09/30/16 09/30/16 Unknown Calcitriol [Rocaltrol] 1 tab PO DAILY 09/30/16 09/30/16 Unknown Donepezil HCl 10 mg PO QPM 09/30/16 09/30/16 Unknown Ergocalciferol [Vitamin D2] 1 cap PO QWEEK 09/30/16 09/30/16 Unknown Levothyroxine [Synthroid] 50 mcg PO QAM 09/30/16 09/30/16 Unknown Memantine HCl 10 mg PO DAILY 09/30/16 09/30/16 Unknown Sertraline HCl [Zoloft] 50 mg PO DAILY 09/30/16 09/30/16 Unknown Solifenacin Succinate (Nf) 10 mg PO DAILY 09/30/16 09/30/16 Unknown [Vesicare (Nf)] hydrOXYzine PAMOATE [Vistaril] 50 mg PO QPM 09/30/16 09/30/16 Unknown predniSONE [Deltasone] 5 mg PO QDAY 09/30/16 09/30/16 Unknown Previous Rx's Medication Instructions Recorded Last Taken Type Clopidogrel [Plavix] 75 mg PO QDAY #30 tablet 07/10/14 06/05/15 Rx traMADol [Ultram] 50 mg PO Q6HR PRN #12 tablet 11/21/16 Unknown Rx Ciprofloxacin HCl [Cipro] 500 mg PO BID 5 Days #10 tablet 05/18/17 Unknown Rx Phenazopyridine [Pyridium] 200 mg PO TID #6 tab 05/18/17 Unknown Rx traMADol [Ultram] 50 mg PO Q6HR PRN #10 tablet 07/14/17 Unknown Rx Acetaminophen 650 mg PO QID #60 tablet 09/13/17 Unknown Rx HYDROcodone/ACETAMINOPHEN [[place] 1 each PO Q6HR PRN #15 tablet 01/25/18 Unknown Rx 5-325 Tablet] Prednisone [predniSONE 10 mg 10 mg PO .TAPER #1 tab.ds.pk 01/25/18 Unknown Rx (6-Day Pack, 21 Tabs)] Acetaminophen/Codeine [Tylenol 1 tab PO Q6H PRN #12 tab 02/08/18 Unknown Rx /Codeine # 3 tab] methOCARBAMOL [Robaxin TAB] 500 mg PO BID PRN #10 tab 02/08/18 Unknown Rx Allergies Allergy/AdvReac Type Severity Reaction Status Date / Time captopril Allergy Rash Verified 03/24/18 14:56 clindamycin Allergy Diarrhea Verified 03/24/18 14:56 NSAIDS (Non-Steroidal Allergy Rash Verified 03/24/18 14:56 Anti-Inflamma Penicillins Allergy Rash Verified 03/24/18 14:56 Sulfa (Sulfonamide Allergy Rash Verified 03/24/18 14:56 Antibiotics) Heart Score - HEART Score History: Moderately suspicious EKG: Normal Age: > 65 Risk factors: 1-2 risk factors Troponin: < normal limit HEART Score: 4 ED Review of Systems ROS: Stated complaint: LFT ARM PAIN/LFT BREAST PAIN Other details as noted in HPI Comment: All other systems reviewed and negative Constitutional: denies: chills, fever Respiratory: denies: cough, shortness of breath Cardiovascular: chest pain Gastrointestinal: denies: nausea, vomiting Musculoskeletal: other (denies leg pain or swelling) ED Past Medical Hx - Past Medical History Hx Hypertension: Yes Hx CVA: Yes (07/07/14) Hx Heart Attack/AMI: No Hx Congestive Heart Failure: No Hx Diabetes: No Hx Deep Vein Thrombosis: No Hx Pulmonary Embolism: No Hx GERD: No Hx Liver Disease: No Hx Renal Disease: Yes (Stage III renal dx) Hx Sickle Cell Disease: No Hx Arthritis: Yes Hx Headaches / Migraines: No Hx Seizures: No Hx Kidney Stones: No Hx Psychiatric Treatment: Yes (Depression) Hx Asthma: No Hx COPD: No Hx Tuberculosis: No Hx Dementia: Yes (takes aricept) Hx HIV: No Additional medical history: 3 herniated discs. LUPUS. hypothyroid. Lung Nodules 01/2018 - Surgical History Hx Coronary Stent: No Hx Open Heart Surgery: No Hx Pacemaker: No Hx Internal Defibrillator: No Hx Cholecystectomy: Yes Hx Appendectomy: Yes Hx Breast Surgery: No Additional Surgical History: vein stripping - Social History Smoking Status: Current Every Day Smoker - Medications Home Medications: Home Medications Medication Instructions Recorded Confirmed Last Taken Type Carvedilol 25 mg PO BID 03/18/13 09/30/16 06/05/15 History Clopidogrel [Plavix] 75 mg PO QDAY #30 tablet 07/10/14 09/30/16 06/05/15 Rx Mirtazapine [Remeron] 45 mg PO QHS 08/04/15 09/30/16 Unknown History Amlodipine Besylate [Norvasc] 5 mg PO DAILY 09/30/16 09/30/16 Unknown History Calcitriol [Rocaltrol] 1 tab PO DAILY 09/30/16 09/30/16 Unknown History Donepezil HCl 10 mg PO QPM 09/30/16 09/30/16 Unknown History Ergocalciferol [Vitamin D2] 1 cap PO QWEEK 09/30/16 09/30/16 Unknown History Levothyroxine [Synthroid] 50 mcg PO QAM 09/30/16 09/30/16 Unknown History Memantine HCl 10 mg PO DAILY 09/30/16 09/30/16 Unknown History Sertraline HCl [Zoloft] 50 mg PO DAILY 09/30/16 09/30/16 Unknown History Solifenacin Succinate (Nf) 10 mg PO DAILY 09/30/16 09/30/16 Unknown History [Vesicare (Nf)] hydrOXYzine PAMOATE [Vistaril] 50 mg PO QPM 09/30/16 09/30/16 Unknown History predniSONE [Deltasone] 5 mg PO QDAY 09/30/16 09/30/16 Unknown History traMADol [Ultram] 50 mg PO Q6HR PRN #12 tablet 11/21/16 Unknown Rx Ciprofloxacin HCl [Cipro] 500 mg PO BID 5 Days #10 tablet 05/18/17 Unknown Rx Phenazopyridine [Pyridium] 200 mg PO TID #6 tab 05/18/17 Unknown Rx traMADol [Ultram] 50 mg PO Q6HR PRN #10 tablet 07/14/17 Unknown Rx Acetaminophen 650 mg PO QID #60 tablet 09/13/17 Unknown Rx HYDROcodone/ACETAMINOPHEN [[place] 1 each PO Q6HR PRN #15 tablet 01/25/18 Unknown Rx 5-325 Tablet] Prednisone [predniSONE 10 mg 10 mg PO .TAPER #1 tab.ds.pk 01/25/18 Unknown Rx (6-Day Pack, 21 Tabs)] Acetaminophen/Codeine [Tylenol 1 tab PO Q6H PRN #12 tab 02/08/18 Unknown Rx /Codeine # 3 tab] methOCARBAMOL [Robaxin TAB] 500 mg PO BID PRN #10 tab 02/08/18 Unknown Rx ED Physical Exam - General Limitations: No Limitations General appearance: alert, in no apparent distress - Head Head exam: Present: atraumatic, normocephalic - Eye Eye exam: Present: normal appearance - ENT ENT exam: Present: mucous membranes moist - Neck Neck exam: Present: normal inspection - Respiratory Respiratory exam: Present: normal lung sounds bilaterally. Absent: respiratory distress - Cardiovascular Cardiovascular Exam: Present: regular rate, normal rhythm - GI/Abdominal GI/Abdominal exam: Present: soft. Absent: distended, tenderness - Extremities Exam Extremities exam: Absent: pedal edema, calf tenderness - Neurological Exam Neurological exam: Present: alert, oriented X3 - Psychiatric Psychiatric exam: Present: normal affect, normal mood - Skin Skin exam: Present: warm, dry, intact, normal color. Absent: rash ED Course Vital Signs 03/24/18 03/24/18 14:59 20:09 Temperature 97.9 F 98.6 F Pulse Rate 99 H 69 Respiratory 16 19 Rate Blood Pressure 189/94 Blood Pressure 155/86 [Left] O2 Sat by Pulse 97 99 Oximetry LINETTE score - Linette Score Age > 65: (1) Yes Aspirin use within the Past 7 Days: (0) No 3 or more CAD Risk Factors: (1) Yes 2 or more Angina events in past 24 hrs: (0) No Known CAD with more than 50% Stenosis: (1) Yes Elevated Cardiac Markers: (0) No ST Deviation Greater than 0.5mm: (0) No LINETTE Score: 3 ED Medical Decision Making - Lab Data Result diagrams: 03/24/18 16:07 03/24/18 16:07 - EKG Data -: EKG Interpreted by Me EKG shows normal: sinus rhythm, axis, intervals, QRS complexes, ST-T waves Rate: normal - EKG Data Interpretation: no acute changes - Radiology Data Radiology results: report reviewed, image reviewed CTA report faxed over: no evidence of PE, linear atelectasis in each lung base, bullous changes in upper lobes bilaterally - Medical Decision Making 72-year-old female with hypertension and lupus presents to ED with chest pain 1 day. She reports it is squeezing and radiates to the left arm and left neck as well. Patient denies history of coronary artery disease. EKG unremarkable, and troponin normal. Due to history of lupus, and a d-dimer was checked and was found to be slightly elevated. CTA was done which was negative for PE. Patient was initially hypertensive upon arrival, however that has improved. Will admit patient to hospitalist, Dr. Herrera. Bridge orders placed at request of hospitalist. - Differential Diagnosis ACS, PE, chest wall pain Critical care attestation.: If time is entered above; I have spent that time in minutes in the direct care of this critically ill patient, excluding procedure time. ED Disposition Clinical Impression: Chest pain Disposition: OP ADMIT IP TO THIS HOSP Is pt being admited?: Yes Condition: Stable Time of Disposition: 21:21
[2018-03-24 19:42] LABS: INR 0.97 (0.87-1.13)
[2018-03-24 19:43] LABS: Partial Thromboplastin Time 21.3 Sec. (24.2-36.6)
--- NOTE | 2018-03-24 20:29 | XRay Report ---
FINAL REPORT PROCEDURE: XR CHEST 1V AP TECHNIQUE: Chest radiograph anteroposterior view. CPT 88913 HISTORY: chest pain COMPARISON: September 13, 2017 FINDINGS: Heart: Borderline size. Mediastinum/Vessels: Aorta is tortuous. Lungs/Pleural space: Lungs are under expanded. No focal infiltrate.. Bony thorax: No acute osseous abnormality. Life support devices: None. IMPRESSION: No acute cardiopulmonary abnormality.
[2018-03-24] MEDS ORDERED: NITROSTAT SL PRN (22:18)
[2018-03-24] MEDS ORDERED: ZOFRAN IV PRN (22:18)
[2018-03-24] MEDS ORDERED: TYLENOL PO PRN (22:20)
[2018-03-24] MEDS ORDERED: VISTARIL PO NR (22:26)
[2018-03-25] MEDS: HEPARIN SUB-Q SCH ×3 (00:04→21:46)
[2018-03-25] MEDS: NITRO-BID 2% TP SCH ×5 (00:05→18:12)
[2018-03-25 01:22] LABS: Creatine Kinase MB 1.9 ng/mL (0.0-4.0)
--- NOTE | 2018-03-25 04:52 | History and Physical Report ---
CHIEF COMPLAINT: Chest pain. HISTORY OF PRESENT ILLNESS: The patient is a 72-year-old female, who presented with left-sided chest pain, going on intermittently for some days. Pain is squeezing in nature and radiates to the left upper arm and left side of the neck. Pain is associated with dizziness, but no shortness of breath. No nausea, no vomiting, no diaphoresis. Also, the patient stated that the pain is associated with some anxiety. There is no history of cough or fever. PAST MEDICAL HISTORY: Pertinent for hypertension, cerebrovascular accident. Also, the patient has a past history of chronic kidney disease, arthritis, depression, dementia, lupus erythematosus, hypothyroidism, lung nodule and herniated disk in the back, hypercholesterolemia. PAST SURGICAL HISTORY: Pertinent for cholecystectomy, appendectomy, vein stripping. FAMILY HISTORY: Noncontributory. SOCIAL HISTORY: The patient smokes cigarettes, does not drink alcohol and does not use illicit drugs. FAMILY HISTORY: Noncontributory. SOCIAL HISTORY: The patient is smokes cigarettes daily. Does not drink alcohol and does not use illicit drugs. MEDICATIONS: The patient previously is on multiple medications that were recorded in 2013 up to 2017 and they include carvedilol 25 mg by mouth twice daily, Plavix 75 mg by mouth daily, mirtazapine or Remeron 45 mg by mouth at bedtime, amlodipine besylate 5 mg by mouth daily, calcitriol 1 tablet by mouth daily, donepezil 10 mg by mouth every evening, ergocalciferol or vitamin D2 one by mouth every week, Synthroid 50 mcg by mouth every morning, sertraline 50 mg by mouth daily, VESIcare 10 mg by mouth daily, hydroxyzine pamoate or Vistaril 50 mg by mouth in the evening, prednisone 5 mg by mouth daily, tramadol 50 mg by mouth every 6 hours as needed for pain, ciprofloxacin 500 mg by mouth twice daily given for 5 days, Pyridium 200 mg by mouth 3 times daily, Tylenol 650 mg by mouth 4 times daily, [place] 5/325 mg 1 by mouth every 6 hours as needed for pain, prednisone Dosepak for 6 days, 10 mg, Tylenol No. 3 one by mouth every 6 hours as needed for pain and Robaxin 500 mg by mouth twice daily. ALLERGIES: THE PATIENT IS ALLERGIC TO CAPTOPRIL, CLINDAMYCIN, NON-STEROIDAL ANTI-INFLAMMATORY AGENT. REVIEW OF SYSTEMS: CONSTITUTIONAL: There is no fever, no chills, no diaphoresis. HEENT: There is no headache or sore throat. CARDIOVASCULAR SYSTEM: Chest pain is present. No orthopnea. RESPIRATORY SYSTEM: There is no shortness of breath or cough. GASTROINTESTINAL SYSTEM: There is no nausea, no vomiting, no abdominal pain, diarrhea or constipation. NEUROLOGICAL SYSTEM: There is dizziness, but no altered mental status. MUSCULOSKELETAL SYSTEM: There is no joint pain or swelling. DERMATOLOGICAL SYSTEM: There is no skin rash or itching. GENITOURINARY SYSTEM: There is no dysuria, hematuria or flank pain. Rest of the system review is normal. PHYSICAL EXAMINATION: GENERAL: At the time of exam, the patient was found to be alert, oriented x 3 and not in acute distress. VITAL SIGNS: Shows temperature of 97.9 degrees Fahrenheit, pulse of 99, respirations 16, blood pressure initially was 189/94, but later came down to 155/86, O2 sat of 97% on room air. HEENT: Showed pupils to be equal, round and reactive to light and accommodating. Extraocular muscles are intact. NECK: Supple with no JVD or carotid bruit. CARDIOVASCULAR SYSTEM: Show normal first and second heart sounds with no gallops or murmurs. RESPIRATORY SYSTEM: Show good air entry on both sides of the lungs with no abnormal breath sounds. GASTROINTESTINAL SYSTEM: Show abdomen to be full, soft, nontender with no organomegaly or rigidity. NEUROLOGIC: Shows no focal deficit. MUSCULOSKELETAL SYSTEM: Show no joint swelling or tenderness. DERMATOLOGIC SYSTEM: Show no skin rash. GENITOURINARY SYSTEM: Showing no costovertebral angle tenderness. PERTINENT LABORATORY AND IMAGING STUDIES: The patient has CBC done with normal white count, normal hemoglobin and normal hematocrit. The patient's coagulation studies show high D-dimer level of 241.2. The patient's chemistry was unremarkable except for elevated chloride level of 107.7 and slightly elevated creatinine level of 1.3. The patient's cardiac enzymes including total CPK, CK and CK-MB and troponin all came back unremarkable. DIAGNOSES: 1. Chest pain. 2. Hypertension. PLAN OF CARE: 1. The patient will be admitted to telemetry. 2. The patient will have cardiac enzymes involving troponin, total CK and CK-MB checked serially x 2 more level. 3. The patient will be n.p.o. for Lexiscan stress test in the morning. 4. The patient will be on Tylenol 650 mg by mouth every 4 hours for fever and headache and will be on nitro paste half inch to anterior chest wall q. 6 hours. Also, the patient will be on Nitrostat 0.4 mg every 5 minutes as needed for breakthrough chest pain. 5. The patient will be on morphine IV 2 mg every 3 hours as needed for pain and will be on heparin 5000 units subcutaneous q. 12 hours for DVT prophylaxis. 6. The patient will be on IV Zofran 4 mg every 8 hours as needed for nausea and vomiting and will remain n.p.o. for Lexiscan stress test this morning. 7. The patient will be on oxygen via nasal cannula at 2 liter per minute. JOB# [id number] OCN/NTS
[2018-03-25] MEDS: MORPHINE IV PRN ×3 (05:20→21:46)
[2018-03-25 07:00] LABS: Creatine Kinase MB 1.9 ng/mL (0.0-4.0)
[2018-03-25] MEDS ORDERED: LEXISCAN IV ONE ×2 (08:10→08:31)
[2018-03-25] MEDS ORDERED: ASPIRIN PO SCH (10:00)
[2018-03-25] MEDS ORDERED: NON-FORMULARY (Amlodipine Besylate [Norvasc] 5 MG) PO SCH (10:00)
[2018-03-25] MEDS ORDERED: CIPROFLOXACIN HCL 500 MG PO SCH (10:00)
[2018-03-25] MEDS: PLAVIX PO SCH (13:16)
[2018-03-25] MEDS: COREG PO SCH ×2 (13:16→21:45)
[2018-03-25] MEDS: ROCALTROL PO SCH (13:16)
[2018-03-25] MEDS: BABY ASPIRIN PO SCH (13:17)
[2018-03-25] MEDS: NORVASC PO SCH (13:17)
--- NOTE | 2018-03-25 15:58 | Progress Note ---
Assessment and Plan - Chest pain Continue with ASA, NTG morphine and oxygen For Lexiscan stress - Hypertension Controlled with sarah antihypertensive - DVT PPx With pepecid Subjective Date of service: 03/25/18 Principal diagnosis: chest pain Interval history: Still having chest pain radiating to the left shoulder and arm. No palpitaion Objective - Constitutional Vitals: Vital Signs - 12hr 03/25/18 03/25/18 03/25/18 04:27 05:14 05:20 Temperature 98.4 F Pulse Rate 92 H 92 H Respiratory 12 18 Rate Blood Pressure 141/83 141/83 O2 Sat by Pulse 96 Oximetry 03/25/18 03/25/18 03/25/18 07:39 11:09 11:12 Temperature 97.7 F Pulse Rate 96 H Respiratory 16 Rate Blood Pressure 156/81 148/77 144/74 O2 Sat by Pulse 94 Oximetry 03/25/18 03/25/18 03/25/18 11:14 11:16 11:18 Temperature Pulse Rate Respiratory Rate Blood Pressure 144/77 137/74 161/79 O2 Sat by Pulse Oximetry 03/25/18 03/25/18 03/25/18 11:20 11:22 11:23 Temperature Pulse Rate Respiratory Rate Blood Pressure 150/75 147/79 147/79 O2 Sat by Pulse Oximetry 03/25/18 13:21 Temperature 97.6 F Pulse Rate 86 Respiratory 18 Rate Blood Pressure 130/73 O2 Sat by Pulse 95 Oximetry General appearance: Present: no acute distress, well-nourished - EENT Eyes: PERRL, EOM intact ENT: hearing intact, clear oral mucosa Ears: bilateral: normal - Neck Neck: supple, normal ROM - Respiratory Respiratory effort: normal Respiratory: bilateral: CTA - Cardiovascular Rhythm: regular Heart Sounds: Present: S1 & S2. Absent: gallop, rub Extremities: pulses intact, No edema, normal color, Full ROM - Gastrointestinal General gastrointestinal: Present: soft, non-tender, non-distended, normal bowel sounds - Integumentary Integumentary: clear, warm, dry - Musculoskeletal Musculoskeletal: 1, strength equal bilaterally - Neurologic Neurologic: moves all extremities - Psychiatric Psychiatric: memory intact, appropriate mood/affect, intact judgment & insight - Labs CBC & Chem 7: 03/24/18 16:07 03/24/18 16:07 Labs: Abnormal lab results 03/24/18 03/24/18 03/24/18 Range/Units 16:07 16:07 18:59 MCV 74 L (79-97) fl MCH 24 L (28-32) pg RDW 16.8 H (13.2-15.2) % APTT (24.2-36.6) Sec. D-Dimer 241.2 H (0-234) ng/mlDDU Chloride 107.7 H (98-107) mmol/L Creatinine 1.3 H (0.7-1.2) mg/dL 03/24/18 Range/Units 18:59 MCV (79-97) fl MCH (28-32) pg RDW (13.2-15.2) % APTT 21.3 L (24.2-36.6) Sec. D-Dimer (0-234) ng/mlDDU Chloride (98-107) mmol/L Creatinine (0.7-1.2) mg/dL
[2018-03-25] MEDS ORDERED: ARICEPT PO SCH (18:00)
--- NOTE | 2018-03-25 22:26 | Treadmill Report ---
INDICATION: Chest pain. ORDERING PHYSICIAN: Dr. Evette Herrera. FINDINGS: There is no scintigraphic evidence of myocardial ischemia. There is evidence of a fixed inferior wall defect. There is evidence of a moderate-sized fixed inferior and inferoseptal wall defect that is likely secondary to diaphragmatic attenuation. There is normal wall motion and wall thickening on gated imaging. The left ventricular ejection fraction is measured at 62%. CONCLUSION: 1. No scintigraphic evidence of myocardial ischemia. 2. Moderate-sized fixed inferior, inferoseptal wall defect due to overlying diaphragmatic attenuation. 3. Normal left ventricular size and systolic function. JOB# [id number] SHARIFA/SUNI
[2018-03-26] MEDS: NITRO-BID 2% TP SCH ×3 (06:02→13:40)
[2018-03-26] MEDS ORDERED: XANAX PO ONE (10:00)
[2018-03-26] MEDS: BABY ASPIRIN PO SCH (10:38)
[2018-03-26] MEDS: PLAVIX PO SCH (10:39)
[2018-03-26] MEDS: HEPARIN SUB-Q SCH (10:39)
[2018-03-26] MEDS: COREG PO SCH (10:39)
[2018-03-26] MEDS: ROCALTROL PO SCH (10:39)
[2018-03-26] MEDS: NORVASC PO SCH (10:39)
--- NOTE | 2018-03-26 11:07 | Discharge Summary ---
Providers - Providers Date of Admission: 03/24/18 21:41 Date of discharge: 03/26/18 Attending physician: URIEL valdovinos [facility] Reason for admission: cheat pain Condition: Stable Pertinent studies: Lexiscan stress Procedures: none Hospital course: 72-year-old female with history of lupus and hypertension presents the ED with complaint of left-sided chest pain. Patient states pain feels like a squeezing sensation, is intermittent,and radiates to the left arm and neck. Reports associated dizziness. Patient denies shortness of breath, nausea, vomiting or diaphoresis, leg pain or leg swelling. Patient denies history of CAD.Commencec on oxygen, nitroglycerin, aspirin and morphine. Cardiac S1 normal. Stress test was done. Report was unremarkable for any acute ischemia. Chest pain resolved. Patient is therefore been discharged to follow-up her regular physician is 5 days and gun fertilizer 5-6 days if symptoms persist for possible Cath. Disposition: TO HOME OR SELFCARE Time spent for discharge: >35 min - Discharge Diagnoses (1) Chest pain Status: Acute (2) Constipation Status: Acute Core Measure Documentation - Palliative Care Palliative Care/ Comfort Measures: Not Applicable - Core Measures Any of the following diagnoses?: none Exam - Physical Exam Narrative exam: Constitutional: Well-nourished well-developed. In no distress Head: Normocephalic atraumatic Eyes: Pupils are equal round and reactive to light Nose: No enlarged turbinates, no septal deviation. Mouth: Moist mucous membranes. Neck: Supple no thyromegaly. No bruit. No JVD Heart: Regular rate and rhythm, S1-S2 normal. No rubs murmurs or gallop Lungs: Clear to auscultation bilaterally. no rales or rhonchi Abdomen: Soft, nontender. Bowel sound are present. Extremities: No edema, no cyanosis, no clubbing. Neuro: Alert oriented Oriented x3. No focal sensory or motor deficit. Skin: No rashes or hyperpigmented spots Musculoskeletal system: No joint pain or swelling Hematological: No petechia or subcutanous hemorrhages. Immunological: No multiple septic spots on the skin Lymphatic: No generalized lymphadenopathy Psychiatry: Euthymic. Calm. - Constitutional Vitals: Temp Pulse Resp BP Pulse Ox 97.9 F 74 16 127/53 95 02/17/19 07:43 03/26/18 07:43 03/26/18 07:43 03/26/18 07:43 03/26/18 07:43 Plan Activity: advance as tolerated Weight Bearing Status: Weight Bear as Tolerated Diet: low cholesterol, low salt Follow up with: MARCIANO PLATA MD [Primary Care Provider] - 3-5 Days Prescriptions: amLODIPine [Norvasc] 5 mg PO QDAY #30 tablet Aspirin [Aspirin BABY CHEW TAB] 81 mg PO QDAY #30 tab.chew Calcitriol [Rocaltrol] 1 tab PO DAILY #30 capsule Carvedilol [Coreg] 25 mg PO BID #60 tablet Clopidogrel [Plavix] 75 mg PO QDAY #30 tablet Ergocalciferol [Vitamin D2] 1 cap PO QWEEK #8 capsule HYDROcodone/ACETAMINOPHEN [[place] 5-325 Tablet] 1 each PO Q8HR PRN #15 tablet PRN Reason: pain hydrOXYzine PAMOATE [Vistaril] 50 mg PO QPM #30 capsule Levothyroxine [Synthroid] 50 mcg PO QAM #30 tablet Memantine HCl 10 mg PO DAILY #30 tablet methOCARBAMOL [Robaxin TAB] 500 mg PO BID PRN #10 tab PRN Reason: Muscle Spasm Sertraline HCl [Zoloft] 50 mg PO DAILY #30 tablet Solifenacin Succinate (Nf) [Vesicare (Nf)] 10 mg PO DAILY #30 tablet
[2018-03-26 13:15] VITALS: BP 141/73
--- NOTE | 2018-03-27 14:16 | Cat Scan Report ---
FINAL REPORT EXAM: CT ANGIO CHEST HISTORY: chest pain TECHNIQUE: Enhanced CT of the chest at 2.5 mm axial intervals following a pulmonary embolism protoco l. Coronal and sagittal imaging were also obtained. Coronal oblique MIP projections were obtained. Contrast: Intravenous contrast given PRIORS: None. FINDINGS: There is no evidence for pulmonary embolism in the main pulmonary artery, right and left pulmonary ar teries or their major distributions. However, CT does not exclude distal pulmonary emboli. Small bullous changes are present in the upper lobes bilaterally. Linear atelectasis in each lung bas e posteriorly is seen. Otherwise, the lung parenchyma are expanded and clear with no evidence for parenchymal nodules, infil trates, congestion, or pleural effusion. There is no evidence for mediastinal, hilar, or axillary ad enopathy. Cardiovascular structures are within normal limits. No evidence for ventricular chamber enl argement is seen. Images through the lung bases include the upper abdomen which show no abnormalities of the visualized abdominal viscera. Bony structures demonstrate no focal abnormalities. IMPRESSION: 1. no evidence for pulmonary embolism. 2. Linear atelectasis in each lung base posteriorly 3. Bullous changes present in the upper lobes bilaterally.
== END 2018-03-26 15:20 | disposition home or self-care (01) | DRG 392 ==
LOC: ED 14:54 → 4A 21:41
PROVIDERS: ADMIT Internal Medicine; ATTEND Family Medicine
DX: K21.9 Gastro-esophageal reflux disease without esophagitis (principal); R07.9 Chest pain, unspecified; M32.9 Systemic lupus erythematosus, unspecified; M19.90 Unspecified osteoarthritis, unspecified site; F32.9 Major depressive disorder, single episode, unspecified; F03.90 Unspecified dementia, unspecified severity, without behavioral disturbance, psychotic disturbance, mood disturbance, and anxiety; E03.9 Hypothyroidism, unspecified; F17.210 Nicotine dependence, cigarettes, uncomplicated; I12.9 Hypertensive chronic kidney disease with stage 1 through stage 4 chronic kidney disease, or unspecified chronic kidney disease; R42 Dizziness and giddiness; K59.00 Constipation, unspecified; N18.9 Chronic kidney disease, unspecified; Z88.2 Allergy status to sulfonamides; Z90.49 Acquired absence of other specified parts of digestive tract; Z88.0 Allergy status to penicillin; Z88.8 Allergy status to other drugs, medicaments and biological substances; Z86.73 Personal history of transient ischemic attack (TIA), and cerebral infarction without residual deficits
CPT/HCPCS: 36415; 71045; 71275; 78452; 80053; 82550; 82553; 84484; 85027; 85379; 85610; 85730; 93005; 93010; 93017; 96374; 99285; G0378; A9502; J1644; J2270; J2785; Q0177; Q9967

== ENCOUNTER 2018-05-15 10:11 | Outpatient (CLI) | payer MEDICARE ==
[2018-05-15 10:49] LABS: Hematocrit 37.7 % (30.3-42.9); Hemoglobin 12.2 gm/dl (10.1-14.3); Mean Corpuscular HGB Conc 32 % (30-34); Mean Corpuscular Volume 74 fl (79-97); Platelet Count 237 K/mm3 (140-440); Red Blood Count 5.12 M/mm3 (3.65-5.03); Red Cell Distribution Width 16.1 % (13.2-15.2)
[2018-05-15 11:11] LABS: Albumin 3.8 g/dL (3.9-5); Calcium 9.4 mg/dL (8.4-10.2)
[2018-05-20 12:24] LABS: ANA Screen, IFA Positive (Negative)
== END 2018-05-15 10:12 | disposition home or self-care (01) ==
LOC: LAB 10:11
PROVIDERS: ATTEND Internal Medicine Rheumatology
DX: M32.9 Systemic lupus erythematosus, unspecified (principal); I10 Essential (primary) hypertension; E78.00 Pure hypercholesterolemia, unspecified; M19.90 Unspecified osteoarthritis, unspecified site; E03.9 Hypothyroidism, unspecified; Z90.49 Acquired absence of other specified parts of digestive tract
CPT/HCPCS: 36415; 80053; 85027; 86038; 86225

== ENCOUNTER 2018-05-19 12:49 | Inpatient (IN) | payer MEDICARE ==
--- NOTE | 2018-05-19 13:05 | Emergency Department Report ---
Chief Complaint: GI Bleed Stated Complaint: BLEEDING FROM RECTUM Time Seen by Provider: 05/19/18 13:01 - HPI History of Present Illness: This is a 72 y.o. female that presents to ER with rectal bleeding today while having a bowel movement. Patient states it happened before 2 weeks ago. She saw spots on tissue with wipes. Patient states she checked twice and saw bright red blood both times. History of hemorrhoidectomy years ago. - Exam Vital Signs: Vital Signs 05/19/18 13:00 Temperature 98.1 F Pulse Rate 88 Respiratory 16 Rate Blood Pressure 166/84 O2 Sat by Pulse 99 Oximetry MSE screening note: Focused history and physical exam performed. Due to findings the following was ordered: labs ACC for further evaluation. ED Disposition for MSE Condition: Stable
[2018-05-19 13:35] LABS: Basophils # (Auto) 0.1 K/mm3 (0.0-0.1); Basophils % (Auto) 0.8 % (0.0-1.8); Eosinophils # (Auto) 0.1 K/mm3 (0.0-0.4); Eosinophils % (Auto) 1.9 % (0.0-4.3); Hemoglobin 11.9 gm/dl (10.1-14.3); Lymphocytes # (Auto) 2.4 K/mm3 (1.2-5.4); Lymphocytes % (Auto) 33.5 % (13.4-35.0); Mean Corpuscular HGB Conc 32 % (30-34); Mean Corpuscular Volume 74 fl (79-97); Monocytes # (Auto) 0.9 K/mm3 (0.0-0.8); Monocytes % (Auto) 11.9 % (0.0-7.3); Platelet Count 229 K/mm3 (140-440); Red Blood Count 5.01 M/mm3 (3.65-5.03); Red Cell Distribution Width 15.8 % (13.2-15.2)
--- NOTE | 2018-05-19 14:46 | Emergency Department Report ---
ED GI Bleed HPI - General Chief complaint: GI Bleed Stated complaint: BLEEDING FROM RECTUM Time Seen by Provider: 05/19/18 14:40 Source: patient Mode of arrival: Ambulatory Limitations: No Limitations - History of Present Illness Initial comments: Patient is a 72-year-old female presents emergency room with rectal bleeding. Patient states she had bright red blood 2 this morning. Patient denies abdominal pain. Patient denies fever chills. Patient denies nausea vomiting. Patient states that she had this about a month ago. Patient states she's taken aspirin and Plavix. Patient denies rectal pain. Patient denies hemorrhoids. MD complaint: gross hematochezia -: Sudden Radiation: none Quality: painless Consistency: constant Improves with: rest Worsens with: bowel movement Associated Symptoms: denies: abdominal pain, nausea, vomiting, epistaxis, fever/chills, headaches, loss of appetite, malaise, easy bruising, rash, other bleeding, shortness of breath, syncope, weakness Treatments Prior to Arrival: none - Related Data Home Medications Medication Instructions Recorded Confirmed Last Taken Mirtazapine [Remeron] 45 mg PO QHS 08/04/15 05/19/18 Unknown Donepezil HCl 10 mg PO QPM 09/30/16 05/19/18 Unknown Calcitriol [Rocaltrol] 0.25 mcg PO DAILY 05/19/18 05/19/18 Unknown Memantine HCl 10 mg PO BID 05/19/18 05/19/18 Unknown hydrOXYzine PAMOATE [Vistaril] 50 mg PO DAILY@2100 05/19/18 05/19/18 Unknown lamoTRIgine [LaMICtal] 25 mg PO BID 05/19/18 05/19/18 Unknown predniSONE [Prednisone] 5 mg PO QDAY 05/19/18 05/19/18 Unknown Previous Rx's Medication Instructions Recorded Last Taken Type Carvedilol [Coreg] 25 mg PO BID #60 tablet 03/26/18 05/19/18 Rx Clopidogrel [Plavix] 75 mg PO QDAY #30 tablet 03/26/18 Unknown Rx Ergocalciferol [Vitamin D2] 1 cap PO QWEEK #8 capsule 03/26/18 Unknown Rx Levothyroxine [Synthroid] 50 mcg PO QAM #30 tablet 03/26/18 Unknown Rx Sertraline HCl [Zoloft] 50 mg PO DAILY #30 tablet 03/26/18 Unknown Rx Solifenacin Succinate (Nf) 10 mg PO DAILY #30 tablet 03/26/18 Unknown Rx [Vesicare (Nf)] amLODIPine [Norvasc] 5 mg PO QDAY #30 tablet 03/26/18 Unknown Rx Allergies Allergy/AdvReac Type Severity Reaction Status Date / Time captopril Allergy Rash Verified 05/19/18 12:50 clindamycin Allergy Diarrhea Verified 05/19/18 12:50 NSAIDS (Non-Steroidal Allergy Rash Verified 05/19/18 12:50 Anti-Inflamma Penicillins Allergy Rash Verified 05/19/18 12:50 Sulfa (Sulfonamide Allergy Rash Verified 05/19/18 12:50 Antibiotics) ED Review of Systems ROS: Stated complaint: BLEEDING FROM RECTUM Other details as noted in HPI Constitutional: denies: chills, fever Eyes: denies: eye pain, eye discharge, vision change ENT: denies: ear pain, throat pain Respiratory: denies: cough, shortness of breath, wheezing Cardiovascular: denies: chest pain, palpitations Endocrine: no symptoms reported Gastrointestinal: hematochezia. denies: abdominal pain, nausea, diarrhea Genitourinary: denies: urgency, dysuria, discharge Musculoskeletal: denies: back pain, joint swelling, arthralgia Skin: denies: rash, lesions Neurological: denies: headache, weakness, paresthesias Psychiatric: denies: anxiety, depression Hematological/Lymphatic: denies: easy bleeding, easy bruising ED Past Medical Hx - Past Medical History Previous Medical History?: Yes Hx Hypertension: Yes Hx CVA: Yes (07/07/14) Hx Heart Attack/AMI: No Hx Congestive Heart Failure: No Hx Diabetes: No Hx Deep Vein Thrombosis: No Hx Pulmonary Embolism: No Hx GERD: No Hx Liver Disease: No Hx Renal Disease: Yes (Stage III renal dx) Hx Sickle Cell Disease: No Hx Arthritis: Yes Hx Headaches / Migraines: No Hx Seizures: No Hx Kidney Stones: No Hx Psychiatric Treatment: Yes (Depression) Hx Asthma: No Hx COPD: No Hx Tuberculosis: No Hx Dementia: Yes (takes aricept) Hx HIV: No Additional medical history: 3 herniated discs. LUPUS. hypothyroid. Lung Nodules 01/2018 - Surgical History Past Surgical History?: Yes Hx Coronary Stent: No Hx Open Heart Surgery: No Hx Pacemaker: No Hx Internal Defibrillator: No Hx Cholecystectomy: Yes Hx Appendectomy: Yes Hx Breast Surgery: No Additional Surgical History: vein stripping - Family History Family history: no significant - Social History Smoking Status: Current Every Day Smoker Substance Use Type: None - Medications Home Medications: Home Medications Medication Instructions Recorded Confirmed Last Taken Type Mirtazapine [Remeron] 45 mg PO QHS 08/04/15 05/19/18 Unknown History Donepezil HCl 10 mg PO QPM 09/30/16 05/19/18 Unknown History Carvedilol [Coreg] 25 mg PO BID #60 tablet 03/26/18 05/19/18 05/19/18 Rx Clopidogrel [Plavix] 75 mg PO QDAY #30 tablet 03/26/18 05/19/18 Unknown Rx Ergocalciferol [Vitamin D2] 1 cap PO QWEEK #8 capsule 03/26/18 05/19/18 Unknown Rx Levothyroxine [Synthroid] 50 mcg PO QAM #30 tablet 03/26/18 05/19/18 Unknown Rx Sertraline HCl [Zoloft] 50 mg PO DAILY #30 tablet 03/26/18 05/19/18 Unknown Rx Solifenacin Succinate (Nf) 10 mg PO DAILY #30 tablet 03/26/18 05/19/18 Unknown Rx [Vesicare (Nf)] amLODIPine [Norvasc] 5 mg PO QDAY #30 tablet 03/26/18 05/19/18 Unknown Rx Calcitriol [Rocaltrol] 0.25 mcg PO DAILY 05/19/18 05/19/18 Unknown History Memantine HCl 10 mg PO BID 05/19/18 05/19/18 Unknown History hydrOXYzine PAMOATE [Vistaril] 50 mg PO DAILY@2100 05/19/18 05/19/18 Unknown History lamoTRIgine [LaMICtal] 25 mg PO BID 05/19/18 05/19/18 Unknown History predniSONE [Prednisone] 5 mg PO QDAY 05/19/18 05/19/18 Unknown History ED Physical Exam - General Limitations: No Limitations General appearance: alert, in no apparent distress - Head Head exam: Present: atraumatic, normocephalic - Eye Eye exam: Present: normal appearance - ENT ENT exam: Present: mucous membranes moist - Neck Neck exam: Present: normal inspection - Respiratory Respiratory exam: Present: normal lung sounds bilaterally. Absent: respiratory distress - Cardiovascular Cardiovascular Exam: Present: regular rate, normal rhythm. Absent: systolic murmur, diastolic murmur, rubs, gallop - GI/Abdominal GI/Abdominal exam: Present: soft, normal bowel sounds. Absent: distended, tenderness, guarding, rebound - Rectal Rectal exam: Present: deferred - Extremities Exam Extremities exam: Present: normal inspection - Back Exam Back exam: Present: normal inspection - Neurological Exam Neurological exam: Present: alert, oriented X3 - Psychiatric Psychiatric exam: Present: normal affect, normal mood - Skin Skin exam: Present: warm, dry, intact, normal color. Absent: rash ED Course Vital Signs 05/19/18 05/19/18 05/19/18 13:00 14:52 14:53 Temperature 98.1 F 98.5 F Pulse Rate 88 90 Respiratory 16 17 17 Rate Blood Pressure 166/84 Blood Pressure 188/86 [Left] O2 Sat by Pulse 99 100 100 Oximetry 05/19/18 05/19/18 05/19/18 15:00 16:01 17:01 Temperature Pulse Rate 86 82 86 Respiratory 20 21 24 Rate Blood Pressure 166/83 155/73 152/80 Blood Pressure [Left] O2 Sat by Pulse 99 Oximetry 05/19/18 17:45 Temperature Pulse Rate 79 Respiratory 30 H Rate Blood Pressure 155/73 Blood Pressure [Left] O2 Sat by Pulse 98 Oximetry - Reevaluation(s) Reevaluation #1: Discussed all results with patient. Discussed plan of care with patient. Patient agrees plan of care and admission. 05/19/18 16:45 - Consultations Consultation #1: discussed case with Dr. Gomez, GI. Dr. Gomez recommends admission to the hospitalist service, nothing by mouth after midnight, CBC every 8 hrs, GoLYTELY and a tagged RBC is nuclear scan. 05/19/18 16:15 Consultation #2: Hospitalist consult for admission. Hospitalist to admit patient and assume care of patient. Bridge orders placed. 05/19/18 16:33 ED Medical Decision Making - Lab Data Result diagrams: 05/19/18 13:23 05/19/18 15:07 - Medical Decision Making SHEENT is a 72-year-old female who presents emergency with bright red blood per rectum. Patient will be admitted to the hospitalist service. Patient's labs unremarkable. GI consult. Recommendations per GI, to have a tagged RBC scan, CBC every 8 hours, GoLYTELY, endoscopy in the morning, and nothing by mouth after midnight for endoscopy. Patient will be aced on clear liquids until midnight. Patient's labs unremarkable. She was admitted to the hospitalist service. Patient takes aspirin and Plavix at home. - Differential Diagnosis bright red blood per rectum. GI bleed. Critical Care Time: Yes Critical care attestation.: If time is entered above; I have spent that time in minutes in the direct care of this critically ill patient, excluding procedure time. Critical Care Time: 35 minutes ED Disposition Clinical Impression: GI bleed Qualifiers: GI bleed type/associated pathology: unspecified gastrointestinal hemorrhage type Qualified Code(s): K92.2 - Gastrointestinal hemorrhage, unspecified Hypertension Qualifiers: Hypertension type: essential hypertension Qualified Code(s): I10 - Essential (primary) hypertension Disposition: OP ADMIT IP TO THIS HOSP Is pt being admited?: Yes Does the pt Need Aspirin: No Condition: Critical Forms: Accompanied Note Time of Disposition: 16:34
[2018-05-19 15:33] LABS: INR 0.92 (0.87-1.13); Partial Thromboplastin Time 23.9 Sec. (24.2-36.6)
[2018-05-19 15:41] LABS: Albumin 3.6 g/dL (3.9-5); Calcium 9.3 mg/dL (8.4-10.2)
--- NOTE | 2018-05-19 18:21 | History and Physical Report ---
History of Present Illness Date of examination: 05/19/18 Date of admission: 05/19/18 Chief complaint: BRBPR since AM History of present illness: 72-year-old female with history of HTN CAD Hypothyroidism and OAB presents to emergency room with rectal bleeding. Patient states she had bright red blood 2 this morning. Patient denies abdominal pain. Patient denies fever chills. Patient denies nausea vomiting. Patient states that she had this about a month ago but did not seek medical attention. Patient states she's tiffany aspirin and Plavix. Patient denies rectal pain. Patient denies hemorrhoids. Past Medical History Previous Medical History?: Yes Hypertension: Yes CVA: Yes (07/07/14) Renal Disease: Yes (Stage III renal dx) Arthritis: Yes Psychiatric Treatment: Yes (Depression) Dementia: Yes (takes aricept) Additional medical history: 3 herniated discs. LUPUS. hypothyroid. Lung Nodules 01/2018 Surgical History Cholecystectomy: Yes Appendectomy: Yes Additional Surgical History: vein stripping Family History Htn Social History Smoking Status: Current Every Day Smoker Substance Use Type: None - Medications Home Medications: Home Medications Medication Instructions Recorded Confirmed Last Taken Type Mirtazapine [Remeron] 45 mg PO QHS 08/04/15 05/19/18 Unknown History Donepezil HCl 10 mg PO QPM 09/30/16 05/19/18 Unknown History Carvedilol [Coreg] 25 mg PO BID #60 tablet 03/26/18 05/19/18 05/19/18 Rx Clopidogrel [Plavix] 75 mg PO QDAY #30 tablet 03/26/18 05/19/18 Unknown Rx Ergocalciferol [Vitamin D2] 1 cap PO QWEEK #8 capsule 03/26/18 05/19/18 Unknown Rx Levothyroxine [Synthroid] 50 mcg PO QAM #30 tablet 03/26/18 05/19/18 Unknown Rx Sertraline HCl [Zoloft] 50 mg PO DAILY #30 tablet 03/26/18 05/19/18 Unknown Rx Solifenacin Succinate (Nf) 10 mg PO DAILY #30 tablet 03/26/18 05/19/18 Unknown Rx [Vesicare (Nf)] amLODIPine [Norvasc] 5 mg PO QDAY #30 tablet 03/26/18 05/19/18 Unknown Rx Calcitriol [Rocaltrol] 0.25 mcg PO DAILY 05/19/18 05/19/18 Unknown History Memantine HCl 10 mg PO BID 05/19/18 05/19/18 Unknown History hydrOXYzine PAMOATE [Vistaril] 50 mg PO DAILY@2100 05/19/18 05/19/18 Unknown History lamoTRIgine [LaMICtal] 25 mg PO BID 05/19/18 05/19/18 Unknown History predniSONE [Prednisone] 5 mg PO QDAY 05/19/18 05/19/18 Unknown History Review of Systems ROS: Stated complaint: BLEEDING FROM RECTUM Other details as noted in HPI Constitutional: denies: chills, fever Eyes: denies: eye pain, eye discharge, vision change ENT: denies: ear pain, throat pain Respiratory: denies: cough, shortness of breath, wheezing Cardiovascular: denies: chest pain, palpitations Endocrine: no symptoms reported Gastrointestinal: hematochezia. denies: abdominal pain, nausea, diarrhea Genitourinary: denies: urgency, dysuria, discharge Musculoskeletal: denies: back pain, joint swelling, arthralgia Skin: denies: rash, lesions Neurological: denies: headache, weakness, paresthesias Psychiatric: denies: anxiety, depression Hematological/Lymphatic: denies: easy bleeding, easy bruising Medications and Allergies Allergies Allergy/AdvReac Type Severity Reaction Status Date / Time captopril Allergy Rash Verified 05/19/18 12:50 clindamycin Allergy Diarrhea Verified 05/19/18 12:50 NSAIDS (Non-Steroidal Allergy Rash Verified 05/19/18 12:50 Anti-Inflamma Penicillins Allergy Rash Verified 05/19/18 12:50 Sulfa (Sulfonamide Allergy Rash Verified 05/19/18 12:50 Antibiotics) Home Medications Medication Instructions Recorded Confirmed Last Taken Type Mirtazapine [Remeron] 45 mg PO QHS 08/04/15 05/19/18 Unknown History Donepezil HCl 10 mg PO QPM 09/30/16 05/19/18 Unknown History Carvedilol [Coreg] 25 mg PO BID #60 tablet 03/26/18 05/19/18 05/19/18 Rx Clopidogrel [Plavix] 75 mg PO QDAY #30 tablet 03/26/18 05/19/18 Unknown Rx Ergocalciferol [Vitamin D2] 1 cap PO QWEEK #8 capsule 03/26/18 05/19/18 Unknown Rx Levothyroxine [Synthroid] 50 mcg PO QAM #30 tablet 03/26/18 05/19/18 Unknown Rx Sertraline HCl [Zoloft] 50 mg PO DAILY #30 tablet 03/26/18 05/19/18 Unknown Rx Solifenacin Succinate (Nf) 10 mg PO DAILY #30 tablet 03/26/18 05/19/18 Unknown Rx [Vesicare (Nf)] amLODIPine [Norvasc] 5 mg PO QDAY #30 tablet 03/26/18 05/19/18 Unknown Rx Calcitriol [Rocaltrol] 0.25 mcg PO DAILY 05/19/18 05/19/18 Unknown History Memantine HCl 10 mg PO BID 05/19/18 05/19/18 Unknown History hydrOXYzine PAMOATE [Vistaril] 50 mg PO DAILY@2100 05/19/18 05/19/18 Unknown History lamoTRIgine [LaMICtal] 25 mg PO BID 05/19/18 05/19/18 Unknown History predniSONE [Prednisone] 5 mg PO QDAY 05/19/18 05/19/18 Unknown History Exam - Constitutional Vitals: Temp Pulse Resp BP Pulse Ox 98.5 F 79 30 H 155/73 98 05/19/18 14:52 05/19/18 17:45 05/19/18 17:45 05/19/18 17:45 05/19/18 17:45 General appearance: Present: no acute distress, well-nourished - EENT Eyes: Present: PERRL ENT: hearing intact, clear oral mucosa - Neck Neck: Present: supple, normal ROM - Respiratory Respiratory effort: normal Respiratory: bilateral: CTA - Cardiovascular Heart rate: 78 Rhythm: regular Heart Sounds: Present: S1 & S2. Absent: rub, click - Extremities Extremities: no ischemia, pulses intact, pulses symmetrical, No edema Peripheral Pulses: within normal limits - Abdominal General gastrointestinal: Present: soft, non-tender, non-distended, normal bowel sounds Female genitourinary: Present: normal - Integumentary Integumentary: Present: clear, warm, dry - Musculoskeletal Musculoskeletal: gait normal, strength equal bilaterally - Psychiatric Psychiatric: appropriate mood/affect, intact judgment & insight - Neurologic Neurologic: CNII-XII intact, moves all extremities - Allied Health Allied health notes reviewed: nursing, case management Results - Labs CBC & Chem 7: 05/20/18 02:39 05/20/18 02:39 Labs: Laboratory Last Values WBC 7.2 K/mm3 (4.5-11.0) 05/19/18 13:23 RBC 5.01 M/mm3 (3.65-5.03) 05/19/18 13:23 Hgb 11.9 gm/dl (10.1-14.3) 05/19/18 13:23 Hct 37.0 % (30.3-42.9) 05/19/18 13:23 MCV 74 fl (79-97) L 05/19/18 13:23 MCH 24 pg (28-32) L 05/19/18 13:23 MCHC 32 % (30-34) 05/19/18 13:23 RDW 15.8 % (13.2-15.2) H 05/19/18 13:23 Plt Count 229 K/mm3 (140-440) 05/19/18 13:23 Lymph % (Auto) 33.5 % (13.4-35.0) 05/19/18 13:23 [place] % (Auto) 11.9 % (0.0-7.3) H 05/19/18 13:23 Eos % (Auto) 1.9 % (0.0-4.3) 05/19/18 13:23 Baso % (Auto) 0.8 % (0.0-1.8) 05/19/18 13:23 Lymph # 2.4 K/mm3 (1.2-5.4) 05/19/18 13:23 [place] # 0.9 K/mm3 (0.0-0.8) H 05/19/18 13:23 Eos # 0.1 K/mm3 (0.0-0.4) 05/19/18 13:23 Baso # 0.1 K/mm3 (0.0-0.1) 05/19/18 13:23 Seg Neutrophils % 51.9 % (40.0-70.0) 05/19/18 13:23 Seg Neutrophils # 3.8 K/mm3 (1.8-7.7) 05/19/18 13:23 PT 12.9 Sec. (12.2-14.9) 05/19/18 15:07 INR 0.92 (0.87-1.13) 05/19/18 15:07 APTT 23.9 Sec. (24.2-36.6) L 05/19/18 15:07 Sodium 140 mmol/L (137-145) 05/19/18 15:07 Potassium 4.3 mmol/L (3.6-5.0) 05/19/18 15:07 Chloride 105.4 mmol/L (98-107) 05/19/18 15:07 Carbon Dioxide 22 mmol/L (22-30) 05/19/18 15:07 Anion Gap 17 mmol/L 05/19/18 15:07 BUN 16 mg/dL (7-17) 05/19/18 15:07 Creatinine 1.1 mg/dL (0.7-1.2) 05/19/18 15:07 Estimated GFR 59 ml/min 05/19/18 15:07 BUN/Creatinine Ratio 15 % 05/19/18 15:07 Glucose 87 mg/dL (65-100) 05/19/18 15:07 Calcium 9.3 mg/dL (8.4-10.2) 05/19/18 15:07 Total Bilirubin 0.20 mg/dL (0.1-1.2) 05/19/18 15:07 AST 19 units/L (5-40) 05/19/18 15:07 ALT 14 units/L (7-56) 05/19/18 15:07 Alkaline Phosphatase 85 units/L (35-129) 05/19/18 15:07 Total Protein 7.4 g/dL (6.3-8.2) 05/19/18 15:07 Albumin 3.6 g/dL (3.9-5) L 05/19/18 15:07 Albumin/Globulin Ratio 0.9 % 05/19/18 15:07 Short CBC 05/19/18 05/19/18 05/20/18 Range/Units 13:23 20:24 02:39 WBC 7.2 6.3 (4.5-11.0) K/mm3 Hgb 11.9 11.8 11.1 (10.1-14.3) gm/dl Hct 37.0 37.4 35.2 (30.3-42.9) % Plt Count 229 207 (140-440) K/mm3 BMP 05/19/18 05/20/18 15:07 02:39 Sodium 140 141 Potassium 4.3 3.9 Chloride 105.4 104.6 Carbon Dioxide 22 25 BUN 16 15 Creatinine 1.1 1.0 Glucose 87 82 Calcium 9.3 9.0 Liver Function 05/19/18 05/20/18 Range/Units 15:07 02:39 Total Bilirubin 0.20 0.40 (0.1-1.2) mg/dL AST 19 17 (5-40) units/L ALT 14 11 (7-56) units/L Alkaline Phosphatase 85 80 (35-129) units/L Albumin 3.6 L 3.3 L (3.9-5) g/dL - Imaging and Cardiology Imaging and Cardiology: Bleeding scan IMPRESSION: No scintigraphic evidence of acute gastrointestinal hemorrhage Assessment and Plan Advance Directives: Yes (Full code) VTE prophylaxis?: Mechanical Plan of care discussed with patient/family: Yes - Patient Problems (1) Lower GI bleed Current Visit: Yes Status: Acute Plan to address problem: Probable Diverticulosis BLeeding scan negative H/H q 8x4 Transfuse if H/H below 8/24 GI Consult (2) Hypertension Current Visit: Yes Status: Chronic Qualifiers: Hypertension type: essential hypertension Qualified Code(s): I10 - Essential (primary) hypertension Plan to address problem: Catapress patch for now PO antihypertensives when she resumes eating (3) Hypothyroidism (acquired) Current Visit: Yes Status: Chronic Plan to address problem: IV Synthyroid for now. Resume PO Synthyroid when she starts eating (4) OAB (overactive bladder) Current Visit: Yes Status: Chronic Plan to address problem: Hold vesicare for now (5) HLD (hyperlipidemia) Current Visit: Yes Status: Chronic Qualifiers: Hyperlipidemia type: mixed hyperlipidemia Qualified Code(s): E78.2 - Mixed hyperlipidemia Plan to address problem: Hold statins for now (6) DVT prophylaxis Current Visit: No Status: Acute Plan to address problem: SCD's for now
[2018-05-19] MEDS ORDERED: ZOFRAN IV PRN (18:22)
[2018-05-19] MEDS ORDERED: SODIUM CHLORIDE FLUSH SYRINGE 10 ML IV PRN (18:22)
[2018-05-19] MEDS ORDERED: TYLENOL PO PRN (18:22)
[2018-05-19] MEDS ORDERED: NACL 0.9% 1000 ML 1,000 ML IV SCH (19:00)
[2018-05-19 20:46] LABS: Hematocrit 37.4 % (30.3-42.9); Hemoglobin 11.8 gm/dl (10.1-14.3)
--- NOTE | 2018-05-19 20:51 | Nuclear Medicine Report ---
PROCEDURE: NM GI BLEEDING SCAN HISTORY: gi bleed FINDINGS: Gastrointestinal bleeding study was performed following the injection of 24 mCi technetium 99m labeled tagged red blood cells. These images demonstrate normal tracer activity in the liver and urinary bladder. No scintigraphic evidence of acute gastrointestinal hemorrhage is seen. IMPRESSION: No scintigraphic evidence of acute gastrointestinal hemorrhage This document is electronically signed by Joao Green MD., May 19 2018 08:49:23 PM ET
[2018-05-19] MEDS ORDERED: CATAPRES-TTS PATCH TD SCH (22:00)
[2018-05-19] MEDS: SODIUM CHLORIDE FLUSH SYRINGE 10 ML IV SCH (22:39)
[2018-05-19] MEDS: PROTONIX IV SCH (22:39)
[2018-05-20 02:54] LABS: Basophils # (Auto) 0.1 K/mm3 (0.0-0.1); Basophils % (Auto) 0.9 % (0.0-1.8); Eosinophils # (Auto) 0.1 K/mm3 (0.0-0.4); Eosinophils % (Auto) 2.1 % (0.0-4.3); Hematocrit 35.2 % (30.3-42.9); Hemoglobin 11.1 gm/dl (10.1-14.3); Lymphocytes # (Auto) 1.9 K/mm3 (1.2-5.4); Lymphocytes % (Auto) 30.1 % (13.4-35.0); Mean Corpuscular HGB Conc 32 % (30-34); Mean Corpuscular Volume 74 fl (79-97); Monocytes # (Auto) 0.6 K/mm3 (0.0-0.8); Monocytes % (Auto) 10.2 % (0.0-7.3); Platelet Count 207 K/mm3 (140-440); Red Blood Count 4.79 M/mm3 (3.65-5.03); Red Cell Distribution Width 15.4 % (13.2-15.2)
[2018-05-20 03:21] LABS: Alanine Aminotransferase 11 units/L (7-56); Albumin 3.3 g/dL (3.9-5); BUN/Creatinine Ratio 15; Blood Urea Nitrogen 15 mg/dL (7-17); Hemolysis Index 46
[2018-05-20] MEDS: SYNTHROID IV SCH (05:55)
[2018-05-20] MEDS ORDERED: NACL 0.9% 1000 ML 1,000 ML ONE (08:20)
[2018-05-20] MEDS: PROTONIX IV SCH ×2 (09:28→21:24)
[2018-05-20] MEDS: SODIUM CHLORIDE FLUSH SYRINGE 10 ML IV SCH ×2 (09:28→21:25)
--- NOTE | 2018-05-20 10:43 | Gastroenterology Consultation ---
History of Present Illness - Reason for Consult Consult date: 05/20/18 hematochezia Requesting physician: BRIANNE WOOTEN - History of Present Illness Ms Gavin is a 72 yo aaf who presents from home following episodes of hematochezia. Pt reports having 2 episodes of scant brbpr following bm's. She had a similar episode of bleeding 1 month ago but decided to come to the ED on this occasion due to bright appearing blood. She has not had further bleeding since admission. She denies abdominal pain; pt is on aspirin/plavix for h/o CVA. she denies constipation, change in bowel habits, or straining. Pt had a colonoscopy in 2013 with IH and removal of small polyp, otherwise w/o significant findings. Past History Past Medical History: CAD, hypertension, stroke Past Surgical History: appendectomy, cholecystectomy Social history: smoking Family history: no significant family history Medications and Allergies Allergies Allergy/AdvReac Type Severity Reaction Status Date / Time captopril Allergy Rash Verified 05/19/18 12:50 clindamycin Allergy Diarrhea Verified 05/19/18 12:50 NSAIDS (Non-Steroidal Allergy Rash Verified 05/19/18 12:50 Anti-Inflamma Penicillins Allergy Rash Verified 05/19/18 12:50 Sulfa (Sulfonamide Allergy Rash Verified 05/19/18 12:50 Antibiotics) Home Medications Medication Instructions Recorded Confirmed Last Taken Type Mirtazapine [Remeron] 45 mg PO QHS 08/04/15 05/19/18 Unknown History Donepezil HCl 10 mg PO QPM 09/30/16 05/19/18 Unknown History Carvedilol [Coreg] 25 mg PO BID #60 tablet 03/26/18 05/19/18 05/19/18 Rx Clopidogrel [Plavix] 75 mg PO QDAY #30 tablet 03/26/18 05/19/18 Unknown Rx Ergocalciferol [Vitamin D2] 1 cap PO QWEEK #8 capsule 03/26/18 05/19/18 Unknown Rx Levothyroxine [Synthroid] 50 mcg PO QAM #30 tablet 03/26/18 05/19/18 Unknown Rx Sertraline HCl [Zoloft] 50 mg PO DAILY #30 tablet 03/26/18 05/19/18 Unknown Rx Solifenacin Succinate (Nf) 10 mg PO DAILY #30 tablet 03/26/18 05/19/18 Unknown Rx [Vesicare (Nf)] amLODIPine [Norvasc] 5 mg PO QDAY #30 tablet 03/26/18 05/19/18 Unknown Rx Calcitriol [Rocaltrol] 0.25 mcg PO DAILY 05/19/18 05/19/18 Unknown History Memantine HCl 10 mg PO BID 05/19/18 05/19/18 Unknown History hydrOXYzine PAMOATE [Vistaril] 50 mg PO DAILY@2100 05/19/18 05/19/18 Unknown History lamoTRIgine [LaMICtal] 25 mg PO BID 05/19/18 05/19/18 Unknown History predniSONE [Prednisone] 5 mg PO QDAY 05/19/18 05/19/18 Unknown History Active Meds: Active Medications Acetaminophen (Tylenol) 650 mg PO Q4H PRN PRN Reason: Pain MILD(1-3)/Fever >100.5/LORD Clonidine HCl (Catapres-Tts Patch) 0.1 mg TD Fr [facility] Last Admin: 05/19/18 22:39 Dose: 0.1 mg Documented by: Hydromorphone HCl (Dilaudid) 0.5 mg IV Q3H PRN PRN Reason: Pain , Severe (7-10) Sodium Chloride (Nacl 0.9% 1000 Ml) 1,000 mls @ 75 mls/hr IV DIRECT [facility] Last Admin: 05/19/18 22:38 Dose: 75 mls/hr Documented by: Levothyroxine Sodium (Synthroid) 50 mcg IV DAILY@0600 [facility] Last Admin: 05/20/18 05:55 Dose: 50 mcg Documented by: Ondansetron HCl (Zofran) 4 mg IV Q8H PRN PRN Reason: Nausea And Vomiting Pantoprazole Sodium (Protonix) 40 mg IV BID [facility] Last Admin: 05/20/18 09:28 Dose: 40 mg Documented by: Sodium Chloride (Sodium Chloride Flush Syringe 10 Ml) 10 ml IV BID [facility] Last Admin: 05/20/18 09:28 Dose: 10 ml Documented by: Sodium Chloride (Sodium Chloride Flush Syringe 10 Ml) 10 ml IV PRN PRN PRN Reason: LINE FLUSH Last Admin: 05/20/18 05:55 Dose: 10 ml Documented by: Review of Systems - Review of Systems All systems: negative (per HPI) Exam - Constitutional Vital Signs: Temp Pulse Resp BP Pulse Ox 97.3 F L 89 18 144/56 99 05/20/18 07:28 05/20/18 07:28 05/20/18 07:28 05/20/18 07:28 05/20/18 07:28 General appearance: no acute distress - EENT Eyes: PERRL, EOM intact - Respiratory Respiratory effort: normal Respiratory: bilateral: CTA - Cardiovascular Rhythm: regular Heart Sounds: Present: S1 & S2 Extremities: No edema - Gastrointestinal General gastrointestinal: Present: soft, non-tender, non-distended - Integumentary Integumentary: Present: clear, warm - Neurologic Neurological: alert and oriented x3 - Psychiatric Psychiatric: appropriate mood/affect - Labs CBC & Chem 7: 05/20/18 02:39 05/20/18 02:39 Lab Results: Laboratory Results - last 24 hr 05/19/18 05/19/18 05/19/18 13:23 13:23 15:07 WBC 7.2 RBC 5.01 Hgb 11.9 Hct 37.0 MCV 74 L MCH 24 L MCHC 32 RDW 15.8 H Plt Count 229 Lymph % (Auto) 33.5 [place] % (Auto) 11.9 H Eos % (Auto) 1.9 Baso % (Auto) 0.8 Lymph # 2.4 [place] # 0.9 H Eos # 0.1 Baso # 0.1 Seg Neutrophils % 51.9 Seg Neutrophils # 3.8 PT 12.9 INR 0.92 APTT 23.9 L Sodium Potassium Chloride Carbon Dioxide Anion Gap BUN Creatinine Estimated GFR BUN/Creatinine Ratio Glucose Hemoglobin A1c 5.2 Calcium Total Bilirubin AST ALT Alkaline Phosphatase Total Protein Albumin Albumin/Globulin Ratio 05/19/18 05/19/18 05/20/18 15:07 20:24 02:39 WBC 6.3 RBC 4.79 Hgb 11.8 11.1 Hct 37.4 35.2 MCV 74 L MCH 23 L MCHC 32 RDW 15.4 H Plt Count 207 Lymph % (Auto) 30.1 [place] % (Auto) 10.2 H Eos % (Auto) 2.1 Baso % (Auto) 0.9 Lymph # 1.9 [place] # 0.6 Eos # 0.1 Baso # 0.1 Seg Neutrophils % 56.7 Seg Neutrophils # 3.6 PT INR APTT Sodium 140 Potassium 4.3 Chloride 105.4 Carbon Dioxide 22 Anion Gap 17 BUN 16 Creatinine 1.1 Estimated GFR 59 BUN/Creatinine Ratio 15 Glucose 87 Hemoglobin A1c Calcium 9.3 Total Bilirubin 0.20 AST 19 ALT 14 Alkaline Phosphatase 85 Total Protein 7.4 Albumin 3.6 L Albumin/Globulin Ratio 0.9 05/20/18 02:39 WBC RBC Hgb Hct MCV MCH MCHC RDW Plt Count Lymph % (Auto) [place] % (Auto) Eos % (Auto) Baso % (Auto) Lymph # [place] # Eos # Baso # Seg Neutrophils % Seg Neutrophils # PT INR APTT Sodium 141 Potassium 3.9 Chloride 104.6 Carbon Dioxide 25 Anion Gap 15 BUN 15 Creatinine 1.0 Estimated GFR > 60 BUN/Creatinine Ratio 15 Glucose 82 Hemoglobin A1c Calcium 9.0 Total Bilirubin 0.40 AST 17 ALT 11 Alkaline Phosphatase 80 Total Protein 6.5 Albumin 3.3 L Albumin/Globulin Ratio 1.0 Assessment and Plan 1. Hematochezia - symptoms/description of bleeding suggestive of ano- rectal/outlet source. no further episodes since admission, negative tagged RBC scan; pt had colonoscopy in 2013 with IH and small polyp removed. okay to start diet, and d/c home tomorrow if no further bleeding and labs stable. will need outpatient colonoscopy for surveillance within 1-2 months with plavix held prior to procedure (pt sees Dr Luna in clinic).
[2018-05-20 11:03] LABS: Hematocrit 37.6 % (30.3-42.9); Hemoglobin 12.1 gm/dl (10.1-14.3)
[2018-05-20] MEDS ORDERED: APRESOLINE PO PRN (16:39)
[2018-05-20] MEDS: DILAUDID IV PRN ×2 (16:58→21:23)
[2018-05-20] MEDS ORDERED: GOLYTELY PO ONE (17:00)
--- NOTE | 2018-05-20 17:30 | Progress Note ---
Assessment and Plan - Patient Problems (1) Lower GI bleed Current Visit: Yes Status: Acute Plan to address problem: Probable Diverticulosis BLeeding scan negative H/H q 8x4 Transfuse if H/H below 8/24 GI Consult For colonoscopy tomorrow (2) Hypertension Current Visit: Yes Status: Chronic Qualifiers: Hypertension type: essential hypertension Qualified Code(s): I10 - Essential (primary) hypertension Plan to address problem: Catapress patch for now PO antihypertensives when she resumes eating IV Hydralazinre as necessary (3) Hypothyroidism (acquired) Current Visit: Yes Status: Chronic Plan to address problem: IV Synthyroid for now. Resume PO Synthyroid when she starts eating (4) OAB (overactive bladder) Current Visit: Yes Status: Chronic Plan to address problem: Hold vesicare for now (5) HLD (hyperlipidemia) Current Visit: Yes Status: Chronic Qualifiers: Hyperlipidemia type: mixed hyperlipidemia Qualified Code(s): E78.2 - Mixed hyperlipidemia Plan to address problem: Hold statins for now (6) DVT prophylaxis Current Visit: No Status: Acute Plan to address problem: SCD's for now Subjective Date of service: 05/20/18 Principal diagnosis: Lower GI Bleed Interval history: 72-year-old female with history of HTN CAD Hypothyroidism and OAB presents to emergency room with rectal bleeding. Patient states she had bright red blood 2 this morning. Patient denies abdominal pain. Patient denies fever chills. Patient denies nausea vomiting. Patient states that she had this about a month ago but did not seek medical attention. Patient states she's tiffany aspirin and Plavix. Patient denies rectal pain. Patient denies hemorrhoids. Patient due for colonoscopy tomorrow.No further rectal bleed Objective - Constitutional Vitals: Vital Signs - 12hr 05/20/18 05/20/18 05/20/18 07:28 10:00 14:32 Temperature 97.3 F L 97.8 F Pulse Rate 89 96 H Pulse Rate [ 89 Apical] Respiratory 18 20 20 Rate Blood Pressure 144/56 185/95 O2 Sat by Pulse 99 99 99 Oximetry 05/20/18 16:57 Temperature Pulse Rate Pulse Rate [ Apical] Respiratory Rate Blood Pressure 185/95 O2 Sat by Pulse Oximetry General appearance: Present: no acute distress, well-nourished - EENT Eyes: PERRL, EOM intact ENT: hearing intact, clear oral mucosa Ears: bilateral: normal - Neck Neck: supple, normal ROM - Respiratory Respiratory effort: normal Respiratory: bilateral: CTA - Breasts Breasts: normal - Cardiovascular Heart rate: 78 Rhythm: regular Heart Sounds: Present: S1 & S2. Absent: gallop, rub Extremities: no ischemia, pulses intact, No edema, normal color, Full ROM - Gastrointestinal General gastrointestinal: Present: soft, non-tender, non-distended, normal bowel sounds - Genitourinary Female genitourinary: deferred - Integumentary Integumentary: clear, warm, dry - Musculoskeletal Musculoskeletal: 1, strength equal bilaterally - Neurologic Neurologic: moves all extremities - Psychiatric Psychiatric: memory intact, appropriate mood/affect, intact judgment & insight - Labs CBC & Chem 7: 05/20/18 10:33 05/20/18 02:39 Labs: Abnormal lab results 05/20/18 05/20/18 Range/Units 02:39 02:39 MCV 74 L (79-97) fl MCH 23 L (28-32) pg RDW 15.4 H (13.2-15.2) % [place] % (Auto) 10.2 H (0.0-7.3) % Albumin 3.3 L (3.9-5) g/dL
[2018-05-20 19:40] LABS: Hematocrit 35.5 % (30.3-42.9); Hemoglobin 11.3 gm/dl (10.1-14.3)
[2018-05-21] MEDS: SYNTHROID IV SCH (05:48)
[2018-05-21 07:00] LABS: Basophils % (Auto) 0.6 % (0.0-1.8); Eosinophils # (Auto) 0.1 K/mm3 (0.0-0.4); Eosinophils % (Auto) 1.9 % (0.0-4.3); Hematocrit 33.9 % (30.3-42.9); Lymphocytes % (Auto) 35.1 % (13.4-35.0); Mean Corpuscular HGB Conc 32 % (30-34); Mean Corpuscular Volume 73 fl (79-97); Monocytes # (Auto) 0.7 K/mm3 (0.0-0.8); Monocytes % (Auto) 12.2 % (0.0-7.3); Platelet Count 215 K/mm3 (140-440); Red Blood Count 4.65 M/mm3 (3.65-5.03); Red Cell Distribution Width 15.6 % (13.2-15.2)
[2018-05-21 07:13] LABS: Calcium 8.6 mg/dL (8.4-10.2)
[2018-05-21] MEDS: DILAUDID IV PRN (07:40)
[2018-05-21 09:26] VITALS: BP 145/82
[2018-05-21] MEDS ORDERED: PROTONIX PO SCH (10:00)
[2018-05-21] MEDS: SODIUM CHLORIDE FLUSH SYRINGE 10 ML IV SCH (10:34)
--- NOTE | 2018-05-21 10:56 | Discharge Summary ---
Providers - Providers Date of Admission: 05/19/18 18:22 Date of discharge: 05/21/18 Attending physician: MARIELOS MCCRARY 05/19/18 16:31 Consult to Physician [CONS] Routine Comment: called answ. serv./ jose antonio Consulting Provider: CHRISTOPHER MILLS Physician Instructions: Reason For Exam: gi bleed Primary care physician: ELOINA WARD Hospitalization Condition: Critical Disposition: DC-01 TO HOME OR SELFCARE Time spent for discharge: 32 min Core Measure Documentation - Palliative Care Palliative Care/ Comfort Measures: Not Applicable - Core Measures Any of the following diagnoses?: none Exam - Constitutional Vitals: Temp Pulse Resp BP Pulse Ox 98.6 F 90 20 145/82 99 05/21/18 07:56 05/21/18 09:45 05/21/18 09:45 05/21/18 07:56 05/21/18 09:45 General appearance: Present: no acute distress, well-nourished - EENT Eyes: Present: PERRL, EOM intact - Neck Neck: Present: supple, normal ROM - Respiratory Respiratory effort: normal Respiratory: negative: diminished, rales, rhonchi - Cardiovascular Rhythm: regular Heart Sounds: Present: S1 & S2 - Extremities Extremities: no ischemia, No edema - Abdominal General gastrointestinal: Present: soft, non-tender, non-distended, normal bowel sounds - Integumentary Integumentary: Present: clear, warm - Musculoskeletal Musculoskeletal: strength equal bilaterally - Psychiatric Psychiatric: appropriate mood/affect, cooperative - Neurologic Neurologic: CNII-XII intact, moves all extremities Plan Activity: advance as tolerated, fall precautions Diet: advance as tolerated Special Instructions: smoking cessation Additional Instructions: If you notice any rectal bleeding ,contact MD or go to ER. Smoking cessation advised. Fall precautions. Advised weight reduction when medically stable Follow up with: ELOINA WARD MD [Primary Care Provider] - 7 Days HERNANDO BECKER MD [Staff Physician] - 14 Days Forms: Accompanied Note Prescriptions: Pantoprazole [Protonix TAB] 40 mg PO BID #60 tablet
== END 2018-05-21 13:25 | disposition home or self-care (01) | DRG 379 ==
LOC: ED 12:49 → 2B-ACE 18:22
PROVIDERS: ADMIT Internal Medicine; ATTEND Internal Medicine
DX: K57.31 Diverticulosis of large intestine without perforation or abscess with bleeding (principal); I25.10 Atherosclerotic heart disease of native coronary artery without angina pectoris; E03.9 Hypothyroidism, unspecified; I12.9 Hypertensive chronic kidney disease with stage 1 through stage 4 chronic kidney disease, or unspecified chronic kidney disease; M32.9 Systemic lupus erythematosus, unspecified; F17.210 Nicotine dependence, cigarettes, uncomplicated; F32.9 Major depressive disorder, single episode, unspecified; N32.81 Overactive bladder; E78.2 Mixed hyperlipidemia; F03.90 Unspecified dementia, unspecified severity, without behavioral disturbance, psychotic disturbance, mood disturbance, and anxiety; Z86.73 Personal history of transient ischemic attack (TIA), and cerebral infarction without residual deficits; Z82.49 Family history of ischemic heart disease and other diseases of the circulatory system; Z79.899 Other long term (current) drug therapy; Z88.1 Allergy status to other antibiotic agents; Z88.0 Allergy status to penicillin; Z88.2 Allergy status to sulfonamides; Z88.8 Allergy status to other drugs, medicaments and biological substances
CPT/HCPCS: 36415; 78278; 80048; 80053; 83036; 85014; 85018; 85025; 85610; 85730; 99406; G0378; A9560; C9113; J1170; J7030

== ENCOUNTER 2018-05-25 09:50 | Outpatient (CLI) | payer MEDICARE ==
[2018-05-25 10:24] LABS: Hematocrit 37.5 % (30.3-42.9); Hemoglobin 12.1 gm/dl (10.1-14.3); Mean Corpuscular HGB Conc 32 % (30-34); Mean Corpuscular Volume 74 fl (79-97); Platelet Count 244 K/mm3 (140-440); Red Cell Distribution Width 15.7 % (13.2-15.2)
[2018-05-25 10:37] LABS: Creatinine,Urine 145.2 mg/dL (0.1-20.0); Protein/Creatinine Ratio,Urine 0.14
[2018-05-25 10:59] LABS: Albumin 3.9 g/dL (3.9-5); Calcium 9.3 mg/dL (8.4-10.2)
== END 2018-05-25 09:51 | disposition home or self-care (01) ==
LOC: LAB 09:50
PROVIDERS: ATTEND Internal Medicine
DX: R94.4 Abnormal results of kidney function studies (principal); R60.0 Localized edema; I10 Essential (primary) hypertension; N25.81 Secondary hyperparathyroidism of renal origin; M32.9 Systemic lupus erythematosus, unspecified
CPT/HCPCS: 36415; 80053; 82570; 84156; 85027

== ENCOUNTER 2018-06-09 11:56 | Inpatient (IN) | payer MEDICARE ==
--- NOTE | 2018-06-09 12:54 | Emergency Department Report ---
HPI - General Chief Complaint: Weakness Time Seen by Provider: 06/09/18 12:26 - HPI HPI: 72-year-old -[place] female presents to the emergency department with complaint of a headache, blurry vision, pain in the neck, left arm numbness and tingling. Patient says that this occurred one time yesterday and it lasted for about one hour and went away. It came back about 2 hours ago and has not yet resolved. She has a past medical history of previous TIA, chronic kidney disease, hypertension, lupus. She did not take anything for her symptoms prior to presentation. Her primary care physician is Dr. Brock Zepeda and her inspecting and testing lead hand is Dr. Otero. ED Past Medical Hx - Past Medical History Hx Hypertension: Yes Hx CVA: Yes (07/07/14) Hx Heart Attack/AMI: No Hx Congestive Heart Failure: No Hx Diabetes: No Hx Deep Vein Thrombosis: No Hx Pulmonary Embolism: No Hx GERD: No Hx Liver Disease: No Hx Renal Disease: Yes (Stage III renal dx) Hx Sickle Cell Disease: No Hx Arthritis: Yes Hx Headaches / Migraines: No Hx Seizures: No Hx Kidney Stones: No Hx Psychiatric Treatment: Yes (Depression) Hx Asthma: No Hx COPD: No Hx Tuberculosis: No Hx Dementia: Yes (takes aricept) Hx HIV: No Additional medical history: 3 herniated discs. LUPUS. hypothyroid. Lung Nodules 01/2018 - Surgical History Past Surgical History?: Yes Hx Coronary Stent: No Hx Open Heart Surgery: No Hx Pacemaker: No Hx Internal Defibrillator: No Hx Cholecystectomy: Yes Hx Appendectomy: Yes Hx Breast Surgery: No Additional Surgical History: vein stripping - Social History Smoking Status: Current Every Day Smoker Substance Use Type: None - Medications Home Medications: Home Medications Medication Instructions Recorded Confirmed Last Taken Type Mirtazapine [Remeron] 45 mg PO QHS 08/04/15 06/09/18 Unknown History Donepezil HCl 10 mg PO QPM 09/30/16 06/09/18 Unknown History Carvedilol [Coreg] 25 mg PO BID #60 tablet 03/26/18 06/09/18 05/19/18 Rx Clopidogrel [Plavix] 75 mg PO QDAY #30 tablet 03/26/18 06/09/18 Unknown Rx Ergocalciferol [Vitamin D2] 1 cap PO QWEEK #8 capsule 03/26/18 06/09/18 Unknown Rx Levothyroxine [Synthroid] 50 mcg PO QAM #30 tablet 03/26/18 06/09/18 Unknown Rx Sertraline HCl [Zoloft] 50 mg PO DAILY #30 tablet 03/26/18 06/09/18 Unknown Rx Solifenacin Succinate (Nf) 10 mg PO DAILY #30 tablet 03/26/18 06/09/18 Unknown Rx [Vesicare (Nf)] amLODIPine [Norvasc] 5 mg PO QDAY #30 tablet 03/26/18 06/09/18 Unknown Rx Calcitriol [Rocaltrol] 0.25 mcg PO DAILY 05/19/18 06/09/18 Unknown History Memantine HCl 10 mg PO BID 05/19/18 06/09/18 Unknown History hydrOXYzine PAMOATE [Vistaril] 50 mg PO DAILY@2100 05/19/18 06/09/18 Unknown History lamoTRIgine [LaMICtal] 25 mg PO BID 05/19/18 06/09/18 Unknown History predniSONE [Prednisone] 5 mg PO QDAY 05/19/18 06/09/18 Unknown History Pantoprazole [Protonix TAB] 40 mg PO BID #60 tablet 05/21/18 06/09/18 Unknown Rx ED Review of Systems ROS: Stated complaint: GENERAL WEAKNESS Other details as noted in HPI Constitutional: weakness. denies: chills, fever Eyes: vision change. denies: eye pain ENT: denies: ear pain, throat pain Respiratory: denies: cough, shortness of breath Cardiovascular: denies: chest pain, palpitations Gastrointestinal: denies: abdominal pain, vomiting Genitourinary: denies: dysuria, discharge Musculoskeletal: denies: back pain, joint swelling Skin: denies: rash, lesions Neurological: headache, numbness, paresthesias Physical Exam - Physical Exam Vital Signs: Vital Signs 06/09/18 06/09/18 12:15 12:19 Temperature 98.2 F Pulse Rate 80 Respiratory 15 15 Rate Blood Pressure 148/74 Blood Pressure 148/74 [Left] O2 Sat by Pulse 96 96 Oximetry Physical Exam: GENERAL: The patient is well-developed well-nourished. HENT: Normocephalic. Atraumatic. Patient has moist mucous membranes. EYES: Extraocular motions are intact. Pupils equal reactive to light bilater ally. NECK: Supple. Trachea is midline. CHEST/LUNGS: Clear to auscultation. There is no respiratory distress noted. HEART/CARDIOVASCULAR: Regular. There is no tachycardia. There is no murmur. ABDOMEN: Abdomen is soft, nontender. Patient has normal bowel sounds. There is no abdominal distention. SKIN: Skin is warm and dry. NEURO: The patient is awake, alert, and oriented. The patient is cooperative. There is subjective decreased sensation to the left side of the face and left arm when compared to the right. The patient has normal speech. Cranial nerves II through XII grossly intact. No pronator drift. No dysmetria. MUSCULOSKELETAL: There is no tenderness or deformity. There is no limitation range of motion. There is no evidence of acute injury. ED Course Vital Signs 06/09/18 06/09/18 12:15 12:19 Temperature 98.2 F Pulse Rate 80 Respiratory 15 15 Rate Blood Pressure 148/74 Blood Pressure 148/74 [Left] O2 Sat by Pulse 96 96 Oximetry ED Medical Decision Making - Lab Data Result diagrams: 06/09/18 13:29 06/09/18 13:29 - EKG Data -: EKG Interpreted by Mi EKG shows normal: sinus rhythm, axis, intervals, QRS complexes, ST-T waves Rate: normal - EKG Data When compared to previous EKG there are: previous EKG unavailable Interpretation: normal EKG - Radiology Data Radiology results: report reviewed CT of the head does not show any acute intracranial process including no ischemia, shift, mass, bleeding or skull fracture. - Medical Decision Making The patient presents to the emergency department with a complaint of a headache, neck pain, left-sided numbness and tingling. She had one episode of this yesterday and then again today, started 2 hours prior to arrival. She is a [address] the NIH stroke scale. CT of the head did not show any bleed, shift, mass, ischemia, or any other acute process. Labs have been mostly unremarkable except for some chronic kidney disease. She was given an aspirin and is already on Plavix. She will be admitted to the hospital for further evaluation and treatment and was accepted for admission by the hospitalist, Dr Smith. - Differential Diagnosis CVA, TIA, electrolyte abnormalities, dysrythmia Critical Care Time: No Critical care attestation.: If time is entered above; I have spent that time in minutes in the direct care of this critically ill patient, excluding procedure time. ED Disposition Clinical Impression: TIA (transient ischemic attack), Left sided numbness SLE (systemic lupus erythematosus) Qualifiers: Systemic lupus erythematosus type: unspecified Systemic lupus erythematosus organ involvement: unspecified Qualified Code(s): M32.9 - Systemic lupus erythematosus, unspecified CKD (chronic kidney disease) Qualifiers: Chronic kidney disease stage: unspecified stage Qualified Code(s): N18.9 - Chronic kidney disease, unspecified Disposition: 09 OP ADMIT IP TO THIS HOSP Is pt being admited?: Yes Condition: Fair Time of Disposition: 15:39 - Assessment Assessment Interval: Baseline - Level of Consciousness 1a. Level of Consciousness: alert/keenly responsive - LOC Questions 1b. LOC Questions: answers both correctly - LOC Command 1c. LOC Commands: performs tasks correctly - Best Gaze 2. Best Gaze: normal - Visual 3. Visual: no visual loss - Facial Palsy 4. Facial Palsy: normal symmetrical movement - Motor Arm 5a. Motor Arm Left: no drift 5b. Motor Arm Right: no drift - Motor Leg 6a. Motor Leg Left: no drift 6b. Motor Leg Right: no drift - Limb Ataxia 7. Limb Ataxia: absent - Sensory 8. Sensory: mild/moderate sensory loss - Best Language 9. Best Language: no aphasia - Dysarthria 10. Dysarthria: normal - Extinction and Inattention 11. Extinction/Inattention: no abnormality - Scoring Total Score: 1 Stroke Severity: Minor Stroke
--- NOTE | 2018-06-09 13:41 | Cat Scan Report ---
CT HEAD WITHOUT CONTRAST INDICATION: Weakness. COMPARISON: 07/14/2017. FINDINGS: Noncontrast head CT again demonstrates age appropriate, normal ventricles and sulci without acute or recent infarct, hemorrhage, mass effect or midline shift. Minimal benign basal ganglia calcifications again noted. No abnormal extra-axial fluid collections. Posterior fossa structures and basilar cisterns within normal limits. Motion artifact partly limits exam. Symmetric eye globes. Mild left maxillary sinus mucosal thickening inferiorly again partially imaged. Clear remainder paranasal sinuses and mastoid air cells. Intact calvarium. Normal overlying scalp soft tissues. Atherosclerotic ICA and vertebral artery calcifications. Edentulous jaw. CONCLUSION: No acute intracranial CT abnormality, as described. Thank you for the opportunity to participate in this patient's care.
[2018-06-09 13:49] LABS: Basophils # (Auto) 0.2 K/mm3 (0.0-0.1); Basophils % (Auto) 2.6 % (0.0-1.8); Eosinophils # (Auto) 0.1 K/mm3 (0.0-0.4); Eosinophils % (Auto) 1.7 % (0.0-4.3); Hematocrit 37.9 % (30.3-42.9); Hemoglobin 12.1 gm/dl (10.1-14.3); Lymphocytes # (Auto) 2.1 K/mm3 (1.2-5.4); Lymphocytes % (Auto) 30.6 % (13.4-35.0); Mean Corpuscular HGB Conc 32 % (30-34); Mean Corpuscular Volume 74 fl (79-97); Monocytes # (Auto) 0.6 K/mm3 (0.0-0.8); Monocytes % (Auto) 9.3 % (0.0-7.3); Platelet Count 235 K/mm3 (140-440); Red Blood Count 5.14 M/mm3 (3.65-5.03); Red Cell Distribution Width 15.8 % (13.2-15.2)
[2018-06-09 14:04] LABS: INR 0.87 (0.87-1.13)
[2018-06-09 14:14] LABS: Albumin 3.7 g/dL (3.9-5); BUN/Creatinine Ratio 11; Blood Urea Nitrogen 16 mg/dL (7-17); Calcium 9.2 mg/dL (8.4-10.2); Hemolysis Index 92
[2018-06-09 14:15] LABS: Alanine Aminotransferase 15 units/L (7-56)
[2018-06-09] MEDS ORDERED: BABY ASPIRIN PO ONE (14:24)
--- NOTE | 2018-06-09 14:34 | History and Physical Report ---
History of Present Illness Chief complaint: I dont feel right History of present illness: 72 YO Female with HTN, CVA, CKD 3, Depression, Dementia, SLE, Hypothyroidism, LDD, OA, Nicotine Dependence presents to ED for evaluation. Pt states that she experienced multiple episodes of headache, blurry vision, left arm numbness and tingling over the past 2-3 days with worsening symptoms over the past 2 hours. Patient states that her symptoms occurred once yesterday and lasted for about an hour and went away. Pt resports recurrent symptoms today with onset of symptoms several hours ago with worsening symptoms over the past 2 hours. EMS notified and upon arrival the patient was found to be in distress, and transported to [facility]. Pt seen and evaluated in ED and found to have symptoms consistent with CVA. Pt is outside therapeutic window for TPA at time of my evaluation. Pt denies fever, chills, CP, Palpitations, NVD, Trauma, Productive cough, BRBPR, skin rash, vertigo, seizures, or recent ill contacts. Pt admitted to telemetry and initiated on CVA Protocol. Prior admission on 05/19/18 reviewed. All listed medication reconciled at time of admission. Nephrology consulted in ED, Neurology consulted in ED. PCP: Dr. Brock Zepeda, Loop Machine Operator: Dr. Otero. Past History Past Medical History: hypertension, hypothyroidism, renal failure, stroke, other (Dementia, SLE, Depression, LDD) Past Surgical History: Other (vein stripping) Social history: , smoking. denies: alcohol abuse, prescription drug abuse, IV drug use Family history: diabetes, hypertension Medications and Allergies Allergies Allergy/AdvReac Type Severity Reaction Status Date / Time captopril Allergy Rash Verified 05/19/18 12:50 clindamycin Allergy Diarrhea Verified 05/19/18 12:50 NSAIDS (Non-Steroidal Allergy Rash Verified 05/19/18 12:50 Anti-Inflamma Penicillins Allergy Rash Verified 05/19/18 12:50 Sulfa (Sulfonamide Allergy Rash Verified 05/19/18 12:50 Antibiotics) Home Medications Medication Instructions Recorded Confirmed Last Taken Type Mirtazapine [Remeron] 45 mg PO QHS 08/04/15 06/09/18 Unknown History Donepezil HCl 10 mg PO QPM 09/30/16 06/09/18 Unknown History Carvedilol [Coreg] 25 mg PO BID #60 tablet 03/26/18 06/09/18 05/19/18 Rx Clopidogrel [Plavix] 75 mg PO QDAY #30 tablet 03/26/18 06/09/18 Unknown Rx Ergocalciferol [Vitamin D2] 1 cap PO QWEEK #8 capsule 03/26/18 06/09/18 Unknown Rx Levothyroxine [Synthroid] 50 mcg PO QAM #30 tablet 03/26/18 06/09/18 Unknown Rx Sertraline HCl [Zoloft] 50 mg PO DAILY #30 tablet 03/26/18 06/09/18 Unknown Rx Solifenacin Succinate (Nf) 10 mg PO DAILY #30 tablet 03/26/18 06/09/18 Unknown Rx [Vesicare (Nf)] amLODIPine [Norvasc] 5 mg PO QDAY #30 tablet 03/26/18 06/09/18 Unknown Rx Calcitriol [Rocaltrol] 0.25 mcg PO DAILY 05/19/18 06/09/18 Unknown History Memantine HCl 10 mg PO BID 05/19/18 06/09/18 Unknown History hydrOXYzine PAMOATE [Vistaril] 50 mg PO DAILY@2100 05/19/18 06/09/18 Unknown History lamoTRIgine [LaMICtal] 25 mg PO BID 05/19/18 06/09/18 Unknown History predniSONE [Prednisone] 5 mg PO QDAY 05/19/18 06/09/18 Unknown History Pantoprazole [Protonix TAB] 40 mg PO BID #60 tablet 05/21/18 06/09/18 Unknown Rx Review of Systems Constitutional: no weight loss, no weight gain, no fever, no chills Ears, nose, mouth and throat: no ear pain, no ear discharge, no tinnitis, no decreased hearing, no nose pain Breasts: no change in shape, no swelling, no mass Cardiovascular: no chest pain, no orthopnea, no palpitations, no syncope, no shortness of breath Respiratory: no cough, no cough with sputum, no excessive sputum, no shortness of breath Gastrointestinal: no abdominal pain, no nausea, no vomiting, no diarrhea, no change in bowel habits Genitourinary Female: no dysmenorrhea, no pelvic pain, no flank pain, no dysuria, no urinary frequency, no urgency, no stress incontinence Rectal: no pain, no incontinence, no bleeding Musculoskeletal: low back pain, no neck stiffness, no neck pain, no arm numbness/tingling, no shooting leg pain, no leg numbness/tingling Integumentary: no rash, no pruritis, no redness, no sores Neurological: weakness, numbness, headaches, double vision, no head injury, no tingling, no seizures, no syncope Psychiatric: no anxiety, no memory loss, no change in sleep habits, no sleep disturbances, no insomnia, no hypersomnia, no change in appetite Endocrine: no cold intolerance, no heat intolerance, no polyphagia, no polydipsia, no polyuria, no excessive sweating, no weight change Hematologic/Lymphatic: no easy bruising, no easy bleeding, no lymphadenopathy, no lymphedema Allergic/Immunologic: no urticaria, no allergic rhinitis, no persistent infections, no anaphylaxis, no angioedema Exam - Constitutional Vitals: Temp Pulse Resp BP Pulse Ox 98.2 F 88 20 150/69 97 06/09/18 12:15 06/09/18 13:59 06/09/18 13:59 06/09/18 13:59 06/09/18 13:59 General appearance: Present: mild distress, obese - EENT Eyes: Present: PERRL ENT: hearing intact, clear oral mucosa - Neck Neck: Present: supple, normal ROM - Respiratory Respiratory effort: normal Respiratory: bilateral: CTA - Cardiovascular Heart Sounds: Present: S1 & S2. Absent: rub, click - Extremities Extremities: pulses symmetrical, No edema Peripheral Pulses: within normal limits - Abdominal General gastrointestinal: Present: soft, non-tender, non-distended, normal bowel sounds Female genitourinary: Present: normal - Integumentary Integumentary: Present: clear, warm, dry - Musculoskeletal Musculoskeletal: gait normal, strength equal bilaterally - Psychiatric Psychiatric: appropriate mood/affect, intact judgment & insight - Neurologic Neurologic: CNII-XII intact, moves all extremities Results - Labs CBC & Chem 7: 06/09/18 13:29 06/09/18 13:29 Labs: Abnormal lab results 06/09/18 06/09/18 Range/Units 13:29 13:29 RBC 5.14 H (3.65-5.03) M/mm3 MCV 74 L (79-97) fl MCH 24 L (28-32) pg RDW 15.8 H (13.2-15.2) % [place] % (Auto) 9.3 H (0.0-7.3) % Baso % (Auto) 2.6 H (0.0-1.8) % Baso # 0.2 H (0.0-0.1) K/mm3 Creatinine 1.4 H (0.7-1.2) mg/dL Albumin 3.7 L (3.9-5) g/dL Assessment and Plan - Patient Problems (1) CVA (cerebral vascular accident) Current Visit: Yes Status: Acute Qualifiers: Laterality of affected vessel: unspecified Plan to address problem: Stroke Protocol: CT Head, Neuro checks, MRI Brain, MRA Brain, Echo, Carotid doppler, Antiplatelet therapy, PT/OT/Speech therapy, statin therapy, lipid panel, seizure precautions, (2) Hypothyroid Current Visit: Yes Status: Acute Qualifiers: Hypothyroidism type: acquired Qualified Code(s): E03.9 - Hypothyroidism, unspecified Plan to address problem: Synthroid therapy, supportive care. (3) HTN (hypertension) Current Visit: Yes Status: Acute Qualifiers: Hypertension type: essential hypertension Qualified Code(s): I10 - Essential (primary) hypertension Plan to address problem: Monitor BP q shift, permissive HTN overnight, gaol systolic less than 185 overnight. (4) Renal failure (ARF), acute on chronic Current Visit: Yes Status: Acute Qualifiers: Acute renal failure type: with acute tubular necrosis Plan to address problem: Nephrology consulted in ED, monitor uop q shift, strict I/O, daily weight, bmp to monitor serum creatnine, avoid nephrotoxic agents. (5) SLE (systemic lupus erythematosus) Current Visit: Yes Status: Acute Qualifiers: Systemic lupus erythematosus type: unspecified Plan to address problem: continue current therapy, Continue steroid therapy. (6) Dementia Current Visit: Yes Status: Acute Qualifiers: Dementia behavioral disturbance: without behavioral disturbance Plan to address problem: continue aricept, and memantine, supportive care. (7) DVT prophylaxis Current Visit: Yes Status: Acute Plan to address problem: SCD to BLE while in bed, prophylactic heparin.
[2018-06-09] MEDS ORDERED: PHENERGAN PR PRN (14:50)
[2018-06-09] MEDS ORDERED: SODIUM CHLORIDE FLUSH SYRINGE 10 ML IV PRN (14:50)
[2018-06-09] MEDS ORDERED: PROVENTIL IH PRN (14:50)
[2018-06-09] MEDS ORDERED: REGLAN PO PRN (14:50)
[2018-06-09] MEDS ORDERED: MILK OF MAGNESIA PO PRN (14:50)
[2018-06-09] MEDS ORDERED: ZOFRAN IV PRN (14:50)
[2018-06-09] MEDS ORDERED: DULCOLAX PR PRN (14:50)
--- NOTE | 2018-06-09 18:10 | Consultation ---
History of Present Illness Consult date: 06/09/18 Chief complaint: headache, blurred vision, left arm pain History of present illness: This is a 72 YO F who presented to the ED with l arm pain, headache and blurred vision. All pt's symptoms are currently improved. Pt says symptoms had been going on for several days prior to her presentation. Denied any focal neuro deficits. Past History Past Medical History: hypertension, hypothyroidism, renal failure, stroke, other (Dementia, SLE, Depression, LDD) Past Surgical History: Other (vein stripping) Social history: , smoking. denies: alcohol abuse, prescription drug abuse, IV drug use Family history: diabetes, hypertension Medications and Allergies Allergies Allergy/AdvReac Type Severity Reaction Status Date / Time captopril Allergy Rash Verified 05/19/18 12:50 clindamycin Allergy Diarrhea Verified 05/19/18 12:50 NSAIDS (Non-Steroidal Allergy Rash Verified 05/19/18 12:50 Anti-Inflamma Penicillins Allergy Rash Verified 05/19/18 12:50 Sulfa (Sulfonamide Allergy Rash Verified 05/19/18 12:50 Antibiotics) Home Medications Medication Instructions Recorded Confirmed Last Taken Type Mirtazapine [Remeron] 45 mg PO QHS 08/04/15 06/09/18 Unknown History Donepezil HCl 10 mg PO QPM 09/30/16 06/09/18 Unknown History Carvedilol [Coreg] 25 mg PO BID #60 tablet 03/26/18 06/09/18 05/19/18 Rx Clopidogrel [Plavix] 75 mg PO QDAY #30 tablet 03/26/18 06/09/18 Unknown Rx Ergocalciferol [Vitamin D2] 1 cap PO QWEEK #8 capsule 03/26/18 06/09/18 Unknown Rx Levothyroxine [Synthroid] 50 mcg PO QAM #30 tablet 03/26/18 06/09/18 Unknown Rx Sertraline HCl [Zoloft] 50 mg PO DAILY #30 tablet 03/26/18 06/09/18 Unknown Rx Solifenacin Succinate (Nf) 10 mg PO DAILY #30 tablet 03/26/18 06/09/18 Unknown Rx [Vesicare (Nf)] amLODIPine [Norvasc] 5 mg PO QDAY #30 tablet 03/26/18 06/09/18 Unknown Rx Calcitriol [Rocaltrol] 0.25 mcg PO DAILY 05/19/18 06/09/18 Unknown History Memantine HCl 10 mg PO BID 05/19/18 06/09/18 Unknown History hydrOXYzine PAMOATE [Vistaril] 50 mg PO DAILY@2100 05/19/18 06/09/18 Unknown History lamoTRIgine [LaMICtal] 25 mg PO BID 05/19/18 06/09/18 Unknown History predniSONE [Prednisone] 5 mg PO QDAY 05/19/18 06/09/18 Unknown History Pantoprazole [Protonix TAB] 40 mg PO BID #60 tablet 05/21/18 06/09/18 Unknown Rx Active Meds: Active Medications Acetaminophen (Tylenol) 650 mg PO Q4H PRN PRN Reason: Pain, Mild (1-3) Albuterol (Proventil) 2.5 mg IH Q3HRT PRN PRN Reason: Shortness Of Breath Aspirin (Aspirin) 325 mg PO QDAY [facility] Atorvastatin Calcium (Lipitor) 40 mg PO QHS [facility] Bisacodyl (Dulcolax) 10 mg MA QDAY PRN PRN Reason: Constipation Calcitriol (Rocaltrol) 0.25 mcg PO DAILY [facility] Clopidogrel Bisulfate (Plavix) 75 mg PO QDAY [facility] Donepezil HCl (Aricept) 10 mg PO QPM [facility] Ergocalciferol (Vitamin D2) 50,000 unit PO Fr [facility] Heparin Sodium (Porcine) (Heparin) 5,000 unit SUB-Q Q12HR [facility] Hydroxyzine Pamoate (Vistaril) 50 mg PO DAILY@2100 [facility] Lamotrigine (Lamictal) 25 mg PO BID [facility] Levothyroxine Sodium (Synthroid) 50 mcg PO 0600 [facility] Magnesium Hydroxide (Milk Of Magnesia) 30 ml PO Q4H PRN PRN Reason: Constipation Memantine (Namenda) 10 mg PO BID [facility] Metoclopramide HCl (Reglan) 10 mg PO Q6H PRN PRN Reason: Nausea And Vomiting Mirtazapine (Remeron) 45 mg PO QHS [facility] Miscellaneous Medication (Solifenacin Succinate (Nf)) 10 mg PO DAILY [facility] Ondansetron HCl (Zofran) 4 mg IV Q8H PRN PRN Reason: Nausea And Vomiting Pantoprazole Sodium (Protonix) 40 mg PO BID [facility] Prednisone (Deltasone) 5 mg PO QDAY [facility] Promethazine HCl (Phenergan) 25 mg MA Q6H PRN PRN Reason: Nausea And Vomiting Sertraline HCl (Zoloft) 50 mg PO DAILY [facility] Sodium Chloride (Sodium Chloride Flush Syringe 10 Ml) 10 ml IV PRN PRN PRN Reason: LINE FLUSH Review of Systems Eyes: bilateral: blurred vision Musculoskeletal: arm numbness/tingling Neurological: headaches Physical Examination - Vital Signs Vital Signs: Vital Signs Temp Pulse Resp BP Pulse Ox 98.2 F 80 15 148/74 96 06/09/18 12:15 06/09/18 12:15 06/09/18 12:15 06/09/18 12:15 06/09/18 12:15 - Constitutional General appearance: comfortable - EENT EENT: Present: PERRL, mucous membranes moist - Respiratory Respiratory: Present: lungs clear - Cardiovascular Cardiovascular: Present: regular rate Extremities: Present: no peripheral edema bilatateraly - Gastrointestinal Gastrointestinal: Present: normoactive bowel sounds - Neurologic Cranial nerve examination: PERRL, EOMI, face symmetric, tongue midline, intact Detailed motor examination: grossly full strength in Motor examination - right side: 5/5: biceps, triceps, wrist flexion, wrist extension, casting molder, hip flexors, knee extensors, dorsiflexion, toe extension (EHL), plantarflexion Motor examination - left side: 5/5: biceps, triceps, wrist flexion, wrist extension, casting molder, hip flexors, knee extensors, dorsiflexion, toe extension (EHL), plantarflexion Reflex and gait examination: intact Reflexes: 1+: ankle, bicep, knee, tricep Results - Laboratory Findings CBC and BMP: 06/09/18 13:29 06/09/18 13:29 Abnormal Lab Findings: Abnormal Labs 06/09/18 06/09/18 13:29 13:29 RBC 5.14 H MCV 74 L MCH 24 L RDW 15.8 H [place] % (Auto) 9.3 H Baso % (Auto) 2.6 H Baso # 0.2 H Creatinine 1.4 H Albumin 3.7 L - Diagnostic Findings Additional findings: CT head no acute changes Assessment and Plan This is a 72 YO F with headache, blurred vision and left arm pain, better clinically. REcommend: MRI Brain ordered, consider MR cervical if brain does not show pathology. Doubt stroke but if MRI brain shows stroke would do full stroke work up PRN analgesics for headache Continue care for her medical issues as you are doing Fine to continue aspirin and statin as pt has risk factors.
[2018-06-09] MEDS: TYLENOL PO PRN (18:48)
[2018-06-09] MEDS: ARICEPT PO SCH (18:48)
--- NOTE | 2018-06-09 20:11 | Vascular Lab Report ---
PROCEDURE: VL CAROTID DUPLEX BILAT HISTORY: stroke FINDINGS: Real-time ultrasound of the cervical arterial vasculature was performed using grayscale and color Doppler images. On the right, peak systolic velocity in the common carotid artery was 103 cm/s. In the internal carot id it was 69 cm/s and in the external carotid 64 cm/s. Flow in the vertebral artery was antegrade at 38 cm/s. The ratio of flow of the internal carotid to the common carotid was 0.67 which is within nor mal limits. On the left, peak systolic velocity in the common carotid artery was 108 cm/s. In the internal caroti d it was 118 cm/s and in the external carotid 73 cm/s. Flow in the vertebral artery was antegrade at 43 cm/s. The ratio of flow of the internal carotid to the common carotid was 1.1, which is within nor mal limits. IMPRESSION: No stenosis of greater than 50% is seen in the cervical arterial vasculature This document is electronically signed by Joao Green MD., Jun 09 2018 08:09:21 PM ET
[2018-06-09] MEDS: NAMENDA PO SCH (21:52)
[2018-06-09] MEDS: REMERON PO SCH (21:53)
[2018-06-09] MEDS: VISTARIL PO SCH (21:53)
[2018-06-09] MEDS: HEPARIN SUB-Q SCH (21:53)
[2018-06-09] MEDS: PROTONIX PO SCH (21:53)
[2018-06-09] MEDS ORDERED: NON-FORMULARY (Mirtazapine [Remeron] 45 MG) PO SCH (22:00)
[2018-06-09] MEDS: LaMICtal PO SCH (23:03)
[2018-06-10] MEDS: SYNTHROID PO SCH (05:42)
[2018-06-10] MEDS ORDERED: SOLIFENACIN SUCCINATE 10 MG PO SCH (10:00)
--- NOTE | 2018-06-10 11:21 | Progress Note ---
Assessment and Plan Assessment and plan: Left arm pain. Await MRI/MRA and echocardiogram results. Consider MRI cervical spine is negative. Hypothyroidism. Continue Synthroid. Hypertension. Resume antihypertensive medications. Acute renal failure. Renal consultation pending. Etiology likely secondary to vasomotor nephropathy/dehydration. SLE. Continue current therapy/steroid therapy. Dementia. Continue Aricept and Namenda. DVT prophylaxis. History Interval history: No new issues overnight. Patient states her symptoms have resolved. Hospitalist Physical - Constitutional Vitals: Temp Pulse Resp BP Pulse Ox 97.9 F 88 16 161/97 95 06/10/18 07:49 06/10/18 07:49 06/10/18 07:49 06/10/18 07:49 06/10/18 09:07 General appearance: Present: no acute distress, obese - EENT Eyes: Present: PERRL, EOM intact ENT: hearing intact, clear oral mucosa, dentition normal - Neck Neck: Present: supple, normal ROM - Respiratory Respiratory effort: normal Respiratory: bilateral: CTA - Cardiovascular Rhythm: regular Heart Sounds: Present: S1 & S2. Absent: gallop, rub - Extremities Extremities: no ischemia, No edema, Full ROM - Abdominal General gastrointestinal: soft, non-tender, non-distended, normal bowel sounds - Integumentary Integumentary: Present: clear, warm, dry - Neurologic Neurologic: CNII-XII intact, moves all extremities Results - Labs CBC & Chem 7: 06/09/18 13:29 06/09/18 13:29 Labs: Laboratory Last Values WBC 6.9 K/mm3 (4.5-11.0) 06/09/18 13:29 RBC 5.14 M/mm3 (3.65-5.03) H 06/09/18 13:29 Hgb 12.1 gm/dl (10.1-14.3) 06/09/18 13:29 Hct 37.9 % (30.3-42.9) 06/09/18 13:29 MCV 74 fl (79-97) L 06/09/18 13:29 MCH 24 pg (28-32) L 06/09/18 13:29 MCHC 32 % (30-34) 06/09/18 13:29 RDW 15.8 % (13.2-15.2) H 06/09/18 13:29 Plt Count 235 K/mm3 (140-440) 06/09/18 13:29 Lymph % (Auto) 30.6 % (13.4-35.0) 06/09/18 13:29 [place] % (Auto) 9.3 % (0.0-7.3) H 06/09/18 13:29 Eos % (Auto) 1.7 % (0.0-4.3) 06/09/18 13:29 Baso % (Auto) 2.6 % (0.0-1.8) H 06/09/18 13:29 Lymph # 2.1 K/mm3 (1.2-5.4) 06/09/18 13:29 [place] # 0.6 K/mm3 (0.0-0.8) 06/09/18 13:29 Eos # 0.1 K/mm3 (0.0-0.4) 06/09/18 13:29 Baso # 0.2 K/mm3 (0.0-0.1) H 06/09/18 13:29 Seg Neutrophils % 55.8 % (40.0-70.0) 06/09/18 13:29 Seg Neutrophils # 3.9 K/mm3 (1.8-7.7) 06/09/18 13:29 PT 12.4 Sec. (12.2-14.9) 06/09/18 13:29 INR 0.87 (0.87-1.13) 06/09/18 13:29 Sodium 140 mmol/L (137-145) 06/09/18 13:29 Potassium 4.2 mmol/L (3.6-5.0) 06/09/18 13:29 Chloride 104.2 mmol/L (98-107) 06/09/18 13:29 Carbon Dioxide 24 mmol/L (22-30) 06/09/18 13:29 Anion Gap 16 mmol/L 06/09/18 13:29 BUN 16 mg/dL (7-17) 06/09/18 13:29 Creatinine 1.4 mg/dL (0.7-1.2) H 06/09/18 13:29 Estimated GFR 45 ml/min 06/09/18 13:29 BUN/Creatinine Ratio 11 % 06/09/18 13:29 Glucose 77 mg/dL (65-100) 06/09/18 13:29 Calcium 9.2 mg/dL (8.4-10.2) 06/09/18 13:29 Total Bilirubin 0.20 mg/dL (0.1-1.2) 06/09/18 13:29 AST 25 units/L (5-40) 06/09/18 13:29 ALT 15 units/L (7-56) 06/09/18 13:29 Alkaline Phosphatase 75 units/L (35-129) 06/09/18 13:29 Troponin T < 0.010 ng/mL (0.00-0.029) 06/09/18 13:29 Total Protein 7.4 g/dL (6.3-8.2) 06/09/18 13:29 Albumin 3.7 g/dL (3.9-5) L 06/09/18 13:29 Albumin/Globulin Ratio 1.0 % 06/09/18 13:29 TSH 0.768 mlU/mL (0.270-4.200) 06/09/18 13:29 Active Medications - Current Medications Current Medications: Generic Name Dose Route Start Last Admin Trade Name Freq PRN Reason Stop Dose Admin Acetaminophen 650 mg 06/09/18 14:50 06/09/18 18:48 Tylenol PO 650 mg Q4H PRN Administration Pain, Mild (1-3) Albuterol 2.5 mg 06/09/18 14:50 Proventil IH Q3HRT PRN Shortness Of Breath Aspirin 325 mg 06/10/18 10:00 Aspirin PO QDAY [facility] Atorvastatin Calcium 40 mg 06/09/18 22:00 06/09/18 21:53 Lipitor PO 40 mg QHS [facility] Administration Bisacodyl 10 mg 06/09/18 14:50 Dulcolax HI QDAY PRN Constipation Calcitriol 0.25 mcg 06/10/18 10:00 Rocaltrol PO DAILY [facility] Clopidogrel Bisulfate 75 mg 06/10/18 10:00 Plavix PO QDAY [facility] Donepezil HCl 10 mg 06/09/18 18:00 06/09/18 18:48 Aricept PO 10 mg QPM [facility] Administration Ergocalciferol 50,000 unit 06/16/18 10:00 Vitamin D2 PO Fr [facility] Heparin Sodium (Porcine) 5,000 unit 06/09/18 22:00 06/09/18 21:53 Heparin SUB-Q 5,000 unit Q12HR [facility] Administration Hydroxyzine Pamoate 50 mg 06/09/18 21:00 06/09/18 21:53 Vistaril PO 50 mg DAILY@2100 [facility] Administration Lamotrigine 25 mg 06/09/18 22:00 06/09/18 23:03 Lamictal PO 25 mg BID [facility] Administration Levothyroxine Sodium 50 mcg 06/10/18 06:00 06/10/18 05:42 Synthroid PO 50 mcg 0600 [facility] Administration Magnesium Hydroxide 30 ml 06/09/18 14:50 Milk Of Magnesia PO Q4H PRN Constipation Memantine 10 mg 06/09/18 22:00 06/09/18 21:52 Namenda PO 10 mg BID [facility] Administration Metoclopramide HCl 10 mg 06/09/18 14:50 Reglan PO Q6H PRN Nausea And Vomiting Mirtazapine 45 mg 06/09/18 22:00 06/09/18 21:53 Remeron PO 45 mg QHS [facility] Administration Miscellaneous Medication 10 mg 06/10/18 10:00 Solifenacin Succinate (Nf) PO DAILY [facility] Ondansetron HCl 4 mg 06/09/18 14:50 Zofran IV Q8H PRN Nausea And Vomiting Pantoprazole Sodium 40 mg 06/09/18 22:00 06/09/18 21:53 Protonix PO 40 mg BID [facility] Administration Prednisone 5 mg 06/10/18 10:00 Deltasone PO QDAY [facility] Promethazine HCl 25 mg 06/09/18 14:50 Phenergan HI Q6H PRN Nausea And Vomiting Sertraline HCl 50 mg 06/10/18 10:00 Zoloft PO DAILY [facility] Sodium Chloride 10 ml 06/09/18 14:50 Sodium Chloride Flush Syringe 10 Ml IV PRN PRN LINE FLUSH
[2018-06-10] MEDS: HEPARIN SUB-Q SCH ×2 (11:44→21:13)
[2018-06-10] MEDS: ROCALTROL PO SCH (11:49)
[2018-06-10] MEDS: DELTASONE PO SCH (11:50)
[2018-06-10] MEDS: ASPIRIN PO SCH (11:51)
[2018-06-10] MEDS: PROTONIX PO SCH ×2 (11:51→21:12)
[2018-06-10] MEDS: ZOLOFT PO SCH (11:51)
[2018-06-10] MEDS: NAMENDA PO SCH ×2 (11:52→21:12)
[2018-06-10] MEDS: PLAVIX PO SCH (12:37)
[2018-06-10] MEDS: LaMICtal PO SCH ×2 (12:37→21:13)
--- NOTE | 2018-06-10 14:34 | Magnetic Resonance Report ---
PROCEDURE: MR BRAIN WO CON TECHNIQUE: MRI brain without IV contrast. HISTORY: stroke COMPARISONS: None currently available. FINDINGS: T2/FLAIR hyperintensities in the periventricular and subcortical white matter are nonspecific. Differ ential diagnosis includes migraines, microvascular ischemic disease, demyelinating process, encephali tis/encephalopathy, and trauma. Midline structures are unremarkable. There is no tonsillar ectopy. Age appropriate davidson-white matter differentiation is noted. There is no hydrocephalus. There is no mass. There is no hemorrhage. There is no midline shift. There is no restricted diffusion to suggest acute ischemia. The CP angles are grossly noted. Major flow voids are present. Paranasal sinuses are unremarkable. Globes are intact. Calvarial signal characteristics are grossly unremarkable. Extracranial soft tissues are intact. IMPRESSION: * No acute intracranial findings. * Chronic ischemic disease. This document is electronically signed by Torsten Mackay MD., Jun 10 2018 02:31:55 PM ET
--- NOTE | 2018-06-10 14:35 | Magnetic Resonance Report ---
PROCEDURE: MR MRA/MRV HEAD WO CON TECHNIQUE: Axial 3-D [id number] MR angiography of the [place] of the brain was performe d. The source images were reconstructed in various views using maximum intensity projection. HISTORY: stroke COMPARISONS: None currently available. FINDINGS: Intracranial carotids: Unremarkable. Anterior Cerebral: Unremarkable. Middle Cerebral: Unremarkable. Posterior Cerebral: Unremarkable. Basilar: Unremarkable. Intracranial Vertebral Arteries: Unremarkable. There is no aneurysm, dissection, vascular malformation, or significant vascular stenosis. There is n o evidence for vasculitis. IMPRESSION: * Unremarkable MRA of the head. This document is electronically signed by Torsten Mackay MD., Jun 10 2018 02:33:31 PM ET
--- NOTE | 2018-06-10 17:16 | Consultation ---
History of Present Illness - History of Present Illness 72-year-old with medical history significant for hypertension, chronic kidney disease stage III, discoid lupus/SLE, previous CVA essentially admitted with complaints of headache feeling unwell She is well known to our practice denies any orthopnea PND reports headache is improved denies any fevers chills nausea vomiting denies any weakness denies any NSAID use tries to stay hydrated denies any nausea vomiting or diarrhea Past History Past Medical History: hypertension, hypothyroidism, renal failure, stroke, other (Dementia, SLE, Depression, LDD) Past Surgical History: Other (vein stripping) Social history: , smoking. denies: alcohol abuse, prescription drug abuse, IV drug use Family history: diabetes, hypertension Medications and Allergies Allergies Allergy/AdvReac Type Severity Reaction Status Date / Time captopril Allergy Rash Verified 05/19/18 12:50 clindamycin Allergy Diarrhea Verified 05/19/18 12:50 NSAIDS (Non-Steroidal Allergy Rash Verified 05/19/18 12:50 Anti-Inflamma Penicillins Allergy Rash Verified 05/19/18 12:50 Sulfa (Sulfonamide Allergy Rash Verified 05/19/18 12:50 Antibiotics) Home Medications Medication Instructions Recorded Confirmed Last Taken Type Mirtazapine [Remeron] 45 mg PO QHS 08/04/15 06/09/18 Unknown History Donepezil HCl 10 mg PO QPM 09/30/16 06/09/18 Unknown History Carvedilol [Coreg] 25 mg PO BID #60 tablet 03/26/18 06/09/18 05/19/18 Rx Clopidogrel [Plavix] 75 mg PO QDAY #30 tablet 03/26/18 06/09/18 Unknown Rx Ergocalciferol [Vitamin D2] 1 cap PO QWEEK #8 capsule 03/26/18 06/09/18 Unknown Rx Levothyroxine [Synthroid] 50 mcg PO QAM #30 tablet 03/26/18 06/09/18 Unknown Rx Sertraline HCl [Zoloft] 50 mg PO DAILY #30 tablet 03/26/18 06/09/18 Unknown Rx Solifenacin Succinate (Nf) 10 mg PO DAILY #30 tablet 03/26/18 06/09/18 Unknown Rx [Vesicare (Nf)] amLODIPine [Norvasc] 5 mg PO QDAY #30 tablet 03/26/18 06/09/18 Unknown Rx Calcitriol [Rocaltrol] 0.25 mcg PO DAILY 05/19/18 06/09/18 Unknown History Memantine HCl 10 mg PO BID 05/19/18 06/09/18 Unknown History hydrOXYzine PAMOATE [Vistaril] 50 mg PO DAILY@2100 05/19/18 06/09/18 Unknown History lamoTRIgine [LaMICtal] 25 mg PO BID 05/19/18 06/09/18 Unknown History predniSONE [Prednisone] 5 mg PO QDAY 05/19/18 06/09/18 Unknown History Pantoprazole [Protonix TAB] 40 mg PO BID #60 tablet 05/21/18 06/09/18 Unknown Rx Active Meds: Active Medications Acetaminophen (Tylenol) 650 mg PO Q4H PRN PRN Reason: Pain, Mild (1-3) Last Admin: 06/09/18 18:48 Dose: 650 mg Documented by: Albuterol (Proventil) 2.5 mg IH Q3HRT PRN PRN Reason: Shortness Of Breath Aspirin (Aspirin) 325 mg PO QDAY [facility] Last Admin: 06/10/18 11:51 Dose: 325 mg Documented by: Atorvastatin Calcium (Lipitor) 40 mg PO QHS [facility] Last Admin: 06/09/18 21:53 Dose: 40 mg Documented by: Bisacodyl (Dulcolax) 10 mg [place] QDAY PRN PRN Reason: Constipation Calcitriol (Rocaltrol) 0.25 mcg PO DAILY [facility] Last Admin: 06/10/18 11:49 Dose: 0.25 mcg Documented by: Clopidogrel Bisulfate (Plavix) 75 mg PO QDAY [facility] Last Admin: 06/10/18 12:37 Dose: 75 mg Documented by: Donepezil HCl (Aricept) 10 mg PO QPM [facility] Last Admin: 06/09/18 18:48 Dose: 10 mg Documented by: Ergocalciferol (Vitamin D2) 50,000 unit PO [facility] Heparin Sodium (Porcine) (Heparin) 5,000 unit SUB-Q Q12HR [facility] Last Admin: 06/10/18 11:44 Dose: 5,000 unit Documented by: Hydroxyzine Pamoate (Vistaril) 50 mg PO DAILY@2100 [facility] Last Admin: 06/09/18 21:53 Dose: 50 mg Documented by: Lamotrigine (Lamictal) 25 mg PO BID [facility] Last Admin: 06/10/18 12:37 Dose: 25 mg Documented by: Levothyroxine Sodium (Synthroid) 50 mcg PO 0600 [facility] Last Admin: 06/10/18 05:42 Dose: 50 mcg Documented by: Magnesium Hydroxide (Milk Of Magnesia) 30 ml PO Q4H PRN PRN Reason: Constipation Memantine (Namenda) 10 mg PO BID [facility] Last Admin: 06/10/18 11:52 Dose: 10 mg Documented by: Metoclopramide HCl (Reglan) 10 mg PO Q6H PRN PRN Reason: Nausea And Vomiting Mirtazapine (Remeron) 45 mg PO QHS [facility] Last Admin: 06/09/18 21:53 Dose: 45 mg Documented by: Miscellaneous Medication (Solifenacin Succinate (Nf)) 10 mg PO DAILY [facility] Ondansetron HCl (Zofran) 4 mg IV Q8H PRN PRN Reason: Nausea And Vomiting Pantoprazole Sodium (Protonix) 40 mg PO BID [facility] Last Admin: 06/10/18 11:51 Dose: 40 mg Documented by: Prednisone (Deltasone) 5 mg PO QDAY [facility] Last Admin: 06/10/18 11:50 Dose: 5 mg Documented by: Promethazine HCl (Phenergan) 25 mg [place] Q6H PRN PRN Reason: Nausea And Vomiting Sertraline HCl (Zoloft) 50 mg PO DAILY [facility] Last Admin: 06/10/18 11:51 Dose: 50 mg Documented by: Sodium Chloride (Sodium Chloride Flush Syringe 10 Ml) 10 ml IV PRN PRN PRN Reason: LINE FLUSH Review of Systems Constitutional: no weight loss, no weight gain Breasts: no deferred Cardiovascular: no chest pain, no orthopnea Respiratory: no cough, no cough with sputum Gastrointestinal: no abdominal pain, no nausea, no vomiting Genitourinary Female: no dyspareunia, no dysmenorrhea Musculoskeletal: neck stiffness, neck pain Integumentary: no deferred, no pruritis Neurological: weakness, headaches Psychiatric: no anxiety, no memory loss Exam - Vital Signs Vital signs: Vital Signs Temp Pulse Resp BP Pulse Ox 98.2 F 80 15 148/74 96 06/09/18 12:15 06/09/18 12:15 06/09/18 12:15 06/09/18 12:15 06/09/18 12:15 - General Appearance General appearance: well-developed, well-nourished EENT: ATNC, PERRL, mucous membranes moist Neck: Present: neck supple Respiratory: Clear to Ascultation Heart: regular, S1S2 Gastrointestinal: Present: normal Integumentary: no rash Neurologic: alert and oriented x3, CN 3-12 intact Musculoskeletal: Present: deferred Psychiatric: mood/affect appropriate Results - Lab Results 06/09/18 13:29 06/10/18 14:03 Most recent lab results Calcium 9.0 mg/dL (8.4-10.2) 06/10/18 14:03 - Image Kidney/bladder ultrasound: other (brain MRA without any acute findings) Assessment and Plan - Patient Problems (1) CKD (chronic kidney disease) Current Visit: Yes Status: Acute Qualifiers: Chronic kidney disease stage: unspecified stage Qualified Code(s): N18.9 - Chronic kidney disease, unspecified Plan to address problem: Chronic kidney disease stage III Current creatinine is 1.3 mg/DL Baseline creatinine is 1.0-1.2 mg/DL Creatinine is fairly stable Emphasized to maintain hydration Avoid nephro toxic medications Advised to follow up at next appointment (2) HTN (hypertension) Current Visit: Yes Status: Acute Qualifiers: Hypertension type: essential hypertension Qualified Code(s): I10 - Essential (primary) hypertension Plan to address problem: Hypertension uncontrolled Resume patient's amlodipine and carvedilol if neurology is agreeable If no evidence of stroke can resume patient's hypertensive medication once permissive hypertension window is over (3) SLE (systemic lupus erythematosus) Current Visit: Yes Status: Acute Qualifiers: Systemic lupus erythematosus type: unspecified Systemic lupus erythematosus organ involvement: unspecified Qualified Code(s): M32.9 - Systemic lupus erythematosus, unspecified Plan to address problem: Discoid lupus/SLE Complicated by alopecia skin manifestations UA is bland Renal function is fairly stable Follow-up with rheumatology She is on on prednisone (4) Head ache Current Visit: Yes Status: Acute Plan to address problem: Headache status post brain MRI and MRA Neurology following
[2018-06-10] MEDS: ARICEPT PO SCH (17:34)
[2018-06-10] MEDS: REMERON PO SCH (21:12)
[2018-06-10] MEDS: COREG PO SCH (21:12)
[2018-06-10] MEDS: VISTARIL PO SCH (21:13)
[2018-06-11] MEDS: SYNTHROID PO SCH (05:05)
[2018-06-11 05:57] LABS: Basophils # (Auto) 0.1 K/mm3 (0.0-0.1); Basophils % (Auto) 0.8 % (0.0-1.8); Eosinophils # (Auto) 0.1 K/mm3 (0.0-0.4); Eosinophils % (Auto) 1.4 % (0.0-4.3); Hematocrit 36.7 % (30.3-42.9); Hemoglobin 11.6 gm/dl (10.1-14.3); Lymphocytes # (Auto) 2.6 K/mm3 (1.2-5.4); Mean Corpuscular HGB Conc 32 % (30-34); Mean Corpuscular Volume 74 fl (79-97); Monocytes # (Auto) 0.7 K/mm3 (0.0-0.8); Monocytes % (Auto) 9.6 % (0.0-7.3); Platelet Count 221 K/mm3 (140-440); Red Blood Count 4.98 M/mm3 (3.65-5.03); Red Cell Distribution Width 15.9 % (13.2-15.2)
[2018-06-11 06:10] LABS: Calcium 8.9 mg/dL (8.4-10.2)
[2018-06-11 08:18] LABS: Bacteria,Urine 1+ /HPF (Negative); Bilirubin,Urine NEG (Negative); Blood,Urine NEG (Negative); Color,Urine Yellow (Yellow); Mucus,Urine FEW /HPF; Protein,Urine <15 mg/dL mg/dL (Negative); Urobilinogen,Urine < 2.0 mg/dL (<2.0)
--- NOTE | 2018-06-11 09:12 | Discharge Summary ---
Providers - Providers Date of Admission: 06/09/18 14:50 Attending physician: SHANTI RASHEED 06/09/18 Consult to Physician [CONS] Routine Comment: Consulting Provider: NAVEEN GOMEZ Physician Instructions: Reason For Exam: cva 06/09/18 14:51 Occupational Therapy Evaluate and Treat [CONS] Routine Comment: Reason For Exam: Neuro deficits Physical Therapy Evaluation and Treat [CONS] Routine Comment: Reason For Exam: Neuro deficits 06/09/18 15:15 Consult to Physician [CONS] Routine Comment: Consulting Provider: NARINDER MCLAUGHLIN Physician Instructions: Reason For Exam: ARF/CKD Primary care physician: ELOINA WARD Hospitalization Condition: Fair Disposition: DC-30 STILL A PATIENT Exam - Constitutional Vitals: Temp Pulse Resp BP Pulse Ox 98.2 F 84 18 145/90 94 06/11/18 04:59 06/11/18 04:59 06/11/18 04:59 06/11/18 04:59 06/11/18 04:59 Plan Follow up with: ELOINA WARD MD [Primary Care Provider] - 3-5 Days
[2018-06-11] MEDS: NORVASC PO SCH (09:52)
[2018-06-11] MEDS: HEPARIN SUB-Q SCH (09:52)
[2018-06-11] MEDS: ASPIRIN PO SCH (09:52)
[2018-06-11] MEDS: LaMICtal PO SCH ×2 (09:52→21:37)
[2018-06-11] MEDS: DELTASONE PO SCH (09:52)
[2018-06-11] MEDS: ROCALTROL PO SCH (09:52)
[2018-06-11] MEDS: PROTONIX PO SCH ×2 (09:52→21:38)
[2018-06-11] MEDS: PLAVIX PO SCH (09:52)
[2018-06-11] MEDS: ZOLOFT PO SCH (09:52)
[2018-06-11] MEDS: COREG PO SCH ×2 (09:52→21:38)
[2018-06-11] MEDS: NAMENDA PO SCH ×2 (09:52→21:38)
[2018-06-11 10:15] LABS: Creatinine,Urine 167.8 mg/dL (0.1-20.0); Microalbumin/Creatinine Ratio 7.7 ug/mg
--- NOTE | 2018-06-11 10:56 | Progress Note ---
Assessment and Plan Assessment and plan: Left arm pain. MRI/MRA negative for CVA. Echocardiogram and carotid Doppler within normal limits. Neurology recommendations MRI cervical spine. If negative, patient will likely DC home later today or in a.m. Hypothyroidism. Continue Synthroid. Hypertension. Resume antihypertensive medications. Chronic kidney disease stage III. Current creatinine is 1.3 mg/DL. Baseline creatinine is 1.0-1.2 mg/DL. Creatinine is fairly stable Avoid nephro toxic medications. Nephrology following. SLE. Continue current therapy/steroid therapy. Dementia. Continue Aricept and Namenda. DVT prophylaxis. History Interval history: No new issues overnight. Patient states her symptoms have resolved. Hospitalist Physical - Constitutional Vitals: Temp Pulse Resp BP Pulse Ox 97.7 F 83 20 156/72 98 06/11/18 09:10 06/11/18 09:10 06/11/18 09:10 06/11/18 09:10 06/11/18 09:10 General appearance: Present: no acute distress, obese - EENT Eyes: Present: PERRL, EOM intact ENT: hearing intact, clear oral mucosa, dentition normal - Neck Neck: Present: supple, normal ROM - Respiratory Respiratory effort: normal Respiratory: bilateral: CTA - Cardiovascular Rhythm: regular Heart Sounds: Present: S1 & S2. Absent: gallop, rub - Extremities Extremities: no ischemia, No edema, Full ROM - Abdominal General gastrointestinal: soft, non-tender, non-distended, normal bowel sounds - Integumentary Integumentary: Present: clear, warm, dry - Neurologic Neurologic: CNII-XII intact, moves all extremities Results - Labs CBC & Chem 7: 06/11/18 04:18 06/11/18 04:18 Labs: Laboratory Last Values WBC 6.8 K/mm3 (4.5-11.0) 06/11/18 04:18 RBC 4.98 M/mm3 (3.65-5.03) 06/11/18 04:18 Hgb 11.6 gm/dl (10.1-14.3) 06/11/18 04:18 Hct 36.7 % (30.3-42.9) 06/11/18 04:18 MCV 74 fl (79-97) L 06/11/18 04:18 MCH 23 pg (28-32) L 06/11/18 04:18 MCHC 32 % (30-34) 06/11/18 04:18 RDW 15.9 % (13.2-15.2) H 06/11/18 04:18 Plt Count 221 K/mm3 (140-440) 06/11/18 04:18 Lymph % (Auto) 38.0 % (13.4-35.0) H 06/11/18 04:18 [place] % (Auto) 9.6 % (0.0-7.3) H 06/11/18 04:18 Eos % (Auto) 1.4 % (0.0-4.3) 06/11/18 04:18 Baso % (Auto) 0.8 % (0.0-1.8) 06/11/18 04:18 Lymph # 2.6 K/mm3 (1.2-5.4) 06/11/18 04:18 [place] # 0.7 K/mm3 (0.0-0.8) 06/11/18 04:18 Eos # 0.1 K/mm3 (0.0-0.4) 06/11/18 04:18 Baso # 0.1 K/mm3 (0.0-0.1) 06/11/18 04:18 Seg Neutrophils % 50.2 % (40.0-70.0) 06/11/18 04:18 Seg Neutrophils # 3.4 K/mm3 (1.8-7.7) 06/11/18 04:18 PT 12.4 Sec. (12.2-14.9) 06/09/18 13:29 INR 0.87 (0.87-1.13) 06/09/18 13:29 Sodium 144 mmol/L (137-145) 06/11/18 04:18 Potassium 3.8 mmol/L (3.6-5.0) 06/11/18 04:18 Chloride 106.5 mmol/L (98-107) 06/11/18 04:18 Carbon Dioxide 25 mmol/L (22-30) 06/11/18 04:18 Anion Gap 16 mmol/L 06/11/18 04:18 BUN 16 mg/dL (7-17) 06/11/18 04:18 Creatinine 1.3 mg/dL (0.7-1.2) H 06/11/18 04:18 Estimated GFR 49 ml/min 06/11/18 04:18 BUN/Creatinine Ratio 12 % 06/11/18 04:18 Glucose 76 mg/dL (65-100) 06/11/18 04:18 Calcium 8.9 mg/dL (8.4-10.2) 06/11/18 04:18 Total Bilirubin 0.20 mg/dL (0.1-1.2) 06/09/18 13:29 AST 25 units/L (5-40) 06/09/18 13:29 ALT 15 units/L (7-56) 06/09/18 13:29 Alkaline Phosphatase 75 units/L (35-129) 06/09/18 13:29 Troponin T < 0.010 ng/mL (0.00-0.029) 06/09/18 13:29 Total Protein 7.4 g/dL (6.3-8.2) 06/09/18 13:29 Albumin 3.7 g/dL (3.9-5) L 06/09/18 13:29 Albumin/Globulin Ratio 1.0 % 06/09/18 13:29 TSH 0.768 mlU/mL (0.270-4.200) 06/09/18 13:29 Urine Color Yellow (Yellow) 06/11/18 07:38 Urine Turbidity Clear (Clear) 06/11/18 07:38 Urine pH 5.0 (5.0-7.0) 06/11/18 07:38 Ur Specific [place] 1.016 (1.003-1.030) 06/11/18 07:38 Urine Protein <15 mg/dl mg/dL (Negative) 06/11/18 07:38 Urine Glucose (UA) Neg mg/dL (Negative) 06/11/18 07:38 Urine Ketones Neg mg/dL (Negative) 06/11/18 07:38 Urine Blood Neg (Negative) 06/11/18 07:38 Urine Nitrite Neg (Negative) 06/11/18 07:38 Urine Bilirubin Neg (Negative) 06/11/18 07:38 Urine Urobilinogen < 2.0 mg/dL (<2.0) 06/11/18 07:38 Ur Leukocyte Esterase Mod (Negative) 06/11/18 07:38 Urine WBC (Auto) 16.0 /HPF (0.0-6.0) H 06/11/18 07:38 Urine RBC (Auto) 6.0 /HPF (0.0-6.0) 06/11/18 07:38 U Epithel Cells (Auto) 3.0 /HPF (0-13.0) 06/11/18 07:38 Urine Bacteria (Auto) 1+ /HPF (Negative) 06/11/18 07:38 Urine Mucus Few /HPF 06/11/18 07:38 Urine Creatinine 167.8 mg/dL (0.1-20.0) H 06/11/18 07:38 Urine Microalbumin 1.3 mg/dL (0.1-34.0) 06/11/18 07:38 Urine Total Protein 17 mg/dL (5-11.8) H 06/11/18 07:38 Active Medications - Current Medications Current Medications: Generic Name Dose Route Start Last Admin Trade Name Freq PRN Reason Stop Dose Admin Acetaminophen 650 mg 06/09/18 14:50 06/09/18 18:48 Tylenol PO 650 mg Q4H PRN Administration Pain, Mild (1-3) Albuterol 2.5 mg 06/09/18 14:50 Proventil IH Q3HRT PRN Shortness Of Breath Amlodipine Besylate 5 mg 06/11/18 10:00 06/11/18 09:52 Norvasc PO 5 mg QDAY [facility] Administration Aspirin 325 mg 06/10/18 10:00 06/11/18 09:52 Aspirin PO 325 mg QDAY [facility] Administration Atorvastatin Calcium 40 mg 06/09/18 22:00 06/10/18 21:13 Lipitor PO 40 mg QHS [facility] Administration Bisacodyl 10 mg 06/09/18 14:50 Dulcolax [place] QDAY PRN Constipation Calcitriol 0.25 mcg 06/10/18 10:00 06/11/18 09:52 Rocaltrol PO 0.25 mcg DAILY [facility] Administration Carvedilol 25 mg 06/10/18 22:00 06/11/18 09:52 Coreg PO 25 mg BID [facility] Administration Clopidogrel Bisulfate 75 mg 06/10/18 10:00 06/11/18 09:52 Plavix PO 75 mg QDAY [facility] Administration Donepezil HCl 10 mg 06/09/18 18:00 06/10/18 17:34 Aricept PO 10 mg QPM [facility] Administration Ergocalciferol 50,000 unit 06/16/18 10:00 Vitamin D2 PO Fr [facility] Heparin Sodium (Porcine) 5,000 unit 06/09/18 22:00 06/11/18 09:52 Heparin SUB-Q 5,000 unit Q12HR [facility] Administration Hydroxyzine Pamoate 50 mg 06/09/18 21:00 06/10/18 21:13 Vistaril PO 50 mg DAILY@2100 [facility] Administration Lamotrigine 25 mg 06/09/18 22:00 06/11/18 09:52 Lamictal PO 25 mg BID [facility] Administration Levothyroxine Sodium 50 mcg 06/10/18 06:00 06/11/18 05:05 Synthroid PO 50 mcg 0600 [facility] Administration Magnesium Hydroxide 30 ml 06/09/18 14:50 Milk Of Magnesia PO Q4H PRN Constipation Memantine 10 mg 06/09/18 22:00 06/11/18 09:52 Namenda PO 10 mg BID [facility] Administration Metoclopramide HCl 10 mg 06/09/18 14:50 Reglan PO Q6H PRN Nausea And Vomiting Mirtazapine 45 mg 06/09/18 22:00 06/10/18 21:12 Remeron PO 45 mg QHS [facility] Administration Miscellaneous Medication 10 mg 06/10/18 10:00 Solifenacin Succinate (Nf) PO DAILY [facility] Ondansetron HCl 4 mg 06/09/18 14:50 Zofran IV Q8H PRN Nausea And Vomiting Pantoprazole Sodium 40 mg 06/09/18 22:00 06/11/18 09:52 Protonix PO 40 mg BID [facility] Administration Prednisone 5 mg 06/10/18 10:00 06/11/18 09:52 Deltasone PO 5 mg QDAY [facility] Administration Promethazine HCl 25 mg 06/09/18 14:50 Phenergan [place] Q6H PRN Nausea And Vomiting Sertraline HCl 50 mg 06/10/18 10:00 06/11/18 09:52 Zoloft PO 50 mg DAILY [facility] Administration Sodium Chloride 10 ml 06/09/18 14:50 06/10/18 21:16 Sodium Chloride Flush Syringe 10 Ml IV 10 ml PRN PRN Administration LINE FLUSH
--- NOTE | 2018-06-11 15:09 | Progress Note ---
Assessment and Plan - Patient Problems (1) CKD (chronic kidney disease) Current Visit: Yes Status: Acute Qualifiers: Chronic kidney disease stage: unspecified stage Qualified Code(s): N18.9 - Chronic kidney disease, unspecified Plan to address problem: Chronic kidney disease stage III renal function is stable Current creatinine is 1.3 mg/DL Baseline creatinine is 1.0-1.2 mg/DL Creatinine is fairly stable Emphasized to maintain hydration Avoid nephro toxic medications We will sign off Advised to follow up at next appointment (2) HTN (hypertension) Current Visit: Yes Status: Acute Qualifiers: Hypertension type: essential hypertension Qualified Code(s): I10 - Essential (primary) hypertension Plan to address problem: Hypertension uncontrolled Resume patient's amlodipine and carvedilol if neurology is agreeable If no evidence of stroke can resume patient's hypertensive medication once permissive hypertension window is over (3) SLE (systemic lupus erythematosus) Current Visit: Yes Status: Acute Qualifiers: Systemic lupus erythematosus type: unspecified Systemic lupus erythematosus organ involvement: unspecified Qualified Code(s): M32.9 - Systemic lupus erythematosus, unspecified Plan to address problem: Discoid lupus/SLE Complicated by alopecia skin manifestations UA is bland Renal function is fairly stable Follow-up with rheumatology She is on on prednisone (4) Head ache Current Visit: Yes Status: Acute Plan to address problem: Headache status post brain MRI and MRA Neurology following Subjective Interval history: 72-year-old with medical history significant for hypertension, chronic kidney disease stage III, discoid lupus/SLE, previous CVA essentially admitted with complaints of headache feeling unwell She is well known to our practice She denies any orthopnea PND Antihypertensives have been resumed by primary team Good urine output and renal function is stable Objective - Vital Signs Vital signs: Vital Signs - 12hr 06/11/18 06/11/18 06/11/18 04:59 07:00 09:10 Temperature 98.2 F 97.7 F Pulse Rate 84 81 83 Pulse Rate [ Left Radial] Pulse Rate [ Right Radial] Respiratory 18 20 Rate Blood Pressure 145/90 156/72 O2 Sat by Pulse 94 98 Oximetry 06/11/18 06/11/18 10:00 12:26 Temperature 97.3 F L Pulse Rate 78 Pulse Rate [ 81 Left Radial] Pulse Rate [ 81 Right Radial] Respiratory 18 16 Rate Blood Pressure 139/77 O2 Sat by Pulse 100 Oximetry - General Appearance General appearance: well-developed, well-nourished EENT: ATNC, PERRL, mucous membranes moist Neck: no JVD Respiratory: Present: Clear to Ascultation Cardiology: regular, S1S2 Gastrointestinal: normal, normoactive bowel sounds Integumentary: other (rash secondary to discoid lupus) Neurologic: alert and oriented x3, CN 3-12 intact Psychiatric: mood/affect appropriate - Lab 06/11/18 04:18 06/11/18 04:18 Most recent lab results Calcium 8.9 mg/dL (8.4-10.2) 06/11/18 04:18 Urine Creatinine 167.8 mg/dL (0.1-20.0) H 06/11/18 07:38 Urine Total Protein 17 mg/dL (5-11.8) H 06/11/18 07:38 - Imaging Other: other (brain MRI without acute infarct) Medications & Allergies - Medications Allergies/Adverse Reactions: Allergies captopril Allergy (Verified 05/19/18 12:50) Rash clindamycin Allergy (Verified 05/19/18 12:50) Diarrhea NSAIDS (Non-Steroidal Anti-Inflamma Allergy (Verified 05/19/18 12:50) Rash Penicillins Allergy (Verified 05/19/18 12:50) Rash Sulfa (Sulfonamide Antibiotics) Allergy (Verified 05/19/18 12:50) Rash Home Medications: Home Medications Medication Instructions Recorded Confirmed Last Taken Type Mirtazapine [Remeron] 45 mg PO QHS 08/04/15 06/09/18 Unknown History Donepezil HCl 10 mg PO QPM 09/30/16 06/09/18 Unknown History Carvedilol [Coreg] 25 mg PO BID #60 tablet 03/26/18 06/09/18 05/19/18 Rx Clopidogrel [Plavix] 75 mg PO QDAY #30 tablet 03/26/18 06/09/18 Unknown Rx Ergocalciferol [Vitamin D2] 1 cap PO QWEEK #8 capsule 03/26/18 06/09/18 Unknown Rx Levothyroxine [Synthroid] 50 mcg PO QAM #30 tablet 03/26/18 06/09/18 Unknown Rx Sertraline HCl [Zoloft] 50 mg PO DAILY #30 tablet 03/26/18 06/09/18 Unknown Rx Solifenacin Succinate (Nf) 10 mg PO DAILY #30 tablet 03/26/18 06/09/18 Unknown Rx [Vesicare (Nf)] amLODIPine [Norvasc] 5 mg PO QDAY #30 tablet 03/26/18 06/09/18 Unknown Rx Calcitriol [Rocaltrol] 0.25 mcg PO DAILY 05/19/18 06/09/18 Unknown History Memantine HCl 10 mg PO BID 05/19/18 06/09/18 Unknown History hydrOXYzine PAMOATE [Vistaril] 50 mg PO DAILY@2100 05/19/18 06/09/18 Unknown History lamoTRIgine [LaMICtal] 25 mg PO BID 05/19/18 06/09/18 Unknown History predniSONE [Prednisone] 5 mg PO QDAY 05/19/18 06/09/18 Unknown History Pantoprazole [Protonix TAB] 40 mg PO BID #60 tablet 05/21/18 06/09/18 Unknown Rx Active Medications: Generic Name Dose Route Start Last Admin Trade Name Freq PRN Reason Stop Dose Admin Acetaminophen 650 mg 06/09/18 14:50 06/09/18 18:48 Tylenol PO 650 mg Q4H PRN Administration Pain, Mild (1-3) Albuterol 2.5 mg 06/09/18 14:50 Proventil IH Q3HRT PRN Shortness Of Breath Amlodipine Besylate 5 mg 06/11/18 10:00 06/11/18 09:52 Norvasc PO 5 mg QDAY [facility] Administration Aspirin 325 mg 06/10/18 10:00 06/11/18 09:52 Aspirin PO 325 mg QDAY [facility] Administration Atorvastatin Calcium 40 mg 06/09/18 22:00 06/10/18 21:13 Lipitor PO 40 mg QHS [facility] Administration Bisacodyl 10 mg 06/09/18 14:50 Dulcolax [place] QDAY PRN Constipation Calcitriol 0.25 mcg 06/10/18 10:00 06/11/18 09:52 Rocaltrol PO 0.25 mcg DAILY [facility] Administration Carvedilol 25 mg 06/10/18 22:00 06/11/18 09:52 Coreg PO 25 mg BID [facility] Administration Clopidogrel Bisulfate 75 mg 06/10/18 10:00 06/11/18 09:52 Plavix PO 75 mg QDAY [facility] Administration Donepezil HCl 10 mg 06/09/18 18:00 06/10/18 17:34 Aricept PO 10 mg QPM [facility] Administration Ergocalciferol 50,000 unit 06/16/18 10:00 Vitamin D2 PO Fr [facility] Heparin Sodium (Porcine) 5,000 unit 06/09/18 22:00 06/11/18 09:52 Heparin SUB-Q 5,000 unit Q12HR [facility] Administration Hydroxyzine Pamoate 50 mg 06/09/18 21:00 06/10/18 21:13 Vistaril PO 50 mg DAILY@2100 [facility] Administration Lamotrigine 25 mg 06/09/18 22:00 06/11/18 09:52 Lamictal PO 25 mg BID [facility] Administration Levothyroxine Sodium 50 mcg 06/10/18 06:00 06/11/18 05:05 Synthroid PO 50 mcg 0600 [facility] Administration Magnesium Hydroxide 30 ml 06/09/18 14:50 Milk Of Magnesia PO Q4H PRN Constipation Memantine 10 mg 06/09/18 22:00 06/11/18 09:52 Namenda PO 10 mg BID [facility] Administration Metoclopramide HCl 10 mg 06/09/18 14:50 Reglan PO Q6H PRN Nausea And Vomiting Mirtazapine 45 mg 06/09/18 22:00 06/10/18 21:12 Remeron PO 45 mg QHS [facility] Administration Miscellaneous Medication 10 mg 06/10/18 10:00 Solifenacin Succinate (Nf) PO DAILY [facility] Ondansetron HCl 4 mg 06/09/18 14:50 Zofran IV Q8H PRN Nausea And Vomiting Pantoprazole Sodium 40 mg 06/09/18 22:00 06/11/18 09:52 Protonix PO 40 mg BID [facility] Administration Prednisone 5 mg 06/10/18 10:00 06/11/18 09:52 Deltasone PO 5 mg QDAY [facility] Administration Promethazine HCl 25 mg 06/09/18 14:50 Phenergan [place] Q6H PRN Nausea And Vomiting Sertraline HCl 50 mg 06/10/18 10:00 06/11/18 09:52 Zoloft PO 50 mg DAILY [facility] Administration Sodium Chloride 10 ml 06/09/18 14:50 06/10/18 21:16 Sodium Chloride Flush Syringe 10 Ml IV 10 ml PRN PRN Administration LINE FLUSH
[2018-06-11] MEDS ORDERED: APRESOLINE IV PRN (16:47)
[2018-06-11] MEDS: ARICEPT PO SCH (17:11)
[2018-06-11] MEDS: TYLENOL PO PRN (17:23)
[2018-06-11] MEDS: VISTARIL PO SCH (21:37)
[2018-06-11] MEDS: REMERON PO SCH (21:38)
[2018-06-11] MEDS ORDERED: LOVENOX SUB-Q SCH ×2 (22:00)
[2018-06-11] MEDS ORDERED: ATIVAN PO ONE (22:00)
[2018-06-12] MEDS: SYNTHROID PO SCH (06:08)
[2018-06-12] MEDS ORDERED: ATIVAN PO PRN (09:00)
[2018-06-12] MEDS: NORVASC PO SCH (09:28)
[2018-06-12] MEDS: DELTASONE PO SCH (09:28)
[2018-06-12] MEDS: COREG PO SCH (09:28)
[2018-06-12] MEDS: ASPIRIN PO SCH (09:28)
[2018-06-12] MEDS: PLAVIX PO SCH (09:28)
[2018-06-12] MEDS: PROTONIX PO SCH (09:28)
[2018-06-12] MEDS: LaMICtal PO SCH (09:29)
[2018-06-12] MEDS: ROCALTROL PO SCH (09:29)
[2018-06-12] MEDS: ZOLOFT PO SCH (09:29)
[2018-06-12] MEDS: NAMENDA PO SCH (09:30)
--- NOTE | 2018-06-12 10:07 | Progress Note ---
Assessment and Plan Impression * Chronic kidney disease * Lupus * Hypertension * Headaches Recommendations * Patient blood pressure remained stable and close to her baseline * No evidence of lupus nephritis * Her blood pressures under control * No objection to discharge from renal standpoint * Shall sign off for now. Shall follow her as an outpatient in the office Subjective Date of service: 06/12/18 Interval history: Patient is comfortable today. Denies any shortness of breath. No nausea or v omiting. Objective - Vital Signs Vital signs: Vital Signs - 12hr 06/11/18 06/12/18 06/12/18 23:44 04:16 07:58 Temperature 98.0 F 98.4 F 97.6 F Pulse Rate 78 77 83 Respiratory 18 18 16 Rate Blood Pressure 145/68 143/75 157/76 O2 Sat by Pulse 96 99 96 Oximetry 06/12/18 09:28 Temperature Pulse Rate 84 Respiratory Rate Blood Pressure 157/76 O2 Sat by Pulse Oximetry - General Appearance General appearance: well-developed, well-nourished, appears stated age EENT: PERRL, mucous membranes moist Neck: no JVD, no thyromegaly, no carotid bruit, supple Respiratory: Present: Clear to Ascultation Cardiology: regular, normal heart rate, S1S2, no murmurs Gastrointestinal: normal, normoactive bowel sounds Integumentary: no rash, other (no edema) - Lab 06/11/18 04:18 06/11/18 04:18 Most recent lab results Calcium 8.9 mg/dL (8.4-10.2) 06/11/18 04:18 Urine Creatinine 167.8 mg/dL (0.1-20.0) H 06/11/18 07:38 Urine Total Protein 17 mg/dL (5-11.8) H 06/11/18 07:38 Medications & Allergies - Medications Allergies/Adverse Reactions: Allergies captopril Allergy (Verified 05/19/18 12:50) Rash clindamycin Allergy (Verified 05/19/18 12:50) Diarrhea NSAIDS (Non-Steroidal Anti-Inflamma Allergy (Verified 05/19/18 12:50) Rash Penicillins Allergy (Verified 05/19/18 12:50) Rash Sulfa (Sulfonamide Antibiotics) Allergy (Verified 05/19/18 12:50) Rash Home Medications: Home Medications Medication Instructions Recorded Confirmed Last Taken Type Mirtazapine [Remeron] 45 mg PO QHS 08/04/15 06/09/18 Unknown History Donepezil HCl 10 mg PO QPM 09/30/16 06/09/18 Unknown History Carvedilol [Coreg] 25 mg PO BID #60 tablet 03/26/18 06/09/18 05/19/18 Rx Clopidogrel [Plavix] 75 mg PO QDAY #30 tablet 03/26/18 06/09/18 Unknown Rx Ergocalciferol [Vitamin D2] 1 cap PO QWEEK #8 capsule 03/26/18 06/09/18 Unknown Rx Levothyroxine [Synthroid] 50 mcg PO QAM #30 tablet 03/26/18 06/09/18 Unknown Rx Sertraline HCl [Zoloft] 50 mg PO DAILY #30 tablet 03/26/18 06/09/18 Unknown Rx Solifenacin Succinate (Nf) 10 mg PO DAILY #30 tablet 03/26/18 06/09/18 Unknown Rx [Vesicare (Nf)] amLODIPine [Norvasc] 5 mg PO QDAY #30 tablet 03/26/18 06/09/18 Unknown Rx Calcitriol [Rocaltrol] 0.25 mcg PO DAILY 05/19/18 06/09/18 Unknown History Memantine HCl 10 mg PO BID 05/19/18 06/09/18 Unknown History hydrOXYzine PAMOATE [Vistaril] 50 mg PO DAILY@2100 05/19/18 06/09/18 Unknown History lamoTRIgine [LaMICtal] 25 mg PO BID 05/19/18 06/09/18 Unknown History predniSONE [Prednisone] 5 mg PO QDAY 05/19/18 06/09/18 Unknown History Pantoprazole [Protonix TAB] 40 mg PO BID #60 tablet 05/21/18 06/09/18 Unknown Rx Active Medications: Generic Name Dose Route Start Last Admin Trade Name Freq PRN Reason Stop Dose Admin Acetaminophen 650 mg 06/09/18 14:50 06/11/18 17:23 Tylenol PO 650 mg Q4H PRN Administration Pain, Mild (1-3) Albuterol 2.5 mg 06/09/18 14:50 Proventil IH Q3HRT PRN Shortness Of Breath Amlodipine Besylate 5 mg 06/11/18 10:00 06/12/18 09:28 Norvasc PO 5 mg QDAY [facility] Administration Aspirin 325 mg 06/10/18 10:00 06/12/18 09:28 Aspirin PO 325 mg QDAY [facility] Administration Atorvastatin Calcium 40 mg 06/09/18 22:00 06/11/18 21:38 Lipitor PO 40 mg QHS [facility] Administration Bisacodyl 10 mg 06/09/18 14:50 Dulcolax MO QDAY PRN Constipation Calcitriol 0.25 mcg 06/10/18 10:00 06/12/18 09:29 Rocaltrol PO 0.25 mcg DAILY [facility] Administration Carvedilol 25 mg 06/10/18 22:00 06/12/18 09:28 Coreg PO 25 mg BID [facility] Administration Clopidogrel Bisulfate 75 mg 06/10/18 10:00 06/12/18 09:28 Plavix PO 75 mg QDAY [facility] Administration Donepezil HCl 10 mg 06/09/18 18:00 06/11/18 17:11 Aricept PO 10 mg QPM [facility] Administration Enoxaparin Sodium 40 mg 06/11/18 22:00 06/11/18 21:38 Lovenox SUB-Q 40 mg QDAY@2200 [facility] Administration Ergocalciferol 50,000 unit 06/16/18 10:00 Vitamin D2 PO Fr [facility] Hydralazine HCl 20 mg 06/11/18 16:47 06/11/18 17:11 Apresoline IV 20 mg PRN PRN Administration For SBP>170 Hydroxyzine Pamoate 50 mg 06/09/18 21:00 06/11/18 21:37 Vistaril PO 50 mg DAILY@2100 [facility] Administration Lamotrigine 25 mg 06/09/18 22:00 06/12/18 09:29 Lamictal PO 25 mg BID [facility] Administration Levothyroxine Sodium 50 mcg 06/10/18 06:00 06/12/18 06:08 Synthroid PO 50 mcg 0600 [facility] Administration Lorazepam 1 mg 06/12/18 09:00 Ativan PO Q4H PRN Agitation Magnesium Hydroxide 30 ml 06/09/18 14:50 Milk Of Magnesia PO Q4H PRN Constipation Memantine 10 mg 06/09/18 22:00 06/12/18 09:30 Namenda PO 10 mg BID [facility] Administration Metoclopramide HCl 10 mg 06/09/18 14:50 Reglan PO Q6H PRN Nausea And Vomiting Mirtazapine 45 mg 06/09/18 22:00 06/11/18 21:38 Remeron PO 45 mg QHS [facility] Administration Miscellaneous Medication 10 mg 06/10/18 10:00 Solifenacin Succinate (Nf) PO DAILY [facility] Ondansetron HCl 4 mg 06/09/18 14:50 Zofran IV Q8H PRN Nausea And Vomiting Pantoprazole Sodium 40 mg 06/09/18 22:00 06/12/18 09:28 Protonix PO 40 mg BID [facility] Administration Prednisone 5 mg 06/10/18 10:00 06/12/18 09:28 Deltasone PO 5 mg QDAY [facility] Administration Promethazine HCl 25 mg 06/09/18 14:50 Phenergan MO Q6H PRN Nausea And Vomiting Sertraline HCl 50 mg 06/10/18 10:00 06/12/18 09:29 Zoloft PO 50 mg DAILY [facility] Administration Sodium Chloride 10 ml 06/09/18 14:50 06/10/18 21:16 Sodium Chloride Flush Syringe 10 Ml IV 10 ml PRN PRN Administration LINE FLUSH
--- NOTE | 2018-06-12 13:10 | Discharge Summary ---
Providers - Providers Date of Admission: 06/09/18 14:50 Date of discharge: 06/12/18 Attending physician: OSEAS ZARATE 06/09/18 Consult to Physician [CONS] Routine Comment: Consulting Provider: NAVEEN GOMEZ Physician Instructions: Reason For Exam: cva 06/09/18 14:51 Occupational Therapy Evaluate and Treat [CONS] Routine Comment: Reason For Exam: Neuro deficits Physical Therapy Evaluation and Treat [CONS] Routine Comment: Reason For Exam: Neuro deficits 06/09/18 15:15 Consult to Physician [CONS] Routine Comment: Consulting Provider: NARINDER MCLAUGHLIN Physician Instructions: Reason For Exam: ARF/CKD Primary care physician: ELOINA WARD Hospitalization Condition: Good Pertinent studies: Echocardiogram ejection fraction 5560%. MRI head negative MRA negative. Ultrasound negative. Cervical spine MRI Hospital course: Patient presented for left arm pain generalized weakness was worked up for a CVA. Extensive workup normal. Negative echo negative MRI and negative MRA. Echocardiogram unremarkable ejection fraction 5560%. Laboratory data unremarkable A she clinically has improved significantly. Urology recommended MRI of the neck to rule out radiculopathy. MRI of the neck showed osteophyte with severe impingement. This is most likely cause of her symptoms) C7 C* di stributional This can further be worked up as outpatient. Disposition: DC- TO HOME OR SELFCARE - Discharge Diagnoses (1) CKD (chronic kidney disease) Status: Acute Qualifiers: Chronic kidney disease stage: unspecified stage Qualified Code(s): N18.9 - Chronic kidney disease, unspecified (2) CVA (cerebral vascular accident) Status: Acute Qualifiers: Laterality of affected vessel: unspecified Comment: Patient could not confirm a CVA at all at this point workup has been negative. Cannot rule out TIA but symptoms have resolved. (3) HTN (hypertension) Status: Acute Qualifiers: Hypertension type: essential hypertension Qualified Code(s): I10 - Essential (primary) hypertension Comment: Patient continues to have optimal control blood pressure. Continue present medical management. (4) SLE (systemic lupus erythematosus) Status: Acute Qualifiers: Systemic lupus erythematosus type: unspecified Systemic lupus erythematosus organ involvement: unspecified Qualified Code(s): M32.9 - Systemic lupus erythematosus, unspecified Comment: Patient history of lupus on prednisone continue prednisone as well. (5) Chronic kidney disease (CKD) stage G2/A3, mildly decreased glomerular filtration rate (GFR) between 60-89 mL/min/1.73 square meter and albuminuria creatinine ratio greater than 300 mg/g Status: Acute Comment: Chronic kidney disease stage III. Appears to be a baseline avoid nephrotoxic agents. Low-sodium diet. Core Measure Documentation - Palliative Care Palliative Care/ Comfort Measures: Not Applicable - Core Measures Any of the following diagnoses?: none Exam - Constitutional Vitals: Temp Pulse Resp BP Pulse Ox 97.6 F 87 18 157/76 96 06/12/18 07:58 06/12/18 10:00 06/12/18 10:00 06/12/18 09:28 06/12/18 07:58 General appearance: Present: no acute distress, well-nourished - EENT Eyes: Present: PERRL ENT: hearing intact, clear oral mucosa - Neck Neck: Present: supple, normal ROM - Respiratory Respiratory effort: normal Respiratory: bilateral: CTA - Cardiovascular Heart Sounds: Present: S1 & S2. Absent: rub, click - Extremities Extremities: pulses symmetrical, No edema Peripheral Pulses: within normal limits - Abdominal General gastrointestinal: Present: soft, non-tender, non-distended, normal bowel sounds Female genitourinary: Present: normal - Integumentary Integumentary: Present: clear, warm, dry - Musculoskeletal Musculoskeletal: gait normal, strength equal bilaterally - Psychiatric Psychiatric: appropriate mood/affect, intact judgment & insight - Neurologic Neurologic: CNII-XII intact, moves all extremities Plan Activity: no restrictions, fall precautions Weight Bearing Status: Full Weight Bearing Diet: low cholesterol, renal Special Instructions: record daily BP diary Follow up with: ELOINA WARD MD [Primary Care Provider] - 3-5 Days Prescriptions: Aspirin [Aspirin TAB] 325 mg PO QDAY #30 tablet Carvedilol [Coreg] 25 mg PO BID #60 tablet lamoTRIgine [LaMICtal] 25 mg PO BID #30 tablet AtorvaSTATin [Lipitor] 40 mg PO QHS #30 tablet amLODIPine [Norvasc] 5 mg PO QDAY #30 tablet Clopidogrel [Plavix] 75 mg PO QDAY #30 tablet Pantoprazole [Protonix TAB] 40 mg PO BID #30 tablet Levothyroxine [Synthroid] 50 mcg PO QAM #30 tablet
--- NOTE | 2018-06-12 14:41 | Magnetic Resonance Report ---
MRI CERVICAL SPINE WITHOUT CONTRAST: 06/12/18 07:47:00 CLINICAL: Left arm weakness and pain. Recent stroke. TECHNIQUE: Sagittal T1,T2 and STIR and axial gradient T2* sequences on a 1.5 Teri magnet. FINDINGS: Motion degrades the quality of the exam. Normal vertebral body height, alignment and disc spaces. Normal marrow signal and normal disc signal. The cerebellar tonsils are in normal position. The spinal cord is normal size with normal signal. C2-3: Intact. C3-4:Intact. C4-5: Intact. C5-6:Intact. C6-7:Mild circumferential disc bulge and a left uncal osteophyte producing moderate narrowing of the left neural foramen. C7-T1:Intact. IMPRESSION: C6-7 degenerative disc disease with a prominent left uncal osteophyte producing moderate narrowing of the left neural foramen. No other significant disease. No cord lesion.
[2018-06-12 17:19] VITALS: BP 118/57
[2018-06-12] MEDS: ARICEPT PO SCH (17:53)
[2018-06-16] MEDS ORDERED: VITAMIN D2 PO SCH (10:00)
[2018-06-16 22:46] LABS: ANA Screen, IFA Positive (Negative)
== END 2018-06-12 19:17 | disposition home or self-care (01) | DRG 551 ==
LOC: ED 11:56 → 4A 14:50
PROVIDERS: ADMIT Internal Medicine; ATTEND Internal Medicine
DX: M25.78 Osteophyte, vertebrae (principal); N17.0 Acute kidney failure with tubular necrosis; G45.9 Transient cerebral ischemic attack, unspecified; E03.9 Hypothyroidism, unspecified; I12.9 Hypertensive chronic kidney disease with stage 1 through stage 4 chronic kidney disease, or unspecified chronic kidney disease; M25.80 Other specified joint disorders, unspecified joint; M32.9 Systemic lupus erythematosus, unspecified; N18.3 Chronic kidney disease, stage 3 (moderate); F32.9 Major depressive disorder, single episode, unspecified; F03.90 Unspecified dementia, unspecified severity, without behavioral disturbance, psychotic disturbance, mood disturbance, and anxiety; M19.90 Unspecified osteoarthritis, unspecified site; F17.200 Nicotine dependence, unspecified, uncomplicated; Z82.49 Family history of ischemic heart disease and other diseases of the circulatory system; Z83.3 Family history of diabetes mellitus; Z86.73 Personal history of transient ischemic attack (TIA), and cerebral infarction without residual deficits; Z88.0 Allergy status to penicillin; Z88.1 Allergy status to other antibiotic agents; Z88.2 Allergy status to sulfonamides; Z79.899 Other long term (current) drug therapy; Z90.49 Acquired absence of other specified parts of digestive tract
CPT/HCPCS: 36415; 70450; 70544; 70551; 72141; 80048; 80053; 81001; 82043; 84156; 84443; 84484; 85025; 85610; 86038; 93005; 93010; 93306; 93880; G0378; A9270-GY; J0360; J1644; J1650; J7512; Q0177

== ENCOUNTER 2018-07-19 10:06 | Outpatient (CLI) | payer MEDICARE ==
[2018-07-19 10:52] LABS: Hematocrit 36.9 % (30.3-42.9); Hemoglobin 11.9 gm/dl (10.1-14.3); Mean Corpuscular HGB Conc 32 % (30-34); Mean Corpuscular Volume 73 fl (79-97); Red Blood Count 5.05 M/mm3 (3.65-5.03); Red Cell Distribution Width 15.9 % (13.2-15.2)
[2018-07-19 11:19] LABS: Albumin 3.8 g/dL (3.9-5); Calcium 9.3 mg/dL (8.4-10.2)
[2018-07-19 11:20] LABS: Albumin 3.7 g/dL (3.9-5)
[2018-07-19 11:43] LABS: Platelet Count 249 K/mm3 (140-440)
[2018-07-22 06:25] LABS: Cardiolipin Ab IgA <11 APL (<=11); Cardiolipin Ab IgG <14 GPL (<=14); Cardiolipin Ab IgM <12 MPL (<=12)
[2018-07-23 13:42] LABS: ANA Screen, IFA Positive (Negative)
== END 2018-07-19 10:07 | disposition home or self-care (01) ==
LOC: LAB 10:06
PROVIDERS: ATTEND Internal Medicine
DX: M32.10 Systemic lupus erythematosus, organ or system involvement unspecified (principal); R94.4 Abnormal results of kidney function studies; E78.00 Pure hypercholesterolemia, unspecified; I10 Essential (primary) hypertension; E03.9 Hypothyroidism, unspecified
CPT/HCPCS: 36415; 80053; 82040; 84100; 85027; 86038; 86147; 86160

== ENCOUNTER 2018-08-02 10:47 | Emergency (ER) | payer MEDICARE ==
[2018-08-02 11:37] LABS: Basophils # (Auto) 0.1 K/mm3 (0.0-0.1); Basophils % (Auto) 0.9 % (0.0-1.8); Eosinophils # (Auto) 0.1 K/mm3 (0.0-0.4); Eosinophils % (Auto) 1.9 % (0.0-4.3); Hematocrit 34.6 % (30.3-42.9); Lymphocytes # (Auto) 2.2 K/mm3 (1.2-5.4); Mean Corpuscular HGB Conc 32 % (30-34); Mean Corpuscular Volume 74 fl (79-97); Monocytes # (Auto) 0.7 K/mm3 (0.0-0.8); Monocytes % (Auto) 9.2 % (0.0-7.3); Platelet Count 190 K/mm3 (140-440); Red Blood Count 4.69 M/mm3 (3.65-5.03); Red Cell Distribution Width 16.3 % (13.2-15.2)
[2018-08-02 11:56] LABS: Calcium 8.9 mg/dL (8.4-10.2)
--- NOTE | 2018-08-02 12:00 | Emergency Department Report ---
ED General Adult HPI - General Chief complaint: Fall Stated complaint: FALL Time Seen by Provider: 08/02/18 11:12 Source: patient, family, EMS (ems notes not available at time of chart dictation), RN notes reviewed, old records reviewed Mode of arrival: Stretcher Limitations: No Limitations - History of Present Illness Initial comments: Primary care Dr.: Dr. Brock Ward Nephrology: Dr. Otero Past medical history: Chronic renal insufficiency, DJD, hypertension, lupus, presumed arthritis Recent objective testing: Cardiac nuclear stress test April 2018, negative for ischemia. Carotid duplex, performed June 2018, negative for significant stenosis . CT anNiGO chest, mar 2018, negative for pulmonary embolism. Echocardiogram, June 2018, ejection fraction 55-60%. MR cervical spine, June 2018, DJD, osteophytes, moderate narrowing of left neural foramen. No cord disease noted. MR angiogram brain, June 2018, unremarkable and within normal limits. MR brain, June 2018, negative for acute intracranial findings, chronic ischemic disease noted. This is a 72-year-old female. The patient is known to this provider previously. The patient is brought to the hospital by EMS with her daughter for sensation of lightheadedness and mechanical fall. Patient recently started on gabapentin by her primary care doctor for punctate skin lesions on her anterior abdomen, which she states her primary care doctor thinks his "shingles." She reports starting this medication within the past couple days. She also reports having had a few teeth pulled a few days ago, and was prescribed Tylenol 3. Patient reports walking, and reports that she felt lightheaded, and fell down. She did not hit her head as far she can recall. She did not hit her neck. She thinks that she hit her left arm and left shoulder. Prior to the fall, there is no complaint of headache, neck pain, chest pain, abdominal pain, shortness of breath. Arm pain is achy, throbbing, increases with palpation and decreases with rest. The patient currently denies headache, neck pain, chest pain, abdominal pain, nausea, vomiting, urinary symptoms. Review of systems positive for left musculoskeletal pain, dental pain from extraction, nonspecific skin lesions, lightheadedness. -: Sudden Location: left, upper extremity Severity scale (0 -10): 0 Consistency: intermittent Improves with: other Worsens with: other - Related Data Home Medications Medication Instructions Recorded Confirmed Last Taken Mirtazapine [Remeron] 45 mg PO QHS 08/04/15 06/09/18 Unknown Calcitriol [Rocaltrol] 0.25 mcg PO DAILY 05/19/18 06/09/18 Unknown hydrOXYzine PAMOATE [Vistaril] 50 mg PO DAILY@2100 05/19/18 06/09/18 Unknown predniSONE [Prednisone] 5 mg PO QDAY 05/19/18 06/09/18 Unknown Previous Rx's Medication Instructions Recorded Last Taken Type Sertraline HCl [Zoloft] 50 mg PO DAILY #30 tablet 03/26/18 Unknown Rx Solifenacin Succinate (Nf) 10 mg PO DAILY #30 tablet 03/26/18 Unknown Rx [Vesicare (Nf)] Aspirin 325 mg PO QDAY #30 tablet 06/12/18 Unknown Rx AtorvaSTATin [Lipitor] 40 mg PO QHS #30 tablet 06/12/18 Unknown Rx Carvedilol [Coreg] 25 mg PO BID #60 tablet 06/12/18 Unknown Rx Clopidogrel [Plavix] 75 mg PO QDAY #30 tablet 06/12/18 Unknown Rx Levothyroxine [Synthroid] 50 mcg PO QAM #30 tablet 06/12/18 Unknown Rx Mirtazapine [Remeron 15mg TAB] 45 mg PO QHS tablet 06/12/18 Unknown Rx Pantoprazole [Protonix TAB] 40 mg PO BID #30 tablet 06/12/18 Unknown Rx amLODIPine [Norvasc] 5 mg PO QDAY #30 tablet 06/12/18 Unknown Rx lamoTRIgine [LaMICtal] 25 mg PO BID #30 tablet 06/12/18 Unknown Rx Acetaminophen [Non-Aspirin Extra 500 mg PO Q6HR PRN #30 tablet 08/02/18 Unknown Rx Strength] Chlorhexidine Mouthwash [Peridex] 15 ml MM BID #1 bottle 08/02/18 Unknown Rx Permethrin 5% [Acticin 5% CREAM] 1 applicatio TP ONCE #2 tube 08/02/18 Unknown Rx Allergies Allergy/AdvReac Type Severity Reaction Status Date / Time captopril Allergy Rash Verified 05/19/18 12:50 clindamycin Allergy Diarrhea Verified 05/19/18 12:50 NSAIDS (Non-Steroidal Allergy Rash Verified 05/19/18 12:50 Anti-Inflamma Penicillins Allergy Rash Verified 05/19/18 12:50 Sulfa (Sulfonamide Allergy Rash Verified 05/19/18 12:50 Antibiotics) ED Review of Systems ROS: Stated complaint: FALL Other details as noted in HPI Constitutional: denies: fever Eyes: denies: eye discharge ENT: dental pain Respiratory: denies: cough Cardiovascular: other (feels lightheaded.) Gastrointestinal: denies: abdominal pain, nausea, vomiting Genitourinary: denies: urgency, dysuria Musculoskeletal: arthralgia, myalgia. denies: back pain Skin: lesions Neurological: weakness. denies: numbness, paresthesias Psychiatric: denies: anxiety ED Past Medical Hx - Past Medical History Previous Medical History?: Yes Hx Hypertension: Yes Hx CVA: Yes (07/07/14) Hx Heart Attack/AMI: No Hx Congestive Heart Failure: No Hx Diabetes: No Hx Deep Vein Thrombosis: No Hx Pulmonary Embolism: No Hx GERD: No Hx Liver Disease: No Hx Renal Disease: Yes (Stage III renal dx) Hx Sickle Cell Disease: No Hx Arthritis: Yes Hx Headaches / Migraines: No Hx Seizures: No Hx Kidney Stones: No Hx Psychiatric Treatment: Yes (Depression) Hx Asthma: No Hx COPD: No Hx Tuberculosis: No Hx Dementia: Yes (takes aricept) Hx HIV: No Additional medical history: 3 herniated discs. LUPUS. hypothyroid. Lung Nodules 01/2018 - Surgical History Past Surgical History?: Yes Hx Coronary Stent: No Hx Open Heart Surgery: No Hx Pacemaker: No Hx Internal Defibrillator: No Hx Cholecystectomy: Yes Hx Appendectomy: Yes Hx Breast Surgery: No Additional Surgical History: vein stripping. oral surgery 07/31/18 - Social History Smoking Status: Current Every Day Smoker Substance Use Type: None - Medications Home Medications: Home Medications Medication Instructions Recorded Confirmed Last Taken Type Mirtazapine [Remeron] 45 mg PO QHS 08/04/15 06/09/18 Unknown History Sertraline HCl [Zoloft] 50 mg PO DAILY #30 tablet 03/26/18 06/09/18 Unknown Rx Solifenacin Succinate (Nf) 10 mg PO DAILY #30 tablet 03/26/18 06/09/18 Unknown Rx [Vesicare (Nf)] Calcitriol [Rocaltrol] 0.25 mcg PO DAILY 05/19/18 06/09/18 Unknown History hydrOXYzine PAMOATE [Vistaril] 50 mg PO DAILY@2100 05/19/18 06/09/18 Unknown History predniSONE [Prednisone] 5 mg PO QDAY 05/19/18 06/09/18 Unknown History Aspirin 325 mg PO QDAY #30 tablet 06/12/18 Unknown Rx AtorvaSTATin [Lipitor] 40 mg PO QHS #30 tablet 06/12/18 Unknown Rx Carvedilol [Coreg] 25 mg PO BID #60 tablet 06/12/18 Unknown Rx Clopidogrel [Plavix] 75 mg PO QDAY #30 tablet 06/12/18 Unknown Rx Levothyroxine [Synthroid] 50 mcg PO QAM #30 tablet 06/12/18 Unknown Rx Mirtazapine [Remeron 15mg TAB] 45 mg PO QHS tablet 06/12/18 Unknown Rx Pantoprazole [Protonix TAB] 40 mg PO BID #30 tablet 06/12/18 Unknown Rx amLODIPine [Norvasc] 5 mg PO QDAY #30 tablet 06/12/18 Unknown Rx lamoTRIgine [LaMICtal] 25 mg PO BID #30 tablet 06/12/18 Unknown Rx Acetaminophen [Non-Aspirin Extra 500 mg PO Q6HR PRN #30 tablet 08/02/18 Unknown Rx Strength] Chlorhexidine Mouthwash [Peridex] 15 ml MM BID #1 bottle 08/02/18 Unknown Rx Permethrin 5% [Acticin 5% CREAM] 1 applicatio TP ONCE #2 tube 08/02/18 Unknown Rx ED Physical Exam - General Limitations: No Limitations General appearance: alert, in no apparent distress - Head Head exam: Present: atraumatic, normocephalic - Eye Eye exam: Present: normal appearance, EOMI, other (visual acuity intact to finger counting, color perception, reading at a close distance). Absent: nyst agmus - ENT ENT exam: Present: normal exam, normal orophraynx, mucous membranes moist, normal external ear exam - Neck Neck exam: Present: normal inspection, full ROM. Absent: tenderness, meningismus - Respiratory Respiratory exam: Present: normal lung sounds bilaterally. Absent: respiratory distress - Cardiovascular Cardiovascular Exam: Present: regular rate, normal rhythm, normal heart sounds. Absent: bradycardia, tachycardia, irregular rhythm, systolic murmur, diastolic murmur, rubs, gallop - GI/Abdominal GI/Abdominal exam: Present: soft. Absent: distended, tenderness, guarding, rebound, rigid, pulsatile mass - Extremities Exam Extremities exam: Present: normal inspection, full ROM, pedal edema, other (2+ pulses noted in the bilateral upper, lower extremities. Compartments soft. No long bony tenderness. The pelvis is stable.). Absent: calf tenderness - Back Exam Back exam: Present: normal inspection, full ROM. Absent: CVA tenderness (L), paraspinal tenderness, vertebral tenderness - Neurological Exam Neurological exam: Present: alert (there is no pass pointing. There is normal heel to tadeo. There is no pronator drift.), oriented X3, other (Extraocular movements intact. Tongue midline. No facial droop. Facial sensation intact to light touch in the V1, V2, V3 distribution bilaterally. 5 and 5 strength in 4 extremities.. Sensation is intact to light touch in 4 extremities.). Absent: motor sensory deficit - Psychiatric Psychiatric exam: Present: normal affect, normal mood - Skin Skin exam: Present: warm, other (punctate erythematous lesions noted, very scant, subxiphoid region, and left thorax. They're not vesicular. They're not dermatomal distribution.) ED Course Vital Signs 08/02/18 08/02/18 08/02/18 10:58 11:00 11:02 Temperature 99.1 F Pulse Rate 88 87 Respiratory 8 L 18 Rate Blood Pressure 111/44 111/44 O2 Sat by Pulse 96 95 97 Oximetry 08/02/18 08/02/18 08/02/18 11:23 11:30 12:01 Temperature Pulse Rate 83 84 Respiratory 18 16 12 Rate Blood Pressure 111/44 153/81 O2 Sat by Pulse 97 95 96 Oximetry 08/02/18 08/02/18 08/02/18 12:30 13:00 13:31 Temperature Pulse Rate Respiratory Rate Blood Pressure 153/81 149/69 152/77 O2 Sat by Pulse 97 96 99 Oximetry 08/02/18 08/02/18 14:35 15:01 Temperature Pulse Rate 89 Respiratory 21 Rate Blood Pressure 149/69 144/87 O2 Sat by Pulse 94 97 Oximetry - Reevaluation(s) Reevaluation #1: 08/02/18 12:01 Differential diagnosis, including not limited to: Orthostasis, vagal event, medication side effect, pneumonia, urinary tract infection, intracranial injury, musculoskeletal injury, electrolyte derangement, pulmonary embolism Assessment and plan: 72-year-old female with a complaint of lightheadedness, and mechanical fall, in the context of recently starting Tylenol 3, and gabapentin. Patient has had extensive workup within the past few months, please see history of present illness for full details of her previous cardiac and stroke workup. She is on multiple appropriate outpatient medications, however, her rash does not appear to be consistent with shingles, appears to be more consistent with insect bites, therefore, we will discontinue gabapentin, and initiate permethrin. The case measured consult has been requested to determine if the patient is eligible for home physical therapy, and home health aide. Furthermore, we will discontinue Tylenol 3 as it is sedating, and patient will b e given acetaminophen for her dental pain. We will recommend withholding sedating medications at this time. Reevaluation #2: 08/02/18 14:33 Objective testing so far unremarkable. Patient does not appear to be in any acute distress. Awaiting case management evaluation. Reevaluation #3: 08/02/18 14:49 EKG unchanged from prior. Vital signs remained stable. Patient appears to be smiling and laughing as per nursing documentation and verbal report.nuclear medicine study low probability for pulmonary embolism. Awaiting case management to finish up their evaluation and recommendations. ED Medical Decision Making - Lab Data Result diagrams: 08/02/18 11:21 08/02/18 11:21 Vital Signs 08/02/18 08/02/18 08/02/18 10:58 11:00 11:02 Temperature 99.1 F Pulse Rate 88 87 Respiratory 8 L 18 Rate Blood Pressure 111/44 111/44 O2 Sat by Pulse 96 95 97 Oximetry 08/02/18 08/02/18 11:23 11:30 Temperature Pulse Rate 83 Respiratory 18 16 Rate Blood Pressure 111/44 O2 Sat by Pulse 97 95 Oximetry Lab Results 08/02/18 08/02/18 Range/Units 11:21 11:21 WBC 7.3 (4.5-11.0) K/mm3 RBC 4.69 (3.65-5.03) M/mm3 Hgb 11.0 (10.1-14.3) gm/dl Hct 34.6 (30.3-42.9) % MCV 74 L (79-97) fl MCH 24 L (28-32) pg MCHC 32 (30-34) % RDW 16.3 H (13.2-15.2) % Plt Count 190 (140-440) K/mm3 Lymph % (Auto) 30.0 (13.4-35.0) % Hill % (Auto) 9.2 H (0.0-7.3) % Eos % (Auto) 1.9 (0.0-4.3) % Baso % (Auto) 0.9 (0.0-1.8) % Lymph # 2.2 (1.2-5.4) K/mm3 Hill # 0.7 (0.0-0.8) K/mm3 Eos # 0.1 (0.0-0.4) K/mm3 Baso # 0.1 (0.0-0.1) K/mm3 Seg Neutrophils % 58.0 (40.0-70.0) % Seg Neutrophils # 4.2 (1.8-7.7) K/mm3 Sodium 140 (137-145) mmol/L Potassium 3.8 (3.6-5.0) mmol/L Chloride 103.7 (98-107) mmol/L Carbon Dioxide 27 (22-30) mmol/L Anion Gap 13 mmol/L BUN 14 (7-17) mg/dL Creatinine 1.2 (0.7-1.2) mg/dL Estimated GFR 54 ml/min BUN/Creatinine Ratio 12 % Glucose 84 (65-100) mg/dL Calcium 8.9 (8.4-10.2) mg/dL - EKG Data -: EKG Interpreted by Me EKG shows normal: sinus rhythm Rate: normal - EKG Data Interpretation: no acute changes 08/02/18 14:38 This is a normal sinus rhythm, QTC, left ventricular, or other progression, this is an abnormal EKG, this EKG is not consistent with ST elevation myocardial infarction, is unchanged from prior EKG from June 2018. 82 bpm - Radiology Data Radiology results: report reviewed, image reviewed interpreted by me: X-ray of the chest is negative for acute disease. X-ray of the left shoulder is negative for acute disease. X-ray left elbow is negative for acute disease. X-ray of the pelvis is negative for acute disease. non Contrast CT scan of brain is negative for acute disease. Critical care attestation.: If time is entered above; I have spent that time in minutes in the direct care of this critically ill patient, excluding procedure time. ED Disposition Clinical Impression: Lightheadedness Disposition: DC-01 TO HOME OR SELFCARE Is pt being admited?: No Does the pt Need Aspirin: No Condition: Stable Additional Instructions: Discontinue gabapentin, and discontinue Tylenol No. 3. use the permethrin cream as directed. Take Tylenol as needed for pain. Use the antibiotic mouthwash as directed. I recommend having the patient's house and bedroom evaluated for possible bed bugs. All clothing and linens should be washed with hot water and soap. I recommend having the patient's house/living quarters evaluated by an commercial loan analyst, to evaluate for possible bed bugs or insects. Continue other medications. Follow-up with her primary care doctor within the next 7-10 days. Follow up with the recommendations that were provided to the patient's by the case management team. Please return to the emergency room right away with new, worsening or different symptoms, or symptoms not present on the initial emergency room evaluation. Prescriptions: Permethrin 5% [Acticin 5% CREAM] 1 applicatio TP ONCE #2 tube Acetaminophen [Non-Aspirin Extra Strength] 500 mg PO Q6HR PRN #30 tablet PRN Reason: Pain , Severe (7-10) Chlorhexidine Mouthwash [Peridex] 15 ml MM BID #1 bottle Referrals: BROCK WARD MD [Primary Care Provider] - 3-5 Days
--- NOTE | 2018-08-02 12:14 | XRay Report ---
AP CHEST :08/02/18 10:47:00 CLINICAL: Weakness and fall. COMPARISON:03/24/18 FINDINGS: Normal heart and pulmonary vasculature. The lungs are slightly underexpanded. No airspace disease or pleural effusion. The bones and soft tissues are normal. IMPRESSION: Negative with no acute cardiopulmonary process.
--- NOTE | 2018-08-02 12:16 | XRay Report ---
X-ray LEFT ELBOW 2 VIEWS: 08/02/18 10:47:00 CLINICAL: Fall and elbow pain. FINDINGS: Suboptimal positioning on the lateral view. No fracture or dislocation. No joint effusion. Normal soft tissues. IMPRESSION: Normal.
--- NOTE | 2018-08-02 12:17 | XRay Report ---
X-RAY AP PELVIS ONE VIEW: 08/02/18 10:47:00 CLINICAL: Fall and pain. FINDINGS: The pelvic bones and hips are intact. No fracture or dislocation. Bilateral SI joint sclerosis with no erosions. Minimal arthritis of the hips. Normal soft tissues. IMPRESSION: No apparent traumatic injury from fall. Bilateral sacroiliitis.
--- NOTE | 2018-08-02 12:18 | XRay Report ---
XRAY LEFT SHOULDER THREE VIEWS: 08/02/18 10:47:00 CLINICAL: Pain FINDINGS: No fracture or dislocation. Normal glenohumeral joint. Normal AC joint. The soft tissues are normal. IMPRESSION: Normal.
[2018-08-02 12:29] LABS: Bilirubin,Urine NEG (Negative); Blood,Urine NEG (Negative); Color,Urine Yellow (Yellow); Mucus,Urine FEW /HPF; Protein,Urine <15 mg/dL mg/dL (Negative); Urobilinogen,Urine < 2.0 mg/dL (<2.0); WBC,Urine < 1.0 /HPF (0.0-6.0)
--- NOTE | 2018-08-02 12:59 | Cat Scan Report ---
CT HEAD WITHOUT CONTRAST: HISTORY: Dizziness, post fall. TECHNIQUE: Sequential 2.5mm CT images. COMPARISON: none. FINDINGS: Cerebral Parenchyma: Within normal limits. Cerebellum: Within normal limits. Brainstem: Within normal limits. Ventricles: Normal. Sella: Normal. Extra-axial spaces: Normal. Basal Cisterns: Normal. Intracranial Hemorrhage: None. Midline Shift: None. Calvarium: Normal. Sinuses: Normal. Mastoid Air Cells: Normal. Visualized Orbits: Normal. IMPRESSION: Cranial CT scan within normal limits.
[2018-08-02 13:25] LABS: INR 1.09 (0.87-1.13)
[2018-08-02 13:26] LABS: Partial Thromboplastin Time 29.5 Sec. (24.2-36.6)
--- NOTE | 2018-08-02 14:46 | Nuclear Medicine Report ---
LUNG SCAN, VENTILATION AND PERFUSION: History: Near syncope. Technique: 5mci of Tc99m MAA was infused for the perfusion images. 15mci XE 133 gas was inhaled for the ventilatory images. Findings: Inhalation of Xenon gas demonstrates a normal distribution of the activity throughout both lungs. The wash out phases show no focal retention of activity. After injection of Technetium 99m macroaggregated albumin gamma camera imaging of the lungs in multiple projections demonstrates normal pulmonary contours with a homogeneous distribution of activity. No focal areas of perfusion deficiency are identified. IMPRESSION: Low probability for pulmonary embolus.
[2018-08-02 15:31] VITALS: BP 144/87
== END 2018-08-02 15:31 | disposition home or self-care (01) ==
LOC: ED 10:47
DX: R42 Dizziness and giddiness (principal); I12.9 Hypertensive chronic kidney disease with stage 1 through stage 4 chronic kidney disease, or unspecified chronic kidney disease; N18.3 Chronic kidney disease, stage 3 (moderate); M32.9 Systemic lupus erythematosus, unspecified; M79.10 Myalgia, unspecified site; F32.9 Major depressive disorder, single episode, unspecified; F03.90 Unspecified dementia, unspecified severity, without behavioral disturbance, psychotic disturbance, mood disturbance, and anxiety; E03.9 Hypothyroidism, unspecified; F17.200 Nicotine dependence, unspecified, uncomplicated; M25.512 Pain in left shoulder; M25.522 Pain in left elbow; Z79.899 Other long term (current) drug therapy; Z79.82 Long term (current) use of aspirin; Z88.7 Allergy status to serum and vaccine; Z88.0 Allergy status to penicillin; Z88.1 Allergy status to other antibiotic agents; Z88.2 Allergy status to sulfonamides; Z86.73 Personal history of transient ischemic attack (TIA), and cerebral infarction without residual deficits; Z90.49 Acquired absence of other specified parts of digestive tract; Z98.890 Other specified postprocedural states
CPT/HCPCS: 36415; 70450; 71045; 72170; 73030; 73070; 78582; 80048; 81001; 85025; 85379; 85610; 85730; 87086; 93005; 93010; 99285; A9540; A9558; G0480; 80320

== ENCOUNTER 2018-08-07 10:24 | Emergency (ER) | payer MEDICARE ==
[2018-08-07 10:35] VITALS: BP 176/96
--- NOTE | 2018-08-07 12:12 | Emergency Department Report ---
ED General Adult HPI - General Chief complaint: Neck Pain/Injury Stated complaint: NECK AND ARM PAIN FRM TEETH PULLED Time Seen by Provider: 08/07/18 11:54 Source: patient Mode of arrival: Ambulatory Limitations: No Limitations - History of Present Illness Initial comments: Patient is a 72-year-old female who is one-week status post 6 l ower frontal teeth being extracted who is complaining of left-sided jaw pain that radiates to the left latter day and left neck and shoulder. Patient states his aching throbbing pain. Patient states the pain is 8 out of 10 in severity. She denies any fevers chills nausea vomiting diarrhea. Patient has been on clindamycin since the tooth extraction. Patient does not feel as though her wound is healing very well. - Related Data Home Medications Medication Instructions Recorded Confirmed Last Taken Mirtazapine [Remeron] 45 mg PO QHS 08/04/15 06/09/18 Unknown Calcitriol [Rocaltrol] 0.25 mcg PO DAILY 05/19/18 06/09/18 Unknown hydrOXYzine PAMOATE [Vistaril] 50 mg PO DAILY@2100 05/19/18 06/09/18 Unknown predniSONE [Prednisone] 5 mg PO QDAY 05/19/18 06/09/18 Unknown Previous Rx's Medication Instructions Recorded Last Taken Type Sertraline HCl [Zoloft] 50 mg PO DAILY #30 tablet 03/26/18 Unknown Rx Solifenacin Succinate (Nf) 10 mg PO DAILY #30 tablet 03/26/18 Unknown Rx [Vesicare (Nf)] Aspirin 325 mg PO QDAY #30 tablet 06/12/18 Unknown Rx AtorvaSTATin [Lipitor] 40 mg PO QHS #30 tablet 06/12/18 Unknown Rx Carvedilol [Coreg] 25 mg PO BID #60 tablet 06/12/18 Unknown Rx Clopidogrel [Plavix] 75 mg PO QDAY #30 tablet 06/12/18 Unknown Rx Levothyroxine [Synthroid] 50 mcg PO QAM #30 tablet 06/12/18 Unknown Rx Mirtazapine [Remeron 15mg TAB] 45 mg PO QHS tablet 06/12/18 Unknown Rx Pantoprazole [Protonix TAB] 40 mg PO BID #30 tablet 06/12/18 Unknown Rx amLODIPine [Norvasc] 5 mg PO QDAY #30 tablet 06/12/18 Unknown Rx lamoTRIgine [LaMICtal] 25 mg PO BID #30 tablet 06/12/18 Unknown Rx Acetaminophen [Non-Aspirin Extra 500 mg PO Q6HR PRN #30 tablet 08/02/18 Unknown Rx Strength] Chlorhexidine Mouthwash [Peridex] 15 ml MM BID #1 bottle 08/02/18 Unknown Rx Permethrin 5% [Acticin 5% CREAM] 1 applicatio TP ONCE #2 tube 08/02/18 Unknown Rx DOXYCYCLINE Hyclate [Vibramycin 100 mg PO Q12HR #14 capsule 08/07/18 Unknown Rx CAP] metroNIDAZOLE [Flagyl] 500 mg PO Q12HR #14 tab 08/07/18 Unknown Rx traMADol [Ultram] 50 mg PO Q6HR PRN #12 tablet 08/07/18 Unknown Rx Allergies Allergy/AdvReac Type Severity Reaction Status Date / Time captopril Allergy Rash Verified 05/19/18 12:50 clindamycin Allergy Diarrhea Verified 05/19/18 12:50 NSAIDS (Non-Steroidal Allergy Rash Verified 05/19/18 12:50 Anti-Inflamma Penicillins Allergy Rash Verified 05/19/18 12:50 Sulfa (Sulfonamide Allergy Rash Verified 05/19/18 12:50 Antibiotics) ED Review of Systems ROS: Stated complaint: NECK AND ARM PAIN FRM TEETH PULLED Other details as noted in HPI Comment: All other systems reviewed and negative ED Past Medical Hx - Past Medical History Previous Medical History?: Yes Hx Hypertension: Yes Hx CVA: Yes (07/07/14) Hx Heart Attack/AMI: No Hx Congestive Heart Failure: No Hx Diabetes: No Hx Deep Vein Thrombosis: No Hx Pulmonary Embolism: No Hx GERD: No Hx Liver Disease: No Hx Renal Disease: Yes (Stage III renal dx) Hx Sickle Cell Disease: No Hx Arthritis: Yes Hx Headaches / Migraines: No Hx Seizures: No Hx Kidney Stones: No Hx Psychiatric Treatment: Yes (Depression) Hx Asthma: No Hx COPD: No Hx Tuberculosis: No Hx Dementia: Yes (takes aricept) Hx HIV: No Additional medical history: 3 herniated discs. LUPUS. hypothyroid. Lung Nodules 01/2018 - Surgical History Hx Coronary Stent: No Hx Open Heart Surgery: No Hx Pacemaker: No Hx Internal Defibrillator: No Hx Cholecystectomy: Yes Hx Appendectomy: Yes Hx Breast Surgery: No Additional Surgical History: vein stripping. oral surgery 07/31/18 - Social History Smoking Status: Current Every Day Smoker Substance Use Type: None - Medications Home Medications: Home Medications Medication Instructions Recorded Confirmed Last Taken Type Mirtazapine [Remeron] 45 mg PO QHS 08/04/15 06/09/18 Unknown History Sertraline HCl [Zoloft] 50 mg PO DAILY #30 tablet 03/26/18 06/09/18 Unknown Rx Solifenacin Succinate (Nf) 10 mg PO DAILY #30 tablet 03/26/18 06/09/18 Unknown Rx [Vesicare (Nf)] Calcitriol [Rocaltrol] 0.25 mcg PO DAILY 05/19/18 06/09/18 Unknown History hydrOXYzine PAMOATE [Vistaril] 50 mg PO DAILY@2100 05/19/18 06/09/18 Unknown History predniSONE [Prednisone] 5 mg PO QDAY 05/19/18 06/09/18 Unknown History Aspirin 325 mg PO QDAY #30 tablet 06/12/18 Unknown Rx AtorvaSTATin [Lipitor] 40 mg PO QHS #30 tablet 06/12/18 Unknown Rx Carvedilol [Coreg] 25 mg PO BID #60 tablet 06/12/18 Unknown Rx Clopidogrel [Plavix] 75 mg PO QDAY #30 tablet 06/12/18 Unknown Rx Levothyroxine [Synthroid] 50 mcg PO QAM #30 tablet 06/12/18 Unknown Rx Mirtazapine [Remeron 15mg TAB] 45 mg PO QHS tablet 06/12/18 Unknown Rx Pantoprazole [Protonix TAB] 40 mg PO BID #30 tablet 06/12/18 Unknown Rx amLODIPine [Norvasc] 5 mg PO QDAY #30 tablet 06/12/18 Unknown Rx lamoTRIgine [LaMICtal] 25 mg PO BID #30 tablet 06/12/18 Unknown Rx Acetaminophen [Non-Aspirin Extra 500 mg PO Q6HR PRN #30 tablet 08/02/18 Unknown Rx Strength] Chlorhexidine Mouthwash [Peridex] 15 ml MM BID #1 bottle 08/02/18 Unknown Rx Permethrin 5% [Acticin 5% CREAM] 1 applicatio TP ONCE #2 tube 08/02/18 Unknown Rx DOXYCYCLINE Hyclate [Vibramycin 100 mg PO Q12HR #14 capsule 08/07/18 Unknown Rx CAP] metroNIDAZOLE [Flagyl] 500 mg PO Q12HR #14 tab 08/07/18 Unknown Rx traMADol [Ultram] 50 mg PO Q6HR PRN #12 tablet 08/07/18 Unknown Rx ED Physical Exam - General Limitations: No Limitations General appearance: alert, in no apparent distress - Head Head exam: Present: atraumatic, normocephalic - Eye Eye exam: Present: normal appearance, PERRL, EOMI - ENT ENT exam: Present: mucous membranes moist - Expanded ENT Exam Expanded Ear exam: Present: normal external inspection Mouth exam: Present: tongue normal. Absent: drooling, trismus, muffled voice, tongue elevation Teeth exam: Present: other 1 - Other (these teeth have been extracted. The wound in the gumline appears necrotic with some surface purulence. The left side of the wound is tender to palpation. There is some overlying facial cellulitis present at the jawline.) Throat exam: Positive: normal inspection - Neck Neck exam: Present: normal inspection, lymphadenopathy (left anterior cerv) - Respiratory Respiratory exam: Present: normal lung sounds bilaterally. Absent: respiratory distress, wheezes, rales, rhonchi - Cardiovascular Cardiovascular Exam: Present: regular rate, normal rhythm. Absent: systolic murmur, diastolic murmur, rubs, gallop - GI/Abdominal GI/Abdominal exam: Present: soft, normal bowel sounds. Absent: distended, tenderness, guarding, rebound - Extremities Exam Extremities exam: Present: normal inspection - Back Exam Back exam: Present: normal inspection - Neurological Exam Neurological exam: Present: alert, oriented X3 - Psychiatric Psychiatric exam: Present: normal affect, normal mood - Skin Skin exam: Present: warm, dry, intact, normal color. Absent: rash ED Course Vital Signs 08/07/18 10:33 Temperature 97.6 F Pulse Rate 81 Respiratory 16 Rate Blood Pressure 176/96 O2 Sat by Pulse 100 Oximetry ED Medical Decision Making - Medical Decision Making Patient has a severe penicillin allergy and actually states that she also is allergic to clindamycin and has had some small bumps while she's been on c lindamycin. Patient doesn't appear to be improving with clindamycin either. Patient also is allergic to sulfa drugs as well. Patient to be started on Flagyl to cover for anaerobes as well as doxycycline to cover for staph and the patient be discharged home with follow with her dentist. Critical care attestation.: If time is entered above; I have spent that time in minutes in the direct care of this critically ill patient, excluding procedure time. ED Disposition Clinical Impression: Dental abscess, Facial cellulitis Disposition: TO HOME OR SELFCARE Is pt being admited?: No Does the pt Need Aspirin: No Condition: Stable Instructions: Dental Abscess (ED) Referrals: ELOINA WARD MD [Primary Care Provider] - 3-5 Days Time of Disposition: 12:13
== END 2018-08-07 12:57 | disposition home or self-care (01) ==
LOC: ED 10:24
DX: K04.7 Periapical abscess without sinus (principal); L03.211 Cellulitis of face; I12.9 Hypertensive chronic kidney disease with stage 1 through stage 4 chronic kidney disease, or unspecified chronic kidney disease; N18.3 Chronic kidney disease, stage 3 (moderate); M19.90 Unspecified osteoarthritis, unspecified site; F32.9 Major depressive disorder, single episode, unspecified; E03.9 Hypothyroidism, unspecified; F17.200 Nicotine dependence, unspecified, uncomplicated; Z90.49 Acquired absence of other specified parts of digestive tract; Z86.73 Personal history of transient ischemic attack (TIA), and cerebral infarction without residual deficits; Z79.82 Long term (current) use of aspirin; Z79.899 Other long term (current) drug therapy; Z88.6 Allergy status to analgesic agent; Z88.1 Allergy status to other antibiotic agents; Z88.8 Allergy status to other drugs, medicaments and biological substances; Z98.890 Other specified postprocedural states; Z88.0 Allergy status to penicillin; Z88.2 Allergy status to sulfonamides
CPT/HCPCS: 36415; 93005; 93010; 99282

== ENCOUNTER 2018-08-09 09:59 | Outpatient (CLI) | payer MEDICARE ==
--- NOTE | 2018-08-09 12:27 | Ultrasound Report ---
RENAL ULTRASOUND HISTORY: CHRONIC KIDNEY DISEASE COMPARISON: None. TECHNIQUE: Multiple real-time ultrasonographic grayscale images were obtained of the kidneys and urin naomi bladder. FINDINGS: Right kidney: Markedly increased cortical echotexture. No focal lesion or hydronephrosis. Kidney roxi sures 9.5 x 4.6 x 5.5 cm. Left kidney: Markedly increased cortical echotexture. No focal lesion or hydronephrosis Kidney measur es 10.5 x 6.3 x 6.7 cm. Urinary bladder: Partially empty but grossly unremarkable Additional findings: None. IMPRESSION: Echogenic kidneys consistent with nonspecific renal parenchymal disease. No focal renal lesion or hy dronephrosis. Signer Name: Breezy Bobby Jr, MD Signed: 08/09/2018 12:23 PM Workstation Name: [id number]
== END 2018-08-09 10:00 | disposition home or self-care (01) ==
LOC: US 09:59
DX: I12.9 Hypertensive chronic kidney disease with stage 1 through stage 4 chronic kidney disease, or unspecified chronic kidney disease (principal); N18.3 Chronic kidney disease, stage 3 (moderate); E78.00 Pure hypercholesterolemia, unspecified; E03.9 Hypothyroidism, unspecified
CPT/HCPCS: 76770

== ENCOUNTER 2018-08-11 10:42 | Outpatient (CLI) | payer MEDICARE ==
[2018-08-11 11:42] LABS: Albumin 3.7 g/dL (3.9-5); Calcium 9.6 mg/dL (8.4-10.2); Uric Acid 5.7 mg/dL (3.5-7.6)
[2018-08-11 11:49] LABS: Creatinine,Urine 112.5 mg/dL (0.1-20.0)
== END 2018-08-11 10:43 | disposition home or self-care (01) ==
LOC: LAB 10:42
PROVIDERS: ATTEND Internal Medicine Nephrology
DX: I12.9 Hypertensive chronic kidney disease with stage 1 through stage 4 chronic kidney disease, or unspecified chronic kidney disease (principal); N18.3 Chronic kidney disease, stage 3 (moderate); R94.4 Abnormal results of kidney function studies; R60.0 Localized edema; N25.81 Secondary hyperparathyroidism of renal origin; M32.9 Systemic lupus erythematosus, unspecified
CPT/HCPCS: 36415; 80048; 82040; 82565; 82570; 82575; 83970; 84100; 84156; 84550

== ENCOUNTER 2018-09-14 05:39 | Emergency (ER) | payer MEDICARE ==
[2018-09-14 06:26] LABS: Basophils % (Auto) 0.5 % (0.0-1.8); Eosinophils # (Auto) 0.1 K/mm3 (0.0-0.4); Eosinophils % (Auto) 1.2 % (0.0-4.3); Hematocrit 34.9 % (30.3-42.9); Hemoglobin 11.4 gm/dl (10.1-14.3); Lymphocytes # (Auto) 2.3 K/mm3 (1.2-5.4); Lymphocytes % (Auto) 26.3 % (13.4-35.0); Mean Corpuscular HGB Conc 33 % (30-34); Mean Corpuscular Volume 73 fl (79-97); Monocytes # (Auto) 0.8 K/mm3 (0.0-0.8); Monocytes % (Auto) 9.7 % (0.0-7.3); Platelet Count 242 K/mm3 (140-440); Red Blood Count 4.76 M/mm3 (3.65-5.03); Red Cell Distribution Width 16.1 % (13.2-15.2)
[2018-09-14 06:36] LABS: INR 1.07 (0.87-1.13)
[2018-09-14 06:37] LABS: Partial Thromboplastin Time 29.1 Sec. (24.2-36.6)
[2018-09-14 06:47] LABS: Calcium 9.3 mg/dL (8.4-10.2)
--- NOTE | 2018-09-14 08:17 | Emergency Department Report ---
ED General Adult HPI - General Chief complaint: Nosebleed Stated complaint: NOSEBLEED Time Seen by Provider: 09/14/18 07:42 Source: patient Mode of arrival: Ambulatory Limitations: No Limitations - History of Present Illness Initial comments: This is a 72-year-old female who presents to ED complaining of 2 episodes of nosebleed that happened last night around 10 PM and 1 this morning 5 AM. Patient states that 2 days prior she had taken some old doxycycline which she has at home for her skin infection. Patient states she had a couple of episodes of vomiting after taking the doxycycline. Other than that she has not been any trauma, fall or injuries to the face. She states that bleeding was controlled and stopped within a minute. She reports a history of hypertension which she takes her medication daily. Signed she denies fever assess 2/cough/runny nose/chest pain or shortness of breath - Related Data Home Medications Medication Instructions Recorded Confirmed Last Taken Mirtazapine [Remeron] 45 mg PO QHS 08/04/15 06/09/18 Unknown Calcitriol [Rocaltrol] 0.25 mcg PO DAILY 05/19/18 06/09/18 Unknown hydrOXYzine PAMOATE [Vistaril] 50 mg PO DAILY@2100 05/19/18 06/09/18 Unknown predniSONE [Prednisone] 5 mg PO QDAY 05/19/18 06/09/18 Unknown Previous Rx's Medication Instructions Recorded Last Taken Type Sertraline HCl [Zoloft] 50 mg PO DAILY #30 tablet 03/26/18 Unknown Rx Solifenacin Succinate (Nf) 10 mg PO DAILY #30 tablet 03/26/18 Unknown Rx [Vesicare (Nf)] Aspirin 325 mg PO QDAY #30 tablet 06/12/18 Unknown Rx AtorvaSTATin [Lipitor] 40 mg PO QHS #30 tablet 06/12/18 Unknown Rx Carvedilol [Coreg] 25 mg PO BID #60 tablet 06/12/18 Unknown Rx Clopidogrel [Plavix] 75 mg PO QDAY #30 tablet 06/12/18 Unknown Rx Levothyroxine [Synthroid] 50 mcg PO QAM #30 tablet 06/12/18 Unknown Rx Mirtazapine [Remeron 15mg TAB] 45 mg PO QHS tablet 06/12/18 Unknown Rx Pantoprazole [Protonix TAB] 40 mg PO BID #30 tablet 06/12/18 Unknown Rx amLODIPine [Norvasc] 5 mg PO QDAY #30 tablet 06/12/18 Unknown Rx lamoTRIgine [LaMICtal] 25 mg PO BID #30 tablet 06/12/18 Unknown Rx Acetaminophen [Non-Aspirin Extra 500 mg PO Q6HR PRN #30 tablet 08/02/18 Unknown Rx Strength] Chlorhexidine Mouthwash [Peridex] 15 ml MM BID #1 bottle 08/02/18 Unknown Rx Permethrin 5% [Acticin 5% CREAM] 1 applicatio TP ONCE #2 tube 08/02/18 Unknown Rx DOXYCYCLINE Hyclate [Vibramycin 100 mg PO Q12HR #14 capsule 08/07/18 Unknown Rx CAP] metroNIDAZOLE [Flagyl] 500 mg PO Q12HR #14 tab 08/07/18 Unknown Rx traMADol [Ultram] 50 mg PO Q6HR PRN #12 tablet 08/07/18 Unknown Rx cephALEXin [Keflex] 500 mg PO Q12HR #10 cap 09/14/18 Unknown Rx Allergies Allergy/AdvReac Type Severity Reaction Status Date / Time acetaminophen Allergy Unknown Verified 08/07/18 12:58 [From Tylenol-Codeine #3] captopril Allergy Rash Verified 05/19/18 12:50 clindamycin Allergy Diarrhea Verified 05/19/18 12:50 codeine Allergy Unknown Verified 08/07/18 12:58 [From Tylenol-Codeine #3] NSAIDS (Non-Steroidal Allergy Rash Verified 05/19/18 12:50 Anti-Inflamma Penicillins Allergy Rash Verified 05/19/18 12:50 Sulfa (Sulfonamide Allergy Rash Verified 05/19/18 12:50 Antibiotics) ED Review of Systems ROS: Stated complaint: NOSEBLEED Other details as noted in HPI Comment: All other systems reviewed and negative ED Past Medical Hx - Past Medical History Hx Hypertension: Yes Hx CVA: Yes (07/07/14) Hx Heart Attack/AMI: No Hx Congestive Heart Failure: No Hx Diabetes: No Hx Deep Vein Thrombosis: No Hx Pulmonary Embolism: No Hx GERD: No Hx Liver Disease: No Hx Renal Disease: Yes (Stage III renal dx) Hx Sickle Cell Disease: No Hx Arthritis: Yes Hx Headaches / Migraines: No Hx Seizures: No Hx Kidney Stones: No Hx Psychiatric Treatment: Yes (Depression) Hx Asthma: No Hx COPD: No Hx Tuberculosis: No Hx Dementia: Yes (takes aricept) Hx HIV: No Additional medical history: 3 herniated discs. LUPUS. hypothyroid. Lung Nodules 01/2018 - Surgical History Hx Coronary Stent: No Hx Open Heart Surgery: No Hx Pacemaker: No Hx Internal Defibrillator: No Hx Cholecystectomy: Yes Hx Appendectomy: Yes Hx Breast Surgery: No Additional Surgical History: vein stripping. oral surgery 07/31/18 - Social History Smoking Status: Current Every Day Smoker Substance Use Type: None - Medications Home Medications: Home Medications Medication Instructions Recorded Confirmed Last Taken Type Mirtazapine [Remeron] 45 mg PO QHS 08/04/15 06/09/18 Unknown History Sertraline HCl [Zoloft] 50 mg PO DAILY #30 tablet 03/26/18 06/09/18 Unknown Rx Solifenacin Succinate (Nf) 10 mg PO DAILY #30 tablet 03/26/18 06/09/18 Unknown Rx [Vesicare (Nf)] Calcitriol [Rocaltrol] 0.25 mcg PO DAILY 05/19/18 06/09/18 Unknown History hydrOXYzine PAMOATE [Vistaril] 50 mg PO DAILY@2100 05/19/18 06/09/18 Unknown History predniSONE [Prednisone] 5 mg PO QDAY 05/19/18 06/09/18 Unknown History Aspirin 325 mg PO QDAY #30 tablet 06/12/18 Unknown Rx AtorvaSTATin [Lipitor] 40 mg PO QHS #30 tablet 06/12/18 Unknown Rx Carvedilol [Coreg] 25 mg PO BID #60 tablet 06/12/18 Unknown Rx Clopidogrel [Plavix] 75 mg PO QDAY #30 tablet 06/12/18 Unknown Rx Levothyroxine [Synthroid] 50 mcg PO QAM #30 tablet 06/12/18 Unknown Rx Mirtazapine [Remeron 15mg TAB] 45 mg PO QHS tablet 06/12/18 Unknown Rx Pantoprazole [Protonix TAB] 40 mg PO BID #30 tablet 06/12/18 Unknown Rx amLODIPine [Norvasc] 5 mg PO QDAY #30 tablet 06/12/18 Unknown Rx lamoTRIgine [LaMICtal] 25 mg PO BID #30 tablet 06/12/18 Unknown Rx Acetaminophen [Non-Aspirin Extra 500 mg PO Q6HR PRN #30 tablet 08/02/18 Unknown Rx Strength] Chlorhexidine Mouthwash [Peridex] 15 ml MM BID #1 bottle 08/02/18 Unknown Rx Permethrin 5% [Acticin 5% CREAM] 1 applicatio TP ONCE #2 tube 08/02/18 Unknown Rx DOXYCYCLINE Hyclate [Vibramycin 100 mg PO Q12HR #14 capsule 08/07/18 Unknown Rx CAP] metroNIDAZOLE [Flagyl] 500 mg PO Q12HR #14 tab 08/07/18 Unknown Rx traMADol [Ultram] 50 mg PO Q6HR PRN #12 tablet 08/07/18 Unknown Rx cephALEXin [Keflex] 500 mg PO Q12HR #10 cap 09/14/18 Unknown Rx ED Physical Exam - General Limitations: No Limitations General appearance: alert, in no apparent distress - Head Head exam: Present: atraumatic, normocephalic - Eye Eye exam: Present: normal appearance, PERRL - ENT ENT exam: Present: normal exam, mucous membranes moist, TM's normal bilaterally, normal external ear exam, other (no bleeding from the nostrils, no blood seen in the throat or nostrils. Turbinates pink and moist.) - Neck Neck exam: Present: normal inspection, full ROM. Absent: tenderness, lymphadenopathy - Respiratory Respiratory exam: Present: normal lung sounds bilaterally. Absent: respiratory distress - Cardiovascular Cardiovascular Exam: Present: regular rate, normal rhythm. Absent: systolic murmur, diastolic murmur, rubs, gallop - GI/Abdominal GI/Abdominal exam: Present: soft, normal bowel sounds - Extremities Exam Extremities exam: Present: normal inspection - Back Exam Back exam: Present: normal inspection - Neurological Exam Neurological exam: Present: alert, oriented X3 - Psychiatric Psychiatric exam: Present: normal affect, normal mood - Skin Skin exam: Present: warm, dry, intact, normal color. Absent: rash ED Course Vital Signs 09/14/18 05:43 Temperature 97.9 F Pulse Rate 92 H Respiratory 18 Rate Blood Pressure 163/93 O2 Sat by Pulse 99 Oximetry ED Medical Decision Making - Lab Data Result diagrams: 09/14/18 06:14 09/14/18 06:14 - Medical Decision Making 72-year-old female presented acute bilateral nose bleed. There was no nosebleed in the ED. CBC, PT/PTT shows no acute findings. All within normal limits. Discussed findings with the patient. Discussed with patient active vomiting may have led to puffs vessel unknown sclerae are nosebleed. Discussed patient to stop taking the doxycycline. I will be given patient Keflex for her cellulitis of the right groin Discussed the follow up with her primary physician. Discussed with patient to take blood pressure medication upon returning home. Vital signs are normal she is in no acute distress. Critical care attestation.: If time is entered above; I have spent that time in minutes in the direct care of this critically ill patient, excluding procedure time. ED Disposition Clinical Impression: Acute anterior epistaxis, Cellulitis of groin, right Disposition: [id number] TO HOME OR SELFCARE Is pt being admited?: No Does the pt Need Aspirin: No Condition: Stable Instructions: Cellulitis (ED), Epistaxis (ED) Additional Instructions: Make sure to follow up with the primary care physician as discussed. Take all your medications as you've been prescribed. If you have any worsening symptoms or develop new symptoms please return to ED immediately. Prescriptions: cephALEXin [Keflex] 500 mg PO Q12HR #10 cap Referrals: ELOINA WARD MD [Primary Care Provider] - 3-5 Days Forms: Work/School Release Form(ED) Time of Disposition: 08:17
[2018-09-14 08:26] VITALS: BP 126/81
[2018-09-14] MEDS ORDERED: ULTRAM PO ONE (08:28)
== END 2018-09-14 08:39 | disposition home or self-care (01) ==
LOC: ED 05:39
DX: R04.0 Epistaxis (principal); L03.314 Cellulitis of groin; R11.10 Vomiting, unspecified; I10 Essential (primary) hypertension; N28.89 Other specified disorders of kidney and ureter; M19.90 Unspecified osteoarthritis, unspecified site; F32.9 Major depressive disorder, single episode, unspecified; F03.90 Unspecified dementia, unspecified severity, without behavioral disturbance, psychotic disturbance, mood disturbance, and anxiety; F17.200 Nicotine dependence, unspecified, uncomplicated; E03.9 Hypothyroidism, unspecified; Z86.73 Personal history of transient ischemic attack (TIA), and cerebral infarction without residual deficits; Z90.49 Acquired absence of other specified parts of digestive tract; Z90.89 Acquired absence of other organs; Z98.890 Other specified postprocedural states; Z88.6 Allergy status to analgesic agent; Z88.8 Allergy status to other drugs, medicaments and biological substances; Z88.1 Allergy status to other antibiotic agents; Z88.5 Allergy status to narcotic agent; Z88.2 Allergy status to sulfonamides; Z88.0 Allergy status to penicillin; Z79.899 Other long term (current) drug therapy
CPT/HCPCS: 36415; 80048; 85025; 85610; 85730

== ENCOUNTER 2018-12-09 09:39 | Emergency (ER) | payer MEDICARE ==
[2018-12-09 09:58] VITALS: BP 156/92
[2018-12-09] MEDS ORDERED: LORazepam 1 MG TAB PO ONE (10:53)
--- NOTE | 2018-12-09 11:03 | Emergency Department Report ---
ED Anxiety HPI - General Chief Complaint: Anxiety Stated Complaint: ANXIETY/WEAKNESS/FAST HEART BEAT Time Seen by Provider: 12/09/18 10:49 Source: patient Mode of arrival: Ambulatory - History of Present Illness Initial Comments: 73-year-old female with history of anxiety presents to the ED with complaint of anxiety attack. She currently sees Dr. Cruz, psychiatrist, and is taking Vistaril for her anxiety. Patient states the Vistaril is not helping. She reports her father is 78, states that her son is on the streets and is on drugs. Patient states these 2 issues have been causing her anxiety. Patient states she had 2 anxiety attacks this morning. She reports her next appointment with her psychiatrist as one month away. Patient is requesting Ativan. MD Complaint: anxiety -: This morning Symptoms: dyspnea, palpitations, sense of impending doom Previous History of Same: Yes Severity: moderate Quality: improving Provoking factors: emotional stress, recent /illness of f Improves With: nothing Worsens With: thinking about event Associated symptoms: shortness of breath, palpitations - Related Data Home Medications: Home Medications Medication Instructions Recorded Confirmed Last Taken Mirtazapine [Remeron] 45 mg PO QHS 08/04/15 06/09/18 Unknown Calcitriol [Rocaltrol] 0.25 mcg PO DAILY 05/19/18 06/09/18 Unknown hydrOXYzine PAMOATE [Vistaril] 50 mg PO DAILY@2100 05/19/18 06/09/18 Unknown predniSONE [Prednisone] 5 mg PO QDAY 05/19/18 06/09/18 Unknown Previous Rx's Medication Instructions Recorded Last Taken Type Sertraline HCl [Zoloft] 50 mg PO DAILY #30 tablet 03/26/18 Unknown Rx Solifenacin Succinate (Nf) 10 mg PO DAILY #30 tablet 03/26/18 Unknown Rx [Vesicare (Nf)] Aspirin 325 mg PO QDAY #30 tablet 06/12/18 Unknown Rx AtorvaSTATin [Lipitor] 40 mg PO QHS #30 tablet 06/12/18 Unknown Rx Carvedilol [Coreg] 25 mg PO BID #60 tablet 06/12/18 Unknown Rx Clopidogrel [Plavix] 75 mg PO QDAY #30 tablet 06/12/18 Unknown Rx Levothyroxine [Synthroid] 50 mcg PO QAM #30 tablet 06/12/18 Unknown Rx Mirtazapine [Remeron 15mg TAB] 45 mg PO QHS tablet 06/12/18 Unknown Rx Pantoprazole [Protonix TAB] 40 mg PO BID #30 tablet 06/12/18 Unknown Rx amLODIPine 5 mg PO QDAY #30 tablet 06/12/18 Unknown Rx lamoTRIgine [LaMICtal] 25 mg PO BID #30 tablet 06/12/18 Unknown Rx Acetaminophen [Non-Aspirin Extra 500 mg PO Q6HR PRN #30 tablet 08/02/18 Unknown Rx Strength] Chlorhexidine Mouthwash [Peridex] 15 ml MM BID #1 bottle 08/02/18 Unknown Rx Permethrin 5% [Acticin 5% CREAM] 1 applicatio TP ONCE #2 tube 08/02/18 Unknown Rx DOXYCYCLINE Hyclate [Vibramycin 100 mg PO Q12HR #14 capsule 08/07/18 Unknown Rx CAP] metroNIDAZOLE [Flagyl] 500 mg PO Q12HR #14 tab 08/07/18 Unknown Rx traMADol [Ultram] 50 mg PO Q6HR PRN #12 tablet 08/07/18 Unknown Rx cephALEXin [Keflex] 500 mg PO Q12HR #10 cap 09/14/18 Unknown Rx traMADol [Ultram 50 MG tab] 50 mg PO Q6HR PRN #10 tablet 09/14/18 Unknown Rx Allergies/Adverse Reactions: Allergies Allergy/AdvReac Type Severity Reaction Status Date / Time acetaminophen Allergy Unknown Verified 08/07/18 12:58 [From Tylenol-Codeine #3] captopril Allergy Rash Verified 05/19/18 12:50 clindamycin Allergy Diarrhea Verified 05/19/18 12:50 codeine Allergy Unknown Verified 08/07/18 12:58 [From Tylenol-Codeine #3] NSAIDS (Non-Steroidal Allergy Rash Verified 05/19/18 12:50 Anti-Inflamma Penicillins Allergy Rash Verified 05/19/18 12:50 Sulfa (Sulfonamide Allergy Rash Verified 05/19/18 12:50 Antibiotics) ED Review of Systems ROS: Stated complaint: ANXIETY/WEAKNESS/FAST HEART BEAT Other details as noted in HPI Comment: All other systems reviewed and negative Respiratory: shortness of breath Cardiovascular: palpitations. denies: chest pain Psychiatric: anxiety. denies: homicidal thoughts, suicidal thoughts ED Past Medical Hx - Past Medical History Previous Medical History?: Yes Hx Hypertension: Yes Hx CVA: Yes (07/07/14) Hx Heart Attack/AMI: No Hx Congestive Heart Failure: No Hx Diabetes: No Hx Deep Vein Thrombosis: No Hx Pulmonary Embolism: No Hx GERD: No Hx Liver Disease: No Hx Renal Disease: Yes (Stage III renal dx) Hx Sickle Cell Disease: No Hx Arthritis: Yes Hx Headaches / Migraines: No Hx Seizures: No Hx Kidney Stones: No Hx Psychiatric Treatment: Yes (Depression) Hx Asthma: No Hx COPD: No Hx Tuberculosis: No Hx Dementia: Yes (takes aricept) Hx HIV: No Additional medical history: 3 herniated discs. LUPUS. hypothyroid. Lung Nodules 01/2018 - Surgical History Past Surgical History?: Yes Hx Coronary Stent: No Hx Open Heart Surgery: No Hx Pacemaker: No Hx Internal Defibrillator: No Hx Cholecystectomy: Yes Hx Appendectomy: Yes Hx Breast Surgery: No Additional Surgical History: vein stripping. oral surgery 07/31/18 - Social History Smoking Status: Never Smoker Substance Use Type: None - Medications Home Medications: Home Medications Medication Instructions Recorded Confirmed Last Taken Type Mirtazapine [Remeron] 45 mg PO QHS 08/04/15 06/09/18 Unknown History Sertraline HCl [Zoloft] 50 mg PO DAILY #30 tablet 03/26/18 06/09/18 Unknown Rx Solifenacin Succinate (Nf) 10 mg PO DAILY #30 tablet 03/26/18 06/09/18 Unknown Rx [Vesicare (Nf)] Calcitriol [Rocaltrol] 0.25 mcg PO DAILY 05/19/18 06/09/18 Unknown History hydrOXYzine PAMOATE [Vistaril] 50 mg PO DAILY@2100 05/19/18 06/09/18 Unknown History predniSONE [Prednisone] 5 mg PO QDAY 05/19/18 06/09/18 Unknown History Aspirin 325 mg PO QDAY #30 tablet 06/12/18 Unknown Rx AtorvaSTATin [Lipitor] 40 mg PO QHS #30 tablet 06/12/18 Unknown Rx Carvedilol [Coreg] 25 mg PO BID #60 tablet 06/12/18 Unknown Rx Clopidogrel [Plavix] 75 mg PO QDAY #30 tablet 06/12/18 Unknown Rx Levothyroxine [Synthroid] 50 mcg PO QAM #30 tablet 06/12/18 Unknown Rx Mirtazapine [Remeron 15mg TAB] 45 mg PO QHS tablet 06/12/18 Unknown Rx Pantoprazole [Protonix TAB] 40 mg PO BID #30 tablet 06/12/18 Unknown Rx amLODIPine 5 mg PO QDAY #30 tablet 06/12/18 Unknown Rx lamoTRIgine [LaMICtal] 25 mg PO BID #30 tablet 06/12/18 Unknown Rx Acetaminophen [Non-Aspirin Extra 500 mg PO Q6HR PRN #30 tablet 08/02/18 Unknown Rx Strength] Chlorhexidine Mouthwash [Peridex] 15 ml MM BID #1 bottle 08/02/18 Unknown Rx Permethrin 5% [Acticin 5% CREAM] 1 applicatio TP ONCE #2 tube 08/02/18 Unknown Rx DOXYCYCLINE Hyclate [Vibramycin 100 mg PO Q12HR #14 capsule 08/07/18 Unknown Rx CAP] metroNIDAZOLE [Flagyl] 500 mg PO Q12HR #14 tab 08/07/18 Unknown Rx traMADol [Ultram] 50 mg PO Q6HR PRN #12 tablet 08/07/18 Unknown Rx cephALEXin [Keflex] 500 mg PO Q12HR #10 cap 09/14/18 Unknown Rx traMADol [Ultram 50 MG tab] 50 mg PO Q6HR PRN #10 tablet 09/14/18 Unknown Rx ED Physical Exam - General Limitations: No Limitations General appearance: alert, in no apparent distress - Head Head exam: Present: atraumatic, normocephalic - Eye Eye exam: Present: normal appearance, EOMI - ENT ENT exam: Present: mucous membranes moist - Neck Neck exam: Present: normal inspection - Respiratory Respiratory exam: Present: normal lung sounds bilaterally. Absent: respiratory distress - Cardiovascular Cardiovascular Exam: Present: regular rate, normal rhythm - GI/Abdominal GI/Abdominal exam: Absent: distended - Extremities Exam Extremities exam: Present: normal inspection - Neurological Exam Neurological exam: Present: alert, oriented X3 - Psychiatric Psychiatric exam: Present: normal affect, normal mood, anxious - Skin Skin exam: Present: warm, dry, intact, normal color ED Course Vital Signs 12/09/18 09:57 Temperature 98.6 F Pulse Rate 91 H Respiratory 16 Rate Blood Pressure 156/92 [Left] O2 Sat by Pulse 99 Oximetry ED Medical Decision Making - Differential Diagnosis anxiety Critical care attestation.: If time is entered above; I have spent that time in minutes in the direct care of this critically ill patient, excluding procedure time. ED Disposition Clinical Impression: Anxiety Disposition: DC-01 TO HOME OR SELFCARE Is pt being admited?: No Condition: Stable Instructions: Anxiety (ED) Referrals: PRIMARY CARE, [Primary Care Provider] - 3-5 Days Time of Disposition: 11:04
== END 2018-12-09 11:21 | disposition home or self-care (01) ==
LOC: ED 09:39
DX: F41.9 Anxiety disorder, unspecified (principal); I10 Essential (primary) hypertension; M19.90 Unspecified osteoarthritis, unspecified site; F03.90 Unspecified dementia, unspecified severity, without behavioral disturbance, psychotic disturbance, mood disturbance, and anxiety; E03.9 Hypothyroidism, unspecified; Z86.73 Personal history of transient ischemic attack (TIA), and cerebral infarction without residual deficits; Z98.890 Other specified postprocedural states; Z90.49 Acquired absence of other specified parts of digestive tract; Z79.899 Other long term (current) drug therapy; Z88.8 Allergy status to other drugs, medicaments and biological substances; Z88.5 Allergy status to narcotic agent

== ENCOUNTER 2018-12-14 03:52 | Emergency (ER) | payer MEDICARE ==
[2018-12-14] MEDS ORDERED: KETOROLAC 30 MG/1 ML INJ IM ONE (05:02)
--- NOTE | 2018-12-14 05:43 | XRay Report ---
LUMBAR SPINE 3 VIEWS INDICATION / CLINICAL INFORMATION: low back pain. COMPARISON: None available. FINDINGS: VERTEBRAE: No acute fracture. No significant malalignment. DISC SPACES / FACET JOINTS:Mild discogenic spondylosis at L4-5 and L5-S1. PARASPINAL SOFT TISSUES:No significant abnormality. ADDITIONAL FINDINGS: None. Signer Name: Christy Zepeda MD Signed: 12/14/2018 5:39 AM Workstation Name: [id number]
[2018-12-14 05:48] VITALS: BP 126/79
--- NOTE | 2018-12-14 05:54 | Emergency Department Report ---
ED General Adult HPI - General Chief complaint: Pain General Stated complaint: RT HIP PAIN Time Seen by Provider: 12/14/18 04:50 Source: patient, EMS Mode of arrival: Wheelchair Limitations: No Limitations - History of Present Illness Initial comments: pt is a 73 y/o aaf who present for low back pain , pt has hx of same with intermittent flares. pt denies fall injury or trauma. states 5/10 low back woke her up this evening. pt states out ultram. pt denies dysuria or frequency no urgenc or hematuria. There is no weakness no numbness or tingling , no loss or decrease in bowel or bladder function. Onset/Timin -: days(s) Location: back Radiation: non-radiation Severity scale (0 -10): 5 Quality: aching Consistency: constant Improves with: none Worsens with: movement Associated Symptoms: denies other symptoms. denies: fever/chills, malaise, nausea/vomiting, weakness Treatments Prior to Arrival: none - Related Data Home Medications Medication Instructions Recorded Confirmed Last Taken Mirtazapine [Remeron] 45 mg PO QHS 08/03/06/09/18 Unknown Calcitriol [Rocaltrol] 0.25 mcg PO DAILY 05/19/18 06/09/18 Unknown hydrOXYzine PAMOATE [Vistaril] 50 mg PO DAILY@2100 05/19/18 06/09/18 Unknown predniSONE [Prednisone] 5 mg PO QDAY 05/19/18 06/09/18 Unknown Previous Rx's Medication Instructions Recorded Last Taken Type Sertraline HCl [Zoloft] 50 mg PO DAILY #30 tablet 03/26/18 Unknown Rx Solifenacin Succinate (Nf) 10 mg PO DAILY #30 tablet 03/26/18 Unknown Rx [Vesicare (Nf)] Aspirin 325 mg PO QDAY #30 tablet 06/12/18 Unknown Rx AtorvaSTATin [Lipitor] 40 mg PO QHS #30 tablet 06/12/18 Unknown Rx Carvedilol [Coreg] 25 mg PO BID #60 tablet 06/12/18 Unknown Rx Clopidogrel [Plavix] 75 mg PO QDAY #30 tablet 06/12/18 Unknown Rx Levothyroxine [Synthroid] 50 mcg PO QAM #30 tablet 06/12/18 Unknown Rx Mirtazapine [Remeron 15mg TAB] 45 mg PO QHS tablet 06/12/18 Unknown Rx Pantoprazole [Protonix TAB] 40 mg PO BID #30 tablet 06/12/18 Unknown Rx amLODIPine 5 mg PO QDAY #30 tablet 06/12/18 Unknown Rx lamoTRIgine [LaMICtal] 25 mg PO BID #30 tablet 06/12/18 Unknown Rx Acetaminophen [Non-Aspirin Extra 500 mg PO Q6HR PRN #30 tablet 08/02/18 Unknown Rx Strength] Chlorhexidine Mouthwash [Peridex] 15 ml MM BID #1 bottle 08/02/18 Unknown Rx Permethrin 5% [Acticin 5% CREAM] 1 applicatio TP ONCE #2 tube 08/02/18 Unknown Rx DOXYCYCLINE Hyclate [Vibramycin 100 mg PO Q12HR #14 capsule 08/07/18 Unknown Rx CAP] metroNIDAZOLE [Flagyl] 500 mg PO Q12HR #14 tab 08/07/18 Unknown Rx traMADol [Ultram] 50 mg PO Q6HR PRN #12 tablet 08/07/18 Unknown Rx cephALEXin [Keflex] 500 mg PO Q12HR #10 cap 09/14/18 Unknown Rx traMADol [Ultram 50 MG tab] 50 mg PO Q6HR PRN #10 tablet 09/14/18 Unknown Rx traMADol [Ultram] 50 mg PO Q8H PRN #9 tablet 12/14/18 Unknown Rx Allergies Allergy/AdvReac Type Severity Reaction Status Date / Time acetaminophen Allergy Unknown Verified 08/07/18 12:58 [From Tylenol-Codeine #3] captopril Allergy Rash Verified 05/19/18 12:50 clindamycin Allergy Diarrhea Verified 05/19/18 12:50 codeine Allergy Unknown Verified 08/07/18 12:58 [From Tylenol-Codeine #3] NSAIDS (Non-Steroidal Allergy Rash Verified 05/19/18 12:50 Anti-Inflamma Penicillins Allergy Rash Verified 05/19/18 12:50 Sulfa (Sulfonamide Allergy Rash Verified 05/19/18 12:50 Antibiotics) ED Review of Systems ROS: Stated complaint: RT HIP PAIN Other details as noted in HPI Constitutional: denies: chills, fever Eyes: denies: eye pain, eye discharge, vision change ENT: denies: ear pain, throat pain Respiratory: denies: cough, shortness of breath, wheezing Cardiovascular: denies: chest pain, palpitations Endocrine: no symptoms reported Gastrointestinal: denies: abdominal pain, nausea, diarrhea Genitourinary: denies: urgency, dysuria, discharge Musculoskeletal: back pain, arthralgia Skin: denies: rash, lesions Neurological: denies: headache, weakness, numbness, paresthesias, vertigo Psychiatric: denies: anxiety, depression Hematological/Lymphatic: denies: easy bleeding, easy bruising ED Past Medical Hx - Past Medical History Hx Hypertension: Yes Hx CVA: Yes (07/07/14) Hx Heart Attack/AMI: No Hx Congestive Heart Failure: No Hx Diabetes: No Hx Deep Vein Thrombosis: No Hx Pulmonary Embolism: No Hx GERD: No Hx Liver Disease: No Hx Renal Disease: Yes (Stage III renal dx) Hx Sickle Cell Disease: No Hx Arthritis: Yes Hx Headaches / Migraines: No Hx Seizures: No Hx Kidney Stones: No Hx Psychiatric Treatment: Yes (Depression) Hx Asthma: No Hx COPD: No Hx Tuberculosis: No Hx Dementia: Yes (takes aricept) Hx HIV: No Additional medical history: 3 herniated discs. LUPUS. hypothyroid. Lung Nodules 01/2018 - Surgical History Hx Coronary Stent: No Hx Open Heart Surgery: No Hx Pacemaker: No Hx Internal Defibrillator: No Hx Cholecystectomy: Yes Hx Appendectomy: Yes Hx Breast Surgery: No Additional Surgical History: vein stripping. oral surgery 07/31/18 - Social History Smoking Status: Former Smoker Substance Use Type: None - Medications Home Medications: Home Medications Medication Instructions Recorded Confirmed Last Taken Type Mirtazapine [Remeron] 45 mg PO QHS 08/04/15 06/09/18 Unknown History Sertraline HCl [Zoloft] 50 mg PO DAILY #30 tablet 03/26/18 06/09/18 Unknown Rx Solifenacin Succinate (Nf) 10 mg PO DAILY #30 tablet 03/26/18 06/09/18 Unknown Rx [Vesicare (Nf)] Calcitriol [Rocaltrol] 0.25 mcg PO DAILY 05/19/18 06/09/18 Unknown History hydrOXYzine PAMOATE [Vistaril] 50 mg PO DAILY@2100 05/19/18 06/09/18 Unknown History predniSONE [Prednisone] 5 mg PO QDAY 05/19/18 06/09/18 Unknown History Aspirin 325 mg PO QDAY #30 tablet 06/12/18 Unknown Rx AtorvaSTATin [Lipitor] 40 mg PO QHS #30 tablet 06/12/18 Unknown Rx Carvedilol [Coreg] 25 mg PO BID #60 tablet 06/12/18 Unknown Rx Clopidogrel [Plavix] 75 mg PO QDAY #30 tablet 06/12/18 Unknown Rx Levothyroxine [Synthroid] 50 mcg PO QAM #30 tablet 06/12/18 Unknown Rx Mirtazapine [Remeron 15mg TAB] 45 mg PO QHS tablet 06/12/18 Unknown Rx Pantoprazole [Protonix TAB] 40 mg PO BID #30 tablet 06/12/18 Unknown Rx amLODIPine 5 mg PO QDAY #30 tablet 06/12/18 Unknown Rx lamoTRIgine [LaMICtal] 25 mg PO BID #30 tablet 06/12/18 Unknown Rx Acetaminophen [Non-Aspirin Extra 500 mg PO Q6HR PRN #30 tablet 08/02/18 Unknown Rx Strength] Chlorhexidine Mouthwash [Peridex] 15 ml MM BID #1 bottle 08/02/18 Unknown Rx Permethrin 5% [Acticin 5% CREAM] 1 applicatio TP ONCE #2 tube 08/02/18 Unknown Rx DOXYCYCLINE Hyclate [Vibramycin 100 mg PO Q12HR #14 capsule 08/07/18 Unknown Rx CAP] metroNIDAZOLE [Flagyl] 500 mg PO Q12HR #14 tab 08/07/18 Unknown Rx traMADol [Ultram] 50 mg PO Q6HR PRN #12 tablet 08/07/18 Unknown Rx cephALEXin [Keflex] 500 mg PO Q12HR #10 cap 09/14/18 Unknown Rx traMADol [Ultram 50 MG tab] 50 mg PO Q6HR PRN #10 tablet 09/14/18 Unknown Rx traMADol [Ultram] 50 mg PO Q8H PRN #9 tablet 12/14/18 Unknown Rx ED Physical Exam - General Limitations: No Limitations General appearance: alert, in no apparent distress - Head Head exam: Present: atraumatic, normocephalic - Eye Eye exam: Present: normal appearance, PERRL, EOMI Pupils: Present: normal accommodation - ENT ENT exam: Present: mucous membranes moist - Neck Neck exam: Present: normal inspection, full ROM - Respiratory Respiratory exam: Present: normal lung sounds bilaterally. Absent: respiratory distress, wheezes, stridor, chest wall tenderness - Cardiovascular Cardiovascular Exam: Present: regular rate, normal rhythm. Absent: systolic murmur, diastolic murmur, rubs, gallop - GI/Abdominal GI/Abdominal exam: Present: soft, normal bowel sounds - Rectal Rectal exam: Present: deferred - Extremities Exam Extremities exam: Present: normal inspection, full ROM, normal capillary refill. Absent: tenderness - Back Exam Back exam: Present: normal inspection, full ROM, muscle spasm. Absent: tenderness, CVA tenderness (R), CVA tenderness (L), paraspinal tenderness, vertebral tenderness, rash noted - Neurological Exam Neurological exam: Present: alert, oriented X3, CN II-XII intact, normal gait, reflexes normal. Absent: motor sensory deficit - Expanded Neurological Exam Expanded Patient oriented to: Present: person, place, time Speech: Present: fluid speech Upper motor neuron: Manny Neglect: Normal, Pronator Drift: Normal Motor strength exam: RUE: 5, LUE: 5, RLE: 5, LLE: 5 Best Eye Response ([place]): (4) open spontaneously Best Motor Response ([place]): (6) obeys commands Best Verbal Response ([place]): (5) oriented Priscilla Total: 15 - Psychiatric Psychiatric exam: Present: normal affect, normal mood - Skin Skin exam: Present: warm, dry, intact, normal color. Absent: rash ED Course Vital Signs 12/14/18 12/14/18 12/14/18 03:57 05:34 05:45 Temperature 98.9 F 98.2 F Pulse Rate 82 84 Respiratory 12 18 18 Rate Blood Pressure 122/65 Blood Pressure 126/79 [Left] O2 Sat by Pulse 100 96 Oximetry ED Medical Decision Making - Radiology Data Radiology results: report reviewed, image reviewed Ordering Physician: NORMA العلي NP Date of Service: 12/14/18 Procedure(s): XR spine lumbosacral 2-3V Accession Number(s): [id number] cc: NORMA العلي NP Fluoro Time In Minutes: LUMBAR SPINE 3 VIEWS INDICATION / CLINICAL INFORMATION: low back pain. COMPARISON: None available. FINDINGS: VERTEBRAE: No acute fracture. No significant malalignment. DISC SPACES / FACET JOINTS:Mild discogenic spondylosis at L4-5 and L5-S1. PARASPINAL SOFT TISSUES:No significant abnormality. ADDITIONAL FINDINGS: None. Signer Name: Christy Zepeda MD Signed: 12/14/2018 5:39 AM Workstation Name: [email or web address] Transcribed By: DT Dictated By: Brian Zepeda MD Electronically Authenticated By: Brian Zepeda MD Signed Date/Time: 12/14/18538 DD/ 7 TD/TT: - Medical Decision Making xray : no acute fracture , degenerative changes, plan short term ultram until pcp appoint pt's daughter to will call pcp today , pt states pain much improved with ketoralac im, pt ambulatory to baseline at this time. pt dc'd to home via pov and family member pt with nad at this time. Critical care attestation.: If time is entered above; I have spent that time in minutes in the direct care o f this critically ill patient, excluding procedure time. ED Disposition Clinical Impression: Low back strain Qualifiers: Encounter type: initial encounter Qualified Code(s): S39.012A - Strain of muscle, fascia and tendon of lower back, initial encounter Disposition: DC-01 TO HOME OR SELFCARE Is pt being admited?: No Does the pt Need Aspirin: No Condition: Stable Instructions: Low Back Strain (ED) Prescriptions: traMADol [Ultram] 50 mg PO Q8H PRN #9 tablet PRN Reason: pain Referrals: SHARRI DE LUNA MD [Referring] - 3-5 Days
[2018-12-14 06:14] LABS: Bacteria,Urine 1+ /HPF (Negative); Bilirubin,Urine NEG (Negative); Blood,Urine NEG (Negative); Color,Urine Yellow (Yellow); Mucus,Urine 1+ /HPF; Protein,Urine <15 mg/dL mg/dL (Negative); Urobilinogen,Urine < 2.0 mg/dL (<2.0)
== END 2018-12-14 06:04 | disposition home or self-care (01) ==
LOC: ED 03:52
DX: S39.012A Strain of muscle, fascia and tendon of lower back, initial encounter (principal); I10 Essential (primary) hypertension; M19.90 Unspecified osteoarthritis, unspecified site; F32.9 Major depressive disorder, single episode, unspecified; F03.90 Unspecified dementia, unspecified severity, without behavioral disturbance, psychotic disturbance, mood disturbance, and anxiety; Z90.89 Acquired absence of other organs; Z90.49 Acquired absence of other specified parts of digestive tract; Z87.891 Personal history of nicotine dependence; Z88.6 Allergy status to analgesic agent; Z88.1 Allergy status to other antibiotic agents; Z88.5 Allergy status to narcotic agent; Z88.8 Allergy status to other drugs, medicaments and biological substances; Z88.2 Allergy status to sulfonamides; X58.XXXA Exposure to other specified factors, initial encounter; Y93.89 Activity, other specified; Y92.89 Other specified places as the place of occurrence of the external cause; Y99.8 Other external cause status
CPT/HCPCS: 72100; 81001; 96372; 99284; J1885

== ENCOUNTER 2018-12-19 01:16 | Emergency (ER) | payer MEDICARE ==
[2018-12-19] MEDS ORDERED: SODIUM CHLORIDE 0.9% 500 ML 500 ML IV ONE (01:24)
--- NOTE | 2018-12-19 02:22 | XRay Report ---
CHEST 1 VIEW INDICATION / CLINICAL INFORMATION: possible Sepsis. COMPARISON: 08/02/2018 FINDINGS: SUPPORT DEVICES: None. HEART / MEDIASTINUM: No significant abnormality. LUNGS / PLEURA: Pulmonary vascularity appears mildly congested but I do not see overt interstitial pu lmonary edema. Interstitial markings are slightly prominent the right lung base. The appearance is mo re consistent with atelectasis rather than pneumonia. The remainder of the lungs are clear. No signif icant pleural effusion. No pneumothorax. ADDITIONAL FINDINGS: No significant additional findings. IMPRESSION: 1. Mild pulmonary vascular congestion. 2. Right basilar prominent interstitial markings. This is more likely atelectasis rather than pneumon ia. Signer Name: Richa Bello MD Signed: 12/19/2018 2:18 AM Workstation Name: [email or web address] [id number]
[2018-12-19 02:33] LABS: Albumin 3.5 g/dL (3.9-5); Calcium 8.7 mg/dL (8.4-10.2)
[2018-12-19 02:39] LABS: Basophils % (Auto) 0.2 % (0.0-1.8); Eosinophils % (Auto) 0.3 % (0.0-4.3); Hematocrit 34.1 % (30.3-42.9); Hemoglobin 10.7 gm/dl (10.1-14.3); Lymphocytes # (Auto) 1.9 K/mm3 (1.2-5.4); Lymphocytes % (Auto) 13.9 % (13.4-35.0); Mean Corpuscular HGB Conc 31 % (30-34); Mean Corpuscular Volume 74 fl (79-97); Monocytes # (Auto) 1.1 K/mm3 (0.0-0.8); Monocytes % (Auto) 7.8 % (0.0-7.3); Platelet Count 248 K/mm3 (140-440); Red Cell Distribution Width 16.8 % (13.2-15.2)
[2018-12-19 02:51] LABS: INR 1.11 (0.87-1.13)
[2018-12-19] MEDS ORDERED: levoFLOXacin 500 MG TAB PO ONE (03:09)
--- NOTE | 2018-12-19 04:07 | Emergency Department Report ---
ED Fever HPI - General Chief Complaint: Weakness Stated Complaint: FLU LIKE SYMPTOMS Time Seen by Provider: 12/19/18 02:57 - History of Present Illness Initial Comments: CC: "I just feel weak." HPI: Mrs. Gavin is a 73 yo female with hx of TIA, SLE, hypothyroidism, HLD, HTN, CKD who presents with several days of weakness, generalized. She has had nasal congestion and productive cough with yellow phlegm. No dysuria. +chronic back pain. PCP Dr. Brock Ward. She requests a walker to get around. +hx of tobacco abuse Timing/Duration: yesterday Fever Severity/Quality: subjective Associated Symptoms: cough, weakness ED Review of Systems ROS: Stated complaint: FLU LIKE SYMPTOMS Other details as noted in HPI Comment: All other systems reviewed and negative Constitutional: fever, malaise ENT: congestion Respiratory: cough. denies: shortness of breath, wheezing ED Past Medical Hx - Past Medical History Previous Medical History?: Yes Hx Hypertension: Yes Hx CVA: Yes (07/07/14) Hx Heart Attack/AMI: No Hx Congestive Heart Failure: No Hx Diabetes: No Hx Deep Vein Thrombosis: No Hx Pulmonary Embolism: No Hx GERD: No Hx Liver Disease: No Hx Renal Disease: Yes (Stage III renal dx) Hx Sickle Cell Disease: No Hx Arthritis: Yes Hx Headaches / Migraines: No Hx Seizures: No Hx Kidney Stones: No Hx Psychiatric Treatment: Yes (Depression) Hx Asthma: No Hx COPD: No Hx Tuberculosis: No Hx Dementia: Yes (takes aricept) Hx HIV: No Additional medical history: 3 herniated discs. LUPUS. hypothyroid. Lung Nodules 01/2018 - Surgical History Hx Coronary Stent: No Hx Open Heart Surgery: No Hx Pacemaker: No Hx Internal Defibrillator: No Hx Cholecystectomy: Yes Hx Appendectomy: Yes Hx Breast Surgery: No Additional Surgical History: vein stripping. oral surgery 07/31/18 - Social History Smoking Status: Current Every Day Smoker Substance Use Type: None - Medications Home Medications: Home Medications Medication Instructions Recorded Confirmed Last Taken Type Mirtazapine [Remeron] 45 mg PO QHS 08/04/15 06/09/18 Unknown History Sertraline HCl [Zoloft] 50 mg PO DAILY #30 tablet 03/26/18 06/09/18 Unknown Rx Solifenacin Succinate (Nf) 10 mg PO DAILY #30 tablet 03/26/18 06/09/18 Unknown Rx [Vesicare (Nf)] Calcitriol [Rocaltrol] 0.25 mcg PO DAILY 05/19/18 06/09/18 Unknown History hydrOXYzine PAMOATE [Vistaril] 50 mg PO DAILY@2100 05/19/18 06/09/18 Unknown History predniSONE [Prednisone] 5 mg PO QDAY 05/19/18 06/09/18 Unknown History Aspirin 325 mg PO QDAY #30 tablet 06/12/18 Unknown Rx AtorvaSTATin [Lipitor] 40 mg PO QHS #30 tablet 06/12/18 Unknown Rx Carvedilol [Coreg] 25 mg PO BID #60 tablet 06/12/18 Unknown Rx Clopidogrel [Plavix] 75 mg PO QDAY #30 tablet 06/12/18 Unknown Rx Levothyroxine [Synthroid] 50 mcg PO QAM #30 tablet 06/12/18 Unknown Rx Mirtazapine [Remeron 15mg TAB] 45 mg PO QHS tablet 06/12/18 Unknown Rx Pantoprazole [Protonix TAB] 40 mg PO BID #30 tablet 06/12/18 Unknown Rx amLODIPine 5 mg PO QDAY #30 tablet 06/12/18 Unknown Rx lamoTRIgine [LaMICtal] 25 mg PO BID #30 tablet 06/12/18 Unknown Rx Acetaminophen [Non-Aspirin Extra 500 mg PO Q6HR PRN #30 tablet 08/02/18 Unknown Rx Strength] Chlorhexidine Mouthwash [Peridex] 15 ml MM BID #1 bottle 08/02/18 Unknown Rx Permethrin 5% [Acticin 5% CREAM] 1 applicatio TP ONCE #2 tube 08/02/18 Unknown Rx DOXYCYCLINE Hyclate [Vibramycin 100 mg PO Q12HR #14 capsule 08/07/18 Unknown Rx CAP] metroNIDAZOLE [Flagyl] 500 mg PO Q12HR #14 tab 08/07/18 Unknown Rx traMADol [Ultram] 50 mg PO Q6HR PRN #12 tablet 08/07/18 Unknown Rx cephALEXin [Keflex] 500 mg PO Q12HR #10 cap 09/14/18 Unknown Rx traMADol [Ultram 50 MG tab] 50 mg PO Q6HR PRN #10 tablet 09/14/18 Unknown Rx traMADol [Ultram] 50 mg PO Q8H PRN #9 tablet 12/14/18 Unknown Rx levoFLOXacin [Levaquin TAB] 500 mg PO QDAY 7 Days #7 tablet 12/19/18 Unknown Rx ED Physical Exam - General Limitations: No Limitations General appearance: alert, in no apparent distress, other (appears well insightful articulate) - Head Head exam: Present: atraumatic, normocephalic - Eye Eye exam: Present: normal appearance - ENT ENT exam: Present: mucous membranes moist, other (mucus in both nostrils) - Neck Neck exam: Present: normal inspection, full ROM - Respiratory Respiratory exam: Present: normal lung sounds bilaterally. Absent: respiratory distress, wheezes, rales, rhonchi - Cardiovascular Cardiovascular Exam: Present: regular rate, normal rhythm, normal heart sounds. Absent: rubs, gallop - GI/Abdominal GI/Abdominal exam: Present: soft, normal bowel sounds. Absent: distended, tenderness, guarding, rebound - Extremities Exam Extremities exam: Present: normal inspection - Neurological Exam Neurological exam: Present: alert, oriented X3 - Psychiatric Psychiatric exam: Present: normal affect, normal mood - Skin Skin exam: Present: warm, dry, intact, normal color. Absent: rash ED Course Vital Signs 12/19/18 12/19/18 01:19 01:21 Temperature 102.6 F H 102.6 F H Pulse Rate 94 H 93 H Respiratory 18 18 Rate Blood Pressure 154/84 152/84 O2 Sat by Pulse 96 95 Oximetry ED Medical Decision Making - Lab Data Result diagrams: 12/19/18 01:33 12/19/18 01:33 Laboratory Results - last 24 hr 12/19/18 12/19/18 12/19/18 01:33 01:33 01:33 WBC 13.7 H RBC 4.60 Hgb 10.7 Hct 34.1 MCV 74 L MCH 23 L MCHC 31 RDW 16.8 H Plt Count 248 Lymph % (Auto) 13.9 [place] % (Auto) 7.8 H Eos % (Auto) 0.3 Baso % (Auto) 0.2 Lymph # 1.9 [place] # 1.1 H Eos # 0.0 Baso # 0.0 Seg Neutrophils % 77.8 H Seg Neutrophils # 10.6 H PT 14.2 INR 1.11 VBG pH Sodium 140 Potassium 3.4 L Chloride 104.7 Carbon Dioxide 24 Anion Gap 15 BUN 17 Creatinine 1.2 Estimated GFR 53 BUN/Creatinine Ratio 14 Glucose 88 Lactic Acid Calcium 8.7 Total Bilirubin 0.50 AST 23 ALT 47 Alkaline Phosphatase 77 Total Protein 7.0 Albumin 3.5 L Albumin/Globulin Ratio 1.0 12/19/18 12/19/18 01:33 01:33 WBC RBC Hgb Hct MCV MCH MCHC RDW Plt Count Lymph % (Auto) [place] % (Auto) Eos % (Auto) Baso % (Auto) Lymph # [place] # Eos # Baso # Seg Neutrophils % Seg Neutrophils # PT INR VBG pH 7.377 Sodium Potassium Chloride Carbon Dioxide Anion Gap BUN Creatinine Estimated GFR BUN/Creatinine Ratio Glucose Lactic Acid 0.80 Calcium Total Bilirubin AST ALT Alkaline Phosphatase Total Protein Albumin Albumin/Globulin Ratio - EKG Data EKG shows normal: sinus rhythm, axis, intervals, QRS complexes, ST-T waves Rate: normal - EKG Data Interpretation: no acute changes, normal EKG - Radiology Data Radiology results: report reviewed Chest radiographs one view according to radiology impression: Mild pulmonary vascular congestion, right basilar prominent interstitium markings more likely atelectasis rather than pneumonia - Medical Decision Making Mrs. Gavin presents with fever generalized weakness. Blood cultures obtained Normal lactic acid. Elevated WBC. Equivocal chest radiographs findings. Will treat for acute bronchitis with Levaquin. It was difficult to obtain UA sample. Mrs. Gavin desired to be discharged prior to UA results. On gross examination, urine is cloudy. UTI will be covered with levaquin although resistance is possible Critical care attestation.: If time is entered above; I have spent that time in minutes in the direct care of this critically ill patient, excluding procedure time. ED Disposition Clinical Impression: Acute bronchitis, URI (upper respiratory infection), Fever Disposition: TO HOME OR SELFCARE Is pt being admited?: No Does the pt Need Aspirin: No Condition: Stable Instructions: Acute Bronchitis (ED) Prescriptions: levoFLOXacin [Levaquin TAB] 500 mg PO QDAY 7 Days #7 tablet Referrals: BROCK WARD MD [Staff Physician] - 2-3 Days
[2018-12-19 05:43] LABS: Bilirubin,Urine NEG (Negative); Blood,Urine SM (Negative); Color,Urine Yellow (Yellow); Mucus,Urine FEW /HPF; Protein,Urine <15 mg/dL mg/dL (Negative); Urobilinogen,Urine < 2.0 mg/dL (<2.0)
[2018-12-19 05:57] VITALS: BP 155/78
== END 2018-12-19 05:56 | disposition home or self-care (01) ==
LOC: ED 01:16
DX: J20.9 Acute bronchitis, unspecified (principal); J06.9 Acute upper respiratory infection, unspecified; I12.9 Hypertensive chronic kidney disease with stage 1 through stage 4 chronic kidney disease, or unspecified chronic kidney disease; N18.3 Chronic kidney disease, stage 3 (moderate); F32.9 Major depressive disorder, single episode, unspecified; M19.90 Unspecified osteoarthritis, unspecified site; F17.200 Nicotine dependence, unspecified, uncomplicated; E78.5 Hyperlipidemia, unspecified; E03.9 Hypothyroidism, unspecified; M32.9 Systemic lupus erythematosus, unspecified; M54.9 Dorsalgia, unspecified; G89.29 Other chronic pain; Z88.1 Allergy status to other antibiotic agents; Z88.5 Allergy status to narcotic agent; Z88.8 Allergy status to other drugs, medicaments and biological substances; Z86.73 Personal history of transient ischemic attack (TIA), and cerebral infarction without residual deficits; Z90.49 Acquired absence of other specified parts of digestive tract; Z98.890 Other specified postprocedural states
CPT/HCPCS: 36415; 71045; 80053; 81001; 82140; 82805; 85025; 85610; 87040; 87086; 93005; 93010; 99285; J7040

== ENCOUNTER 2019-01-03 11:44 | Outpatient (CLI) | payer MEDICARE ==
[2019-01-03 12:42] LABS: Hematocrit 35.7 % (30.3-42.9); Hemoglobin 11.1 gm/dl (10.1-14.3); Mean Corpuscular HGB Conc 31 % (30-34); Mean Corpuscular Volume 75 fl (79-97); Platelet Count 250 K/mm3 (140-440); Red Blood Count 4.79 M/mm3 (3.65-5.03); Red Cell Distribution Width 16.9 % (13.2-15.2)
[2019-01-03 12:56] LABS: Creatinine,Urine 74.2 mg/dL (0.1-20.0); Protein/Creatinine Ratio,Urine 0.32
[2019-01-03 13:12] LABS: Albumin 3.9 g/dL (3.9-5); C-Reactive Protein 0.4 mg/dL (0.00-1.30); Calcium 9.6 mg/dL (8.4-10.2)
[2019-01-06 12:54] LABS: Vitamin D, 25-OH, D2 29 ng/mL
[2019-01-09 13:28] LABS: ANA Screen, IFA Positive (Negative)
== END 2019-01-03 11:45 | disposition home or self-care (01) ==
LOC: LAB 11:44
PROVIDERS: ATTEND Internal Medicine
DX: I12.9 Hypertensive chronic kidney disease with stage 1 through stage 4 chronic kidney disease, or unspecified chronic kidney disease (principal); N18.3 Chronic kidney disease, stage 3 (moderate); E78.00 Pure hypercholesterolemia, unspecified; E03.9 Hypothyroidism, unspecified; F17.200 Nicotine dependence, unspecified, uncomplicated; Z90.49 Acquired absence of other specified parts of digestive tract
CPT/HCPCS: 36415; 80053; 82040; 82306; 82570; 84100; 84156; 85027; 86038; 86140; 86225

== ENCOUNTER 2019-01-08 10:01 | Outpatient (CLI) | payer MEDICARE | END 2019-01-08 10:02 | disposition home or self-care (01) | LOC: LAB 10:01 | PROVIDERS: ATTEND Internal Medicine Rheumatology | DX: M06.4 Inflammatory polyarthropathy (principal); N32.89 Other specified disorders of bladder | CPT/HCPCS: 84156 ==

== ENCOUNTER 2019-01-11 10:28 | Emergency (ER) | payer MEDICARE ==
--- NOTE | 2019-01-11 11:49 | Emergency Department Report ---
ED General Adult HPI - General Chief complaint: Extremity Injury, Upper Stated complaint: LFT ARM/LFT SHOULDER PAIN Time Seen by Provider: 01/11/19 11:38 Source: patient Mode of arrival: Ambulatory Limitations: No Limitations - History of Present Illness Initial comments: Patient is 73 years old female with history of hypertension, CVA, arthritis and cervical radiculopathy. Patient presented to the ER complaining of left arm and left shoulder pain for the last 3 days. Patient stated that pain increase with movement of her left arm. Patient denied any chest pain or shortness of breath. Patient also denied any fever or chills. Patient stated that she was recently diagnosed with bronchitis and she is taking antibiotic. Patient was admitted in June for stroke workup and patient had an MRI of the neck which she showed C6 impingement syndrome with radiculopathy. - Related Data Home Medications Medication Instructions Recorded Confirmed Last Taken Mirtazapine [Remeron] 45 mg PO QHS 08/04/15 06/09/18 Unknown Calcitriol [Rocaltrol] 0.25 mcg PO DAILY 05/19/18 06/09/18 Unknown hydrOXYzine PAMOATE [Vistaril] 50 mg PO DAILY@2100 05/19/18 06/09/18 Unknown predniSONE [Prednisone] 5 mg PO QDAY 05/19/18 06/09/18 Unknown Previous Rx's Medication Instructions Recorded Last Taken Type Sertraline HCl [Zoloft] 50 mg PO DAILY #30 tablet 03/26/18 Unknown Rx Solifenacin Succinate (Nf) 10 mg PO DAILY #30 tablet 03/26/18 Unknown Rx [Vesicare (Nf)] Aspirin 325 mg PO QDAY #30 tablet 06/12/18 Unknown Rx AtorvaSTATin [Lipitor] 40 mg PO QHS #30 tablet 06/12/18 Unknown Rx Clopidogrel [Plavix] 75 mg PO QDAY #30 tablet 06/12/18 Unknown Rx Levothyroxine [Synthroid] 50 mcg PO QAM #30 tablet 06/12/18 Unknown Rx Mirtazapine [Remeron 15mg TAB] 45 mg PO QHS tablet 06/12/18 Unknown Rx Pantoprazole [Protonix TAB] 40 mg PO BID #30 tablet 06/12/18 Unknown Rx amLODIPine 5 mg PO QDAY #30 tablet 06/12/18 Unknown Rx carvediloL [Coreg] 25 mg PO BID #60 tablet 06/12/18 Unknown Rx lamoTRIgine [LaMICtal] 25 mg PO BID #30 tablet 06/12/18 Unknown Rx Acetaminophen [Non-Aspirin Extra 500 mg PO Q6HR PRN #30 tablet 08/02/18 Unknown Rx Strength] Chlorhexidine Mouthwash [Peridex] 15 ml MM BID #1 bottle 08/02/18 Unknown Rx Permethrin 5% [Acticin 5% CREAM] 1 applicatio TP ONCE #2 tube 08/02/18 Unknown Rx DOXYCYCLINE Hyclate [Vibramycin 100 mg PO Q12HR #14 capsule 08/07/18 Unknown Rx CAP] metroNIDAZOLE [Flagyl] 500 mg PO Q12HR #14 tab 08/07/18 Unknown Rx traMADoL [Ultram] 50 mg PO Q6HR PRN #12 tablet 08/07/18 Unknown Rx cephALEXin [Keflex] 500 mg PO Q12HR #10 cap 09/14/18 Unknown Rx traMADoL [Ultram 50 MG tab] 50 mg PO Q6HR PRN #10 tablet 09/14/18 Unknown Rx traMADoL [Ultram] 50 mg PO Q8H PRN #9 tablet 12/14/18 Unknown Rx levoFLOXacin [Levaquin TAB] 500 mg PO QDAY 7 Days #7 tablet 12/19/18 Unknown Rx Allergies Allergy/AdvReac Type Severity Reaction Status Date / Time acetaminophen Allergy Unknown Verified 08/07/18 12:58 [From Tylenol-Codeine #3] captopril Allergy Rash Verified 05/19/18 12:50 clindamycin Allergy Diarrhea Verified 05/19/18 12:50 codeine Allergy Unknown Verified 08/07/18 12:58 [From Tylenol-Codeine #3] NSAIDS (Non-Steroidal Allergy Rash Verified 05/19/18 12:50 Anti-Inflamma Penicillins Allergy Rash Verified 05/19/18 12:50 Sulfa (Sulfonamide Allergy Rash Verified 05/19/18 12:50 Antibiotics) ED Review of Systems ROS: Stated complaint: LFT ARM/LFT SHOULDER PAIN Other details as noted in HPI Comment: All other systems reviewed and negative Constitutional: denies: chills, fever Respiratory: denies: cough, shortness of breath, SOB with exertion, wheezing Cardiovascular: denies: chest pain, palpitations, dyspnea on exertion Gastrointestinal: denies: abdominal pain, nausea, vomiting, diarrhea, constipation, hematemesis, melena, hematochezia Musculoskeletal: denies: back pain Neurological: denies: headache, weakness ED Past Medical Hx - Past Medical History Previous Medical History?: Yes Hx Hypertension: Yes Hx CVA: Yes (07/07/14) Hx Heart Attack/AMI: No Hx Congestive Heart Failure: No Hx Diabetes: No Hx Deep Vein Thrombosis: No Hx Pulmonary Embolism: No Hx GERD: No Hx Liver Disease: No Hx Renal Disease: Yes (Stage III renal dx) Hx Sickle Cell Disease: No Hx Arthritis: Yes Hx Headaches / Migraines: No Hx Seizures: No Hx Kidney Stones: No Hx Psychiatric Treatment: Yes (Depression) Hx Asthma: No Hx COPD: No Hx Tuberculosis: No Hx Dementia: Yes (takes aricept) Hx HIV: No Additional medical history: 3 herniated discs. LUPUS. hypothyroid. Lung Nodules 01/2018 - Surgical History Past Surgical History?: Yes Hx Coronary Stent: No Hx Open Heart Surgery: No Hx Pacemaker: No Hx Internal Defibrillator: No Hx Cholecystectomy: Yes Hx Appendectomy: Yes Hx Breast Surgery: No Additional Surgical History: vein stripping. oral surgery 07/31/18 - Social History Smoking Status: Former Smoker - Medications Home Medications: Home Medications Medication Instructions Recorded Confirmed Last Taken Type Mirtazapine [Remeron] 45 mg PO QHS 08/04/15 06/09/18 Unknown History Sertraline HCl [Zoloft] 50 mg PO DAILY #30 tablet 03/26/18 06/09/18 Unknown Rx Solifenacin Succinate (Nf) 10 mg PO DAILY #30 tablet 03/26/18 06/09/18 Unknown Rx [Vesicare (Nf)] Calcitriol [Rocaltrol] 0.25 mcg PO DAILY 05/19/18 06/09/18 Unknown History hydrOXYzine PAMOATE [Vistaril] 50 mg PO DAILY@2100 05/19/18 06/09/18 Unknown History predniSONE [Prednisone] 5 mg PO QDAY 05/19/18 06/09/18 Unknown History Aspirin 325 mg PO QDAY #30 tablet 06/12/18 Unknown Rx AtorvaSTATin [Lipitor] 40 mg PO QHS #30 tablet 06/12/18 Unknown Rx Clopidogrel [Plavix] 75 mg PO QDAY #30 tablet 06/12/18 Unknown Rx Levothyroxine [Synthroid] 50 mcg PO QAM #30 tablet 06/12/18 Unknown Rx Mirtazapine [Remeron 15mg TAB] 45 mg PO QHS tablet 06/12/18 Unknown Rx Pantoprazole [Protonix TAB] 40 mg PO BID #30 tablet 06/12/18 Unknown Rx amLODIPine 5 mg PO QDAY #30 tablet 06/12/18 Unknown Rx carvediloL [Coreg] 25 mg PO BID #60 tablet 06/12/18 Unknown Rx lamoTRIgine [LaMICtal] 25 mg PO BID #30 tablet 06/12/18 Unknown Rx Acetaminophen [Non-Aspirin Extra 500 mg PO Q6HR PRN #30 tablet 08/02/18 Unknown Rx Strength] Chlorhexidine Mouthwash [Peridex] 15 ml MM BID #1 bottle 08/02/18 Unknown Rx Permethrin 5% [Acticin 5% CREAM] 1 applicatio TP ONCE #2 tube 08/02/18 Unknown Rx DOXYCYCLINE Hyclate [Vibramycin 100 mg PO Q12HR #14 capsule 08/07/18 Unknown Rx CAP] metroNIDAZOLE [Flagyl] 500 mg PO Q12HR #14 tab 08/07/18 Unknown Rx traMADoL [Ultram] 50 mg PO Q6HR PRN #12 tablet 08/07/18 Unknown Rx cephALEXin [Keflex] 500 mg PO Q12HR #10 cap 09/14/18 Unknown Rx traMADoL [Ultram 50 MG tab] 50 mg PO Q6HR PRN #10 tablet 09/14/18 Unknown Rx traMADoL [Ultram] 50 mg PO Q8H PRN #9 tablet 12/14/18 Unknown Rx levoFLOXacin [Levaquin TAB] 500 mg PO QDAY 7 Days #7 tablet 12/19/18 Unknown Rx ED Physical Exam - General Limitations: No Limitations General appearance: alert, in no apparent distress - Head Head exam: Present: atraumatic, normocephalic, normal inspection - Eye Eye exam: Present: normal appearance - ENT ENT exam: Present: normal exam, normal orophraynx, mucous membranes moist - Neck Neck exam: Present: normal inspection, full ROM. Absent: tenderness, meningismus, lymphadenopathy, thyromegaly - Respiratory Respiratory exam: Present: normal lung sounds bilaterally, chest wall tenderness. Absent: respiratory distress, wheezes, rales, rhonchi, accessory muscle use, decreased breath sounds, prolonged expiratory - Cardiovascular Cardiovascular Exam: Present: regular rate, normal rhythm, normal heart sounds - GI/Abdominal GI/Abdominal exam: Present: soft, normal bowel sounds. Absent: distended, tenderness, guarding, rebound, rigid, organomegaly, mass, bruit, pulsatile mass, hernia - Extremities Exam Extremities exam: Present: normal inspection, full ROM, normal capillary refill. Absent: pedal edema, calf tenderness - Back Exam Back exam: Present: normal inspection, full ROM. Absent: CVA tenderness (R), CVA tenderness (L), muscle spasm, paraspinal tenderness, vertebral tenderness - Neurological Exam Neurological exam: Present: alert, oriented X3, CN II-XII intact, normal gait, reflexes normal - Psychiatric Psychiatric exam: Present: normal mood - Skin Skin exam: Present: warm, intact, normal color ED Course Vital Signs 01/11/19 01/11/19 01/11/19 10:33 12:53 13:00 Temperature 98 F Pulse Rate 93 H 88 Respiratory 17 17 26 H Rate Blood Pressure 140/92 O2 Sat by Pulse 100 100 99 Oximetry 01/11/19 01/11/19 01/11/19 13:30 14:00 14:30 Temperature Pulse Rate 86 84 85 Respiratory 20 23 34 H Rate Blood Pressure 143/82 156/85 146/98 O2 Sat by Pulse 97 100 Oximetry ED Medical Decision Making - Lab Data Result diagrams: 01/11/19 13:20 01/11/19 13:20 - EKG Data -: EKG Interpreted by Ak EKG shows normal: sinus rhythm Rate: normal - EKG Data Interpretation: no acute changes - Radiology Data Radiology results: report reviewed - Medical Decision Making Patient is 73 years old female with history of hypertension, CVA, arthritis and cervical radiculopathy. Patient presented to the ER complaining of left arm and left shoulder pain for the last 3 days. Patient stated that pain increase with movement of her left arm. Patient denied any chest pain or shortness of breath. Patient also denied any fever or chills. Patient stated that she was recently diagnosed with bronchitis and she is taking antibiotic. Patient was admitted in June for stroke workup and patient had an MRI of the neck which she showed C6 impingement syndrome with radiculopathy. EKG is unremarkable. Chest x-ray is negative for acute finding. Labs reviewed and is unremarkable including a negative troponin. Symptoms resolved with Toradol IM. Patient advised to follow-up with her primary care physician in the next 2-3 days and to return to the ER if symptoms are not improved. Critical care attestation.: If time is entered above; I have spent that time in minutes in the direct care of this critically ill patient, excluding procedure time. ED Disposition Clinical Impression: Left arm pain Disposition: DC- TO HOME OR SELFCARE Is pt being admited?: No Condition: Stable Instructions: Cervical Radiculopathy (ED) Referrals: ELOINA WARD MD [Primary Care Provider] - 3-5 Days
--- NOTE | 2019-01-11 13:20 | XRay Report ---
CHEST 1 VIEW INDICATION: chest pain. COMPARISON: 12/19/2018 FINDINGS: Support devices: None. Heart: Within normal limits. Pulmonary vasculature: Normal. Lungs/Pleura: Lungs are slightly underexpanded and clear. No airspace disease or pleural effusion. No pneumothorax. Additional findings: None. IMPRESSION: 1. No acute findings. Signer Name: Romario Bledsoe MD Signed: 01/11/2019 1:15 PM Workstation Name: [id number]
[2019-01-11 14:00] LABS: Basophils # (Auto) 0.1 K/mm3 (0.0-0.1); Basophils % (Auto) 1.1 % (0.0-1.8); Eosinophils # (Auto) 0.2 K/mm3 (0.0-0.4); Eosinophils % (Auto) 2.9 % (0.0-4.3); Hematocrit 36.9 % (30.3-42.9); Hemoglobin 11.8 gm/dl (10.1-14.3); Mean Corpuscular HGB Conc 32 % (30-34); Mean Corpuscular Volume 75 fl (79-97); Monocytes # (Auto) 0.7 K/mm3 (0.0-0.8); Monocytes % (Auto) 12.9 % (0.0-7.3); Platelet Count 186 K/mm3 (140-440); Red Blood Count 4.94 M/mm3 (3.65-5.03); Red Cell Distribution Width 17.3 % (13.2-15.2)
[2019-01-11] MEDS ORDERED: KETOROLAC 60 MG/2 ML INJ IM ONE (14:14)
[2019-01-11 14:18] LABS: BUN/Creatinine Ratio 16; Blood Urea Nitrogen 14 mg/dL (7-17); Calcium 9.4 mg/dL (8.4-10.2); Hemolysis Index 10
[2019-01-11 14:45] VITALS: BP 146/98
== END 2019-01-11 15:10 | disposition home or self-care (01) ==
LOC: ED 10:28
DX: M79.602 Pain in left arm (principal); I12.9 Hypertensive chronic kidney disease with stage 1 through stage 4 chronic kidney disease, or unspecified chronic kidney disease; N18.3 Chronic kidney disease, stage 3 (moderate); M19.90 Unspecified osteoarthritis, unspecified site; F32.9 Major depressive disorder, single episode, unspecified; F03.90 Unspecified dementia, unspecified severity, without behavioral disturbance, psychotic disturbance, mood disturbance, and anxiety; E03.9 Hypothyroidism, unspecified; Z86.73 Personal history of transient ischemic attack (TIA), and cerebral infarction without residual deficits; Z90.49 Acquired absence of other specified parts of digestive tract; Z98.890 Other specified postprocedural states; Z87.891 Personal history of nicotine dependence; Z79.899 Other long term (current) drug therapy; Z88.0 Allergy status to penicillin; Z88.2 Allergy status to sulfonamides; Z88.5 Allergy status to narcotic agent; Z88.6 Allergy status to analgesic agent; Z88.8 Allergy status to other drugs, medicaments and biological substances
CPT/HCPCS: 36415; 71045; 80048; 84484; 85025; 93005; 93010; 96372; 99283; J1885

== ENCOUNTER 2019-01-22 08:02 | Emergency (ER) | payer MEDICARE ==
[2019-01-22 08:14] VITALS: BP 163/97
--- NOTE | 2019-01-22 08:43 | Emergency Department Report ---
ED General Adult HPI - General Chief complaint: Upper Respiratory Infection Stated complaint: BODY ACHE/EYES RED Time Seen by Provider: 01/22/19 08:38 Source: patient Mode of arrival: Ambulatory Limitations: No Limitations - History of Present Illness Initial comments: Patient is a 73-year-old -Citizen Of [place] female with a past medical history hypertension early dementia so history renal disease and lupus who is presenting with body aches all over. Patient states she also has some eye redness. These symptoms are been present for the past 2 days. The patient denies cough, congestion and fevers chills or sore throat. Patient states she is having pain in her shoulders and knees and elbows and feet. She denies any swelling. Patient denies any trauma. Severity scale (0 -10): 8 Quality: aching Consistency: constant Worsens with: movement Associated Symptoms: denies: confusion, chest pain, cough, diaphoresis, fever/chills, headaches, loss of appetite, malaise, nausea/vomiting, rash, shortness of breath, syncope, weakness - Related Data Home Medications Medication Instructions Recorded Confirmed Last Taken Mirtazapine [Remeron] 45 mg PO QHS 08/04/15 06/09/18 Unknown Calcitriol [Rocaltrol] 0.25 mcg PO DAILY 05/19/18 06/09/18 Unknown hydrOXYzine PAMOATE [Vistaril] 50 mg PO DAILY@2100 05/19/18 06/09/18 Unknown predniSONE [Prednisone] 5 mg PO QDAY 05/19/18 06/09/18 Unknown Previous Rx's Medication Instructions Recorded Last Taken Type Sertraline HCl [Zoloft] 50 mg PO DAILY #30 tablet 03/26/18 Unknown Rx Solifenacin Succinate (Nf) 10 mg PO DAILY #30 tablet 03/26/18 Unknown Rx [Vesicare (Nf)] Aspirin 325 mg PO QDAY #30 tablet 06/12/18 Unknown Rx AtorvaSTATin [Lipitor] 40 mg PO QHS #30 tablet 06/12/18 Unknown Rx Clopidogrel [Plavix] 75 mg PO QDAY #30 tablet 06/12/18 Unknown Rx Levothyroxine [Synthroid] 50 mcg PO QAM #30 tablet 06/12/18 Unknown Rx Mirtazapine [Remeron 15mg TAB] 45 mg PO QHS tablet 06/12/18 Unknown Rx Pantoprazole [Protonix TAB] 40 mg PO BID #30 tablet 06/12/18 Unknown Rx amLODIPine 5 mg PO QDAY #30 tablet 06/12/18 Unknown Rx carvediloL [Coreg] 25 mg PO BID #60 tablet 06/12/18 Unknown Rx lamoTRIgine [LaMICtal] 25 mg PO BID #30 tablet 06/12/18 Unknown Rx Acetaminophen [Non-Aspirin Extra 500 mg PO Q6HR PRN #30 tablet 08/02/18 Unknown Rx Strength] Chlorhexidine Mouthwash [Peridex] 15 ml MM BID #1 bottle 08/02/18 Unknown Rx Permethrin 5% [Acticin 5% CREAM] 1 applicatio TP ONCE #2 tube 08/02/18 Unknown Rx DOXYCYCLINE Hyclate [Vibramycin 100 mg PO Q12HR #14 capsule 08/07/18 Unknown Rx CAP] metroNIDAZOLE [Flagyl] 500 mg PO Q12HR #14 tab 08/07/18 Unknown Rx traMADoL [Ultram] 50 mg PO Q6HR PRN #12 tablet 08/07/18 Unknown Rx cephALEXin [Keflex] 500 mg PO Q12HR #10 cap 09/14/18 Unknown Rx traMADoL [Ultram 50 MG tab] 50 mg PO Q6HR PRN #10 tablet 09/14/18 Unknown Rx traMADoL [Ultram] 50 mg PO Q8H PRN #9 tablet 12/14/18 Unknown Rx levoFLOXacin [Levaquin TAB] 500 mg PO QDAY 7 Days #7 tablet 12/19/18 Unknown Rx Ondansetron [Zofran Odt] 4 mg PO Q8HR PRN #14 tab.rapdis 01/11/19 Unknown Rx traMADoL [Ultram 50 MG tab] 50 mg PO Q4HR PRN #14 tablet 01/11/19 Unknown Rx Neomy/Polymyx B/Hc Opth Susp 1 drop OP Q6HR #1 bottle 01/22/19 Unknown Rx [Cortisporin (OPTH) Susp] predniSONE [Deltasone] 20 mg PO QDAY #5 tab 01/22/19 Unknown Rx traMADoL [Ultram] 50 mg PO Q6HR PRN #12 tablet 01/22/19 Unknown Rx Allergies Allergy/AdvReac Type Severity Reaction Status Date / Time acetaminophen Allergy Unknown Verified 08/07/18 12:58 [From Tylenol-Codeine #3] captopril Allergy Rash Verified 05/19/18 12:50 clindamycin Allergy Diarrhea Verified 05/19/18 12:50 codeine Allergy Unknown Verified 08/07/18 12:58 [From Tylenol-Codeine #3] NSAIDS (Non-Steroidal Allergy Rash Verified 05/19/18 12:50 Anti-Inflamma Penicillins Allergy Rash Verified 05/19/18 12:50 Sulfa (Sulfonamide Allergy Rash Verified 05/19/18 12:50 Antibiotics) ED Review of Systems ROS: Stated complaint: BODY ACHE/EYES RED Other details as noted in HPI Comment: All other systems reviewed and negative ED Past Medical Hx - Past Medical History Previous Medical History?: Yes Hx Hypertension: Yes Hx CVA: Yes (07/07/14) Hx Heart Attack/AMI: No Hx Congestive Heart Failure: No Hx Diabetes: No Hx Deep Vein Thrombosis: No Hx Pulmonary Embolism: No Hx GERD: No Hx Liver Disease: No Hx Renal Disease: Yes (Stage III renal dx) Hx Sickle Cell Disease: No Hx Arthritis: Yes Hx Headaches / Migraines: No Hx Seizures: No Hx Kidney Stones: No Hx Psychiatric Treatment: Yes (Depression) Hx Asthma: No Hx COPD: No Hx Tuberculosis: No Hx Dementia: Yes (takes aricept) Hx HIV: No Additional medical history: 3 herniated discs. LUPUS. hypothyroid. Lung Nodules 01/2018 - Surgical History Past Surgical History?: Yes Hx Coronary Stent: No Hx Open Heart Surgery: No Hx Pacemaker: No Hx Internal Defibrillator: No Hx Cholecystectomy: Yes Hx Appendectomy: Yes Hx Breast Surgery: No Additional Surgical History: vein stripping. oral surgery 07/31/18 - Social History Smoking Status: Former Smoker Substance Use Type: None - Medications Home Medications: Home Medications Medication Instructions Recorded Confirmed Last Taken Type Mirtazapine [Remeron] 45 mg PO QHS 08/04/15 06/09/18 Unknown History Sertraline HCl [Zoloft] 50 mg PO DAILY #30 tablet 03/26/18 06/09/18 Unknown Rx Solifenacin Succinate (Nf) 10 mg PO DAILY #30 tablet 03/26/18 06/09/18 Unknown Rx [Vesicare (Nf)] Calcitriol [Rocaltrol] 0.25 mcg PO DAILY 05/19/18 06/09/18 Unknown History hydrOXYzine PAMOATE [Vistaril] 50 mg PO DAILY@2100 04/12/19 05/03/19 Unknown History predniSONE [Prednisone] 5 mg PO QDAY 05/19/18 06/09/18 Unknown History Aspirin 325 mg PO QDAY #30 tablet 06/12/18 Unknown Rx AtorvaSTATin [Lipitor] 40 mg PO QHS #30 tablet 06/12/18 Unknown Rx Clopidogrel [Plavix] 75 mg PO QDAY #30 tablet 06/12/18 Unknown Rx Levothyroxine [Synthroid] 50 mcg PO QAM #30 tablet 06/12/18 Unknown Rx Mirtazapine [Remeron 15mg TAB] 45 mg PO QHS tablet 06/12/18 Unknown Rx Pantoprazole [Protonix TAB] 40 mg PO BID #30 tablet 06/12/18 Unknown Rx amLODIPine 5 mg PO QDAY #30 tablet 06/12/18 Unknown Rx carvediloL [Coreg] 25 mg PO BID #60 tablet 06/12/18 Unknown Rx lamoTRIgine [LaMICtal] 25 mg PO BID #30 tablet 06/12/18 Unknown Rx Acetaminophen [Non-Aspirin Extra 500 mg PO Q6HR PRN #30 tablet 08/02/18 Unknown Rx Strength] Chlorhexidine Mouthwash [Peridex] 15 ml MM BID #1 bottle 08/02/18 Unknown Rx Permethrin 5% [Acticin 5% CREAM] 1 applicatio TP ONCE #2 tube 08/02/18 Unknown Rx DOXYCYCLINE Hyclate [Vibramycin 100 mg PO Q12HR #14 capsule 08/07/18 Unknown Rx CAP] metroNIDAZOLE [Flagyl] 500 mg PO Q12HR #14 tab 08/07/18 Unknown Rx traMADoL [Ultram] 50 mg PO Q6HR PRN #12 tablet 08/07/18 Unknown Rx cephALEXin [Keflex] 500 mg PO Q12HR #10 cap 09/14/18 Unknown Rx traMADoL [Ultram 50 MG tab] 50 mg PO Q6HR PRN #10 tablet 09/14/18 Unknown Rx traMADoL [Ultram] 50 mg PO Q8H PRN #9 tablet 12/14/18 Unknown Rx levoFLOXacin [Levaquin TAB] 500 mg PO QDAY 7 Days #7 tablet 12/19/18 Unknown Rx Ondansetron [Zofran Odt] 4 mg PO Q8HR PRN #14 tab.rapdis 01/11/19 Unknown Rx traMADoL [Ultram 50 MG tab] 50 mg PO Q4HR PRN #14 tablet 01/11/19 Unknown Rx Neomy/Polymyx B/Hc Opth Susp 1 drop OP Q6HR #1 bottle 01/22/19 Unknown Rx [Cortisporin (OPTH) Susp] predniSONE [Deltasone] 20 mg PO QDAY #5 tab 01/22/19 Unknown Rx traMADoL [Ultram] 50 mg PO Q6HR PRN #12 tablet 01/22/19 Unknown Rx ED Physical Exam - General Limitations: No Limitations General appearance: alert, in no apparent distress - Head Head exam: Present: atraumatic, normocephalic - Eye Eye exam: Present: normal appearance, conjunctival injection (without exudate) - ENT ENT exam: Present: mucous membranes moist - Neck Neck exam: Present: normal inspection - Respiratory Respiratory exam: Present: normal lung sounds bilaterally. Absent: respiratory distress, wheezes, rales, rhonchi - Cardiovascular Cardiovascular Exam: Present: regular rate, normal rhythm. Absent: systolic murmur, diastolic murmur, rubs, gallop - GI/Abdominal GI/Abdominal exam: Present: soft, normal bowel sounds - Extremities Exam Extremities exam: Present: normal inspection - Back Exam Back exam: Present: normal inspection - Neurological Exam Neurological exam: Present: alert, oriented X3 - Psychiatric Psychiatric exam: Present: normal affect, normal mood - Skin Skin exam: Present: warm, dry, intact, normal color. Absent: rash ED Course Vital Signs 01/22/19 08:12 Temperature 98.3 F Pulse Rate 94 H Respiratory 20 Rate Blood Pressure 163/97 O2 Sat by Pulse 98 Oximetry ED Medical Decision Making - Medical Decision Making The patient is worried about having influenza. Without fever and cough patient's symptoms less likely to be from influenza or flulike illness. Unable to rule out a myalgia from a viral syndrome. Patient also could also be having a flareup of her lupus. Patient be started on a short course of steroids with Ultram to help with pain. The patient be discharged home follow with her primary care physician. Critical care attestation.: If time is entered above; I have spent that time in minutes in the direct care of this critically ill patient, excluding procedure time. ED Disposition Clinical Impression: Lupus, Acute reactive arthritis, Conjunctivitis Disposition: DC-01 TO HOME OR SELFCARE Is pt being admited?: No Does the pt Need Aspirin: No Condition: Stable Instructions: Musculoskeletal Pain (ED) Time of Disposition: 08:49
== END 2019-01-22 09:19 | disposition home or self-care (01) ==
LOC: ED 08:02
DX: M02.30 Reiter's disease, unspecified site (principal); H10.9 Unspecified conjunctivitis; M32.9 Systemic lupus erythematosus, unspecified; F32.9 Major depressive disorder, single episode, unspecified; Z90.49 Acquired absence of other specified parts of digestive tract; F03.90 Unspecified dementia, unspecified severity, without behavioral disturbance, psychotic disturbance, mood disturbance, and anxiety; I12.9 Hypertensive chronic kidney disease with stage 1 through stage 4 chronic kidney disease, or unspecified chronic kidney disease; N18.3 Chronic kidney disease, stage 3 (moderate)
CPT/HCPCS: 99282

== ENCOUNTER 2019-01-22 16:18 | Emergency (ER) | payer MEDICARE ==
--- NOTE | 2019-01-22 18:50 | Event Note ---
ED Screening Note Date of service: 01/22/19 Time: 18:50 ED Screening Note: 79 y o f presents s/p fall cc of right hand and wrist pain This initial assessment/diagnostic orders/clinical plan/treatment(s) is/are subject to change based on patients health status, clinical progression and re-assessment by fellow clinical providers in the ED. Further treatment and workup at subsequent clinical providers discretion. Patient/guardian urged not to elope from the ED as their condition may be serious if not clinically assessed and managed. Initial orders include: xtr hand and wrist acc eval
--- NOTE | 2019-01-22 19:35 | XRay Report ---
RIGHT HAND 2 VIEWS INDICATION / CLINICAL INFORMATION: MAIN: hand pain; fel today walking up stairs. COMPARISON: None available. FINDINGS: No fracture, dislocation or soft tissue swelling is seen within the right hand. Joint spaces are well preserved Signer Name: Syd Sanchez MD Signed: 01/22/2019 7:31 PM Workstation Name: [id number]
--- NOTE | 2019-01-22 19:36 | XRay Report ---
RIGHT FOREARM 4 VIEWS INDICATION / CLINICAL INFORMATION: pain. COMPARISON: None available. FINDINGS: No fracture, dislocation or soft tissue swelling is seen within the right forearm. Signer Name: Syd Sanchez MD Signed: 01/22/2019 7:31 PM Workstation Name: [id number]
[2019-01-22] MEDS ORDERED: ACETAMINOPHEN 500 MG TAB PO ONE (21:09)
--- NOTE | 2019-01-22 21:09 | Emergency Department Report ---
ED Fall HPI - General Chief Complaint: Extremity Injury, Upper Stated Complaint: RT ARM INJURY/WRIST/FALL Time Seen by Provider: 01/22/19 21:04 Source: patient Mode of arrival: Ambulatory - History of Present Illness Initial Comments: 73-year-old -[place] female presents to the emergency room complaining of right hand and right forearm pain. Patient states that she tripped and fell at home. Patient denies any head injury or loss consciousness. Patient does live by herself and has not had recent falls. It was noted the patient's blood pressure is 119/103 heart rate of 98. Patient appears to have some dementia and takes Aricept. MD Complaint: fall - Related Data Home Medications Medication Instructions Recorded Confirmed Last Taken Mirtazapine [Remeron] 45 mg PO QHS 08/04/15 06/09/18 Unknown Calcitriol [Rocaltrol] 0.25 mcg PO DAILY 05/19/18 06/09/18 Unknown hydrOXYzine PAMOATE [Vistaril] 50 mg PO DAILY@2100 05/19/18 06/09/18 Unknown predniSONE [Prednisone] 5 mg PO QDAY 05/19/18 06/09/18 Unknown Previous Rx's Medication Instructions Recorded Last Taken Type Sertraline HCl [Zoloft] 50 mg PO DAILY #30 tablet 03/26/18 Unknown Rx Solifenacin Succinate (Nf) 10 mg PO DAILY #30 tablet 03/26/18 Unknown Rx [Vesicare (Nf)] Aspirin 325 mg PO QDAY #30 tablet 06/12/18 Unknown Rx AtorvaSTATin [Lipitor] 40 mg PO QHS #30 tablet 06/12/18 Unknown Rx Clopidogrel [Plavix] 75 mg PO QDAY #30 tablet 06/12/18 Unknown Rx Levothyroxine [Synthroid] 50 mcg PO QAM #30 tablet 06/12/18 Unknown Rx Mirtazapine [Remeron 15mg TAB] 45 mg PO QHS tablet 06/12/18 Unknown Rx Pantoprazole [Protonix TAB] 40 mg PO BID #30 tablet 06/12/18 Unknown Rx amLODIPine 5 mg PO QDAY #30 tablet 06/12/18 Unknown Rx carvediloL [Coreg] 25 mg PO BID #60 tablet 06/12/18 Unknown Rx lamoTRIgine [LaMICtal] 25 mg PO BID #30 tablet 06/12/18 Unknown Rx Acetaminophen [Non-Aspirin Extra 500 mg PO Q6HR PRN #30 tablet 08/02/18 Unknown Rx Strength] Chlorhexidine Mouthwash [Peridex] 15 ml MM BID #1 bottle 08/02/18 Unknown Rx Permethrin 5% [Acticin 5% CREAM] 1 applicatio TP ONCE #2 tube 08/02/18 Unknown Rx DOXYCYCLINE Hyclate [Vibramycin 100 mg PO Q12HR #14 capsule 08/07/18 Unknown Rx CAP] metroNIDAZOLE [Flagyl] 500 mg PO Q12HR #14 tab 08/07/18 Unknown Rx traMADoL [Ultram] 50 mg PO Q6HR PRN #12 tablet 08/07/18 Unknown Rx cephALEXin [Keflex] 500 mg PO Q12HR #10 cap 09/14/18 Unknown Rx traMADoL [Ultram 50 MG tab] 50 mg PO Q6HR PRN #10 tablet 09/14/18 Unknown Rx traMADoL [Ultram] 50 mg PO Q8H PRN #9 tablet 12/14/18 Unknown Rx levoFLOXacin [Levaquin TAB] 500 mg PO QDAY 7 Days #7 tablet 12/19/18 Unknown Rx Ondansetron [Zofran Odt] 4 mg PO Q8HR PRN #14 tab.rapdis 01/11/19 Unknown Rx traMADoL [Ultram 50 MG tab] 50 mg PO Q4HR PRN #14 tablet 01/11/19 Unknown Rx Neomy/Polymyx B/Hc Opth Susp 1 drop OP Q6HR #1 bottle 01/22/19 Unknown Rx [Cortisporin (OPTH) Susp] predniSONE [Deltasone] 20 mg PO QDAY #5 tab 01/22/19 Unknown Rx traMADoL [Ultram] 50 mg PO Q6HR PRN #12 tablet 01/22/19 Unknown Rx Allergies Allergy/AdvReac Type Severity Reaction Status Date / Time acetaminophen Allergy Unknown Verified 01/22/19 18:04 [From Tylenol-Codeine #3] captopril Allergy Rash Verified 01/22/19 18:04 clindamycin Allergy Diarrhea Verified 01/22/19 18:04 codeine Allergy Unknown Verified 01/22/19 18:04 [From Tylenol-Codeine #3] NSAIDS (Non-Steroidal Allergy Rash Verified 01/22/19 18:04 Anti-Inflamma Penicillins Allergy Rash Verified 01/22/19 18:04 Sulfa (Sulfonamide Allergy Rash Verified 01/22/19 18:04 Antibiotics) ED Review of Systems ROS: Stated complaint: RT ARM INJURY/WRIST/FALL Other details as noted in HPI ED Past Medical Hx - Past Medical History Previous Medical History?: Yes Hx Hypertension: Yes Hx CVA: Yes (07/07/14) Hx Heart Attack/AMI: No Hx Congestive Heart Failure: No Hx Diabetes: No Hx Deep Vein Thrombosis: No Hx Pulmonary Embolism: No Hx GERD: No Hx Liver Disease: No Hx Renal Disease: Yes (Stage III renal dx) Hx Sickle Cell Disease: No Hx Arthritis: Yes Hx Headaches / Migraines: No Hx Seizures: No Hx Kidney Stones: No Hx Psychiatric Treatment: Yes (Depression) Hx Asthma: No Hx COPD: No Hx Tuberculosis: No Hx Dementia: Yes (takes aricept) Hx HIV: No Additional medical history: 3 herniated discs. LUPUS. hypothyroid. Lung Nodules 01/2018 - Surgical History Past Surgical History?: Yes Hx Coronary Stent: No Hx Open Heart Surgery: No Hx Pacemaker: No Hx Internal Defibrillator: No Hx Cholecystectomy: Yes Hx Appendectomy: Yes Hx Breast Surgery: No Additional Surgical History: vein stripping. oral surgery 07/31/18 - Social History Smoking Status: Former Smoker - Medications Home Medications: Home Medications Medication Instructions Recorded Confirmed Last Taken Type Mirtazapine [Remeron] 45 mg PO QHS 08/04/15 06/09/18 Unknown History Sertraline HCl [Zoloft] 50 mg PO DAILY #30 tablet 03/26/18 06/09/18 Unknown Rx Solifenacin Succinate (Nf) 10 mg PO DAILY #30 tablet 03/26/18 06/09/18 Unknown Rx [Vesicare (Nf)] Calcitriol [Rocaltrol] 0.25 mcg PO DAILY 05/19/18 06/09/18 Unknown History hydrOXYzine PAMOATE [Vistaril] 50 mg PO DAILY@2100 05/19/18 06/09/18 Unknown History predniSONE [Prednisone] 5 mg PO QDAY 05/19/18 06/09/18 Unknown History Aspirin 325 mg PO QDAY #30 tablet 06/12/18 Unknown Rx AtorvaSTATin [Lipitor] 40 mg PO QHS #30 tablet 06/12/18 Unknown Rx Clopidogrel [Plavix] 75 mg PO QDAY #30 tablet 06/12/18 Unknown Rx Levothyroxine [Synthroid] 50 mcg PO QAM #30 tablet 06/12/18 Unknown Rx Mirtazapine [Remeron 15mg TAB] 45 mg PO QHS tablet 06/12/18 Unknown Rx Pantoprazole [Protonix TAB] 40 mg PO BID #30 tablet 06/12/18 Unknown Rx amLODIPine 5 mg PO QDAY #30 tablet 06/12/18 Unknown Rx carvediloL [Coreg] 25 mg PO BID #60 tablet 06/12/18 Unknown Rx lamoTRIgine [LaMICtal] 25 mg PO BID #30 tablet 06/12/18 Unknown Rx Acetaminophen [Non-Aspirin Extra 500 mg PO Q6HR PRN #30 tablet 08/02/18 Unknown Rx Strength] Chlorhexidine Mouthwash [Peridex] 15 ml MM BID #1 bottle 08/02/18 Unknown Rx Permethrin 5% [Acticin 5% CREAM] 1 applicatio TP ONCE #2 tube 08/02/18 Unknown Rx DOXYCYCLINE Hyclate [Vibramycin 100 mg PO Q12HR #14 capsule 08/07/18 Unknown Rx CAP] metroNIDAZOLE [Flagyl] 500 mg PO Q12HR #14 tab 08/07/18 Unknown Rx traMADoL [Ultram] 50 mg PO Q6HR PRN #12 tablet 08/07/18 Unknown Rx cephALEXin [Keflex] 500 mg PO Q12HR #10 cap 09/14/18 Unknown Rx traMADoL [Ultram 50 MG tab] 50 mg PO Q6HR PRN #10 tablet 09/14/18 Unknown Rx traMADoL [Ultram] 50 mg PO Q8H PRN #9 tablet 12/14/18 Unknown Rx levoFLOXacin [Levaquin TAB] 500 mg PO QDAY 7 Days #7 tablet 12/19/18 Unknown Rx Ondansetron [Zofran Odt] 4 mg PO Q8HR PRN #14 tab.rapdis 01/11/19 Unknown Rx traMADoL [Ultram 50 MG tab] 50 mg PO Q4HR PRN #14 tablet 01/11/19 Unknown Rx Neomy/Polymyx B/Hc Opth Susp 1 drop OP Q6HR #1 bottle 01/22/19 Unknown Rx [Cortisporin (OPTH) Susp] predniSONE [Deltasone] 20 mg PO QDAY #5 tab 01/22/19 Unknown Rx traMADoL [Ultram] 50 mg PO Q6HR PRN #12 tablet 01/22/19 Unknown Rx ED Physical Exam - General Limitations: No Limitations ED Course Vital Signs 01/22/19 18:02 Temperature 98.6 F Pulse Rate 98 H Respiratory 20 Rate Blood Pressure 119/103 [Right] O2 Sat by Pulse 96 Oximetry ED Medical Decision Making - Radiology Data Radiology results: report reviewed Patient: CHARLEE PATTON MR#: [id number] : 1945 Acct:[id number] Age/Sex: 73 / F ADM Date: 01/22/19 Loc: ED Attending Dr: Ordering Physician: FAUSTO BARRAZA Date of Service: 01/22/19 Procedure(s): XR hand 2V RT Accession Number(s): [id number] cc: FAUSTO BARRAZA Fluoro Time In Minutes: RIGHT HAND 2 VIEWS INDICATION / CLINICAL INFORMATION: MAIN: hand pain; fel today walking up stairs. COMPARISON: None available. FINDINGS: No fracture, dislocation or soft tissue swelling is seen within the right hand. Joint spaces are well preserved Signer Name: Syd Sanchez MD Signed: 01/22/2019 7:31 PM Workstation Name: [id number] Transcribed By: TL Dictated By: Syd Sanchez MD Electronically Authenticated By: Syd Sanchez MD Signed Date/Time: 01/22/191930 DD/ 29 TD/TT: Patient: CHARLEE PATTON MR#: [id number] : 1945 Acct:[id number] Age/Sex: 73 / F ADM Date: 01/22/19 Loc: ED Attending Dr: Ordering Physician: FAUSTO BARRAZA Date of Service: 01/22/19 Procedure(s): XR forearm RT Accession Number(s): [id number] cc: FAUSTO BARRAZA Fluoro Time In Minutes: RIGHT FOREARM 4 VIEWS INDICATION / CLINICAL INFORMATION: pain. COMPARISON: None available. FINDINGS: No fracture, dislocation or soft tissue swelling is seen within the right forearm. Signer Name: Syd Sanchez MD Signed: 01/22/2019 7:31 PM Workstation Name: [id number] Transcribed By: TL Dictated By: Syd Sanchez MD Electronically Authenticated By: Syd Sanchez MD Signed Date/Time: 01/22/191930 DD/ 30 TD/TT: - Medical Decision Making 73-year-old -[place] female presents to the emergency room complaining of right hand and right forearm pain. Patient states that she tripped and fell at home. Patient denies any head injury or loss consciousness. Patient does live by herself and has not had recent falls. It was noted the patient's blood pressure is 119/103 heart rate of 98. Patient appears to have some dementia and takes Aricept. X-ray of forearm and right wrist shows no dislocation or fractures. Patient would be given Tylenol 1 g by mouth for pain management patient be placed in a wrist immobilizer and to follow up with her primary care provider for symptoms persist or gets worse. Critical care attestation.: If time is entered above; I have spent that time in minutes in the direct care of this critically ill patient, excluding procedure time. ED Disposition Clinical Impression: Fall, Acute pain of right wrist Disposition: DC-01 TO HOME OR SELFCARE Is pt being admited?: No Does the pt Need Aspirin: No Condition: Stable Instructions: Fall Prevention for Older Adults (ED) Additional Instructions: Please take pain medication that she uses take at home. Follow up with her primary care provider next 3-5 days his symptoms persist. We will give wrist immobilizer as needed for comfort and support. Referrals: PRIMARY CAREMD [Primary Care Provider] - 3-5 Days
[2019-01-22 21:10] VITALS: BP 168/92
== END 2019-01-22 21:45 | disposition home or self-care (01) ==
LOC: ED 16:18
DX: M25.531 Pain in right wrist (principal); M79.631 Pain in right forearm; I12.9 Hypertensive chronic kidney disease with stage 1 through stage 4 chronic kidney disease, or unspecified chronic kidney disease; N18.3 Chronic kidney disease, stage 3 (moderate); M19.90 Unspecified osteoarthritis, unspecified site; F32.9 Major depressive disorder, single episode, unspecified; F03.90 Unspecified dementia, unspecified severity, without behavioral disturbance, psychotic disturbance, mood disturbance, and anxiety; Z87.891 Personal history of nicotine dependence; Z86.73 Personal history of transient ischemic attack (TIA), and cerebral infarction without residual deficits; Z79.899 Other long term (current) drug therapy; Z88.5 Allergy status to narcotic agent; Z88.8 Allergy status to other drugs, medicaments and biological substances
CPT/HCPCS: 99282

== ENCOUNTER 2019-03-22 08:51 | Emergency (ER) | payer MEDICARE ==
[2019-03-22] MEDS ORDERED: ONDANSETRON 4 MG ODT TAB PO ONE (09:24)
--- NOTE | 2019-03-22 09:27 | Emergency Department Report ---
HPI - General Chief Complaint: Weakness Time Seen by Provider: 03/22/19 09:22 - HPI HPI: 73-year-old -[place] female presents to the emergency department with complaint of having nausea and vomiting that started late last night since the patient was taking her tramadol and baclofen. She took it at 6 PM together, and then again at midnight. Since that time she says that she has had 4 episodes of nausea and vomiting and still feels nauseated. On top of that the patient also says that she has some nonspecific dizziness/lightheadedness. She denies any headache, vision change, slurred speech, chest pain, fever. She has not taken anything for symptoms prior to arrival today. She has a past medical history of CVA, TIA, chronic kidney disease, lupus, hypothyroidism and multiple herniated disks in her back. The back pain is the reason for the tramadol and baclofen and this is prescribed by her orthopedist at [facility]. Patient's primary care physician is a Dr. Manning. No recent travel or sick contacts at home. ED Past Medical Hx - Past Medical History Previous Medical History?: Yes Hx Hypertension: Yes Hx CVA: Yes (07/07/14) Hx Heart Attack/AMI: No Hx Congestive Heart Failure: No Hx Diabetes: No Hx Deep Vein Thrombosis: No Hx Pulmonary Embolism: No Hx GERD: No Hx Liver Disease: No Hx Renal Disease: Yes (Stage III renal dx) Hx Sickle Cell Disease: No Hx Arthritis: Yes Hx Headaches / Migraines: No Hx Seizures: No Hx Kidney Stones: No Hx Psychiatric Treatment: Yes (Depression) Hx Asthma: No Hx COPD: No Hx Tuberculosis: No Hx Dementia: Yes (takes aricept) Hx HIV: No Additional medical history: 3 herniated discs. LUPUS. hypothyroid. Lung Nodules 01/2018 - Surgical History Hx Coronary Stent: No Hx Open Heart Surgery: No Hx Pacemaker: No Hx Internal Defibrillator: No Hx Cholecystectomy: Yes Hx Appendectomy: Yes Hx Breast Surgery: No Additional Surgical History: vein stripping. oral surgery 07/31/18 - Social History Smoking Status: Current Some Day Smoker Substance Use Type: None - Medications Home Medications: Home Medications Medication Instructions Recorded Confirmed Last Taken Type Mirtazapine [Remeron] 45 mg PO QHS 08/04/15 06/09/18 Unknown History Sertraline HCl [Zoloft] 50 mg PO DAILY #30 tablet 03/26/18 06/09/18 Unknown Rx Solifenacin Succinate (Nf) 10 mg PO DAILY #30 tablet 03/26/18 06/09/18 Unknown Rx [Vesicare (Nf)] calcitrioL [Rocaltrol] 0.25 mcg PO DAILY 05/19/18 06/09/18 Unknown History hydrOXYzine PAMOATE [Vistaril] 50 mg PO DAILY@2100 05/19/18 06/09/18 Unknown History predniSONE [Prednisone] 5 mg PO QDAY 05/19/18 06/09/18 Unknown History Aspirin 325 mg PO QDAY #30 tablet 06/12/18 Unknown Rx AtorvaSTATin [Lipitor] 40 mg PO QHS #30 tablet 06/12/18 Unknown Rx Clopidogrel [Plavix] 75 mg PO QDAY #30 tablet 06/12/18 Unknown Rx Levothyroxine [Synthroid] 50 mcg PO QAM #30 tablet 06/12/18 Unknown Rx Mirtazapine [Remeron 15mg TAB] 45 mg PO QHS tablet 06/12/18 Unknown Rx Pantoprazole [Protonix TAB] 40 mg PO BID #30 tablet 06/12/18 Unknown Rx amLODIPine 5 mg PO QDAY #30 tablet 06/12/18 Unknown Rx carvediloL [Coreg] 25 mg PO BID #60 tablet 06/12/18 Unknown Rx lamoTRIgine [LaMICtal] 25 mg PO BID #30 tablet 06/12/18 Unknown Rx Acetaminophen [Non-Aspirin Extra 500 mg PO Q6HR PRN #30 tablet 08/02/18 Unknown Rx Strength] Chlorhexidine Mouthwash [Peridex] 15 ml MM BID #1 bottle 08/02/18 Unknown Rx Permethrin 5% [Acticin 5% CREAM] 1 applicatio TP ONCE #2 tube 08/02/18 Unknown Rx DOXYCYCLINE Hyclate [Vibramycin 100 mg PO Q12HR #14 capsule 08/07/18 Unknown Rx CAP] metroNIDAZOLE [Flagyl] 500 mg PO Q12HR #14 tab 08/07/18 Unknown Rx traMADoL [Ultram] 50 mg PO Q6HR PRN #12 tablet 08/07/18 Unknown Rx cephALEXin [Keflex] 500 mg PO Q12HR #10 cap 09/14/18 Unknown Rx traMADoL [Ultram 50 MG tab] 50 mg PO Q6HR PRN #10 tablet 09/14/18 Unknown Rx traMADoL [Ultram] 50 mg PO Q8H PRN #9 tablet 12/14/18 Unknown Rx levoFLOXacin [Levaquin TAB] 500 mg PO QDAY 7 Days #7 tablet 12/19/18 Unknown Rx Ondansetron [Zofran Odt] 4 mg PO Q8HR PRN #14 tab.rapdis 01/11/19 Unknown Rx traMADoL [Ultram 50 MG tab] 50 mg PO Q4HR PRN #14 tablet 01/11/19 Unknown Rx Neomy/Polymyx B/Hc Opth Susp 1 drop OP Q6HR #1 bottle 01/22/19 Unknown Rx [Cortisporin (OPTH) Susp] predniSONE [Deltasone] 20 mg PO QDAY #5 tab 01/22/19 Unknown Rx traMADoL [Ultram] 50 mg PO Q6HR PRN #12 tablet 01/22/19 Unknown Rx Ondansetron [Zofran Odt] 4 mg PO Q8HR PRN #15 tab.rapdis 03/22/19 Unknown Rx ED Review of Systems ROS: Stated complaint: GENERAL WEAKNESS Other details as noted in HPI Comment: All other systems reviewed and negative Constitutional: denies: chills, fever Eyes: denies: eye pain, vision change ENT: denies: ear pain, throat pain Respiratory: denies: cough, shortness of breath Cardiovascular: denies: chest pain, palpitations Gastrointestinal: nausea, vomiting Genitourinary: denies: dysuria, discharge Musculoskeletal: back pain (chronic). denies: arthralgia Skin: denies: rash, lesions Neurological: other (dizzy/lightheaded). denies: headache Physical Exam - Physical Exam Vital Signs: Vital Signs 03/22/19 09:09 Pulse Rate 90 Respiratory 19 Rate Blood Pressure 136/82 Blood Pressure 136/82 [Right] O2 Sat by Pulse 99 Oximetry Physical Exam: GENERAL: The patient is well-developed well-nourished. HENT: Normocephalic. Atraumatic. Patient has moist mucous membranes. EYES: Extraocular motions are intact. Pupils equal reactive to light bilaterally. No nystagmus. NECK: Supple. Trachea is midline. CHEST/LUNGS: Clear to auscultation. There is no respiratory distress noted. HEART/CARDIOVASCULAR: Regular. There is no tachycardia. ABDOMEN: Abdomen is soft, nontender. Patient has normal bowel sounds. There is no abdominal distention. SKIN: Skin is warm and dry. NEURO: The patient is awake, alert, and oriented. The patient is cooperative. The patient has no focal neurologic deficits. Normal speech. Cranial nerves II through XII grossly intact. No facial asymmetry. No pronator drift. MUSCULOSKELETAL: There is no tenderness or deformity. There is no limitation range of motion. There is no evidence of acute injury. ED Course Vital Signs 03/22/19 09:09 Pulse Rate 90 Respiratory 19 Rate Blood Pressure 136/82 Blood Pressure 136/82 [Right] O2 Sat by Pulse 99 Oximetry ED Medical Decision Making - Lab Data Result diagrams: 03/22/19 11:00 03/22/19 11:00 - EKG Data -: EKG Interpreted by Mi EKG shows normal: sinus rhythm, axis, intervals (prolonged MS interval), QRS complexes (LVH), ST-T waves Rate: normal - EKG Data When compared to previous EKG there are: no significant change Interpretation: unchanged when compared t (01/11/19) - Radiology Data Radiology results: report reviewed DUPLEX DOPPLER LOWER EXTREMITY VEINS, BILATERAL INDICATION: b/l LE pain and swelling. TECHNIQUE: Duplex doppler imaging was performed through the veins of both lower extremities using venous compression and other maneuvers. COMPARISON: No relevant prior imaging study available. FINDINGS: Right Common femoral vein: Negative. Right Superficial femoral vein: Negative. Right Popliteal vein: Negative. Right Calf veins: Negative. Left Common femoral vein: Negative. Left Superficial femoral vein: Negative. Left Popliteal vein: Negative. Left Calf veins: Negative. Additional findings: None.. IMPRESSION: 1. No sonographic evidence for DVT in either lower extremity. - Medical Decision Making The patient's main issue was nausea and vomiting since about midnight last night. She was given some Zofran here and there is been no further nausea or vomiting since presentation. The patient was taking baclofen with tramadol and it is possible it was a combination of these medications. Her labs have been unremarkable including CBC, metabolic panel, urinalysis. Her vital signs have also been stable throughout her ED course. The patient complained of some bilateral lower extremity pain and swelling that has been going on for weeks. For this reason a bilateral lower extremity venous Doppler ultrasound was completed that did not show any sonographic evidence for DVT. The patient had said that she was having some previous dizziness and/or lightheadedness but that has since resolved. On examination she does not have any focal, motor or sensory deficits and her cranial nerves are intact. She was seen ambulatory throughout the emergency department multiple times in both peers and feels stable. All of the labs and imaging results were discussed with the patient. The plan is for the patient to follow-up with her primary care physician, orthopedic surgeon and vascular surgeon and the patient will return to the ER with any worsening of her symptoms or any acute distress. All questions have been answered and the patient understands and agrees to the plans. - Differential Diagnosis Medication reaction, viral syndrome, food poisoning, DVT, venous stasis Critical Care Time: No Critical care attestation.: If time is entered above; I have spent that time in minutes in the direct care of this critically ill patient, excluding procedure time. ED Disposition Clinical Impression: Lower extremity edema, Lightheaded Nausea & vomiting Qualifiers: Vomiting type: unspecified Vomiting Intractability: non-intractable Qualified Code(s): R11.2 - Nausea with vomiting, unspecified Disposition: DC-01 TO HOME OR SELFCARE Is pt being admited?: No Condition: Stable Instructions: Acute Nausea and Vomiting (ED), Leg Edema (ED), Lightheadedness (ED) Additional Instructions: Please follow-up with your primary care physician, orthopedist and vascular surgeon. Return to the emergency department with any worsening of your symptoms or any acute distress. Prescriptions: Ondansetron [Zofran Odt] 4 mg PO Q8HR PRN #15 tab.rapdis PRN Reason: Nausea Referrals: PRIMARY CARE, [Primary Care Provider] - 2-3 Days Forms: Accompanied Note Time of Disposition: 13:42
[2019-03-22] MEDS ORDERED: ACETAMINOPHEN 325 MG TAB PO ONE (10:55)
[2019-03-22 11:42] LABS: Basophils % (Auto) 0.7 % (0.0-1.8); Eosinophils # (Auto) 0.1 K/mm3 (0.0-0.4); Eosinophils % (Auto) 1.3 % (0.0-4.3); Hematocrit 39.1 % (30.3-42.9); Hemoglobin 12.3 gm/dl (10.1-14.3); Lymphocytes # (Auto) 2.6 K/mm3 (1.2-5.4); Lymphocytes % (Auto) 36.1 % (13.4-35.0); Mean Corpuscular HGB Conc 31 % (30-34); Mean Corpuscular Volume 75 fl (79-97); Monocytes # (Auto) 0.7 K/mm3 (0.0-0.8); Monocytes % (Auto) 10.3 % (0.0-7.3); Platelet Count 222 K/mm3 (140-440); Red Blood Count 5.24 M/mm3 (3.65-5.03)
--- NOTE | 2019-03-22 11:46 | Vascular Lab Report ---
DUPLEX DOPPLER LOWER EXTREMITY VEINS, BILATERAL INDICATION: b/l LE pain and swelling. TECHNIQUE: Duplex doppler imaging was performed through the veins of both lower extremities using venous daquan saul and other maneuvers. COMPARISON: No relevant prior imaging study available. FINDINGS: Right Common femoral vein: Negative. Right Superficial femoral vein: Negative. Right Popliteal vein: Negative. Right Calf veins: Negative. Left Common femoral vein: Negative. Left Superficial femoral vein: Negative. Left Popliteal vein: Negative. Left Calf veins: Negative. Additional findings: None.. IMPRESSION: 1. No sonographic evidence for DVT in either lower extremity. Signer Name: Kris Burrell MD Signed: 03/22/2019 11:42 AM Workstation Name: [id number]
[2019-03-22 11:54] LABS: Alanine Aminotransferase 24 units/L (7-56); Albumin 3.5 g/dL (3.9-5); BUN/Creatinine Ratio 16; Blood Urea Nitrogen 16 mg/dL (7-17); Calcium 9.6 mg/dL (8.4-10.2); Hemolysis Index 19
[2019-03-22 13:22] LABS: Bacteria,Urine 1+ /HPF (Negative); Bilirubin,Urine NEG (Negative); Blood,Urine NEG (Negative); Color,Urine Yellow (Yellow); Mucus,Urine FEW /HPF; Protein,Urine <15 mg/dL mg/dL (Negative); Urobilinogen,Urine < 2.0 mg/dL (<2.0)
[2019-03-22 14:02] VITALS: BP 139/78
== END 2019-03-22 14:02 | disposition home or self-care (01) ==
LOC: ED 08:51
DX: R11.2 Nausea with vomiting, unspecified (principal); R42 Dizziness and giddiness; R60.9 Edema, unspecified; Z86.73 Personal history of transient ischemic attack (TIA), and cerebral infarction without residual deficits; F32.9 Major depressive disorder, single episode, unspecified; F03.90 Unspecified dementia, unspecified severity, without behavioral disturbance, psychotic disturbance, mood disturbance, and anxiety; I12.9 Hypertensive chronic kidney disease with stage 1 through stage 4 chronic kidney disease, or unspecified chronic kidney disease; N18.3 Chronic kidney disease, stage 3 (moderate)
CPT/HCPCS: 36415; 80053; 81001; 84443; 84484; 85025; 93005; 93010; 93970; Q0162

== ENCOUNTER 2019-03-23 15:33 | Emergency (ER) | payer MEDICARE ==
[2019-03-23 15:46] VITALS: BP 151/91
--- NOTE | 2019-03-23 15:47 | Emergency Department Report ---
Chief Complaint: Extremity Injury, Upper Stated Complaint: HEADACHE/ RT SIDE NECK/RT ARM - HPI History of Present Illness: 73 yo female with headache, right elbow swelling and neck pain. Mild symptoms which began 2 days ago. - Exam Vital Signs: Vital Signs 03/23/19 15:44 Temperature 98.4 F Pulse Rate 85 Respiratory 12 Rate Blood Pressure 151/91 O2 Sat by Pulse 100 Oximetry Physical Exam: On examination she appeared in good health and spirits. Vital signs as documented. Skin warm and dry and without overt rashes. Neck without JVD. Lungs clear. Heart exam notable for regular rhythm, normal sounds and absence of rubs or gallops. Abdomen unremarkable and without evidence of organomegaly, masses, or abdominal aortic enlargement. Extremities nonedematous. Patient appears well. Ambulatory difficulty. Right elbow without tenderness or swelling. Full range of motion. MSE screening note: Focused history and physical exam performed. Due to findings the following was ordered: Ms. Gavin presents with mild headache, neck pain and right elbow pain without evidence of acute illness. Medical screening exam performed. No evidence of life or limb threatening emergent condition. ED Disposition for MSE Clinical Impression: Arm pain, Neck pain Condition: Stable Referrals: PRIMARY CARE, [Referring] - 3-5 Days
== END 2019-03-23 17:24 | disposition home or self-care (01) ==
LOC: ED 15:33
DX: M79.601 Pain in right arm (principal); M54.2 Cervicalgia
CPT/HCPCS: 99282

== ENCOUNTER 2019-05-04 12:44 | Emergency (ER) | payer MEDICARE ==
--- NOTE | 2019-05-04 12:57 | Event Note ---
ED Screening Note ED Screening Note: 73 yo female with lightheadedness vomiting diffuse pain headache. This initial assessment/diagnostic orders/clinical plan/treatment(s) is/are subject to change based on patients health status, clinical progression and re- assessment by fellow clinical providers in the ED. Further treatment and workup at subsequent clinical providers discretion. Patient/guardian urged not to elope from the ED as their condition may be serious if not clinically assessed and managed. Initial orders include: labs
[2019-05-04] MEDS ORDERED: SODIUM CHLORIDE 0.9% 1000 ML 1,000 ML IV ONE (14:47)
[2019-05-04] MEDS ORDERED: ONDANSETRON 4 MG/2 ML INJ IV ONE (14:47)
[2019-05-04] MEDS ORDERED: MORPHINE 4 MG/1 ML INJ IV ONE (14:47)
--- NOTE | 2019-05-04 15:28 | Emergency Department Report ---
<MIKEY CONDE - Last Filed: 05/04/19 21:27> ED General Adult HPI - General Chief complaint: Nausea/Vomiting/Diarrhea Stated complaint: FEVER/LIGHT HEADED/RT THIGH PAIN Time Seen by Provider: 05/04/19 14:31 - Related Data Home Medications Medication Instructions Recorded Confirmed Last Taken Mirtazapine [Remeron] 45 mg PO QHS 08/04/15 06/09/18 Unknown calcitrioL [Rocaltrol] 0.25 mcg PO DAILY 05/19/18 06/09/18 Unknown hydrOXYzine PAMOATE [Vistaril] 50 mg PO DAILY@2100 05/19/18 06/09/18 Unknown predniSONE [Prednisone] 5 mg PO QDAY 05/19/18 06/09/18 Unknown Previous Rx's Medication Instructions Recorded Last Taken Type Sertraline HCl [Zoloft] 50 mg PO DAILY #30 tablet 03/26/18 Unknown Rx Solifenacin Succinate (Nf) 10 mg PO DAILY #30 tablet 03/26/18 Unknown Rx [Vesicare (Nf)] Aspirin 325 mg PO QDAY #30 tablet 06/12/18 Unknown Rx AtorvaSTATin [Lipitor] 40 mg PO QHS #30 tablet 06/12/18 Unknown Rx Clopidogrel [Plavix] 75 mg PO QDAY #30 tablet 06/12/18 Unknown Rx Levothyroxine [Synthroid] 50 mcg PO QAM #30 tablet 06/12/18 Unknown Rx Mirtazapine [Remeron 15mg TAB] 45 mg PO QHS tablet 06/12/18 Unknown Rx Pantoprazole [Protonix TAB] 40 mg PO BID #30 tablet 06/12/18 Unknown Rx amLODIPine 5 mg PO QDAY #30 tablet 06/12/18 Unknown Rx carvediloL [Coreg] 25 mg PO BID #60 tablet 06/12/18 Unknown Rx lamoTRIgine [LaMICtal] 25 mg PO BID #30 tablet 06/12/18 Unknown Rx Acetaminophen [Non-Aspirin Extra 500 mg PO Q6HR PRN #30 tablet 08/02/18 Unknown Rx Strength] Chlorhexidine Mouthwash [Peridex] 15 ml MM BID #1 bottle 08/02/18 Unknown Rx Permethrin 5% [Acticin 5% CREAM] 1 applicatio TP ONCE #2 tube 08/02/18 Unknown Rx DOXYCYCLINE Hyclate [Vibramycin 100 mg PO Q12HR #14 capsule 08/07/18 Unknown Rx CAP] metroNIDAZOLE [Flagyl] 500 mg PO Q12HR #14 tab 08/07/18 Unknown Rx traMADoL [Ultram] 50 mg PO Q6HR PRN #12 tablet 08/07/18 Unknown Rx cephALEXin [Keflex] 500 mg PO Q12HR #10 cap 09/14/18 Unknown Rx traMADoL [Ultram 50 MG tab] 50 mg PO Q6HR PRN #10 tablet 09/14/18 Unknown Rx traMADoL [Ultram] 50 mg PO Q8H PRN #9 tablet 12/14/18 Unknown Rx levoFLOXacin [Levaquin TAB] 500 mg PO QDAY 7 Days #7 tablet 12/19/18 Unknown Rx Ondansetron [Zofran Odt] 4 mg PO Q8HR PRN #14 tab.rapdis 01/11/19 Unknown Rx traMADoL [Ultram 50 MG tab] 50 mg PO Q4HR PRN #14 tablet 01/11/19 Unknown Rx Neomy/Polymyx B/Hc Opth Susp 1 drop OP Q6HR #1 bottle 01/22/19 Unknown Rx [Cortisporin (OPTH) Susp] predniSONE [Deltasone] 20 mg PO QDAY #5 tab 01/22/19 Unknown Rx traMADoL [Ultram] 50 mg PO Q6HR PRN #12 tablet 01/22/19 Unknown Rx Ondansetron [Zofran Odt] 4 mg PO Q8HR PRN #15 tab.rapdis 03/22/19 Unknown Rx Allergies Allergy/AdvReac Type Severity Reaction Status Date / Time captopril Allergy Rash Verified 05/04/19 17:05 clindamycin Allergy Diarrhea Verified 05/04/19 17:05 codeine Allergy Unknown Verified 05/04/19 17:05 [From Tylenol-Codeine #3] NSAIDS (Non-Steroidal Allergy Rash Verified 05/04/19 17:05 Anti-Inflamma Penicillins Allergy Rash Verified 05/04/19 17:05 Sulfa (Sulfonamide Allergy Rash Verified 05/04/19 17:05 Antibiotics) ED Past Medical Hx - Medications Home Medications: Home Medications Medication Instructions Recorded Confirmed Last Taken Type Mirtazapine [Remeron] 45 mg PO QHS 08/04/15 06/09/18 Unknown History Sertraline HCl [Zoloft] 50 mg PO DAILY #30 tablet 03/26/18 06/09/18 Unknown Rx Solifenacin Succinate (Nf) 10 mg PO DAILY #30 tablet 03/26/18 06/09/18 Unknown Rx [Vesicare (Nf)] calcitrioL [Rocaltrol] 0.25 mcg PO DAILY 05/19/18 06/09/18 Unknown History hydrOXYzine PAMOATE [Vistaril] 50 mg PO DAILY@2100 05/19/18 06/09/18 Unknown History predniSONE [Prednisone] 5 mg PO QDAY 05/19/18 06/09/18 Unknown History Aspirin 325 mg PO QDAY #30 tablet 06/12/18 Unknown Rx AtorvaSTATin [Lipitor] 40 mg PO QHS #30 tablet 06/12/18 Unknown Rx Clopidogrel [Plavix] 75 mg PO QDAY #30 tablet 06/12/18 Unknown Rx Levothyroxine [Synthroid] 50 mcg PO QAM #30 tablet 06/12/18 Unknown Rx Mirtazapine [Remeron 15mg TAB] 45 mg PO QHS tablet 06/12/18 Unknown Rx Pantoprazole [Protonix TAB] 40 mg PO BID #30 tablet 06/12/18 Unknown Rx amLODIPine 5 mg PO QDAY #30 tablet 06/12/18 Unknown Rx carvediloL [Coreg] 25 mg PO BID #60 tablet 06/12/18 Unknown Rx lamoTRIgine [LaMICtal] 25 mg PO BID #30 tablet 06/12/18 Unknown Rx Acetaminophen [Non-Aspirin Extra 500 mg PO Q6HR PRN #30 tablet 08/02/18 Unknown Rx Strength] Chlorhexidine Mouthwash [Peridex] 15 ml MM BID #1 bottle 08/02/18 Unknown Rx Permethrin 5% [Acticin 5% CREAM] 1 applicatio TP ONCE #2 tube 08/02/18 Unknown Rx DOXYCYCLINE Hyclate [Vibramycin 100 mg PO Q12HR #14 capsule 08/07/18 Unknown Rx CAP] metroNIDAZOLE [Flagyl] 500 mg PO Q12HR #14 tab 08/07/18 Unknown Rx traMADoL [Ultram] 50 mg PO Q6HR PRN #12 tablet 08/07/18 Unknown Rx cephALEXin [Keflex] 500 mg PO Q12HR #10 cap 09/14/18 Unknown Rx traMADoL [Ultram 50 MG tab] 50 mg PO Q6HR PRN #10 tablet 09/14/18 Unknown Rx traMADoL [Ultram] 50 mg PO Q8H PRN #9 tablet 12/14/18 Unknown Rx levoFLOXacin [Levaquin TAB] 500 mg PO QDAY 7 Days #7 tablet 12/19/18 Unknown Rx Ondansetron [Zofran Odt] 4 mg PO Q8HR PRN #14 tab.rapdis 01/11/19 Unknown Rx traMADoL [Ultram 50 MG tab] 50 mg PO Q4HR PRN #14 tablet 01/11/19 Unknown Rx Neomy/Polymyx B/Hc Opth Susp 1 drop OP Q6HR #1 bottle 01/22/19 Unknown Rx [Cortisporin (OPTH) Susp] predniSONE [Deltasone] 20 mg PO QDAY #5 tab 01/22/19 Unknown Rx traMADoL [Ultram] 50 mg PO Q6HR PRN #12 tablet 01/22/19 Unknown Rx Ondansetron [Zofran Odt] 4 mg PO Q8HR PRN #15 tab.rapdis 03/22/19 Unknown Rx ED Medical Decision Making - Lab Data Result diagrams: 05/04/19 15:29 05/04/19 15:29 - [place] [address] Cat Scan Report Signed Patient: CHARLEE PATTON MR#: [id number] : 1945 Acct:[id number] Age/Sex: 73 / F ADM Date: 05/04/19 Loc: ED Attending Dr: Ordering Physician: FAUSTO REYES Date of Service: 05/04/19 Procedure(s): CT head/brain wo con Accession Number(s): [id number] cc: FAUSTO REYES CT BRAIN: 05/04/2019 INDICATION / CLINICAL INFORMATION: left sided headache, n/v. COMPARISON: 06/09/2018 FINDINGS: BRAIN/INTRACRANIAL STRUCTURES: Unenhanced CT images of the brain were obtained and compared to the prior exam from 06/09/2018. There has been no change. There is no evidence of acute abnormality. Ventricles and sulci are within normal limits of size and shape for a patient of this age. There is no evidence of ischemic injury, hemorrhage, or mass. There are no abnormal extra-axial fluid collections. EXTRACRANIAL STRUCTURES: Unremarkable. IMPRESSION: No acute abnormality. All CT scans at this location are performed using dose reduction to ALARA by means of automated exposure control. Signer Name: Binu Zaman MD Signed: 05/04/2019 7:19 PM Workstation Name: [id number] Transcribed By: TENZIN Dictated By: Binu Zaman MD Electronically Authenticated By: Binu Zaman MD Signed Date/Time: 05/04/191918 DD/ 16 TD/TT: - Medical Decision Making 73-year-old female presents emerge department complaining of headache associated with nausea very suspicious of a previous stroke symptom stating her headache felt the same. The CT scan was unremarkable the patient is alert and oriented and ambulatory with no acute distress plan is to have her to discharge home and follow-up with her primary care provider for the evaluation and treatment options. ED Disposition Clinical Impression: Cephalgia, Normal CT scan of head Disposition: DC-01 TO HOME OR SELFCARE Is pt being admited?: No Does the pt Need Aspirin: No Condition: Stable Instructions: Acute Headache (ED) Referrals: ANNALISE COUCH MD [Primary Care Provider] - 3-5 Days <LATA MABRY - Last Filed: 05/05/19 14:22> ED General Adult HPI - General Source: patient Mode of arrival: Wheelchair Limitations: No Limitations - History of Present Illness Initial comments: Patient is a 73-year-old female presents emergency room with complaints of a subjective fever that began yesterday. She has associated lightheadedness, left-sided headache, nausea, vomiting, cough, right lower back pain that radiates into the right hip. She denies any fall or injury. She denies any diarrhea, abdominal pain, urinary symptoms, shortness of breath, chest pain, numbness, weakness, gait disturbance, speech disturbance, vision changes. She states that the only other time she is had a headache similar to this is when she had a stroke in the past. She states that her daughter was sick last week with similar symptoms but denies any contact with a COVID-19 positive patient. She denies any recent travel. She is a current every day smoker 10 cigarettes a day. ED Review of Systems ROS: Stated complaint: FEVER/LIGHT HEADED/RT THIGH PAIN Other details as noted in HPI Comment: All other systems reviewed and negative ED Past Medical Hx - Past Medical History Hx Hypertension: Yes Hx CVA: Yes (07/07/14) Hx Heart Attack/AMI: No Hx Congestive Heart Failure: No Hx Diabetes: No Hx Deep Vein Thrombosis: No Hx Pulmonary Embolism: No Hx GERD: No Hx Liver Disease: No Hx Renal Disease: Yes (Stage III renal dx) Hx Sickle Cell Disease: No Hx Arthritis: Yes Hx Headaches / Migraines: No Hx Seizures: No Hx Kidney Stones: No Hx Psychiatric Treatment: Yes (Depression) Hx Asthma: No Hx COPD: No Hx Tuberculosis: No Hx Dementia: Yes (takes aricept) Hx HIV: No Additional medical history: 3 herniated discs. LUPUS. hypothyroid. Lung Nodules 01/2018 - Surgical History Hx Coronary Stent: No Hx Open Heart Surgery: No Hx Pacemaker: No Hx Internal Defibrillator: No Hx Cholecystectomy: Yes Hx Appendectomy: Yes Hx Breast Surgery: No Additional Surgical History: vein stripping. oral surgery 07/31/18 - Social History Smoking Status: Current Every Day Smoker Substance Use Type: None ED Physical Exam - General Limitations: No Limitations General appearance: alert, in no apparent distress - Head Head exam: Present: atraumatic, normocephalic - Eye Eye exam: Present: normal appearance - ENT ENT exam: Present: mucous membranes moist - Respiratory Respiratory exam: Present: normal lung sounds bilaterally. Absent: respiratory distress, wheezes, rales, rhonchi, stridor, chest wall tenderness, accessory muscle use, decreased breath sounds, prolonged expiratory - Cardiovascular Cardiovascular Exam: Present: regular rate, normal rhythm, normal heart sounds. Absent: systolic murmur, diastolic murmur, rubs, gallop - Back Exam Back exam: Present: normal inspection, full ROM. Absent: paraspinal tenderness, vertebral tenderness - Neurological Exam Neurological exam: Present: alert, oriented X3, CN II-XII intact, normal gait. Absent: motor sensory deficit - Psychiatric Psychiatric exam: Present: normal affect, normal mood - Skin Skin exam: Present: warm, dry, intact ED Course Vital Signs 05/04/19 05/04/19 12:58 21:43 Temperature 99.5 F 97.8 F Pulse Rate 99 H 90 Respiratory 22 18 Rate Blood Pressure 148/77 Blood Pressure 140/70 [Right] O2 Sat by Pulse 99 97 Oximetry ED Medical Decision Making - Lab Data Result diagrams: 05/04/19 15:29 05/04/19 15:29 Lab Results 05/04/19 05/04/19 05/04/19 Range/Units 15:29 15:29 15:29 WBC 5.8 (4.5-11.0) K/mm3 RBC 5.63 H (3.65-5.03) M/mm3 Hgb 12.9 (10.1-14.3) gm/dl Hct 42.2 (30.3-42.9) % MCV 75 L (79-97) fl MCH 23 L (28-32) pg MCHC 31 (30-34) % RDW 15.6 H (13.2-15.2) % Plt Count 219 (140-440) K/mm3 Lymph % (Auto) 30.2 (13.4-35.0) % Page % (Auto) 10.1 H (0.0-7.3) % Eos % (Auto) 2.1 (0.0-4.3) % Baso % (Auto) 0.7 (0.0-1.8) % Lymph # 1.8 (1.2-5.4) K/mm3 Page # 0.6 (0.0-0.8) K/mm3 Eos # 0.1 (0.0-0.4) K/mm3 Baso # 0.0 (0.0-0.1) K/mm3 Seg Neutrophils % 56.9 (40.0-70.0) % Seg Neutrophils # 3.3 (1.8-7.7) K/mm3 PT (12.2-14.9) Sec. INR (0.87-1.13) APTT (24.2-36.6) Sec. Sodium 137 (137-145) mmol/L Potassium 4.0 (3.6-5.0) mmol/L Chloride 99.2 (98-107) mmol/L Carbon Dioxide 24 (22-30) mmol/L Anion Gap 18 mmol/L BUN 11 (7-17) mg/dL Creatinine 1.0 (0.7-1.2) mg/dL Estimated GFR > 60 ml/min BUN/Creatinine Ratio 11 % Glucose 80 (65-100) mg/dL Calcium 10.0 (8.4-10.2) mg/dL Total Bilirubin 0.30 (0.1-1.2) mg/dL AST 20 (5-40) units/L ALT 17 (7-56) units/L Alkaline Phosphatase 93 (35-129) units/L Total Creatine Kinase 88 (30-135) units/L Troponin T (0.00-0.029) ng/mL Total Protein 7.9 (6.3-8.2) g/dL Albumin 3.6 L (3.9-5) g/dL Albumin/Globulin Ratio 0.8 % Lipase 18 (13-60) units/L Urine Color (Yellow) Urine Turbidity (Clear) Urine pH (5.0-7.0) Ur Specific [place] (1.003-1.030) Urine Protein (Negative) mg/dL Urine Glucose (UA) (Negative) mg/dL Urine Ketones (Negative) mg/dL Urine Blood (Negative) Urine Nitrite (Negative) Urine Bilirubin (Negative) Urine Urobilinogen (<2.0) mg/dL Ur Leukocyte Esterase (Negative) Urine WBC (Auto) (0.0-6.0) /HPF Urine RBC (Auto) (0.0-6.0) /HPF U Epithel Cells (Auto) (0-13.0) /HPF Urine Mucus /HPF Influenza A (Rapid) (Negative) Influenza B (Rapid) (Negative) 05/04/19 05/04/19 05/04/19 Range/Units 15:29 15:29 15:40 WBC (4.5-11.0) K/mm3 RBC (3.65-5.03) M/mm3 Hgb (10.1-14.3) gm/dl Hct (30.3-42.9) % MCV (79-97) fl MCH (28-32) pg MCHC (30-34) % RDW (13.2-15.2) % Plt Count (140-440) K/mm3 Lymph % (Auto) (13.4-35.0) % Page % (Auto) (0.0-7.3) % Eos % (Auto) (0.0-4.3) % Baso % (Auto) (0.0-1.8) % Lymph # (1.2-5.4) K/mm3 Page # (0.0-0.8) K/mm3 Eos # (0.0-0.4) K/mm3 Baso # (0.0-0.1) K/mm3 Seg Neutrophils % (40.0-70.0) % Seg Neutrophils # (1.8-7.7) K/mm3 PT 14.2 (12.2-14.9) Sec. INR 1.09 (0.87-1.13) APTT 29.7 (24.2-36.6) Sec. Sodium (137-145) mmol/L Potassium (3.6-5.0) mmol/L Chloride (98-107) mmol/L Carbon Dioxide (22-30) mmol/L Anion Gap mmol/L BUN (7-17) mg/dL Creatinine (0.7-1.2) mg/dL Estimated GFR ml/min BUN/Creatinine Ratio % Glucose (65-100) mg/dL Calcium (8.4-10.2) mg/dL Total Bilirubin (0.1-1.2) mg/dL AST (5-40) units/L ALT (7-56) units/L Alkaline Phosphatase (35-129) units/L Total Creatine Kinase (30-135) units/L Troponin T < 0.010 (0.00-0.029) ng/mL Total Protein (6.3-8.2) g/dL Albumin (3.9-5) g/dL Albumin/Globulin Ratio % Lipase (13-60) units/L Urine Color Straw (Yellow) Urine Turbidity Clear (Clear) Urine pH 6.0 (5.0-7.0) Ur Specific [place] 1.003 (1.003-1.030) Urine Protein <15 mg/dl (Negative) mg/dL Urine Glucose (UA) Neg (Negative) mg/dL Urine Ketones Neg (Negative) mg/dL Urine Blood Neg (Negative) Urine Nitrite Neg (Negative) Urine Bilirubin Neg (Negative) Urine Urobilinogen < 2.0 (<2.0) mg/dL Ur Leukocyte Esterase Neg (Negative) Urine WBC (Auto) 1.0 (0.0-6.0) /HPF Urine RBC (Auto) 2.0 (0.0-6.0) /HPF U Epithel Cells (Auto) 2.0 (0-13.0) /HPF Urine Mucus Few /HPF Influenza A (Rapid) (Negative) Influenza B (Rapid) (Negative) 05/04/19 Range/Units Unknown WBC (4.5-11.0) K/mm3 RBC (3.65-5.03) M/mm3 Hgb (10.1-14.3) gm/dl Hct (30.3-42.9) % MCV (79-97) fl MCH (28-32) pg MCHC (30-34) % RDW (13.2-15.2) % Plt Count (140-440) K/mm3 Lymph % (Auto) (13.4-35.0) % Page % (Auto) (0.0-7.3) % Eos % (Auto) (0.0-4.3) % Baso % (Auto) (0.0-1.8) % Lymph # (1.2-5.4) K/mm3 Page # (0.0-0.8) K/mm3 Eos # (0.0-0.4) K/mm3 Baso # (0.0-0.1) K/mm3 Seg Neutrophils % (40.0-70.0) % Seg Neutrophils # (1.8-7.7) K/mm3 PT (12.2-14.9) Sec. INR (0.87-1.13) APTT (24.2-36.6) Sec. Sodium (137-145) mmol/L Potassium (3.6-5.0) mmol/L Chloride (98-107) mmol/L Carbon Dioxide (22-30) mmol/L Anion Gap mmol/L BUN (7-17) mg/dL Creatinine (0.7-1.2) mg/dL Estimated GFR ml/min BUN/Creatinine Ratio % Glucose (65-100) mg/dL Calcium (8.4-10.2) mg/dL Total Bilirubin (0.1-1.2) mg/dL AST (5-40) units/L ALT (7-56) units/L Alkaline Phosphatase (35-129) units/L Total Creatine Kinase (30-135) units/L Troponin T (0.00-0.029) ng/mL Total Protein (6.3-8.2) g/dL Albumin (3.9-5) g/dL Albumin/Globulin Ratio % Lipase (13-60) units/L Urine Color (Yellow) Urine Turbidity (Clear) Urine pH (5.0-7.0) Ur Specific [place] (1.003-1.030) Urine Protein (Negative) mg/dL Urine Glucose (UA) (Negative) mg/dL Urine Ketones (Negative) mg/dL Urine Blood (Negative) Urine Nitrite (Negative) Urine Bilirubin (Negative) Urine Urobilinogen (<2.0) mg/dL Ur Leukocyte Esterase (Negative) Urine WBC (Auto) (0.0-6.0) /HPF Urine RBC (Auto) (0.0-6.0) /HPF U Epithel Cells (Auto) (0-13.0) /HPF Urine Mucus /HPF Influenza A (Rapid) Negative (Negative) Influenza B (Rapid) Negative (Negative) - Radiology Data Radiology results: report reviewed CHEST 2 VIEWS INDICATION: cough, subjective fever, smoker. COMPARISON: 01/11/2019 FINDINGS: Support devices: None. Heart: Within normal limits. Lungs/pleura: No acute air space or interstitial disease. No pneumothorax. Additional findings: None. IMPRESSION: No acute findings. Normal chest x-ray. Signer Name: Breezy Bobby Jr, MD Signed: 05/04/2019 3:56 PM Workstation Name: [id number] Transcribed By: TTR Dictated By: BREEZY BOBBY JR, MD Electronically Authenticated By: BREEZY BOBBY JR, MD Signed Date/Time: 05/04/191555 DD/ 55 TD/TT: - Medical Decision Making Patient is a 73-year-old female presents emergency room with complaints of a subjective fever that began yesterday. She has associated lightheadedness, left-sided headache, nausea, vomiting, cough, right lower back pain that radiates into the right hip. She denies any fall or injury. She denies any diarrhea, abdominal pain, urinary symptoms, shortness of breath, chest pain, numbness, weakness, gait disturbance, speech disturbance, vision changes. She states that the only other time she is had a headache similar to this is when she had a stroke in the past. She states that her daughter was sick last week with similar symptoms but denies any contact with a COVID-19 positive patient. She denies any recent travel. She is a current every day smoker 10 cigarettes a day. No abnormality on physical examination as documented in chart, no neurological deficits. NIH scale is 0. Vitals are stable. Labs are normal, troponin is negative, CK is normal. UA is within normal limits. Rapid influenza is negative. Chest x-ray with no acute process. Patient given Zofran and morphine and symptoms improved. Patient is able to tolerate p.o. intake. signed out to FAUSTO Owens pending CT head without contrast Critical care attestation.: If time is entered above; I have spent that time in minutes in the direct care of this critically ill patient, excluding procedure time.
[2019-05-04 15:52] LABS: Basophils % (Auto) 0.7 % (0.0-1.8); Eosinophils # (Auto) 0.1 K/mm3 (0.0-0.4); Eosinophils % (Auto) 2.1 % (0.0-4.3); Lymphocytes # (Auto) 1.8 K/mm3 (1.2-5.4); Lymphocytes % (Auto) 30.2 % (13.4-35.0); Mean Corpuscular HGB Conc 31 % (30-34); Mean Corpuscular Volume 75 fl (79-97); Monocytes # (Auto) 0.6 K/mm3 (0.0-0.8); Monocytes % (Auto) 10.1 % (0.0-7.3); Platelet Count 219 K/mm3 (140-440); Red Blood Count 5.63 M/mm3 (3.65-5.03); Red Cell Distribution Width 15.6 % (13.2-15.2)
--- NOTE | 2019-05-04 16:00 | XRay Report ---
CHEST 2 VIEWS INDICATION: cough, subjective fever, smoker. COMPARISON: 01/11/2019 FINDINGS: Support devices: None. Heart: Within normal limits. Lungs/pleura: No acute air space or interstitial disease. No pneumothorax. Additional findings: None. IMPRESSION: No acute findings. Normal chest x-ray. Signer Name: Breezy Bobby Jr, MD Signed: 05/04/2019 3:56 PM Workstation Name: [id number]
[2019-05-04 16:03] LABS: Bilirubin,Urine NEG (Negative); Blood,Urine NEG (Negative); Color,Urine Straw (Yellow); Mucus,Urine FEW /HPF; Protein,Urine <15 mg/dL mg/dL (Negative); Urobilinogen,Urine < 2.0 mg/dL (<2.0)
[2019-05-04 16:04] LABS: Hematocrit 42.2 % (30.3-42.9); Hemoglobin 12.9 gm/dl (10.1-14.3)
[2019-05-04 16:05] LABS: INR 1.09 (0.87-1.13); Partial Thromboplastin Time 29.7 Sec. (24.2-36.6)
[2019-05-04 16:15] LABS: Alanine Aminotransferase 17 units/L (7-56); Albumin 3.6 g/dL (3.9-5); BUN/Creatinine Ratio 11; Blood Urea Nitrogen 11 mg/dL (7-17); Hemolysis Index 35
--- NOTE | 2019-05-04 19:23 | Cat Scan Report ---
CT BRAIN: 05/04/2019 INDICATION / CLINICAL INFORMATION: left sided headache, n/v. COMPARISON: 06/09/2018 FINDINGS: BRAIN/INTRACRANIAL STRUCTURES: Unenhanced CT images of the brain were obtained and compared to the pr ior exam from 06/09/2018. There has been no change. There is no evidence of acute abnormality. Ventricles and sulci are within normal limits of size and shape for a patient of this age. There is no evidence of ischemic injury, hemorrhage, or mass. There are no abnormal extra-axial fluid collections. EXTRACRANIAL STRUCTURES: Unremarkable. IMPRESSION: No acute abnormality. All CT scans at this location are performed using dose reduction to ALARA by means of automated expos ure control. Signer Name: Binu Zaman MD Signed: 05/04/2019 7:19 PM Workstation Name: [id number]
[2019-05-04 21:44] VITALS: BP 140/70
== END 2019-05-04 21:44 | disposition home or self-care (01) ==
LOC: ED 12:44
DX: R51 Headache (principal); I10 Essential (primary) hypertension; Z86.73 Personal history of transient ischemic attack (TIA), and cerebral infarction without residual deficits; M19.90 Unspecified osteoarthritis, unspecified site; F17.200 Nicotine dependence, unspecified, uncomplicated; Z79.1 Long term (current) use of non-steroidal anti-inflammatories (NSAID); Z79.899 Other long term (current) drug therapy; Z88.2 Allergy status to sulfonamides; Z88.6 Allergy status to analgesic agent; Z88.8 Allergy status to other drugs, medicaments and biological substances
CPT/HCPCS: 36415; 70450; 71046; 80053; 81001; 82550; 83690; 84484; 85025; 85610; 85730; 87400; 96374; 96375; 99284; J2270; J2405; J7030

== ENCOUNTER 2019-05-22 09:32 | Outpatient (CLI) | payer MEDICARE ==
[2019-05-22 10:07] LABS: Hematocrit 40.1 % (30.3-42.9); Hemoglobin 12.6 gm/dl (10.1-14.3); Mean Corpuscular HGB Conc 31 % (30-34); Mean Corpuscular Volume 74 fl (79-97); Platelet Count 251 K/mm3 (140-440); Red Blood Count 5.45 M/mm3 (3.65-5.03); Red Cell Distribution Width 15.8 % (13.2-15.2)
[2019-05-22 10:31] LABS: Albumin 3.5 g/dL (3.9-5); Albumin 3.6 g/dL (3.9-5); Calcium 9.6 mg/dL (8.4-10.2)
[2019-05-22 13:18] LABS: Creatinine,Urine 53.9 mg/dL (0.1-20.0); Protein/Creatinine Ratio,Urine 0.17
[2019-05-24 12:20] LABS: ANA Screen, IFA Positive (Negative)
== END 2019-05-22 09:33 | disposition home or self-care (01) ==
LOC: LAB 09:32
PROVIDERS: ATTEND Internal Medicine Rheumatology
DX: N18.3 Chronic kidney disease, stage 3 (moderate) (principal)
CPT/HCPCS: 36415; 80053; 82040; 82570; 84100; 84156; 85027; 86038; 86140; 86225

== ENCOUNTER 2019-06-07 12:11 | Emergency (ER) | payer MEDICARE ==
[2019-06-07 12:29] VITALS: BP 150/69
--- NOTE | 2019-06-07 13:30 | XRay Report ---
CHEST 1 VIEW INDICATION / CLINICAL INFORMATION: [place]. COMPARISON: 05/04/2019 FINDINGS: SUPPORT DEVICES: None. HEART / MEDIASTINUM: No significant abnormality. LUNGS / PLEURA: No significant pulmonary or pleural abnormality. No pneumothorax. ADDITIONAL FINDINGS: No significant additional findings. IMPRESSION: 1. No significant change Signer Name: Jerson Barnes MD Signed: 06/07/2019 1:26 PM Workstation Name: [id number]
[2019-06-07 14:30] LABS: Hematocrit 39.5 % (30.3-42.9); Hemoglobin 12.5 gm/dl (10.1-14.3); INR 1.12 (0.87-1.13); Mean Corpuscular HGB Conc 32 % (30-34); Mean Corpuscular Volume 74 fl (79-97); Platelet Count 200 K/mm3 (140-440); Red Blood Count 5.38 M/mm3 (3.65-5.03); Red Cell Distribution Width 16.3 % (13.2-15.2)
[2019-06-07 14:31] LABS: Partial Thromboplastin Time 24.9 Sec. (24.2-36.6)
[2019-06-07 14:54] LABS: BUN/Creatinine Ratio 16; Blood Urea Nitrogen 16 mg/dL (7-17); Calcium 9.6 mg/dL (8.4-10.2); Hemolysis Index 61
[2019-06-07] MEDS ORDERED: ACETAMINOPHEN 325 MG TAB ONE (15:04)
[2019-06-07] MEDS ORDERED: ACETAMINOPHEN 325 MG TAB PO ONE (15:05)
--- NOTE | 2019-06-07 15:07 | Emergency Department Report ---
ED General Adult HPI - General Chief complaint: Dizziness Stated complaint: DIZZY Time Seen by Provider: 06/07/19 12:23 Source: patient Mode of arrival: Stretcher Limitations: No Limitations - History of Present Illness Initial comments: This is a 73-year-old female who states that she smoked 2 cigarettes this morning and then decided that she would stop smoking. She put on a nicotine patch. She stated that later on i.e. a few hours later she developed shortness of breath and became very anxious. She took off the nicotine patch. She describes hyperventilation. He states that she had a headache which is mostly left-sided and gradual onset mild to moderate in intensity. She denies fever or chills. She denies cough. She denies chest pain. She states that both her legs have been swollen. She is recently gone and had Doppler studies with her line out worker. There was no reported DVT. I do believe that she has problems with peripheral vascular disease. She was referred to a vascular surgeon. She does not report any acute change in her legs. She denies paresthesias, weakness or any acute change. She states that the problem was detected in her left leg and that she has an appointment within 2 weeks. She does admit to anxiety. -: Gradual, hour(s) Location: head Radiation: non-radiation Quality: aching Consistency: intermittent Improves with: none Worsens with: none Associated Symptoms: shortness of breath Treatments Prior to Arrival: none - Related Data Home Medications Medication Instructions Recorded Confirmed Last Taken Mirtazapine [Remeron] 45 mg PO QHS 08/04/15 06/09/18 Unknown calcitrioL [Rocaltrol] 0.25 mcg PO DAILY 05/19/18 06/09/18 Unknown hydrOXYzine PAMOATE [Vistaril] 50 mg PO DAILY@2100 05/19/18 06/09/18 Unknown predniSONE [Prednisone] 5 mg PO QDAY 05/19/18 06/09/18 Unknown Previous Rx's Medication Instructions Recorded Last Taken Type Sertraline HCl [Zoloft] 50 mg PO DAILY #30 tablet 03/26/18 Unknown Rx Solifenacin Succinate (Nf) 10 mg PO DAILY #30 tablet 03/26/18 Unknown Rx [Vesicare (Nf)] Aspirin 325 mg PO QDAY #30 tablet 06/12/18 Unknown Rx AtorvaSTATin [Lipitor] 40 mg PO QHS #30 tablet 06/12/18 Unknown Rx Clopidogrel [Plavix] 75 mg PO QDAY #30 tablet 06/12/18 Unknown Rx Levothyroxine [Synthroid] 50 mcg PO QAM #30 tablet 06/12/18 Unknown Rx Mirtazapine [Remeron 15mg TAB] 45 mg PO QHS tablet 06/12/18 Unknown Rx Pantoprazole [Protonix TAB] 40 mg PO BID #30 tablet 06/12/18 Unknown Rx amLODIPine 5 mg PO QDAY #30 tablet 06/12/18 Unknown Rx carvediloL [Coreg] 25 mg PO BID #60 tablet 06/12/18 Unknown Rx lamoTRIgine [LaMICtal] 25 mg PO BID #30 tablet 06/12/18 Unknown Rx Acetaminophen [Non-Aspirin Extra 500 mg PO Q6HR PRN #30 tablet 08/02/18 Unknown Rx Strength] Chlorhexidine Mouthwash [Peridex] 15 ml MM BID #1 bottle 08/02/18 Unknown Rx Permethrin 5% [Acticin 5% CREAM] 1 applicatio TP ONCE #2 tube 08/02/18 Unknown Rx DOXYCYCLINE Hyclate [Vibramycin 100 mg PO Q12HR #14 capsule 08/07/18 Unknown Rx CAP] metroNIDAZOLE [Flagyl] 500 mg PO Q12HR #14 tab 08/07/18 Unknown Rx traMADoL [Ultram] 50 mg PO Q6HR PRN #12 tablet 08/07/18 Unknown Rx cephALEXin [Keflex] 500 mg PO Q12HR #10 cap 09/14/18 Unknown Rx traMADoL [Ultram 50 MG tab] 50 mg PO Q6HR PRN #10 tablet 09/14/18 Unknown Rx traMADoL [Ultram] 50 mg PO Q8H PRN #9 tablet 12/14/18 Unknown Rx levoFLOXacin [Levaquin TAB] 500 mg PO QDAY 7 Days #7 tablet 12/19/18 Unknown Rx Ondansetron [Zofran Odt] 4 mg PO Q8HR PRN #14 tab.rapdis 01/11/19 Unknown Rx traMADoL [Ultram 50 MG tab] 50 mg PO Q4HR PRN #14 tablet 01/11/19 Unknown Rx Neomy/Polymyx B/Hc Opth Susp 1 drop OP Q6HR #1 bottle 01/22/19 Unknown Rx [Cortisporin (OPTH) Susp] predniSONE [Deltasone] 20 mg PO QDAY #5 tab 01/22/19 Unknown Rx traMADoL [Ultram] 50 mg PO Q6HR PRN #12 tablet 01/22/19 Unknown Rx Ondansetron [Zofran Odt] 4 mg PO Q8HR PRN #15 tab.rapdis 03/22/19 Unknown Rx Allergies Allergy/AdvReac Type Severity Reaction Status Date / Time captopril Allergy Rash Verified 05/04/19 17:05 clindamycin Allergy Diarrhea Verified 05/04/19 17:05 codeine Allergy Unknown Verified 05/04/19 17:05 [From Tylenol-Codeine #3] NSAIDS (Non-Steroidal Allergy Rash Verified 05/04/19 17:05 Anti-Inflamma Penicillins Allergy Rash Verified 05/04/19 17:05 Sulfa (Sulfonamide Allergy Rash Verified 05/04/19 17:05 Antibiotics) ED Review of Systems ROS: Stated complaint: DIZZY Other details as noted in HPI Constitutional: denies: chills, fever Eyes: denies: eye pain, eye discharge, vision change ENT: denies: ear pain, throat pain Respiratory: shortness of breath. denies: cough, wheezing Cardiovascular: denies: chest pain, palpitations Endocrine: no symptoms reported Gastrointestinal: denies: abdominal pain, nausea, diarrhea Genitourinary: denies: urgency, dysuria, discharge Musculoskeletal: denies: back pain, joint swelling, arthralgia Skin: denies: rash, lesions Neurological: headache. denies: weakness, paresthesias Psychiatric: denies: anxiety, depression Hematological/Lymphatic: denies: easy bleeding, easy bruising ED Past Medical Hx - Past Medical History Previous Medical History?: Yes Hx Hypertension: Yes Hx CVA: Yes (07/07/14) Hx Heart Attack/AMI: No Hx Congestive Heart Failure: No Hx Diabetes: No Hx Deep Vein Thrombosis: No Hx Pulmonary Embolism: No Hx GERD: No Hx Liver Disease: No Hx Renal Disease: Yes (Stage III renal dx) Hx Sickle Cell Disease: No Hx Arthritis: Yes Hx Headaches / Migraines: No Hx Seizures: No Hx Kidney Stones: No Hx Psychiatric Treatment: Yes (Depression) Hx Asthma: No Hx COPD: No Hx Tuberculosis: No Hx Dementia: Yes (takes aricept) Hx HIV: No Additional medical history: 3 herniated discs. LUPUS. hypothyroid. Lung Nodules 01/2018 - Surgical History Past Surgical History?: Yes Hx Coronary Stent: No Hx Open Heart Surgery: No Hx Pacemaker: No Hx Internal Defibrillator: No Hx Cholecystectomy: Yes Hx Appendectomy: Yes Hx Breast Surgery: No Additional Surgical History: vein stripping. oral surgery 07/31/18. No history of venous thromboembolism - Social History Smoking Status: Never Smoker Substance Use Type: None - Medications Home Medications: Home Medications Medication Instructions Recorded Confirmed Last Taken Type Mirtazapine [Remeron] 45 mg PO QHS 08/04/15 06/09/18 Unknown History Sertraline HCl [Zoloft] 50 mg PO DAILY #30 tablet 03/26/18 06/09/18 Unknown Rx Solifenacin Succinate (Nf) 10 mg PO DAILY #30 tablet 03/26/18 06/09/18 Unknown Rx [Vesicare (Nf)] calcitrioL [Rocaltrol] 0.25 mcg PO DAILY 05/19/18 06/09/18 Unknown History hydrOXYzine PAMOATE [Vistaril] 50 mg PO DAILY@2100 05/19/18 06/09/18 Unknown History predniSONE [Prednisone] 5 mg PO QDAY 05/19/18 06/09/18 Unknown History Aspirin 325 mg PO QDAY #30 tablet 06/12/18 Unknown Rx AtorvaSTATin [Lipitor] 40 mg PO QHS #30 tablet 06/12/18 Unknown Rx Clopidogrel [Plavix] 75 mg PO QDAY #30 tablet 06/12/18 Unknown Rx Levothyroxine [Synthroid] 50 mcg PO QAM #30 tablet 06/12/18 Unknown Rx Mirtazapine [Remeron 15mg TAB] 45 mg PO QHS tablet 06/12/18 Unknown Rx Pantoprazole [Protonix TAB] 40 mg PO BID #30 tablet 06/12/18 Unknown Rx amLODIPine 5 mg PO QDAY #30 tablet 06/12/18 Unknown Rx carvediloL [Coreg] 25 mg PO BID #60 tablet 06/12/18 Unknown Rx lamoTRIgine [LaMICtal] 25 mg PO BID #30 tablet 06/12/18 Unknown Rx Acetaminophen [Non-Aspirin Extra 500 mg PO Q6HR PRN #30 tablet 08/02/18 Unknown Rx Strength] Chlorhexidine Mouthwash [Peridex] 15 ml MM BID #1 bottle 08/02/18 Unknown Rx Permethrin 5% [Acticin 5% CREAM] 1 applicatio TP ONCE #2 tube 08/02/18 Unknown Rx DOXYCYCLINE Hyclate [Vibramycin 100 mg PO Q12HR #14 capsule 08/07/18 Unknown Rx CAP] metroNIDAZOLE [Flagyl] 500 mg PO Q12HR #14 tab 08/07/18 Unknown Rx traMADoL [Ultram] 50 mg PO Q6HR PRN #12 tablet 08/07/18 Unknown Rx cephALEXin [Keflex] 500 mg PO Q12HR #10 cap 09/14/18 Unknown Rx traMADoL [Ultram 50 MG tab] 50 mg PO Q6HR PRN #10 tablet 09/14/18 Unknown Rx traMADoL [Ultram] 50 mg PO Q8H PRN #9 tablet 12/14/18 Unknown Rx levoFLOXacin [Levaquin TAB] 500 mg PO QDAY 7 Days #7 tablet 12/19/18 Unknown Rx Ondansetron [Zofran Odt] 4 mg PO Q8HR PRN #14 tab.rapdis 01/11/19 Unknown Rx traMADoL [Ultram 50 MG tab] 50 mg PO Q4HR PRN #14 tablet 01/11/19 Unknown Rx Neomy/Polymyx B/Hc Opth Susp 1 drop OP Q6HR #1 bottle 01/22/19 Unknown Rx [Cortisporin (OPTH) Susp] predniSONE [Deltasone] 20 mg PO QDAY #5 tab 01/22/19 Unknown Rx traMADoL [Ultram] 50 mg PO Q6HR PRN #12 tablet 01/22/19 Unknown Rx Ondansetron [Zofran Odt] 4 mg PO Q8HR PRN #15 tab.rapdis 03/22/19 Unknown Rx ED Physical Exam - General Limitations: No Limitations, Physical Limitation General appearance: alert, in no apparent distress - Head Head exam: Present: atraumatic, normocephalic - Eye Eye exam: Present: normal appearance. Absent: scleral icterus - ENT ENT exam: Present: mucous membranes moist - Neck Neck exam: Present: normal inspection. Absent: tenderness, meningismus - Respiratory Respiratory exam: Present: normal lung sounds bilaterally. Absent: respiratory distress - Cardiovascular Cardiovascular Exam: Present: regular rate, normal rhythm. Absent: systolic murmur, diastolic murmur, rubs, gallop - GI/Abdominal GI/Abdominal exam: Present: soft, normal bowel sounds. Absent: distended, tenderness, guarding, rebound - Extremities Exam Extremities exam: Present: other (Bilateral leg edema. Both feet are warm. Peripheral pulses are diminished bilaterally.). Absent: calf tenderness - Back Exam Back exam: Present: normal inspection - Neurological Exam Neurological exam: Present: alert, oriented X3, CN II-XII intact. Absent: motor sensory deficit - Psychiatric Psychiatric exam: Present: normal affect, normal mood - Skin Skin exam: Present: warm, dry, intact, normal color. Absent: rash ED Course Vital Signs 06/07/19 12:25 Temperature 98 F Pulse Rate 84 Respiratory 16 Rate Blood Pressure 150/69 O2 Sat by Pulse 100 Oximetry - Reevaluation(s) Reevaluation #1: CT the head is negative per radiologist. The patient is appropriate for outpatient management. 06/07/19 15:17 06/07/19 15:19 On reassessment the patient is completely asymptomatic and comfortable. ED Medical Decision Making - Lab Data Result diagrams: 06/07/19 13:18 06/07/19 13:18 Laboratory Results - last 24 hr 06/07/19 06/07/19 06/07/19 13:18 13:18 13:18 WBC 5.7 RBC 5.38 H Hgb 12.5 Hct 39.5 MCV 74 L MCH 23 L MCHC 32 RDW 16.3 H Plt Count 200 Lymph % (Auto) Emergency Communications Officer Cannon % (Auto) Emergency Communications Officer Eos % (Auto) Emergency Communications Officer Baso % (Auto) Emergency Communications Officer Lymph # Emergency Communications Officer Cannon # Emergency Communications Officer Eos # Emergency Communications Officer Baso # Emergency Communications Officer Seg Neutrophils % Emergency Communications Officer Seg Neutrophils # Emergency Communications Officer PT 14.6 INR 1.12 APTT 24.9 Sodium 142 Potassium 4.5 Chloride 105.7 Carbon Dioxide 23 Anion Gap 18 BUN 16 Creatinine 1.0 Estimated GFR > 60 BUN/Creatinine Ratio 16 Glucose 69 Calcium 9.6 Troponin T NT-Pro-B Natriuret Pep 06/07/19 13:18 WBC RBC Hgb Hct MCV MCH MCHC RDW Plt Count Lymph % (Auto) Cannon % (Auto) Eos % (Auto) Baso % (Auto) Lymph # Cannon # Eos # Baso # Seg Neutrophils % Seg Neutrophils # PT INR APTT Sodium Potassium Chloride Carbon Dioxide Anion Gap BUN Creatinine Estimated GFR BUN/Creatinine Ratio Glucose Calcium Troponin T < 0.010 NT-Pro-B Natriuret Pep 174.9 Laboratory Results - last 24 hr 06/07/19 06/07/19 06/07/19 13:18 13:18 13:18 WBC 5.7 RBC 5.38 H Hgb 12.5 Hct 39.5 MCV 74 L MCH 23 L MCHC 32 RDW 16.3 H Plt Count 200 Lymph % (Auto) Emergency Communications Officer Cannon % (Auto) Emergency Communications Officer Eos % (Auto) Emergency Communications Officer Baso % (Auto) Emergency Communications Officer Lymph # Emergency Communications Officer Cannon # Emergency Communications Officer Eos # Emergency Communications Officer Baso # Emergency Communications Officer Seg Neutrophils % Emergency Communications Officer Seg Neutrophils # Emergency Communications Officer PT 14.6 INR 1.12 APTT 24.9 Sodium 142 Potassium 4.5 Chloride 105.7 Carbon Dioxide 23 Anion Gap 18 BUN 16 Creatinine 1.0 Estimated GFR > 60 BUN/Creatinine Ratio 16 Glucose 69 Calcium 9.6 Troponin T NT-Pro-B Natriuret Pep 06/07/19 13:18 WBC RBC Hgb Hct MCV MCH MCHC RDW Plt Count Lymph % (Auto) Cannon % (Auto) Eos % (Auto) Baso % (Auto) Lymph # Cannon # Eos # Baso # Seg Neutrophils % Seg Neutrophils # PT INR APTT Sodium Potassium Chloride Carbon Dioxide Anion Gap BUN Creatinine Estimated GFR BUN/Creatinine Ratio Glucose Calcium Troponin T < 0.010 NT-Pro-B Natriuret Pep 174.9 - EKG Data -: EKG Interpreted by Me EKG shows normal: sinus rhythm, axis, intervals, QRS complexes, ST-T waves Rate: normal - EKG Data Interpretation: normal EKG - Radiology Data Radiology results: report reviewed (Chest x-ray no acute process CT the head I do not see anything acute pending interpretation), image reviewed Critical care attestation.: If time is entered above; I have spent that time in minutes in the direct care of this critically ill patient, excluding procedure time. ED Disposition Clinical Impression: Peripheral vascular disease Adverse effects of medication Qualifiers: Encounter type: initial encounter Qualified Code(s): T50.905A - Adverse effect of unspecified drugs, medicaments and biological substances, initial encounter Headache Qualifiers: Headache type: unspecified Headache chronicity pattern: acute headache Intractability: not intractable Qualified Code(s): R51 - Headache Disposition: DC-01 TO HOME OR SELFCARE Is pt being admited?: No Does the pt Need Aspirin: No Condition: Stable Instructions: Acute Headache (ED), Nicotine (Absorbed through the skin), How to Stop Smoking (ED) Additional Instructions: Return any acute change or problem. Follow-up with your primary care provider, line out worker and vascular surgeon Referrals: PRIMARY CARE, [Primary Care Provider] - 3-5 Days Time of Disposition: 15:18
--- NOTE | 2019-06-07 15:10 | Cat Scan Report ---
CT BRAIN: 06/07/2019 INDICATION / CLINICAL INFORMATION: MAIN: headache, NO KNOWN INJURY. COMPARISON: 05/04/2019 FINDINGS: BRAIN/INTRACRANIAL STRUCTURES: Unenhanced CT images of the brain dated straight no evidence of acute intracranial abnormality. Ventricles and sulci are slightly prominent in size, consistent with age-related atrophic change. There is no evidence of acute ischemic injury, hemorrhage, or mass. There are no abnormal extra-axial fluid collections. There is been no change when compared to 05/04/2019. EXTRACRANIAL STRUCTURES: Unremarkable. IMPRESSION: No acute abnormality. All CT scans at this location are performed using dose reduction to ALARA by means of automated expos ure control. Signer Name: Binu Zaman MD Signed: 06/07/2019 3:06 PM Workstation Name: [id number]
== END 2019-06-07 15:34 | disposition home or self-care (01) ==
LOC: ED 12:11
DX: R51 Headache (principal); T50.905A Adverse effect of unspecified drugs, medicaments and biological substances, initial encounter; Y92.89 Other specified places as the place of occurrence of the external cause; I73.9 Peripheral vascular disease, unspecified; I10 Essential (primary) hypertension; M19.91 Primary osteoarthritis, unspecified site; F32.9 Major depressive disorder, single episode, unspecified; Z86.73 Personal history of transient ischemic attack (TIA), and cerebral infarction without residual deficits; Z87.448 Personal history of other diseases of urinary system; Z90.49 Acquired absence of other specified parts of digestive tract; Z90.89 Acquired absence of other organs; Z79.899 Other long term (current) drug therapy; Z88.8 Allergy status to other drugs, medicaments and biological substances
CPT/HCPCS: 36415; 70450; 71045; 80048; 83880; 84484; 85025; 85610; 85730; 93005

== ENCOUNTER 2019-09-26 05:22 | Emergency (ER) | payer MEDICARE ==
[2019-09-26 05:45] VITALS: BP 139/78
--- NOTE | 2019-09-26 06:11 | XRay Report ---
CHEST 1 VIEW INDICATION / CLINICAL INFORMATION: Chest Pain. COMPARISON: 08/04/2019 FINDINGS: SUPPORT DEVICES: None. HEART / MEDIASTINUM: No significant abnormality. LUNGS / PLEURA: Suboptimal inspiration. Mild bibasilar atelectasis. No interstitial pulmonary edema o r pleural effusion identified. No pneumothorax. ADDITIONAL FINDINGS: No significant additional findings. IMPRESSION: 1. Suboptimal inspiration with mild bibasilar atelectasis. Overall appearance is not significantly ch anged from most recent exam. Signer Name: Richa Bello MD Signed: 09/26/2019 6:06 AM Workstation Name: [id number]
[2019-09-26 06:39] LABS: BUN/Creatinine Ratio 15; Blood Urea Nitrogen 17 mg/dL (7-17); Calcium 9.3 mg/dL (8.4-10.2); Hemolysis Index 10
[2019-09-26 06:40] LABS: Basophils # (Auto) 0.1 K/mm3 (0.0-0.1); Basophils % (Auto) 0.7 % (0.0-1.8); Eosinophils # (Auto) 0.1 K/mm3 (0.0-0.4); Eosinophils % (Auto) 1.1 % (0.0-4.3); Hematocrit 38.3 % (30.3-42.9); Hemoglobin 12.1 gm/dl (10.1-14.3); Lymphocytes # (Auto) 2.3 K/mm3 (1.2-5.4); Lymphocytes % (Auto) 30.5 % (13.4-35.0); Mean Corpuscular HGB Conc 32 % (30-34); Mean Corpuscular Volume 75 fl (79-97); Monocytes # (Auto) 0.8 K/mm3 (0.0-0.8); Monocytes % (Auto) 10.8 % (0.0-7.3); Platelet Count 190 K/mm3 (140-440); Red Blood Count 5.08 M/mm3 (3.65-5.03); Red Cell Distribution Width 17.3 % (13.2-15.2)
--- NOTE | 2019-09-26 07:13 | Emergency Department Report ---
ED General Adult HPI - General Chief complaint: Chest Pain Stated complaint: CHEST PAIN/HEADACHE/ EAR PAIN Time Seen by Provider: 09/26/19 06:26 Source: patient, EMS Mode of arrival: Stretcher Limitations: No Limitations - History of Present Illness Initial comments: 73-year-old female presents to ED with complaint of headache, body aches, earache, sharp mid chest pain. Patient states she woke up with the symptoms earlier this morning. Patient initially tested positive for COVID-19 on August 05, 2019. She then had a negative test on August 14, 2019. Patient then tested positive again, 9 days ago, prior to having a surgery on September 17, 2019. Patie nt denies any fever, cough, or shortness of breath. -: This morning Location: head, chest Severity scale (0 -10): 4 Quality: aching Consistency: intermittent Improves with: none Worsens with: none Associated Symptoms: chest pain, headaches. denies: cough, fever/chills, nausea/vomiting, shortness of breath - Related Data Home Medications Medication Instructions Recorded Confirmed Last Taken Mirtazapine [Remeron] 45 mg PO QHS 08/04/15 08/04/19 Unknown calcitrioL [Rocaltrol] 0.25 mcg PO DAILY 05/19/18 08/04/19 Unknown hydrOXYzine PAMOATE [Vistaril] 50 mg PO DAILY@2100 05/19/18 08/04/19 Unknown predniSONE [Prednisone] 5 mg PO QDAY 05/19/18 08/04/19 Unknown Previous Rx's Medication Instructions Recorded Last Taken Type Sertraline HCl [Zoloft] 50 mg PO DAILY #30 tablet 03/26/18 Unknown Rx Solifenacin Succinate (Nf) 10 mg PO DAILY #30 tablet 03/26/18 Unknown Rx [Vesicare (Nf)] Aspirin 325 mg PO QDAY #30 tablet 06/12/18 Unknown Rx AtorvaSTATin [Lipitor] 40 mg PO QHS #30 tablet 06/12/18 Unknown Rx Clopidogrel [Plavix] 75 mg PO QDAY #30 tablet 06/12/18 Unknown Rx Levothyroxine [Synthroid] 50 mcg PO QAM #30 tablet 06/12/18 Unknown Rx Mirtazapine [Remeron 15mg TAB] 45 mg PO QHS tablet 06/12/18 Unknown Rx Pantoprazole [Protonix TAB] 40 mg PO BID #30 tablet 06/12/18 Unknown Rx amLODIPine 5 mg PO QDAY #30 tablet 06/12/18 Unknown Rx carvediloL [Coreg] 25 mg PO BID #60 tablet 06/12/18 Unknown Rx lamoTRIgine [LaMICtal] 25 mg PO BID #30 tablet 06/12/18 Unknown Rx Acetaminophen [Non-Aspirin Extra 500 mg PO Q6HR PRN #30 tablet 08/02/18 Unknown Rx Strength] Chlorhexidine Mouthwash [Peridex] 15 ml MM BID #1 bottle 08/02/18 Unknown Rx Permethrin 5% [Acticin 5% CREAM] 1 applicatio TP ONCE #2 tube 08/02/18 Unknown Rx DOXYCYCLINE Hyclate [Vibramycin 100 mg PO Q12HR #14 capsule 08/07/18 Unknown Rx CAP] metroNIDAZOLE [Flagyl TAB] 500 mg PO Q12HR #14 tab 08/07/18 Unknown Rx cephALEXin [Keflex] 500 mg PO Q12HR #10 cap 09/14/18 Unknown Rx levoFLOXacin [Levaquin TAB] 500 mg PO QDAY 7 Days #7 tablet 12/19/18 Unknown Rx Ondansetron [Zofran ODT TAB] 4 mg PO Q8HR PRN #14 tab.rapdis 01/11/19 Unknown Rx traMADoL [Ultram 50 MG tab] 50 mg PO Q4HR PRN #14 tablet 01/11/19 Unknown Rx Neomy/Polymyx B/Hc Opth Susp 1 drop OP Q6HR #1 bottle 01/22/19 Unknown Rx [Cortisporin (OPTH) Susp] Ondansetron [Zofran ODT TAB] 4 mg PO Q8HR PRN #15 tab.rapdis 03/22/19 Unknown Rx predniSONE [Deltasone] 40 mg PO QDAY #14 tablet 08/06/19 Unknown Rx Allergies Allergy/AdvReac Type Severity Reaction Status Date / Time captopril Allergy Rash Verified 05/04/19 17:05 clindamycin Allergy Diarrhea Verified 05/04/19 17:05 codeine Allergy Unknown Verified 05/04/19 17:05 [From Tylenol-Codeine #3] NSAIDS (Non-Steroidal Allergy Rash Verified 05/04/19 17:05 Anti-Inflamma Penicillins Allergy Rash Verified 05/04/19 17:05 Sulfa (Sulfonamide Allergy Rash Verified 05/04/19 17:05 Antibiotics) tramadol Allergy Unknown Verified 09/26/19 05:35 ED Review of Systems ROS: Stated complaint: CHEST PAIN/HEADACHE/ EAR PAIN Other details as noted in HPI Comment: All other systems reviewed and negative Constitutional: denies: chills, fever Respiratory: denies: cough, shortness of breath Cardiovascular: chest pain Gastrointestinal: denies: abdominal pain, nausea, vomiting, diarrhea Musculoskeletal: myalgia Neurological: headache ED Past Medical Hx - Past Medical History Previous Medical History?: Yes Hx Hypertension: Yes Hx CVA: Yes (07/07/14) Hx Heart Attack/AMI: Yes Hx Congestive Heart Failure: No Hx Diabetes: No Hx Deep Vein Thrombosis: No Hx Pulmonary Embolism: No Hx GERD: No Hx Liver Disease: No Hx Renal Disease: Yes (Stage III renal dx) Hx Sickle Cell Disease: No Hx Arthritis: Yes Hx Headaches / Migraines: No Hx Seizures: No Hx Kidney Stones: No Hx Psychiatric Treatment: Yes (Depression) Hx Asthma: No Hx COPD: No Hx Tuberculosis: No Hx Dementia: Yes Hx HIV: No Additional medical history: 3 herniated discs. LUPUS. hypothyroid. Lung Nodules 01/2018 - Surgical History Past Surgical History?: Yes Hx Coronary Stent: No Hx Open Heart Surgery: No Hx Pacemaker: No Hx Internal Defibrillator: No Hx Cholecystectomy: Yes Hx Appendectomy: Yes Hx Breast Surgery: No Additional Surgical History: vein stripping. oral surgery 07/31/18. No history of venous thromboembolism - Social History Smoking Status: Current Every Day Smoker Substance Use Type: None - Medications Home Medications: Home Medications Medication Instructions Recorded Confirmed Last Taken Type Mirtazapine [Remeron] 45 mg PO QHS 08/04/15 08/04/19 Unknown History Sertraline HCl [Zoloft] 50 mg PO DAILY #30 tablet 03/26/18 08/04/19 Unknown Rx Solifenacin Succinate (Nf) 10 mg PO DAILY #30 tablet 03/26/18 08/04/19 Unknown Rx [Vesicare (Nf)] calcitrioL [Rocaltrol] 0.25 mcg PO DAILY 05/19/18 08/04/19 Unknown History hydrOXYzine PAMOATE [Vistaril] 50 mg PO DAILY@2100 05/19/18 08/04/19 Unknown History predniSONE [Prednisone] 5 mg PO QDAY 05/19/18 08/04/19 Unknown History Aspirin 325 mg PO QDAY #30 tablet 06/12/18 08/04/19 Unknown Rx AtorvaSTATin [Lipitor] 40 mg PO QHS #30 tablet 06/12/18 08/04/19 Unknown Rx Clopidogrel [Plavix] 75 mg PO QDAY #30 tablet 06/12/18 08/04/19 Unknown Rx Levothyroxine [Synthroid] 50 mcg PO QAM #30 tablet 06/12/18 08/04/19 Unknown Rx Mirtazapine [Remeron 15mg TAB] 45 mg PO QHS tablet 06/12/18 08/04/19 Unknown Rx Pantoprazole [Protonix TAB] 40 mg PO BID #30 tablet 06/12/18 08/04/19 Unknown Rx amLODIPine 5 mg PO QDAY #30 tablet 06/12/18 08/04/19 Unknown Rx carvediloL [Coreg] 25 mg PO BID #60 tablet 06/12/18 08/04/19 Unknown Rx lamoTRIgine [LaMICtal] 25 mg PO BID #30 tablet 06/12/18 08/04/19 Unknown Rx Acetaminophen [Non-Aspirin Extra 500 mg PO Q6HR PRN #30 tablet 08/02/18 08/04/19 Unknown Rx Strength] Chlorhexidine Mouthwash [Peridex] 15 ml MM BID #1 bottle 08/02/18 08/04/19 Unknown Rx Permethrin 5% [Acticin 5% CREAM] 1 applicatio TP ONCE #2 tube 08/02/18 08/04/19 Unknown Rx DOXYCYCLINE Hyclate [Vibramycin 100 mg PO Q12HR #14 capsule 08/07/18 08/04/19 Unknown Rx CAP] metroNIDAZOLE [Flagyl TAB] 500 mg PO Q12HR #14 tab 08/07/18 08/04/19 Unknown Rx cephALEXin [Keflex] 500 mg PO Q12HR #10 cap 09/14/18 08/04/19 Unknown Rx levoFLOXacin [Levaquin TAB] 500 mg PO QDAY 7 Days #7 tablet 12/19/18 08/04/19 Unknown Rx Ondansetron [Zofran ODT TAB] 4 mg PO Q8HR PRN #14 tab.rapdis 01/11/19 08/04/19 Unknown Rx traMADoL [Ultram 50 MG tab] 50 mg PO Q4HR PRN #14 tablet 01/11/19 08/04/19 Unknown Rx Neomy/Polymyx B/Hc Opth Susp 1 drop OP Q6HR #1 bottle 01/22/19 08/04/19 Unknown Rx [Cortisporin (OPTH) Susp] Ondansetron [Zofran ODT TAB] 4 mg PO Q8HR PRN #15 tab.rapdis 03/22/19 08/04/19 Unknown Rx predniSONE [Deltasone] 40 mg PO QDAY #14 tablet 08/06/19 Unknown Rx ED Physical Exam - General Limitations: No Limitations General appearance: alert, in no apparent distress, other (Nontoxic-appearing) - Head Head exam: Present: atraumatic, normocephalic - Eye Eye exam: Present: normal appearance, EOMI - ENT ENT exam: Present: mucous membranes moist - Neck Neck exam: Present: normal inspection - Respiratory Respiratory exam: Present: normal lung sounds bilaterally. Absent: respiratory distress - Cardiovascular Cardiovascular Exam: Present: regular rate, normal rhythm - GI/Abdominal GI/Abdominal exam: Present: soft. Absent: distended, tenderness - Extremities Exam Extremities exam: Present: normal inspection - Neurological Exam Neurological exam: Present: alert, oriented X3 - Psychiatric Psychiatric exam: Present: normal affect, normal mood - Skin Skin exam: Present: warm, dry, intact, normal color ED Course Vital Signs 09/26/19 09/26/19 05:39 05:44 Temperature 98.4 F Pulse Rate 83 80 Respiratory 19 21 Rate Blood Pressure 139/78 Blood Pressure 139/78 [Left] O2 Sat by Pulse 99 Oximetry ED Medical Decision Making - Lab Data Result diagrams: 09/26/19 05:48 09/26/19 05:48 - EKG Data -: EKG Interpreted by Pa EKG shows normal: sinus rhythm, axis, intervals, QRS complexes, ST-T waves Rate: normal - EKG Data Interpretation: no acute changes, LVH - Radiology Data Radiology results: report reviewed, image reviewed - Medical Decision Making 73-year-old female, COVID positive, presents to ED with body aches and chest pain. EKG shows T changes. Troponin negative x3. D-dimer was mildly elevated, so VQ scan was obtained, which showed low probability for PE. Patient in no respiratory distress, O2 sats normal. Patient eager to go home. She will be discharged at this time. Outpatient follow-up advised. Patient advised to continue quarantining until negative COVID-19 test. - Differential Diagnosis Pneumonia, PE, pulmonary edema Critical care attestation.: If time is entered above; I have spent that time in minutes in the direct care of this critically ill patient, excluding procedure time. ED Disposition Clinical Impression: Chest pain, COVID-19 Disposition: DC-01 TO HOME OR SELFCARE Is pt being admited?: No Condition: Stable Instructions: Chest Pain (ED) Referrals: PRIMARY CARE, [Primary Care Provider] - 3-5 Days Time of Disposition: 11:47
[2019-09-26 08:01] LABS: INR 0.97 (0.87-1.13); Partial Thromboplastin Time 28.1 Sec. (24.2-36.6)
[2019-09-26] MEDS ORDERED: MORPHINE 2 MG/1 ML INJ IV ONE (08:17)
--- NOTE | 2019-09-26 10:26 | Nuclear Medicine Report ---
NUCLEAR MEDICINE PERFUSION ONLY LUNG SCAN HISTORY: Covid positive, elevated d-dimer, shortness of breath TECHNIQUE: Multiple projections of the lungs were obtained following injection of 5 mCi of technetium 99m MAA. FINDINGS: Correlation is made with the AP chest performed earlier the same day. The perfusion images demonstrate homogeneous distribution of the radiotracer throughout both lungs. N o perfusion defect is identified to suggest pulmonary embolus. IMPRESSION: Normal perfusion scan. Signer Name: Breezy Bobby Jr, MD Signed: 09/26/2019 10:21 AM Workstation Name: [id number]
== END 2019-09-26 13:10 | disposition home or self-care (01) ==
LOC: ED 05:22
DX: U07.1 COVID-19 (principal); R07.89 Other chest pain; R51 Headache; H92.09 Otalgia, unspecified ear; I25.2 Old myocardial infarction; I10 Essential (primary) hypertension; Z87.448 Personal history of other diseases of urinary system; M19.91 Primary osteoarthritis, unspecified site; F32.9 Major depressive disorder, single episode, unspecified; F03.90 Unspecified dementia, unspecified severity, without behavioral disturbance, psychotic disturbance, mood disturbance, and anxiety; Z90.49 Acquired absence of other specified parts of digestive tract; F17.200 Nicotine dependence, unspecified, uncomplicated; Z98.890 Other specified postprocedural states; Z79.899 Other long term (current) drug therapy; Z88.1 Allergy status to other antibiotic agents; Z88.2 Allergy status to sulfonamides; Z88.6 Allergy status to analgesic agent; Z88.8 Allergy status to other drugs, medicaments and biological substances
CPT/HCPCS: 36415; 71045; 78580; 80048; 84484; 85025; 85379; 85610; 85730; 93005; 96374; 99284; A9540; J2270

== ENCOUNTER 2019-11-11 07:34 | Observation (INO) | payer MEDICARE ==
[2019-11-11] MEDS ORDERED: DEXTROSE 50% IN WATER (25GM) 50 ML SYRINGE IV PRN (16:25)
--- NOTE | 2019-11-11 16:26 | Emergency Department Report ---
ED General Adult HPI - General Chief complaint: High BP Stated complaint: HBP PUI?: No Time Seen by Provider: 11/11/19 16:07 Source: patient, EMS ( EMS documentation not available at time of chart dictation ), RN notes reviewed, old records reviewed Mode of arrival: Ambulatory Limitations: No Limitations - History of Present Illness Initial comments: The patient was evaluated in the emergency department for symptoms described in the history of present illness. He/she was evaluated in the context of the global COVID-19 pandemic, which necessitated consideration that the patient might be at risk for infection with the virus that causes COVID-19. Institutional protocols and algorithms that pertain to the evaluation of pat ients at risk for COVID-19 are in a state of rapid change based on information released by regulatory bodies including the CDC and federal and state organizations. These policies and algorithms were followed during the patient's care in the emergency department. Please note that these policies, procedures and recommendations changed on a rapid basis. Primary care doctor: Dr. Brock Zepeda Nephrology: Dr. Ronny Crespo Cardiology: Dr. Lidna Tam Past medical history: Renal insufficiency, DJD, hypertension, lupus, arthritis, dementia, stroke, depression, arthritis, nicotine dependence, hypothyroidism The patient is a 73-year-old female. The patient presented to the ER with a complaint of painless lightheadedness, sensation that she would almost passed out, and feeling unsteady on her feet, which started this morning. This lasted for about an hour. It is painless. It is now resolved. Patient denies headache, new or different neck pain, new chest pain, new shortness of breath, denies vomiting, diaphoresis. Patient reports recent same-day elective surgery on her bladder about a week and a half ago, and endorses dysuria. She is apparently taking Macrobid. She has chronic lower extremity swelling. Her symptoms did not radiate anywhere, they are now resolved, they do not have exacerbating or relieving factors. Patient has had extensive objective testing in 2018, had a cardiac nuclear stress test April 2018, negative for ischemic findings, carotid duplex in June 2018, negative for significant stenosis, CT angios chest, March 2018, negative for pulmonary embolism, echocardiogram, June 2018, ejection fraction 55 to 60%, MR of the cervical spine, performed June 2018, which showed DJD, osteophytes, narrowing of the left neuroforamen, with no cord disease noted, also had MRA brain, MRI brain, negative for acute findings, with chronic findings noted. As per triage nursing documentation, the patient was found to have a glucose of 55. The patient has no recollection of this. -: Sudden Consistency: now resolved Improves with: none Worsens with: none Associated Symptoms: denies other symptoms - Related Data Home Medications Medication Instructions Recorded Confirmed Last Taken Mirtazapine [Remeron] 45 mg PO QHS 08/04/15 08/04/19 Unknown calcitrioL [Rocaltrol] 0.25 mcg PO DAILY 05/19/18 08/04/19 Unknown hydrOXYzine PAMOATE [Vistaril] 50 mg PO DAILY@2100 05/19/18 08/04/19 Unknown predniSONE [Prednisone] 5 mg PO QDAY 05/19/18 08/04/19 Unknown Previous Rx's Medication Instructions Recorded Last Taken Type Sertraline HCl [Zoloft] 50 mg PO DAILY #30 tablet 03/26/18 Unknown Rx Solifenacin Succinate (Nf) 10 mg PO DAILY #30 tablet 03/26/18 Unknown Rx [Vesicare (Nf)] Aspirin 325 mg PO QDAY #30 tablet 06/12/18 Unknown Rx AtorvaSTATin [Lipitor] 40 mg PO QHS #30 tablet 06/12/18 Unknown Rx Clopidogrel [Plavix] 75 mg PO QDAY #30 tablet 06/12/18 Unknown Rx Levothyroxine [Synthroid] 50 mcg PO QAM #30 tablet 06/12/18 Unknown Rx Mirtazapine [Remeron 15mg TAB] 45 mg PO QHS tablet 06/12/18 Unknown Rx Pantoprazole [Protonix TAB] 40 mg PO BID #30 tablet 06/12/18 Unknown Rx amLODIPine 5 mg PO QDAY #30 tablet 06/12/18 Unknown Rx carvediloL [Coreg] 25 mg PO BID #60 tablet 06/12/18 Unknown Rx lamoTRIgine [LaMICtal] 25 mg PO BID #30 tablet 06/12/18 Unknown Rx Acetaminophen [Non-Aspirin Extra 500 mg PO Q6HR PRN #30 tablet 08/02/18 Unknown Rx Strength] Chlorhexidine Mouthwash [Peridex] 15 ml MM BID #1 bottle 08/02/18 Unknown Rx Permethrin 5% [Acticin 5% CREAM] 1 applicatio TP ONCE #2 tube 08/02/18 Unknown Rx DOXYCYCLINE Hyclate [Vibramycin 100 mg PO Q12HR #14 capsule 08/07/18 Unknown Rx CAP] metroNIDAZOLE [Flagyl TAB] 500 mg PO Q12HR #14 tab 08/07/18 Unknown Rx cephALEXin [Keflex] 500 mg PO Q12HR #10 cap 09/14/18 Unknown Rx levoFLOXacin [Levaquin TAB] 500 mg PO QDAY 7 Days #7 tablet 12/19/18 Unknown Rx Ondansetron [Zofran ODT TAB] 4 mg PO Q8HR PRN #14 tab.rapdis 01/11/19 Unknown Rx traMADoL [Ultram 50 MG tab] 50 mg PO Q4HR PRN #14 tablet 01/11/19 Unknown Rx Neomy/Polymyx B/Hc Opth Susp 1 drop OP Q6HR #1 bottle 01/22/19 Unknown Rx [Cortisporin (OPTH) Susp] Ondansetron [Zofran ODT TAB] 4 mg PO Q8HR PRN #15 tab.rapdis 03/22/19 Unknown Rx predniSONE [Deltasone] 40 mg PO QDAY #14 tablet 08/06/19 Unknown Rx Allergies Allergy/AdvReac Type Severity Reaction Status Date / Time captopril Allergy Rash Verified 11/11/19 07:39 clindamycin Allergy Diarrhea Verified 11/11/19 07:39 codeine Allergy Unknown Verified 11/11/19 07:39 [From Tylenol-Codeine #3] NSAIDS (Non-Steroidal Allergy Rash Verified 11/11/19 07:39 Anti-Inflamma Penicillins Allergy Rash Verified 11/11/19 07:39 Sulfa (Sulfonamide Allergy Rash Verified 11/11/19 07:39 Antibiotics) tramadol Allergy Unknown Verified 11/11/19 07:39 ED Review of Systems ROS: Stated complaint: HBP Other details as noted in HPI Constitutional: malaise. denies: fever Eyes: denies: eye discharge, vision change Respiratory: denies: cough, shortness of breath Cardiovascular: edema (Chronic edema), syncope (Lightheadedness). denies: chest pain Gastrointestinal: denies: abdominal pain, hematemesis, melena, hematochezia Genitourinary: dysuria Musculoskeletal: myalgia Neurological: weakness, abnormal gait ED Past Medical Hx - Past Medical History Hx Hypertension: Yes Hx CVA: Yes (07/07/14) Hx Heart Attack/AMI: Yes Hx Congestive Heart Failure: No Hx Diabetes: No Hx Deep Vein Thrombosis: No Hx Pulmonary Embolism: No Hx GERD: No Hx Liver Disease: No Hx Renal Disease: Yes (Stage III renal dx) Hx Sickle Cell Disease: No Hx Arthritis: Yes Hx Headaches / Migraines: No Hx Seizures: No Hx Kidney Stones: No Hx Psychiatric Treatment: Yes (Depression) Hx Asthma: No Hx COPD: No Hx Tuberculosis: No Hx Dementia: Yes Hx HIV: No Additional medical history: 3 herniated discs. LUPUS. hypothyroid. Lung Nodules 01/2018 - Surgical History Hx Coronary Stent: No Hx Open Heart Surgery: No Hx Pacemaker: No Hx Internal Defibrillator: No Hx Cholecystectomy: Yes Hx Appendectomy: Yes Hx Breast Surgery: No Additional Surgical History: vein stripping. oral surgery 07/31/18. No history of venous thromboembolism BLAADER SURGERY - Social History Smoking Status: Current Every Day Smoker Substance Use Type: None - Medications Home Medications: Home Medications Medication Instructions Recorded Confirmed Last Taken Type Mirtazapine [Remeron] 45 mg PO QHS 08/04/15 08/04/19 Unknown History Sertraline HCl [Zoloft] 50 mg PO DAILY #30 tablet 03/26/18 08/04/19 Unknown Rx Solifenacin Succinate (Nf) 10 mg PO DAILY #30 tablet 03/26/18 08/04/19 Unknown Rx [Vesicare (Nf)] calcitrioL [Rocaltrol] 0.25 mcg PO DAILY 05/19/18 08/04/19 Unknown History hydrOXYzine PAMOATE [Vistaril] 50 mg PO DAILY@2100 05/19/18 08/04/19 Unknown History predniSONE [Prednisone] 5 mg PO QDAY 05/19/18 08/04/19 Unknown History Aspirin 325 mg PO QDAY #30 tablet 06/12/18 08/04/19 Unknown Rx AtorvaSTATin [Lipitor] 40 mg PO QHS #30 tablet 06/12/18 08/04/19 Unknown Rx Clopidogrel [Plavix] 75 mg PO QDAY #30 tablet 06/12/18 08/04/19 Unknown Rx Levothyroxine [Synthroid] 50 mcg PO QAM #30 tablet 06/12/18 08/04/19 Unknown Rx Mirtazapine [Remeron 15mg TAB] 45 mg PO QHS tablet 06/12/18 08/04/19 Unknown Rx Pantoprazole [Protonix TAB] 40 mg PO BID #30 tablet 06/12/18 08/04/19 Unknown Rx amLODIPine 5 mg PO QDAY #30 tablet 06/12/18 08/04/19 Unknown Rx carvediloL [Coreg] 25 mg PO BID #60 tablet 06/12/18 08/04/19 Unknown Rx lamoTRIgine [LaMICtal] 25 mg PO BID #30 tablet 06/12/18 08/04/19 Unknown Rx Acetaminophen [Non-Aspirin Extra 500 mg PO Q6HR PRN #30 tablet 08/02/18 08/04/19 Unknown Rx Strength] Chlorhexidine Mouthwash [Peridex] 15 ml MM BID #1 bottle 08/02/18 08/04/19 Unknown Rx Permethrin 5% [Acticin 5% CREAM] 1 applicatio TP ONCE #2 tube 08/02/18 08/04/19 Unknown Rx DOXYCYCLINE Hyclate [Vibramycin 100 mg PO Q12HR #14 capsule 08/07/18 08/04/19 Unknown Rx CAP] metroNIDAZOLE [Flagyl TAB] 500 mg PO Q12HR #14 tab 08/07/18 08/04/19 Unknown Rx cephALEXin [Keflex] 500 mg PO Q12HR #10 cap 09/14/18 08/04/19 Unknown Rx levoFLOXacin [Levaquin TAB] 500 mg PO QDAY 7 Days #7 tablet 12/19/18 08/04/19 Unknown Rx Ondansetron [Zofran ODT TAB] 4 mg PO Q8HR PRN #14 tab.rapdis 01/11/19 08/04/19 Unknown Rx traMADoL [Ultram 50 MG tab] 50 mg PO Q4HR PRN #14 tablet 01/11/19 08/04/19 Unk nown Rx Neomy/Polymyx B/Hc Opth Susp 1 drop OP Q6HR #1 bottle 01/22/19 08/04/19 Unknown Rx [Cortisporin (OPTH) Susp] Ondansetron [Zofran ODT TAB] 4 mg PO Q8HR PRN #15 tab.rapdis 03/22/19 08/04/19 Unknown Rx predniSONE [Deltasone] 40 mg PO QDAY #14 tablet 08/06/19 Unknown Rx ED Physical Exam - General Limitations: No Limitations General appearance: alert, in no apparent distress - Head Head exam: Present: atraumatic, normocephalic - Eye Eye exam: Present: normal appearance, EOMI, other (Visual acuity intact to finger counting, color perception, reading at a close distance). Absent: nystagmus - ENT ENT exam: Present: normal exam, normal orophraynx, mucous membranes moist, normal external ear exam - Neck Neck exam: Present: normal inspection, full ROM. Absent: tenderness, meningismus - Respiratory Respiratory exam: Present: normal lung sounds bilaterally. Absent: respiratory distress, wheezes, rales, rhonchi, stridor - Cardiovascular Cardiovascular Exam: Present: regular rate, normal rhythm, normal heart sounds. Absent: bradycardia, tachycardia, irregular rhythm, systolic murmur, diastolic murmur, rubs, gallop - GI/Abdominal GI/Abdominal exam: Present: soft. Absent: distended, tenderness, guarding, rebound, rigid, pulsatile mass - Extremities Exam Extremities exam: Present: normal inspection, full ROM, pedal edema (1-2+ edema in the bilateral lower extremities), other (2+ pulses noted in the bilateral upper and lower extremities. There is no palpable cord. negative Homans sign. Muscular compartments are soft. The pelvis is stable.). Absent: calf t enderness - Back Exam Back exam: Present: normal inspection, full ROM. Absent: tenderness, CVA tenderness (R), CVA tenderness (L), paraspinal tenderness, vertebral tenderness - Neurological Exam Neurological exam: Present: alert, oriented X3, normal gait, other (There is no facial droop. The tongue is midline. Extraocular movements are intact bilaterally. There is 5 out of 5 strength in bilateral upper and lower ex tremities. Sensation is intact to light touch bilateral upper and lower extremities. There is no past-pointing. There is no pronator drift. There is normal [id number]-byae. There is a normal gait.). Absent: motor sensory deficit - Psychiatric Psychiatric exam: Present: normal affect, normal mood - Skin Skin exam: Present: warm, dry, intact, normal color. Absent: rash ED Course Vital Signs 11/11/19 11/11/19 11/11/19 07:40 12:02 15:14 Temperature 97.8 F 98.9 F Pulse Rate 97 H 95 H 101 H Respiratory 20 20 18 Rate Blood Pressure 155/91 202/91 145/92 Blood Pressure [Right] O2 Sat by Pulse 98 100 Oximetry 11/11/19 16:49 Temperature Pulse Rate 92 H Respiratory 16 Rate Blood Pressure Blood Pressure 145/90 [Right] O2 Sat by Pulse 96 Oximetry - Reevaluation(s) Reevaluation #1: 11/11/19 16:58 Differential diagnosis, including but not limited to: Transient ischemic attack, orthostasis, vagal event, structural cardiac disease, hypoglycemia, pneumonia, urinary tract infection, acute coronary syndrome, pulmonary embolism Assessment and plan: 73-year-old female, with multiple chronic medical conditions, moderate risk for major adverse cardiac event as per heart score, resolved tachycardia, recently had elective same-day surgery, had mild hypoglycemia, 55, prior to arrival to this department, with a number of nonspecific symptoms, which are now resolved. Patient has an NIH score of 0, her examination is not suggestive of a large vessel occlusion, therefore, TPA is not indicated, an emergent angiographic visualization of the head and neck is not indicated. She is seen in consultation with neurology, Dr. Khan, who agrees with the aforementioned recommendations. Check basic laboratory studies, CT scan of the brain, x-ray of the chest, urinalysis, send d-dimer to risk stratify for pulmonary embolism, and obtain urinalysis. Patient will also be placed on Accu-Cheks, in place for as needed dextrose. We likely anticipate need for admission for observation overnight. This is discussed with the patient, who verbalized understanding, and is amenable to this plan of care. Reevaluation #2: 11/11/19 18:47 Patient is reassessed. She is walking with a steady gait. Repeat Accu-Chek is 57, in spite of eating nearly a full meal. I suspect that the primary component of the patient's presentation is persistent hypoglycemia. She will therefore be started on a dextrose drip. Urinalysis is pending. D- dimer elevated, nuclear medicine study is ordered given history of renal insufficiency. Hospital physician is paged to arrange admission. X-ray of the chest is negative for acute findings. Noncontrast CT scan of the brain is negative for acute findings Reevaluation #3: 11/11/19 19:14 Dr Roque Schaefer to admit he states he will follow up on the UA and v/q study ED Medical Decision Making - Lab Data Result diagrams: 11/11/19 16:28 11/11/19 16:28 Vital Signs 11/11/19 11/11/19 11/11/19 07:40 12:02 15:14 Temperature 97.8 F 98.9 F Pulse Rate 97 H 95 H 101 H Respiratory 20 20 18 Rate Blood Pressure 155/91 202/91 145/92 Blood Pressure [Right] O2 Sat by Pulse 98 100 Oximetry 11/11/19 16:49 Temperature Pulse Rate 92 H Respiratory 16 Rate Blood Pressure Blood Pressure 145/90 [Right] O2 Sat by Pulse 96 Oximetry - EKG Data -: EKG Interpreted by [facility] EKG shows normal: sinus rhythm Rate: normal - EKG Data Interpretation: unchanged when compared t 11/11/19 16:58 The EKG today shows a sinus rhythm, 89 bpm, there is a normal axis, the QTC is 446 ms, there is left ventricular hypertrophy, the EKG is not a STEMI, and there is poor R wave progression. tHis EKG today appears to be unchanged from prior EKG from September 2019 - Radiology Data Radiology results: pending Critical care attestation.: If time is entered above; I have spent that time in minutes in the direct care of this critically ill patient, excluding procedure time. ED Disposition Clinical Impression: TIA (transient ischemic attack), CKD (chronic kidney disease), Dysuria, Near syncope, History of unsteady gait, Hypoglycemia Disposition: -09 OP ADMIT IP TO THIS HOSP Is pt being admited?: Yes Does the pt Need Aspirin: Yes Condition: Good Referrals: PRIMARY CARE, [Primary Care Provider] - 3-5 Days
--- NOTE | 2019-11-11 16:58 | Emergency Department Report ---
ED Neuro Deficit HPI - General Chief Complaint: High BP Stated Complaint: HBP Time Seen by Provider: 11/11/19 16:07 Source: patient, EMS Mode of arrival: Ambulatory Limitations: No Limitations - History of Present Illness Initial Comments: [facility] Date of Service: 11/11/2019 16:27:01 Impression: Transient Ischemic Attack Comments/Sign-Out: The emergency department physician informed me that this was mistakenly called in as a stroke alert and should have been called in as a Stat consult. She has no overt neurologic deficit. Her blood pressure has been quite high and she is not always compliant with her medication. She needs to have a brain MRI, echo, A1c, fasting lipid profile. She is not a candidate for an emergency intervention. Mechanism of Stroke: Not Clear Metrics: Last Known Well: 11/11/2019 06:00:16 [facility] Notification Time: 11/11/2019 16:26:44 Arrival Time: 11/11/2019 07:39:00 Stamp Time: 11/11/2019 16:27:01 Time First Login Attempt: 11/11/2019 16:30:27 Video Start Time: 11/11/2019 16:30:27 Symptoms: Nervous and incoherent NIHSS Start Assessment Time: 11/11/2019 16:34:00 Patient is not a candidate for Alteplase/Activase. Patient was not deemed candidate for Alteplase/Activase thrombolytics because of Resolved symptoms (no residual disabling symptoms). Video End Time: 11/11/2019 16:47:58 CT head was not reviewed. Clinical Presentation is not Suggestive of Large Vessel Occlusive Disease ED Physician notified of diagnostic impression and management plan on 11/11/2019 16:47:50 Our recommendations are outlined below. Recommendations: Activate Stroke Protocol Admission/Order Set Stroke/Telemetry Floor Neuro Checks Bedside Swallow Eval DVT Prophylaxis IV Fluids, Normal Saline Head of Bed 30 Degrees Euglycemia and Avoid Hyperthermia (PRN Acetaminophen) Initiate Plavix 75 MG Daily History of Present Illness: Patient is a 73 year old Female. Patient was brought by EMS for symptoms of Nervous and incoherent This 73-year-old woman had surgery nine days ago stretch or open her urethra but it was done through the urethra. Today beginning at about 0600 she felt nervous and angry and her words were incoherent. She was briefly unsteady on her feet. She had no loss of speech or vision. She had no weakness or numbness the extremities. In addition to risk factors below she has a history of pericarditis and lupus. She is a one half pack per day smoker. She has had TIAs in the past. Last seen normal was beyond 4.5 hours of presentation. There is no history of hemorrhagic complications or intracranial hemorrhage. There is no history of Recent Anticoagulants. There is no history of recent major surgery. There is no history of recent stroke. Past Medical History: Hypertension There is NO history of Hyperlipidemia There is NO history of Atrial Fibrillation There is NO history of Coronary Artery Disease There is NO history of Stroke Anticoagulant use: No Antiplatelet use: Plavix Examination: BP(202/91 then 145/92), Pulse(95-101), Blood Glucose(Not available) 1A: Level of Consciousness - Alert; keenly responsive + 0 1B: Ask Month and Age - Both Questions Right + 0 1C: Blink Eyes & Squeeze Hands - Performs Both Tasks + 0 2: Test Horizontal Extraocular Movements - Normal + 0 3: Test Visual Milian - No Visual Loss + 0 4: Test Facial Palsy (Use Grimace if Obtunded) - Normal symmetry + 0 5A: Test Left Arm Motor Drift - No Drift for 10 Seconds + 0 5B: Test Right Arm Motor Drift - No Drift for 10 Seconds + 0 6A: Test Left Leg Motor Drift - No Drift for 5 Seconds + 0 6B: Test Right Leg Motor Drift - No Drift for 5 Seconds + 0 7: Test Limb Ataxia (FNF/Heel-Matamoros) - No Ataxia + 0 8: Test Sensation - Normal; No sensory loss + 0 9: Test Language/Aphasia - Normal; No aphasia + 0 10: Test Dysarthria - Normal + 0 11: Test Extinction/Inattention - No abnormality + 0 NIHSS Score: 0 Patient/Family was informed the Neurology Consult would happen via TeleHealth consult by way of interactive audio and video telecommunications and consented to receiving care in this manner. Due to the immediate potential for life-threatening deterioration due to un derlying acute neurologic illness, I spent 24 minutes providing critical care. This time includes time for face to face visit via telemedicine, review of medical records, imaging studies and discussion of findings with providers, the patient and/or family. Dr Romario Khan [facility] Case [id number] - Related Data Home Medications: Home Medications Medication Instructions Recorded Confirmed Last Taken Mirtazapine [Remeron] 45 mg PO QHS 08/04/15 08/04/19 Unknown calcitrioL [Rocaltrol] 0.25 mcg PO DAILY 05/19/18 08/04/19 Unknown hydrOXYzine PAMOATE [Vistaril] 50 mg PO DAILY@2100 05/19/18 08/04/19 Unknown predniSONE [Prednisone] 5 mg PO QDAY 05/19/18 08/04/19 Unknown Previous Rx's Medication Instructions Recorded Last Taken Type Sertraline HCl [Zoloft] 50 mg PO DAILY #30 tablet 03/26/18 Unknown Rx Solifenacin Succinate (Nf) 10 mg PO DAILY #30 tablet 03/26/18 Unknown Rx [Vesicare (Nf)] Aspirin 325 mg PO QDAY #30 tablet 06/12/18 Unknown Rx AtorvaSTATin [Lipitor] 40 mg PO QHS #30 tablet 06/12/18 Unknown Rx Clopidogrel [Plavix] 75 mg PO QDAY #30 tablet 06/12/18 Unknown Rx Levothyroxine [Synthroid] 50 mcg PO QAM #30 tablet 06/12/18 Unknown Rx Mirtazapine [Remeron 15mg TAB] 45 mg PO QHS tablet 06/12/18 Unknown Rx Pantoprazole [Protonix TAB] 40 mg PO BID #30 tablet 06/12/18 Unknown Rx amLODIPine 5 mg PO QDAY #30 tablet 06/12/18 Unknown Rx carvediloL [Coreg] 25 mg PO BID #60 tablet 06/12/18 Unknown Rx lamoTRIgine [LaMICtal] 25 mg PO BID #30 tablet 06/12/18 Unknown Rx Acetaminophen [Non-Aspirin Extra 500 mg PO Q6HR PRN #30 tablet 08/02/18 Unknown Rx Strength] Chlorhexidine Mouthwash [Peridex] 15 ml MM BID #1 bottle 08/02/18 Unknown Rx Permethrin 5% [Acticin 5% CREAM] 1 applicatio TP ONCE #2 tube 08/02/18 Unknown Rx DOXYCYCLINE Hyclate [Vibramycin 100 mg PO Q12HR #14 capsule 08/07/18 Unknown Rx CAP] metroNIDAZOLE [Flagyl TAB] 500 mg PO Q12HR #14 tab 08/07/18 Unknown Rx cephALEXin [Keflex] 500 mg PO Q12HR #10 cap 09/14/18 Unknown Rx levoFLOXacin [Levaquin TAB] 500 mg PO QDAY 7 Days #7 tablet 12/19/18 Unknown Rx Ondansetron [Zofran ODT TAB] 4 mg PO Q8HR PRN #14 tab.rapdis 01/11/19 Unknown Rx traMADoL [Ultram 50 MG tab] 50 mg PO Q4HR PRN #14 tablet 01/11/19 Unknown Rx Neomy/Polymyx B/Hc Opth Susp 1 drop OP Q6HR #1 bottle 01/22/19 Unknown Rx [Cortisporin (OPTH) Susp] Ondansetron [Zofran ODT TAB] 4 mg PO Q8HR PRN #15 tab.rapdis 03/22/19 Unknown Rx predniSONE [Deltasone] 40 mg PO QDAY #14 tablet 08/06/19 Unknown Rx Allergies/Adverse Reactions: Allergies Allergy/AdvReac Type Severity Reaction Status Date / Time captopril Allergy Rash Verified 11/11/19 07:39 clindamycin Allergy Diarrhea Verified 11/11/19 07:39 codeine Allergy Unknown Verified 11/11/19 07:39 [From Tylenol-Codeine #3] NSAIDS (Non-Steroidal Allergy Rash Verified 11/11/19 07:39 Anti-Inflamma Penicillins Allergy Rash Verified 11/11/19 07:39 Sulfa (Sulfonamide Allergy Rash Verified 11/11/19 07:39 Antibiotics) tramadol Allergy Unknown Verified 11/11/19 07:39 ED Review of Systems ROS: Stated complaint: HBP Other details as noted in HPI ED Past Medical Hx - Past Medical History Hx Hypertension: Yes Hx CVA: Yes (07/07/14) Hx Heart Attack/AMI: Yes Hx Congestive Heart Failure: No Hx Diabetes: No Hx Deep Vein Thrombosis: No Hx Pulmonary Embolism: No Hx GERD: No Hx Liver Disease: No Hx Renal Disease: Yes (Stage III renal dx) Hx Sickle Cell Disease: No Hx Arthritis: Yes Hx Headaches / Migraines: No Hx Seizures: No Hx Kidney Stones: No Hx Psychiatric Treatment: Yes (Depression) Hx Asthma: No Hx COPD: No Hx Tuberculosis: No Hx Dementia: Yes Hx HIV: No Additional medical history: 3 herniated discs. LUPUS. hypothyroid. Lung Nodules 01/2018 - Surgical History Hx Coronary Stent: No Hx Open Heart Surgery: No Hx Pacemaker: No Hx Internal Defibrillator: No Hx Cholecystectomy: Yes Hx Appendectomy: Yes Hx Breast Surgery: No Additional Surgical History: vein stripping. oral surgery 07/31/18. No history of venous thromboembolism BLAADER SURGERY - Social History Smoking Status: Current Every Day Smoker Substance Use Type: None - Medications Home Medications: Home Medications Medication Instructions Recorded Confirmed Last Taken Type Mirtazapine [Remeron] 45 mg PO QHS 08/04/15 08/04/19 Unknown History Sertraline HCl [Zoloft] 50 mg PO DAILY #30 tablet 03/26/18 08/04/19 Unknown Rx Solifenacin Succinate (Nf) 10 mg PO DAILY #30 tablet 03/26/18 08/04/19 Unknown Rx [Vesicare (Nf)] calcitrioL [Rocaltrol] 0.25 mcg PO DAILY 05/19/18 08/04/19 Unknown History hydrOXYzine PAMOATE [Vistaril] 50 mg PO DAILY@2100 05/19/18 08/04/19 Unknown History predniSONE [Prednisone] 5 mg PO QDAY 05/19/18 08/04/19 Unknown History Aspirin 325 mg PO QDAY #30 tablet 06/12/18 08/04/19 Unknown Rx AtorvaSTATin [Lipitor] 40 mg PO QHS #30 tablet 06/12/18 08/04/19 Unknown Rx Clopidogrel [Plavix] 75 mg PO QDAY #30 tablet 06/12/18 08/04/19 Unknown Rx Levothyroxine [Synthroid] 50 mcg PO QAM #30 tablet 06/12/18 08/04/19 Unknown Rx Mirtazapine [Remeron 15mg TAB] 45 mg PO QHS tablet 06/12/18 08/04/19 Unknown Rx Pantoprazole [Protonix TAB] 40 mg PO BID #30 tablet 06/12/18 08/04/19 Unknown Rx amLODIPine 5 mg PO QDAY #30 tablet 06/12/18 08/04/19 Unknown Rx carvediloL [Coreg] 25 mg PO BID #60 tablet 06/12/18 08/04/19 Unknown Rx lamoTRIgine [LaMICtal] 25 mg PO BID #30 tablet 06/12/18 08/04/19 Unknown Rx Acetaminophen [Non-Aspirin Extra 500 mg PO Q6HR PRN #30 tablet 08/02/18 08/04/19 Unknown Rx Strength] Chlorhexidine Mouthwash [Peridex] 15 ml MM BID #1 bottle 08/02/18 08/04/19 Unknown Rx Permethrin 5% [Acticin 5% CREAM] 1 applicatio TP ONCE #2 tube 08/02/18 08/04/19 Unknown Rx DOXYCYCLINE Hyclate [Vibramycin 100 mg PO Q12HR #14 capsule 08/07/18 08/04/19 Unknown Rx CAP] metroNIDAZOLE [Flagyl TAB] 500 mg PO Q12HR #14 tab 08/07/18 08/04/19 Unknown Rx cephALEXin [Keflex] 500 mg PO Q12HR #10 cap 09/14/18 08/04/19 Unknown Rx levoFLOXacin [Levaquin TAB] 500 mg PO QDAY 7 Days #7 tablet 12/19/18 08/04/19 Unknown Rx Ondansetron [Zofran ODT TAB] 4 mg PO Q8HR PRN #14 tab.rapdis 01/11/19 08/04/19 Unknown Rx traMADoL [Ultram 50 MG tab] 50 mg PO Q4HR PRN #14 tablet 01/11/19 08/04/19 Unknown Rx Neomy/Polymyx B/Hc Opth Susp 1 drop OP Q6HR #1 bottle 01/22/19 08/04/19 Unknown Rx [Cortisporin (OPTH) Susp] Ondansetron [Zofran ODT TAB] 4 mg PO Q8HR PRN #15 tab.rapdis 03/22/19 08/04/19 Unknown Rx predniSONE [Deltasone] 40 mg PO QDAY #14 tablet 08/06/19 Unknown Rx ED Neuro Physical Exam - General Limitations: No Limitations Suspected Stroke: No ED Course Vital Signs 11/11/19 11/11/19 11/11/19 07:40 12:02 15:14 Temperature 97.8 F 98.9 F Pulse Rate 97 H 95 H 101 H Respiratory 20 20 18 Rate Blood Pressure 155/91 202/91 145/92 Blood Pressure [Right] O2 Sat by Pulse 98 100 Oximetry 11/11/19 16:49 Temperature Pulse Rate 92 H Respiratory 16 Rate Blood Pressure Blood Pressure 145/90 [Right] O2 Sat by Pulse 96 Oximetry Critical care attestation.: If time is entered above; I have spent that time in minutes in the direct care of this critically ill patient, excluding procedure time. ED Disposition Clinical Impression: TIA (transient ischemic attack) Disposition: - OP ADMIT IP TO THIS HOSP Is pt being admited?: Yes Condition: Good Referrals: PRIMARY CARE, [Primary Care Provider] - 3-5 Days
[2019-11-11 17:11] LABS: Basophils % (Auto) 0.5 % (0.0-1.8); Eosinophils # (Auto) 0.2 K/mm3 (0.0-0.4); Eosinophils % (Auto) 2.9 % (0.0-4.3); Hematocrit 40.4 % (30.3-42.9); Hemoglobin 12.7 gm/dl (10.1-14.3); Lymphocytes # (Auto) 2.1 K/mm3 (1.2-5.4); Mean Corpuscular HGB Conc 32 % (30-34); Mean Corpuscular Volume 78 fl (79-97); Monocytes # (Auto) 0.8 K/mm3 (0.0-0.8); Monocytes % (Auto) 13.3 % (0.0-7.3); Platelet Count 210 K/mm3 (140-440); Red Blood Count 5.16 M/mm3 (3.65-5.03)
--- NOTE | 2019-11-11 17:17 | XRay Report ---
CHEST 1 VIEW 11/11/2019 4:59 PM INDICATION / CLINICAL INFORMATION: lightdeaded dizzy, near syncope. COMPARISON: 09/26/2019 FINDINGS: SUPPORT DEVICES: None. HEART / MEDIASTINUM: No significant abnormality. LUNGS / PLEURA: No significant pulmonary or pleural abnormality. No pneumothorax. ADDITIONAL FINDINGS: No significant additional findings. IMPRESSION: 1. No acute findings. Signer Name: Syd Sanchez MD Signed: 11/11/2019 5:12 PM Workstation Name: [id number]
[2019-11-11 17:31] LABS: Alanine Aminotransferase 20 units/L (7-56); Albumin 3.7 g/dL (3.9-5); BUN/Creatinine Ratio 10; Blood Urea Nitrogen 10 mg/dL (7-17); Calcium 9.6 mg/dL (8.4-10.2); Creatine Kinase MB 1.5 ng/mL (0.0-4.0); Hemolysis Index 8
[2019-11-11 17:38] LABS: INR 0.94 (0.87-1.13)
[2019-11-11 17:39] LABS: Partial Thromboplastin Time 32.9 Sec. (24.2-36.6); Thrombin Time 17.3 Sec. (15.1-19.6)
[2019-11-11] MEDS ORDERED: DEXTROSE 50% IN WATER (25GM) 50 ML VIAL IV ONE (17:50)
--- NOTE | 2019-11-11 17:53 | Cat Scan Report ---
CT head/brain wo con INDICATION / CLINICAL INFORMATION: 73 years Female; hx of unsteady gait, light headed, now resolved. TECHNIQUE: Routine CT head without contrast. All CT scans at this location are performed using CT dos e reduction for ALARA by means of automated exposure control. COMPARISON: The study is compared to the previous CT of 08/25/2019. FINDINGS: BRAIN / INTRACRANIAL CONTENTS: The brain appears to demonstrate appropriate attenuation for age. The ventricular system is within normal limits in size and configuration. There is no clear CT evidence o f acute intracranial hemorrhage or significant mass effect. ORBITS: No significant abnormality of visualized orbits. SINUSES / MASTOIDS: No significant abnormality in the visualized paranasal sinuses or mastoid air lillie ls. CRANIOCERVICAL JUNCTION: No significant abnormality. ADDITIONAL FINDINGS: None. IMPRESSION: 1. There is no CT evidence of acute intracranial process. Signer Name: Garo Soler MD Signed: 11/11/2019 5:49 PM Workstation Name: [id number]
[2019-11-11] MEDS ORDERED: ASPIRIN 81 MG TAB CHEW PO ONE (18:36)
[2019-11-11] MEDS ORDERED: DEXTROSE 10% IN WATER 1,000 ML IV SCH (19:00)
--- NOTE | 2019-11-11 22:56 | Progress Note ---
Subjective Date of service: 11/11/19 Interval history: 74-year-old female with history of hypertension, hyperlipidemia, coronary artery disease and overactive bladder comes in for lightheadedness severe weakness and feeling unsteady and feels as if she was about to pass out. Patient had a bladder surgery as outpatient 1 and half week ago. No headache no chest pain. Feels as if she is going to pass out. No unsteadiness. No fever or chills. - Past Medical History Hx Hypertension: Yes Hx CVA: Yes (07/07/14) no deficits. Hx Heart Attack/AMI: Yes Hx Renal Disease: Yes (Stage III renal dx) Hx Arthritis: Yes Hx Psychiatric Treatment: Yes (Depression) Hx Dementia: Yes Additional medical history: 3 herniated discs. LUPUS. hypothyroid. Lung Nodules 01/2018 - Surgical History Hx Cholecystectomy: Yes Hx Appendectomy: Yes Additional Surgical History: vein stripping. oral surgery 07/31/18. No history of venous thromboembolism BLAADER SURGERY - Social History Smoking Status: Current Every Day Smoker Substance Use Type: None Review of Systems ROS: Constitutional generalized weakness HEENT no sore throat no post nasal drip no diplopia Neck no neck stiffness no lymph gland enlargement Chest and lungs no shortness of breath cough or wheezing CVS no chest pain no diaphoresis no palpitations GI no nausea no vomiting no diarrhea Genitourinary system no dysuria no flank pain Musculoskeletal system no muscle pains no joint pains [employer] no syncope no seizures Skin no rash no itching Psychiatric no depression no homicidal or suicidal tendencies Hematologic no lymphedema or bruising Endocrine no polydipsia no polyuria no cold intolerance no heat intolerance Objective - Constitutional Vitals: Vital Signs - 12hr 11/11/19 11/11/19 11/11/19 12:02 15:14 16:49 Temperature 98.9 F Pulse Rate 95 H 101 H 92 H Respiratory 20 18 16 Rate Blood Pressure 202/91 145/92 Blood Pressure 145/90 [Right] O2 Sat by Pulse 100 96 Oximetry General appearance: Present: no acute distress, well-nourished - EENT Eyes: PERRL, EOM intact ENT: hearing intact, clear oral mucosa Ears: bilateral: normal - Neck Neck: supple, normal ROM - Respiratory Respiratory effort: normal Respiratory: bilateral: CTA - Breasts Breasts: normal - Cardiovascular Rhythm: regular Heart Sounds: Present: S1 & S2. Absent: gallop, rub Extremities: pulses intact, No edema, normal color, Full ROM - Gastrointestinal General gastrointestinal: Present: soft, non-tender, non-distended, normal bowel sounds - Genitourinary Female genitourinary: normal - Integumentary Integumentary: clear, warm, dry - Musculoskeletal Musculoskeletal: 1, strength equal bilaterally - Neurologic Neurologic: moves all extremities - Psychiatric Psychiatric: memory intact, appropriate mood/affect, intact judgment & insight - Labs CBC & Chem 7: 11/11/19 16:28 11/11/19 16: Labs: Abnormal lab results 11/11/19 11/11/19 11/11/19 Range/Units 16:28 16: 16: RBC 5.16 H (3.65-5.03) M/mm3 MCV 78 L (79-97) fl MCH 25 L (28-32) pg RDW 17.0 H (13.2-15.2) % Elk % (Auto) 13.3 H (0.0-7.3) % D-Dimer 376.68 H (0-234) ng/mlDDU Glucose 57 L (65-100) mg/dL POC Glucose (70-105) Albumin 3.7 L (3.9-5) g/dL Salicylates (2.8-20.0) mg/dL Acetaminophen (10.0-30.0) ug/mL 11/11/19 11/11/19 11/11/19 Range/Units 16:28 16: 18:48 RBC (3.65-5.03) M/mm3 MCV (79-97) fl MCH (28-32) pg RDW (13.2-15.2) % Elk % (Auto) (0.0-7.3) % D-Dimer (0-234) ng/mlDDU Glucose (65-100) mg/dL POC Glucose 57 L (70-105) Albumin (3.9-5) g/dL Salicylates < 0.3 L (2.8-20.0) mg/dL Acetaminophen 5.0 L (10.0-30.0) ug/mL HEART Score - HEART Score Troponin: Troponin T < 0.010 ng/mL (0.00-0.029) 11/11/19 16:
--- NOTE | 2019-11-11 23:05 | History and Physical Report ---
History of Present Illness Date of examination: 11/11/19 Date of admission: 11/11/19 19:14 Chief complaint: Generalized weakness and lightheadedness since afternoon History of present illness: 74-year-old female with history of hypertension, hyperlipidemia, coronary artery disease and overactive bladder comes in for lightheadedness severe weakness and feeling unsteady and feels as if she was about to pass out. Patient had a bladder surgery as outpatient 1 and half week ago. No headache no chest pain. Feels as if she is going to pass out. No unsteadiness. No fever or chills. Patient has had extensive objective testing in 2019, had a cardiac nuclear str ess test April 2018, negative for ischemic findings, carotid duplex in June 2018, negative for significant stenosis, CT angios chest, March 2018, negative for pulmonary embolism, echocardiogram, June 2018, ejection fraction 55 to 60%, MR of the cervical spine, performed June 2018, which showed DJD, osteophytes, narrowing of the left neuroforamen, with no cord disease noted, also had MRA brain, MRI brain, negative for acute findings, with chronic findings noted. As per triage nursing documentation, the patient was found to have a glucose of 55. The patient has no recollection of this. - Past Medical History Hypertension: Yes CVA: Yes (07/07/14) no deficits. Heart Attack/AMI: Yes Renal Disease: Yes (Stage III renal dx) Arthritis: Yes Psychiatric Treatment: Yes (Depression) Dementia: Yes Additional medical history: 3 herniated discs. LUPUS. hypothyroid. Lung Nodules 01/2018 - Surgical History Hx Cholecystectomy: Yes Hx Appendectomy: Yes Additional Surgical History: vein stripping. oral surgery 07/31/18. No history of venous thromboembolism BLAADER SURGERY - Social History Smoking Status: Current Every Day Smoker Substance Use Type: None Family history Htn Review of Systems ROS: Constitutional generalized weakness HEENT no sore throat no post nasal drip no diplopia Neck no neck stiffness no lymph gland enlargement Chest and lungs no shortness of breath cough or wheezing CVS no chest pain no diaphoresis no palpitations GI no nausea no vomiting no diarrhea Genitourinary system no dysuria no flank pain Musculoskeletal system no muscle pains no joint pains [employer]MI[employer] no syncope no seizures Skin no rash no itching Psychiatric no depression no homicidal or suicidal tendencies Hematologic no lymphedema or bruising Endocrine no polydipsia no polyuria no cold intolerance no heat intolerance Medications and Allergies Allergies Allergy/AdvReac Type Severity Reaction Status Date / Time captopril Allergy Rash Verified 11/11/19 07:39 clindamycin Allergy Diarrhea Verified 11/11/19 07:39 codeine Allergy Unknown Verified 11/11/19 07:39 [From Tylenol-Codeine #3] NSAIDS (Non-Steroidal Allergy Rash Verified 11/11/19 07:39 Anti-Inflamma Penicillins Allergy Rash Verified 11/11/19 07:39 Sulfa (Sulfonamide Allergy Rash Verified 11/11/19 07:39 Antibiotics) tramadol Allergy Unknown Verified 11/11/19 07:39 Home Medications Medication Instructions Recorded Confirmed Last Taken Type Mirtazapine [Remeron] 45 mg PO QHS 08/04/15 08/04/19 Unknown History Sertraline HCl [Zoloft] 50 mg PO DAILY #30 tablet 03/26/18 08/04/19 Unknown Rx Solifenacin Succinate (Nf) 10 mg PO DAILY #30 tablet 03/26/18 08/04/19 Unknown Rx [Vesicare (Nf)] calcitrioL [Rocaltrol] 0.25 mcg PO DAILY 05/19/18 08/04/19 Unknown History hydrOXYzine PAMOATE [Vistaril] 50 mg PO DAILY@2100 05/19/18 08/04/19 Unknown History predniSONE [Prednisone] 5 mg PO QDAY 05/19/18 08/04/19 Unknown History Aspirin 325 mg PO QDAY #30 tablet 06/12/18 08/04/19 Unknown Rx AtorvaSTATin [Lipitor] 40 mg PO QHS #30 tablet 06/12/18 08/04/19 Unknown Rx Clopidogrel [Plavix] 75 mg PO QDAY #30 tablet 06/12/18 08/04/19 Unknown Rx Levothyroxine [Synthroid] 50 mcg PO QAM #30 tablet 06/12/18 08/04/19 Unknown Rx Mirtazapine [Remeron 15mg TAB] 45 mg PO QHS tablet 06/12/18 08/04/19 Unknown Rx Pantoprazole [Protonix TAB] 40 mg PO BID #30 tablet 06/12/18 08/04/19 Unknown Rx amLODIPine 5 mg PO QDAY #30 tablet 06/12/18 08/04/19 Unknown Rx carvediloL [Coreg] 25 mg PO BID #60 tablet 06/12/18 08/04/19 Unknown Rx lamoTRIgine [LaMICtal] 25 mg PO BID #30 tablet 06/12/18 08/04/19 Unknown Rx Acetaminophen [Non-Aspirin Extra 500 mg PO Q6HR PRN #30 tablet 08/02/18 08/04/19 Unknown Rx Strength] Chlorhexidine Mouthwash [Peridex] 15 ml MM BID #1 bottle 08/02/18 08/04/19 Unknown Rx Permethrin 5% [Acticin 5% CREAM] 1 applicatio TP ONCE #2 tube 08/02/18 08/04/19 Unknown Rx DOXYCYCLINE Hyclate [Vibramycin 100 mg PO Q12HR #14 capsule 08/07/18 08/04/19 Unknown Rx CAP] metroNIDAZOLE [Flagyl TAB] 500 mg PO Q12HR #14 tab 08/07/18 08/04/19 Unknown Rx cephALEXin [Keflex] 500 mg PO Q12HR #10 cap 09/14/18 08/04/19 Unknown Rx levoFLOXacin [Levaquin TAB] 500 mg PO QDAY 7 Days #7 tablet 12/19/18 08/04/19 Unknown Rx Ondansetron [Zofran ODT TAB] 4 mg PO Q8HR PRN #14 tab.rapdis 01/11/19 08/04/19 Unknown Rx traMADoL [Ultram 50 MG tab] 50 mg PO Q4HR PRN #14 tablet 01/11/19 08/04/19 Unknown Rx Neomy/Polymyx B/Hc Opth Susp 1 drop OP Q6HR #1 bottle 01/22/19 08/04/19 Unknown Rx [Cortisporin (OPTH) Susp] Ondansetron [Zofran ODT TAB] 4 mg PO Q8HR PRN #15 tab.rapdis 03/22/19 08/04/19 Unknown Rx predniSONE [Deltasone] 40 mg PO QDAY #14 tablet 08/06/19 Unknown Rx Active Meds: Active Medications Dextrose (D50w (25gm) Syringe) 50 ml IV Q30MIN PRN; Protocol PRN Reason: Hypoglycemia Dextrose (D10w) 1,000 mls @ 100 mls/hr IV DIRECT ADRIA Exam - Constitutional Vitals: Temp Pulse Resp BP Pulse Ox 97.9 F 104 H 20 138/83 100 11/11/19 22:50 11/11/19 22:50 11/11/19 22:50 11/11/19 22:50 11/11/19 22:50 General appearance: Present: no acute distress, well-nourished - EENT Eyes: Present: PERRL ENT: hearing intact, clear oral mucosa - Neck Neck: Present: supple, normal ROM - Respiratory Respiratory effort: normal Respiratory: bilateral: CTA - Cardiovascular Heart rate: 78 Rhythm: regular Heart Sounds: Present: S1 & S2. Absent: rub, click - Extremities Extremities: no ischemia, pulses symmetrical, No edema Peripheral Pulses: within normal limits - Abdominal General gastrointestinal: Present: soft, non-tender, non-distended, normal bowel sounds Female genitourinary: Present: normal - Integumentary Integumentary: Present: clear, warm, dry - Musculoskeletal Musculoskeletal: gait normal, strength equal bilaterally - Psychiatric Psychiatric: appropriate mood/affect, intact judgment & insight - Neurologic Neurologic: CNII-XII intact, moves all extremities - Allied Health Allied health notes reviewed: nursing, case management HEART Score - HEART Score History: Moderately suspicious EKG: Non-specific Risk factors: > 3 risk factors or hx of atherosclerotic disease Troponin: Troponin T < 0.010 ng/mL (0.00-0.029) 11/11/19 16:28 Troponin: < normal limit - Critical Actions Critical Actions: 4-6 pts:12-16.6% risk of adverse cardiac event. Should be admitted Results - Labs CBC & Chem 7: 11/11/19 16:28 11/12/19 07:40 Labs: Laboratory Last Values WBC 6.0 K/mm3 (4.5-11.0) 11/11/19 16:28 RBC 5.16 M/mm3 (3.65-5.03) H 11/11/19 16:28 Hgb 12.7 gm/dl (10.1-14.3) 11/11/19 16:28 Hct 40.4 % (30.3-42.9) 11/11/19 16:28 MCV 78 fl (79-97) L 11/11/19 16:28 MCH 25 pg (28-32) L 11/11/19 16:28 MCHC 32 % (30-34) 11/11/19 16:28 RDW 17.0 % (13.2-15.2) H 11/11/19 16:28 Plt Count 210 K/mm3 (140-440) 11/11/19 16: Lymph % (Auto) 35.0 % (13.4-35.0) 11/11/19 16:28 [place] % (Auto) 13.3 % (0.0-7.3) H 11/11/19 16: Eos % (Auto) 2.9 % (0.0-4.3) 11/11/19 16: Baso % (Auto) 0.5 % (0.0-1.8) 11/11/19 16: Lymph # (Auto) 2.1 K/mm3 (1.2-5.4) 11/11/19 16: [place] # (Auto) 0.8 K/mm3 (0.0-0.8) 11/11/19 16: Eos # (Auto) 0.2 K/mm3 (0.0-0.4) 11/11/19 16: Baso # (Auto) 0.0 K/mm3 (0.0-0.1) 11/11/19 16: Seg Neutrophils % 48.3 % (40.0-70.0) 11/11/19 16: Seg Neutrophils # 2.9 K/mm3 (1.8-7.7) 11/11/19 16: PT 12.8 Sec. (12.2-14.9) 11/11/19 16: INR 0.94 (0.87-1.13) 11/11/19 16: APTT 32.9 Sec. (24.2-36.6) 11/11/19 16: Thrombin Time 17.3 Sec. (15.1-19.6) 11/11/19 16: D-Dimer 376.68 ng/mlDDU (0-234) H 11/11/19 16: Sodium 144 mmol/L (137-145) 11/11/19 16:28 Potassium 4.0 mmol/L (3.6-5.0) 11/11/19 16: Chloride 105.6 mmol/L (98-107) 11/11/19 16: Carbon Dioxide 23 mmol/L (22-30) 11/11/19 16:28 Anion Gap 19 mmol/L 11/11/19 16:28 BUN 10 mg/dL (7-17) 11/11/19 16:28 Creatinine 1.0 mg/dL (0.6-1.2) 11/11/19 16:28 Estimated GFR > 60 ml/min 11/11/19 16:28 BUN/Creatinine Ratio 10 % 11/11/19 16:28 Glucose 57 mg/dL (65-100) L 11/11/19 16:28 POC Glucose 57 (70-105) L 11/11/19 18:48 Calcium 9.6 mg/dL (8.4-10.2) 11/11/19 16:28 Magnesium 2.20 mg/dL (1.7-2.3) 11/11/19 16:28 Total Bilirubin < 0.20 mg/dL (0.1-1.2) 11/11/19 16:28 AST 16 units/L (5-40) 11/11/19 16:28 ALT 20 units/L (7-56) 11/11/19 16:28 Alkaline Phosphatase 103 units/L (35-129) 11/11/19 16:28 Total Creatine Kinase 51 units/L (30-135) 11/11/19 16:28 Total Creatine Kinase 53 units/L (30-135) 11/11/19 16:28 CK-MB (CK-2) 1.5 ng/mL (0.0-4.0) 11/11/19 16:28 CK-MB (CK-2) Rel Index 2.9 (0-4) 11/11/19 16:28 Troponin T < 0.010 ng/mL (0.00-0.029) 11/11/19 16:28 Total Protein 7.6 g/dL (6.3-8.2) 11/11/19 16:28 Albumin 3.7 g/dL (3.9-5) L 11/11/19 16:28 Albumin/Globulin Ratio 0.9 % 11/11/19 16:28 TSH 0.791 mlU/mL (0.270-4.200) 11/11/19 16:28 Salicylates < 0.3 mg/dL (2.8-20.0) L 11/11/19 16:28 Acetaminophen 5.0 ug/mL (10.0-30.0) L 11/11/19 16:28 Short CBC 11/11/19 11/12/19 Range/Units 16:28 07:40 WBC 6.0 5.6 (4.5-11.0) K/mm3 Hgb 12.7 12.3 (10.1-14.3) gm/dl Hct 40.4 38.7 (30.3-42.9) % Plt Count 210 172 (140-440) K/mm3 BMP 11/11/19 11/12/19 16:28 07:40 Sodium 144 142 Potassium 4.0 4.1 Chloride 105.6 106.7 Carbon Dioxide 23 27 BUN 10 11 Creatinine 1.0 0.8 Glucose 57 L 86 Calcium 9.6 9.4 Cardiac Enzymes 11/11/19 11/11/19 Range/Units 16:28 16:28 Total Creatine Kinase 51 53 (30-135) units/L CK-MB (CK-2) 1.5 (0.0-4.0) ng/mL Troponin T < 0.010 (0.00-0.029) ng/mL Liver Function 11/11/19 11/12/19 Range/Units 16:28 07:40 Total Bilirubin < 0.20 0.20 (0.1-1.2) mg/dL AST 16 16 (5-40) units/L ALT 20 16 (7-56) units/L Alkaline Phosphatase 103 94 (35-129) units/L Albumin 3.7 L 3.1 L (3.9-5) g/dL - Imaging and Cardiology EKG: report reviewed (Normal sinus rhythm no ST-T wave changes) Assessment and Plan Advance Directives: Yes - Patient Problems (1) Hypoglycemia Current Visit: Yes Status: Acute Plan to address problem: Patient is not a diabetic Hypoglycemia secondary to not eating for the past few hours Not on any medication which causes hypoglycemia (2) Near syncope Current Visit: Yes Status: Acute Plan to address problem: Patient had extensive work-up in the 2019. No further work-up needed. Near syncope secondary to hypoglycemia. (3) Hypertension Current Visit: No Status: Chronic Qualifiers: Hypertension type: essential hypertension Qualified Code(s): I10 - Essential (primary) hypertension Plan to address problem: Continue antihypertensives (4) Hypothyroidism (acquired) Current Visit: No Status: Chronic Plan to address problem: Continue Synthroid (5) OAB (overactive bladder) Current Visit: No Status: Chronic Plan to address problem: Continue Vesicare (6) DVT prophylaxis Current Visit: No Status: Acute Plan to address problem: On heparin and GI prophylaxis
[2019-11-11] MEDS ORDERED: traMADol 50 MG TAB PO PRN (23:09)
[2019-11-11] MEDS ORDERED: ACETAMINOPHEN 500 MG TAB PO PRN (23:09)
[2019-11-11] MEDS ORDERED: ONDANSETRON 4 MG/2 ML INJ IV PRN (23:12)
[2019-11-11] MEDS ORDERED: ACETAMINOPHEN 325 MG TAB PO PRN (23:12)
[2019-11-11] MEDS ORDERED: MORPHINE 4 MG/1 ML INJ IV PRN (23:12)
[2019-11-11] MEDS ORDERED: D5W/0.9% NACL 1,000 ML IV SCH (23:45)
[2019-11-12] MEDS ORDERED: LEVOTHYROXINE 50 MCG TAB PO SCH (06:00)
[2019-11-12] MEDS ORDERED: carvediloL 25 MG TAB PO SCH (08:00)
[2019-11-12 08:16] LABS: Alanine Aminotransferase 16 units/L (7-56); Albumin 3.1 g/dL (3.9-5); BUN/Creatinine Ratio 14; Blood Urea Nitrogen 11 mg/dL (7-17); Calcium 9.4 mg/dL (8.4-10.2); Hemolysis Index 13
[2019-11-12 08:21] LABS: Hematocrit 38.7 % (30.3-42.9); Hemoglobin 12.3 gm/dl (10.1-14.3); Mean Corpuscular HGB Conc 32 % (30-34); Mean Corpuscular Volume 78 fl (79-97); Platelet Count 172 K/mm3 (140-440); Red Blood Count 4.96 M/mm3 (3.65-5.03); Red Cell Distribution Width 16.7 % (13.2-15.2)
--- NOTE | 2019-11-12 08:35 | Discharge Summary ---
Providers - Providers Date of Admission: 11/11/19 19:14 Date of discharge: 11/12/19 Attending physician: BRIANNE WOOTEN Primary care physician: [employer] Hospitalization Condition: Good Hospital course: 74-year-old female with history of hypertension, hyperlipidemia, coronary artery disease and overactive bladder comes in for lightheadedness severe weakness and feeling unsteady and feels as if she was about to pass out. Patient had a bladder surgery as outpatient 1 and half week ago. No headache no chest pain. Feels as if she is going to pass out. No unsteadiness. No fever or chills. Patient has had extensive objective testing in 2019, had a cardiac nuclear stress test April 2018, negative for ischemic findings, carotid duplex in June 2018, negative for significant stenosis, CT angios chest, March 2018, negative for pulmonary embolism, echocardiogram, June 2018, ejection fraction 55 to 60%, MR of the cervical spine, performed June 2018, which showed DJD, osteophytes, narrowing of the left neuroforamen, with no cord disease noted, also had MRA brain, MRI brain, negative for acute findings, with chronic findings noted. As per triage nursing documentation, the patient was found to have a glucose of 55. The patient has no recollection of this. Patient did well over the last 12 to 14 hours Hemoglobin A1c 5.4 Not a diabetic Patient advised to eat at regular intervals Assessment and Plan Advance Directives: Yes - Patient Problems (1) Hypoglycemia Current Visit: Yes Status: Acute Plan to address problem: Patient is not a diabetic Hypoglycemia secondary to not eating for the past few hours Not on any medication which causes hypoglycemia Patient advised to eat at regular intervals (2) Near syncope Current Visit: Yes Status: Acute Plan to address problem: Patient had extensive work-up in the 2019. No further work-up needed. Near syncope secondary to hypoglycemia. (3) Hypertension Current Visit: No Status: Chronic Qualifiers: Hypertension type: essential hypertension Qualified Code(s): I10 - Essential (primary) hypertension Plan to address problem: Continue antihypertensives (4) Hypothyroidism (acquired) Current Visit: No Status: Chronic Plan to address problem: Continue Synthroid (5) OAB (overactive bladder) Current Visit: No Status: Chronic Plan to address problem: Continue Vesicare Disposition: - TO HOME OR SELFCARE - Discharge Diagnoses (1) Hypoglycemia Status: Acute (2) Near syncope Status: Acute (3) Hypertension Status: Chronic Qualifiers: Hypertension type: essential hypertension Qualified Code(s): I10 - Essential (primary) hypertension (4) Hypothyroidism (acquired) Status: Chronic (5) OAB (overactive bladder) Status: Chronic (6) DVT prophylaxis Status: Acute Core Measure Documentation - Palliative Care Palliative Care/ Comfort Measures: Not Applicable - Core Measures Any of the following diagnoses?: none Exam - Constitutional Vitals: Temp Pulse Resp BP Pulse Ox 98.5 F 87 16 127/72 98 11/12/19 07:27 11/12/19 08:21 11/12/19 08:02 11/12/19 07:59 11/12/19 08:21 General appearance: Present: no acute distress, well-nourished - EENT Eyes: Present: PERRL ENT: hearing intact, clear oral mucosa - Neck Neck: Present: supple, normal ROM - Respiratory Respiratory effort: normal Respiratory: bilateral: CTA - Cardiovascular Heart rate: 78 Rhythm: regular Heart Sounds: Present: S1 & S2. Absent: rub, click - Extremities Extremities: pulses symmetrical, No edema Peripheral Pulses: within normal limits - Abdominal General gastrointestinal: Present: soft, non-tender, non-distended, normal bowel sounds Female genitourinary: Present: normal - Integumentary Integumentary: Present: clear, warm, dry - Musculoskeletal Musculoskeletal: gait normal, strength equal bilaterally - Psychiatric Psychiatric: appropriate mood/affect, intact judgment & insight - Neurologic Neurologic: CNII-XII intact, moves all extremities Plan Activity: no restrictions Diet: regular Durable Medical Equipment Needed Upon Discharge: Walker-Standard (Patient has a walker) Follow up with: PRIMARY CARE, [Primary Care Provider] - 3-5 Days
[2019-11-12 09:20] VITALS: BP 139/85
[2019-11-12] MEDS ORDERED: CLOPIDOGREL 75 MG TAB PO SCH (10:00)
[2019-11-12] MEDS ORDERED: predniSONE 20 MG TAB PO SCH (10:00)
[2019-11-12] MEDS ORDERED: CALCITRIOL 0.25 MCG CAP PO SCH (10:00)
[2019-11-12] MEDS ORDERED: SERTRALINE 50 MG TAB PO SCH ×2 (10:00)
[2019-11-12] MEDS ORDERED: lamoTRIgine 25 MG TAB PO SCH (10:00)
[2019-11-12] MEDS ORDERED: PANTOPRAZOLE 40 MG TAB PO SCH (10:00)
[2019-11-12] MEDS ORDERED: amLODIPine 5 MG TAB PO SCH (10:00)
[2019-11-12] MEDS ORDERED: SOLIFENACIN SUCCINATE 10 MG PO SCH (10:00)
[2019-11-12] MEDS ORDERED: MIRTAZAPINE 15 MG TAB PO SCH ×2 (22:00)
== END 2019-11-12 10:59 | disposition home or self-care (01) ==
LOC: ED 07:34 → 4A 19:14
PROVIDERS: ADMIT Internal Medicine; ATTEND Internal Medicine
DX: G45.9 Transient cerebral ischemic attack, unspecified (principal); E16.2 Hypoglycemia, unspecified; I13.10 Hypertensive heart and chronic kidney disease without heart failure, with stage 1 through stage 4 chronic kidney disease, or unspecified chronic kidney disease; N18.30 Chronic kidney disease, stage 3 unspecified; R55 Syncope and collapse; R29.700 NIHSS score 0; E03.9 Hypothyroidism, unspecified; N32.81 Overactive bladder; R30.0 Dysuria; M19.90 Unspecified osteoarthritis, unspecified site; F32.9 Major depressive disorder, single episode, unspecified; F02.80 Dementia in other diseases classified elsewhere, unspecified severity, without behavioral disturbance, psychotic disturbance, mood disturbance, and anxiety; F17.200 Nicotine dependence, unspecified, uncomplicated; R91.1 Solitary pulmonary nodule; Z87.898 Personal history of other specified conditions; Z86.73 Personal history of transient ischemic attack (TIA), and cerebral infarction without residual deficits; Z79.899 Other long term (current) drug therapy; Z98.890 Other specified postprocedural states; Z90.49 Acquired absence of other specified parts of digestive tract; Z79.82 Long term (current) use of aspirin; Z79.02 Long term (current) use of antithrombotics/antiplatelets
CPT/HCPCS: 36415; 70450; 71045; 80053; 82550; 82553; 82962; 83036; 83735; 84443; 84484; 85025; 85379; 85610; 85670; 85730; 93005; 99285; G0378; J7512; 80320; G0480

== ENCOUNTER 2019-11-29 04:38 | Emergency (ER) | payer MEDICARE ==
--- NOTE | 2019-11-29 05:30 | XRay Report ---
RIGHT HIP 2 VIEWS INDICATION / CLINICAL INFORMATION: right hip pain s/p fall COMPARISON: None available. FINDINGS: BONES / JOINT(S): No acute fracture or subluxation. No significant arthritis. SOFT TISSUES: No significant abnormality. ADDITIONAL FINDINGS: None. Signer Name: Harsh Pichardo MD Signed: 11/29/2019 5:25 AM Workstation Name: [id number]
[2019-11-29] MEDS ORDERED: MORPHINE 4 MG/1 ML INJ IM ONE (06:36)
--- NOTE | 2019-11-29 06:40 | Emergency Department Report ---
HPI - General Chief Complaint: Fall Time Seen by Provider: 11/29/19 06:12 - HPI HPI: 73-year-old female presents to the emergency department via EMS from home with complaint of pain to the right buttock, hip and right thigh for the past 2 days after she had a fall at home. Patient was walking in her yard, stepped on the sidewalk and fell onto her right side. She denies hitting her head or any loss of consciousness. She has a past medical history of arthritis, CVA, coronary artery disease, hypertension, depression, chronic kidney disease, lupus, hypothyroidism. Patient says that she has a walker but "I have not had to use it", but she recently started using it again with this recent fall and the right leg pain. She has not taken anything for symptoms prior to presentation today. No alleviating factors. Pain worsens with range of motion and palpation. Her primary care physician is a Dr. Manning, but she says she is switching to Dr. Marquez. ED Past Medical Hx - Past Medical History Previous Medical History?: Yes Hx Hypertension: Yes Hx CVA: Yes (07/07/14) Hx Heart Attack/AMI: Yes Hx Congestive Heart Failure: No Hx Diabetes: No Hx Deep Vein Thrombosis: No Hx Pulmonary Embolism: No Hx GERD: No Hx Liver Disease: No Hx Renal Disease: Yes (Stage III renal dx) Hx Sickle Cell Disease: No Hx Arthritis: Yes Hx Headaches / Migraines: No Hx Seizures: No Hx Kidney Stones: No Hx Psychiatric Treatment: Yes (Depression) Hx Asthma: No Hx COPD: No Hx Tuberculosis: No Hx Dementia: Yes Hx HIV: No Additional medical history: 3 herniated discs. LUPUS. hypothyroid. Lung Nodules 01/2018 - Surgical History Past Surgical History?: Yes Hx Coronary Stent: No Hx Open Heart Surgery: No Hx Pacemaker: No Hx Internal Defibrillator: No Hx Cholecystectomy: Yes Hx Appendectomy: Yes Hx Breast Surgery: No Additional Surgical History: vein stripping. oral surgery 07/31/18. No history of venous thromboembolism BLAADER SURGERY - Social History Smoking Status: Current Every Day Smoker Substance Use Type: None - Medications Home Medications: Home Medications Medication Instructions Recorded Confirmed Last Taken Type Mirtazapine [Remeron] 45 mg PO QHS 08/03/08/04/19 Unknown History Sertraline HCl [Zoloft] 50 mg PO DAILY #30 tablet 03/26/18 08/04/19 Unknown Rx calcitrioL [Rocaltrol] 0.25 mcg PO DAILY 05/19/18 08/04/19 Unknown History hydrOXYzine PAMOATE [Vistaril] 50 mg PO DAILY@2100 05/19/18 08/04/19 Unknown History Aspirin 325 mg PO QDAY #30 tablet 06/12/18 08/04/19 Unknown Rx AtorvaSTATin [Lipitor] 40 mg PO QHS #30 tablet 06/12/18 08/04/19 Unknown Rx Clopidogrel [Plavix] 75 mg PO QDAY #30 tablet 06/12/18 08/04/19 Unknown Rx Levothyroxine [Synthroid] 50 mcg PO QAM #30 tablet 06/12/18 08/04/19 Unknown Rx Mirtazapine [Remeron 15mg TAB] 45 mg PO QHS tablet 06/12/18 08/04/19 Unknown Rx Pantoprazole [Protonix TAB] 40 mg PO BID #30 tablet 06/12/18 08/04/19 Unknown Rx amLODIPine 5 mg PO QDAY #30 tablet 06/12/18 08/04/19 Unknown Rx carvediloL [Coreg] 25 mg PO BID #60 tablet 06/12/18 08/04/19 Unknown Rx lamoTRIgine [LaMICtal] 25 mg PO BID #30 tablet 06/12/18 08/04/19 Unknown Rx Acetaminophen [Non-Aspirin Extra 500 mg PO Q6HR PRN #30 tablet 08/02/18 08/04/19 Unknown Rx Strength] Ondansetron [Zofran ODT TAB] 4 mg PO Q8HR PRN #14 tab.rapdis 01/11/19 08/04/19 Unknown Rx traMADoL [Ultram 50 MG tab] 50 mg PO Q4HR PRN #14 tablet 01/11/19 08/04/19 Unknown Rx Neomy/Polymyx B/Hc Opth Susp 1 drop OP Q6HR #1 bottle 01/22/19 08/04/19 Unknown Rx [Cortisporin (OPTH) Susp] Ondansetron [Zofran ODT TAB] 4 mg PO Q8HR PRN #15 tab.rapdis 03/22/19 08/04/19 Unknown Rx predniSONE [Deltasone] 40 mg PO QDAY #14 tablet 08/06/19 Unknown Rx HYDROcodone/APAP 7.5-325 [[place] 1 each PO Q6HR PRN #12 tablet 11/12/19 Unknown Rx 7.5/325] Pantoprazole [Protonix TAB] 40 mg PO BID tablet 11/12/19 Unknown Rx Solifenacin Succinate (Nf) 10 mg PO DAILY 11/12/19 Unknown Rx predniSONE [predniSONE Intensol 5 5 mg PO QDAY #30 ml 11/12/19 Unknown Rx mg/mL] HYDROcodone/APAP 5-325 [[place] 1 each PO Q6HR PRN #6 tablet 11/29/19 Unknown Rx 5/325] ED Review of Systems ROS: Stated complaint: RIGHT HIP AND RIGHT LEG PAIN(POST FALL) Other details as noted in HPI Comment: All other systems reviewed and negative Constitutional: denies: chills, fever Eyes: denies: eye pain, vision change ENT: denies: ear pain, throat pain Respiratory: denies: cough, shortness of breath Cardiovascular: denies: chest pain, palpitations Gastrointestinal: denies: abdominal pain, vomiting Genitourinary: denies: dysuria, discharge Musculoskeletal: arthralgia, myalgia. denies: back pain Skin: denies: rash, lesions Neurological: denies: numbness, paresthesias Physical Exam - Physical Exam Vital Signs: Vital Signs 11/29/19 04:50 Temperature 98.2 F Pulse Rate 96 H Respiratory 16 Rate Blood Pressure 131/78 [Left] O2 Sat by Pulse 99 Oximetry Physical Exam: GENERAL: The patient is well-developed well-nourished. HENT: Normocephalic. Atraumatic. Patient has moist mucous membranes. EYES: Extraocular motions are intact. NECK: Supple. Trachea is midline. CHEST/LUNGS: Clear to auscultation. There is no respiratory distress noted. HEART/CARDIOVASCULAR: Regular. There is no tachycardia. ABDOMEN: Abdomen is soft, nontender. Patient has normal bowel sounds. SKIN: Skin is warm and dry. NEURO: The patient is awake, alert, and oriented. The patient is cooperative. The patient has no focal neurologic deficits. Normal speech. MUSCULOSKELETAL: Tenderness to palpation to the right leg from the hip down through the thigh, but no obvious deformity. There is no limitation range of motion. ED Course Vital Signs 11/29/19 04:50 Temperature 98.2 F Pulse Rate 96 H Respiratory 16 Rate Blood Pressure 131/78 [Left] O2 Sat by Pulse 99 Oximetry ED Medical Decision Making - Radiology Data Radiology results: image reviewed interpreted by me: X-ray of the right hip and femur do not show any fractures, dislocations, or any acute processes. - Medical Decision Making This patient presents to the emergency department with a complaint of right leg pain from the buttock down through the hip and thigh after she had a recent fall. X-rays were done of the right hip and right femur without any evidence of fracture, dislocation, or any acute processes. She is neurovascularly intact. Full range of motion. Patient was given a dose of IM analgesia with great improvement. She says she is feeling better and asking for discharge home. She has good outpatient follow-up with both primary care and an orthopedist. The patient was seen by case management and is being set up for some home health care assistance. I checked the [facility] prescription monitoring system for this patient and she does have multiple scheduled pain and psychiatric medications that have been filled. She last had some pain medication filled about 2 weeks ago that would have since run out. I have given a prescription for only 6 pills of [place] to treat her pain until follow-up with the orthopedist. Critical Care Time: No Critical care attestation.: If time is entered above; I have spent that time in minutes in the direct care of this critically ill patient, excluding procedure time. ED Disposition Clinical Impression: Right leg pain, Right hip pain Fall Qualifiers: Encounter type: initial encounter Qualified Code(s): W19.XXXA - Unspecified fall, initial encounter Disposition: TO HOME OR SELFCARE Is pt being admited?: No Condition: Stable Instructions: Arthralgia (ED), Fall Prevention (ED) Additional Instructions: Please follow-up with your primary care physician in the next few days. Please follow-up with an orthopedist in the next few days regarding your right hip and leg pain. You have been prescribed a medication that is sedating and therefore should not be taken prior to driving, working, and responsible for children and in no way should be mixed with alcohol of any quantity. Return to the emergency department with any worsening of your symptoms, new or concerning symptoms not addressed during this current emergency department visit, or with any acute distress. Prescriptions: HYDROcodone/APAP 5-325 [[place] 5/325] 1 each PO Q6HR PRN #6 tablet PRN Reason: Pain Referrals: [facility] [Provider Group] - 2-3 Days PRIMARY CARE, [Primary Care Provider] - 2-3 Days Time of Disposition: 09:51
--- NOTE | 2019-11-29 07:06 | XRay Report ---
RIGHT FEMUR 2 VIEWS INDICATION / CLINICAL INFORMATION: right leg pain, fall COMPARISON: None available. FINDINGS: BONES / JOINT(S): No acute fracture or subluxation. No significant arthritis. SOFT TISSUES: No significant abnormality. ADDITIONAL FINDINGS: None. Signer Name: Harsh Pichardo MD Signed: 11/29/2019 7:01 AM Workstation Name: [id number]
[2019-11-29] MEDS ORDERED: ACETAMINOPHEN 325 MG TAB PO ONE (09:08)
[2019-11-29 11:24] VITALS: BP 150/78
== END 2019-11-29 11:21 | disposition home or self-care (01) ==
LOC: ED 04:38
DX: M25.551 Pain in right hip (principal); M79.604 Pain in right leg; I10 Essential (primary) hypertension; I25.2 Old myocardial infarction; M19.91 Primary osteoarthritis, unspecified site; F32.9 Major depressive disorder, single episode, unspecified; F03.90 Unspecified dementia, unspecified severity, without behavioral disturbance, psychotic disturbance, mood disturbance, and anxiety; F17.200 Nicotine dependence, unspecified, uncomplicated; Z86.73 Personal history of transient ischemic attack (TIA), and cerebral infarction without residual deficits; Z90.49 Acquired absence of other specified parts of digestive tract; Z98.890 Other specified postprocedural states; Z79.899 Other long term (current) drug therapy; Z88.8 Allergy status to other drugs, medicaments and biological substances; W10.1XXA Fall (on)(from) sidewalk curb, initial encounter; Y93.89 Activity, other specified; Y92.009 Unspecified place in unspecified non-institutional (private) residence as the place of occurrence of the external cause; Y99.8 Other external cause status
CPT/HCPCS: 73502; 73552; 96372; 99284; J2270

== ENCOUNTER 2019-12-17 12:10 | Outpatient (CLI) | payer MEDICARE ==
[2019-12-17 13:36] LABS: Albumin 3.6 g/dL (3.9-5); Calcium 9.2 mg/dL (8.4-10.2)
[2019-12-20 15:41] LABS: Vitamin D, 25-OH, D2 29 ng/mL
[2019-12-21 14:35] LABS: Creatinine,Urine 73.8 mg/dL (0.1-20.0); Protein/Creatinine Ratio,Urine 0.16
[2019-12-21 14:50] LABS: Hematocrit 38.6 % (30.3-42.9); Hemoglobin 12.3 gm/dl (10.1-14.3); Mean Corpuscular HGB Conc 32 % (30-34); Mean Corpuscular Volume 76 fl (79-97); Platelet Count 213 K/mm3 (140-440); Red Blood Count 5.06 M/mm3 (3.65-5.03); Red Cell Distribution Width 15.9 % (13.2-15.2)
== END 2019-12-17 12:11 | disposition home or self-care (01) ==
LOC: LAB 12:10
PROVIDERS: ATTEND Internal Medicine
DX: I12.9 Hypertensive chronic kidney disease with stage 1 through stage 4 chronic kidney disease, or unspecified chronic kidney disease (principal); N18.30 Chronic kidney disease, stage 3 unspecified; N25.81 Secondary hyperparathyroidism of renal origin; M32.9 Systemic lupus erythematosus, unspecified; R60.0 Localized edema
CPT/HCPCS: 36415; 80048; 82040; 82306; 84100

== ENCOUNTER 2020-04-15 10:53 | Outpatient (CLI) | payer MEDICARE ==
[2020-04-15 11:48] LABS: Calcium 9.4 mg/dL (8.4-10.2)
[2020-04-15 12:04] LABS: Creatinine,Urine 87.1 mg/dL (0.1-20.0); Protein/Creatinine Ratio,Urine 0.11
[2020-04-20 12:43] LABS: Vitamin D, 25-OH, D2 24 ng/mL
== END 2020-04-15 10:54 | disposition home or self-care (01) ==
LOC: LAB 10:53
PROVIDERS: ATTEND Internal Medicine
DX: I12.9 Hypertensive chronic kidney disease with stage 1 through stage 4 chronic kidney disease, or unspecified chronic kidney disease (principal); N18.30 Chronic kidney disease, stage 3 unspecified; U07.1 COVID-19; R60.0 Localized edema; M32.9 Systemic lupus erythematosus, unspecified; N25.81 Secondary hyperparathyroidism of renal origin
CPT/HCPCS: 36415; 80048; 82040; 82306; 82570; 84100; 84156

== ENCOUNTER 2020-04-21 09:46 | Outpatient (CLI) | payer MEDICARE ==
[2020-04-21 10:15] LABS: Hematocrit 36.9 % (30.3-42.9); Mean Corpuscular HGB Conc 32 % (30-34); Mean Corpuscular Volume 76 fl (79-97); Platelet Count 198 K/mm3 (140-440); Red Blood Count 4.83 M/mm3 (3.65-5.03); Red Cell Distribution Width 15.7 % (13.2-15.2)
== END 2020-04-21 09:47 | disposition home or self-care (01) ==
LOC: LAB 09:46
PROVIDERS: ATTEND Internal Medicine
DX: N18.30 Chronic kidney disease, stage 3 unspecified (principal)
CPT/HCPCS: 36415; 85027

== ENCOUNTER 2020-05-05 07:42 | Observation (INO) | payer MEDICARE ==
[2020-05-05] MEDS ORDERED: CLOPIDOGREL 300 MG TAB PO ONE (08:33)
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
[2020-05-05] MEDS ORDERED: NITROGLYCERIN 2% OINT 1 GM TP ONE (08:52)
[2020-05-05] MEDS ORDERED: fentaNYL 100 MCG/2 ML INJ IV ONE (08:52)
[2020-05-05] MEDS ORDERED: ONDANSETRON 4 MG/2 ML INJ IV ONE (08:52)
--- NOTE | 2020-05-05 09:25 | XRay Report ---
CHEST 1 VIEW INDICATION: chest pain. COMPARISON: 11/11/2019 FINDINGS: Support devices: None. Heart: Within normal limits. Lungs/Pleura: No acute air space or interstitial disease. Additional findings: None. IMPRESSION: No acute findings. Signer Name: Breezy Bobby Jr, MD Signed: 05/05/2020 9:16 AM Workstation Name: [id number]
[2020-05-05 09:34] LABS: Basophils % (Auto) 0.7 % (0.0-1.8); Eosinophils # (Auto) 0.1 K/mm3 (0.0-0.4); Eosinophils % (Auto) 1.9 % (0.0-4.3); Hematocrit 36.3 % (30.3-42.9); Hemoglobin 11.5 gm/dl (10.1-14.3); Lymphocytes # (Auto) 2.1 K/mm3 (1.2-5.4); Lymphocytes % (Auto) 33.9 % (13.4-35.0); Mean Corpuscular HGB Conc 32 % (30-34); Mean Corpuscular Volume 77 fl (79-97); Monocytes # (Auto) 0.5 K/mm3 (0.0-0.8); Monocytes % (Auto) 8.2 % (0.0-7.3); Platelet Count 209 K/mm3 (140-440); Red Cell Distribution Width 16.2 % (13.2-15.2)
[2020-05-05 09:52] LABS: INR 1.05 (0.87-1.13)
[2020-05-05 09:58] LABS: BUN/Creatinine Ratio 13; Blood Urea Nitrogen 14 mg/dL (7-17); Calcium 9.2 mg/dL (8.4-10.2); Hemolysis Index 33
[2020-05-05 09:59] LABS: Creatine Kinase MB 1.4 ng/mL (0.0-4.0)
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
[2020-05-05] MEDS ORDERED: traMADol 50 MG TAB PO PRN (11:59)
[2020-05-05] MEDS ORDERED: ACETAMINOPHEN 325 MG TAB PO PRN (15:00)
[2020-05-05] MEDS ORDERED: ONDANSETRON 4 MG/2 ML INJ IV PRN (15:00)
[2020-05-05] MEDS: HEPARIN 5,000 UNIT/1 ML VIAL SUB-Q SCH ×2 (15:02→22:32)
[2020-05-05] MEDS: carvediloL 25 MG TAB PO SCH ×2 (15:02→22:32)
[2020-05-05] MEDS: lamoTRIgine 25 MG TAB PO SCH (22:32)
[2020-05-05] MEDS: HYDROcodone/ACETAMINOPHEN 7.5-325MG TAB PO PRN (23:05)
[2020-05-06] MEDS: HEPARIN 5,000 UNIT/1 ML VIAL SUB-Q SCH ×3 (06:03→21:24)
[2020-05-06] MEDS: LEVOTHYROXINE 50 MCG TAB PO SCH (06:03)
[2020-05-06] MEDS: HYDROcodone/ACETAMINOPHEN 7.5-325MG TAB PO PRN ×3 (06:08→21:24)
[2020-05-06 06:20] LABS: Basophils % (Auto) 0.5 % (0.0-1.8); Eosinophils # (Auto) 0.1 K/mm3 (0.0-0.4); Eosinophils % (Auto) 2.6 % (0.0-4.3); Lymphocytes # (Auto) 1.8 K/mm3 (1.2-5.4); Mean Corpuscular HGB Conc 30 % (30-34); Mean Corpuscular Volume 79 fl (79-97); Monocytes # (Auto) 0.5 K/mm3 (0.0-0.8); Monocytes % (Auto) 10.6 % (0.0-7.3); Platelet Count 178 K/mm3 (140-440); Red Blood Count 4.63 M/mm3 (3.65-5.03); Red Cell Distribution Width 16.7 % (13.2-15.2)
[2020-05-06 06:21] LABS: Hematocrit 36.7 % (30.3-42.9); Hemoglobin 11.2 gm/dl (10.1-14.3)
[2020-05-06 06:56] LABS: BUN/Creatinine Ratio 15; Blood Urea Nitrogen 15 mg/dL (7-17); Calcium 8.8 mg/dL (8.4-10.2); Hemolysis Index 14
[2020-05-06] MEDS ORDERED: REGADENOSON 0.4 MG/5 ML INJ IV ONE ×2 (07:10→10:03)
[2020-05-06] MEDS: CLOPIDOGREL 75 MG TAB PO SCH (13:01)
[2020-05-06] MEDS: ASPIRIN 325 MG TAB PO SCH (13:01)
[2020-05-06] MEDS: lamoTRIgine 25 MG TAB PO SCH ×2 (13:01→21:32)
[2020-05-06] MEDS: SERTRALINE 50 MG TAB PO SCH (13:01)
[2020-05-06] MEDS: carvediloL 25 MG TAB PO SCH ×2 (13:01→21:24)
[2020-05-06] MEDS: amLODIPine 5 MG TAB PO SCH (13:01)
[2020-05-07] MEDS: LEVOTHYROXINE 50 MCG TAB PO SCH (06:15)
[2020-05-07] MEDS: HEPARIN 5,000 UNIT/1 ML VIAL SUB-Q SCH (06:15)
[2020-05-07] MEDS: HYDROcodone/ACETAMINOPHEN 7.5-325MG TAB PO PRN (06:27)
--- NOTE | 2020-05-07 08:47 | Progress Note ---
Assessment and Plan Assessment and plan: # chest pain Plan for stress test today Continue plavix Will consult cardiology if stress test is positive #CAD Continue plavix and aspirin Statins #CVA On plavix Statins #HTN Continue BP medications #CKD Monitor renal function Avoid nephrotoxic medications # Lupus On prednisone #Fibromyalgia Stable DVT ppx - heparin History Interval history: Plan for stress test today. Hospitalist Physical - Physical exam Narrative exam: VITAL SIGNS: Reviewed. GENERAL: Awake HEAD: No signs of head trauma. EYES: Pupils are equal. Extraocular motions intact. MOUTH: Oropharynx is normal. NECK: No adenopathy, no JVD. CHEST: Chest with diminished breath sounds bilaterally. No wheezes, rales, or rhonchi. CARDIAC: normal S1 and S2, without murmurs, gallops, or rubs. ABDOMEN: Soft, non tender and non distended. No rebound or guarding, and no masses palpated. Bowel Sounds normal. MUSCULOSKELETAL: No edema NEUROLOGIC EXAM: Alert and oriented x3. No focal neurologic deficits SKIN: No obvious lesions - Constitutional Vitals: Temp Pulse Resp BP Pulse Ox 99.0 F 84 17 139/70 99 05/07/20 07:35 05/07/20 08:00 05/07/20 08:00 05/07/20 07:35 05/07/20 08:00 HEART Score - HEART Score EKG: Normal Age: > 65 Risk factors: > 3 risk factors or hx of atherosclerotic disease Troponin: Troponin T < 0.010 ng/mL (0.00-0.029) 05/05/20 14:58 Troponin: < normal limit Results - Labs CBC & Chem 7: 05/06/20 05:43 05/06/20 05:43 Labs: Laboratory Last Values WBC 4.7 K/mm3 (4.5-11.0) 05/06/20 05:43 RBC 4.63 M/mm3 (3.65-5.03) 05/06/20 05:43 Hgb 11.2 gm/dl (10.1-14.3) 05/06/20 05:43 Hct 36.7 % (30.3-42.9) 05/06/20 05:43 MCV 79 fl (79-97) 05/06/20 05:43 MCH 24 pg (28-32) L 05/06/20 05:43 MCHC 30 % (30-34) 05/06/20 05:43 RDW 16.7 % (13.2-15.2) H 05/06/20 05:43 Plt Count 178 K/mm3 (140-440) 05/06/20 05:43 Lymph % (Auto) 38.0 % (13.4-35.0) H 05/06/20 05:43 [place] % (Auto) 10.6 % (0.0-7.3) H 05/06/20 05:43 Eos % (Auto) 2.6 % (0.0-4.3) 05/06/20 05:43 Baso % (Auto) 0.5 % (0.0-1.8) 05/06/20 05:43 Lymph # (Auto) 1.8 K/mm3 (1.2-5.4) 05/06/20 05:43 [place] # (Auto) 0.5 K/mm3 (0.0-0.8) 05/06/20 05:43 Eos # (Auto) 0.1 K/mm3 (0.0-0.4) 05/06/20 05:43 Baso # (Auto) 0.0 K/mm3 (0.0-0.1) 05/06/20 05:43 Seg Neutrophils % 48.3 % (40.0-70.0) 05/06/20 05:43 Seg Neutrophils # 2.3 K/mm3 (1.8-7.7) 05/06/20 05:43 PT 13.6 Sec. (12.2-14.9) 05/05/20 09:20 INR 1.05 (0.87-1.13) 05/05/20 09:20 Sodium 140 mmol/L (137-145) 05/06/20 05:43 Potassium 4.1 mmol/L (3.6-5.0) 05/06/20 05:43 Chloride 106.3 mmol/L (98-107) 05/06/20 05:43 Carbon Dioxide 26 mmol/L (22-30) 05/06/20 05:43 Anion Gap 12 mmol/L 05/06/20 05:43 BUN 15 mg/dL (7-17) 05/06/20 05:43 Creatinine 1.0 mg/dL (0.6-1.2) 05/06/20 05:43 Estimated GFR > 60 ml/min 05/06/20 05:43 BUN/Creatinine Ratio 15 % 05/06/20 05:43 Glucose 72 mg/dL (65-100) 05/06/20 05:43 Calcium 8.8 mg/dL (8.4-10.2) 05/06/20 05:43 Total Creatine Kinase 74 units/L (30-135) 05/05/20 09:20 CK-MB (CK-2) 1.4 ng/mL (0.0-4.0) 05/05/20 09:20 CK-MB (CK-2) Rel Index 1.8 (0-4) 05/05/20 09:20 Troponin T < 0.010 ng/mL (0.00-0.029) 05/05/20 14:58 Vargas/IV: Voiding Method Toilet Active Medications - Current Medications Current Medications: Generic Name Dose Route Start Last Admin Trade Name Freq PRN Reason Stop Dose Admin Acetaminophen 650 mg 05/05/20 15:00 Acetaminophen 325 Mg Tab PO Q4H PRN Pain MILD(1-3)/Fever >100.5/LORD Hydrocodone Bitart/Acetaminophen 1 each 05/05/20 22:38 05/07/20 06:27 Hydrocodone/Acetaminophen 7.5-325mg Tab PO 1 each Q6H PRN Administration Pain, Moderate (4-6) Amlodipine Besylate 5 mg 05/06/20 10:00 05/06/20 13:01 Amlodipine 5 Mg Tab PO 5 mg QDAY ADRIA Administration Aspirin 325 mg 05/06/20 10:00 05/06/20 13:01 Aspirin 325 Mg Tab PO 325 mg QDAY ADRIA Administration Atorvastatin Calcium 40 mg 05/05/20 22:00 05/06/20 21:25 Atorvastatin 40 Mg Tab PO 40 mg QHS ADRIA Administration Carvedilol 25 mg 05/05/20 13:00 05/06/20 21:24 Carvedilol 25 Mg Tab PO 25 mg BID ADRIA Administration Clopidogrel Bisulfate 75 mg 05/06/20 10:00 05/06/20 13:01 Clopidogrel 75 Mg Tab PO 75 mg QDAY ADRIA Administration Heparin Sodium (Porcine) 5,000 unit 05/05/20 14:00 05/07/20 06:15 Heparin 5,000 Unit/1 Ml Vial SUB-Q 5,000 unit Q8HR DARIA Administration Lamotrigine 25 mg 05/05/20 22:00 05/06/20 21:32 Lamotrigine 25 Mg Tab PO 25 mg BID ADRIA Administration Levothyroxine Sodium 50 mcg 05/06/20 06:00 05/07/20 06:15 Levothyroxine 50 Mcg Tab PO 50 mcg DAILY@0600 ADRIA Administration Ondansetron HCl 4 mg 05/05/20 15:00 Ondansetron 4 Mg/2 Ml Inj IV Q8H PRN Nausea And Vomiting Sertraline HCl 50 mg 05/06/20 10:00 05/06/20 13:01 Sertraline 50 Mg Tab PO 50 mg DAILY ADRIA Administration Sodium Chloride 10 ml 05/05/20 15:00 05/06/20 21:25 Sodium Chloride 0.9% 10 Ml Flush Syringe IV 10 ml BID ADRIA Administration Sodium Chloride 10 ml 05/05/20 14:39 Sodium Chloride 0.9% 10 Ml Flush Syringe IV PRN PRN LINE FLUSH Nutrition/Malnutrition Assess - Dietary Evaluation Nutrition/Malnutrition Findings: Nutrition Notes Start: 05/06/20 09:47 Freq: Status: Active Protocol: Document 05/06/20 09:47 CW (Rec: 05/06/20 09:55 CW [id number]) Nutrition Notes Need for Assessment generated from: MST Initial or Follow up Assessment Current Diagnosis Coronary Artery Disease, Hypertension,Hyperlipidemia Other Pertinent Diagnosis hypothyroidism, dementia, Current Diet Cardiac Labs/Tests WNL Pertinent Medications Reviewed Height 5 ft 5 in Weight 93.44 kg Usual Body Weight 94 kg [place] Body Weight (kg) 56.81 BMI 34.2 Intake Prior to Admission Excellent Weight Status Obese Subjective/Other Information MST screen for unsure weight loss. PO intake has been excellent and skin is intact. Pt reports no weight loss. Percent of energy/protein needs met: 100%/100% Burn Absent Trauma Absent Current % PO Good (75-100%) Minimum of two criteria No physical signs of malnutrition Is patient on ventilator? No Is Patient Ambulatory and/or Out of Bed Yes REE-([place] or-ambulatory/OOB) [ 1872.364 NUTR.[id number]] Kcal/Kg value to use for calculation 17 Approximate Energy Requirements Using 1588 kcal/Kg Calculation Used for Recommendations Kcal/kg Additional Notes protein needs 75 - 90g (1 - 1. 2 g/kgAdjBW 75.125) fluid needs: 1 ml/kcal Nutrition Intervention Change Diet Order: Continue Cardiac Diet Anticipated Discharge Needs: Cardiac Diet Revisit per MD consult or patient Sign Off request: Additional Comments S/O for intact skin and excellent intakes
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
[2020-05-07] MEDS: CLOPIDOGREL 75 MG TAB PO SCH (09:26)
[2020-05-07] MEDS: SERTRALINE 50 MG TAB PO SCH (09:26)
[2020-05-07] MEDS: lamoTRIgine 25 MG TAB PO SCH (09:26)
[2020-05-07] MEDS: carvediloL 25 MG TAB PO SCH (09:27)
[2020-05-07] MEDS: amLODIPine 5 MG TAB PO SCH (09:27)
[2020-05-07] MEDS: ASPIRIN 325 MG TAB PO SCH (09:27)
[2020-05-07 09:28] VITALS: BP 130/74
--- NOTE | 2020-05-09 10:08 | Electrocardiograph Report ---
[facility] Test Date: 2020-05-05 Test Time: 08:47:36 Pat Name: CHARLEE PATTON Department: Room: A480 1 Gender: F [employer] Systems Engineer: AIDEN : [id number] Requested By: DEBBIE GOYAL Order Number: [id number] Reading MD: Sheree Leon Measurements Intervals Allison Rate: 73 P: 61 LA: 220 QRS: 15 QRSD: 79 T: 45 QT: 387 QTc: 428 Interpretive Statements Sinus rhythm Prolonged LA interval No previous ECG available for comparison Electronically Signed On 05-09-2020 10:08:36 EDT by Sheree Leon
--- NOTE | 2020-05-09 13:52 | Nuclear Medicine Report ---
APPROVED REPORT Exam: Nuclear Stress Test Indication: Chest pain BMI: 0 Stress Test Details Stress Test: Pharmacologic stress testing performed using 0.4 mg of regadenoson per 5 mL given IV over 10 seconds. Reason for pharmacologic stress test: physical limitation. HR Max Heart Rate (APMHR): 147 bpm Target HR (85% APMHR): 124 bpm BP ECG Resting ECG: Sinus Rhythm Stress ECG: Sinus Rhythm ST Change: None Arrhythmia: None Recovery ECG: Sinus Rhythm Recovery ST Change: None Recovery Arrhythmia: None Stress ECG Conclusion No ischemia demonstrated pharmacologic stress testing, thallium images are pending for final test interpretation. NM EXAM: Myocardial Perfusion REST/STRESS Imaging Protocol: Rest Tc-99m/Stress Tc-99m 1 day Resting Data Rest SPECT myocardial perfusion imaging was performed in supine position 45 minutes following the intravenous injection of 10 mCi of Tc-99m Myoview. Time of rest injection: 0730 Pharmacologic Stress Pharmacologic stress test was performed by injecting Regadenoson 0.4 mg IV push followed by the intravenous injection of 28 mCi of Tc-99m Myoview. Time of stress injection: 1018 Gated Stress SPECT was performed 30 minutes after stress injection. The images were gated to evaluate regional wall motion and calculate left ventricular ejection fraction. Study Data TID = 1.02. Perfusion Normal perfusion on both the stress and rest images. Nuclear Conclusion ECG Findings: negative for ischemia Clinical Findings: negative for ischemia Nuclear Findings: negative for ischemia Left Ventricular Function: normal Normal rest and stress perfusion images, negative for ischemia. Well-preserved left ventricular systolic function with ejection fraction 63%. Conclusion No ischemia demonstrated pharmacologic stress testing, thallium images are pending for final test interpretation.
== END 2020-05-07 11:15 | disposition home or self-care (01) ==
LOC: ED 07:42 → 4A 10:16
PROVIDERS: ADMIT Internal Medicine; ATTEND Internal Medicine
DX: R07.89 Other chest pain (principal); I25.10 Atherosclerotic heart disease of native coronary artery without angina pectoris; I63.9 Cerebral infarction, unspecified; I12.9 Hypertensive chronic kidney disease with stage 1 through stage 4 chronic kidney disease, or unspecified chronic kidney disease; N18.30 Chronic kidney disease, stage 3 unspecified; E03.9 Hypothyroidism, unspecified; M32.9 Systemic lupus erythematosus, unspecified; M79.7 Fibromyalgia; M19.90 Unspecified osteoarthritis, unspecified site; F02.80 Dementia in other diseases classified elsewhere, unspecified severity, without behavioral disturbance, psychotic disturbance, mood disturbance, and anxiety; F32.9 Major depressive disorder, single episode, unspecified; F17.210 Nicotine dependence, cigarettes, uncomplicated; Z79.82 Long term (current) use of aspirin; Z79.01 Long term (current) use of anticoagulants; Z98.890 Other specified postprocedural states; Z79.899 Other long term (current) drug therapy; Z90.49 Acquired absence of other specified parts of digestive tract
CPT/HCPCS: 36415; 71045; 78452; 80048; 82550; 82553; 84484; 85025; 85610; 93005; 93017; 96372; 96374; 96375; 99285; 99406; A9270; A9502; G0378; J1644; J2405; J2785; J3010

== ENCOUNTER 2020-07-23 09:15 | Emergency (ER) | payer MEDICARE ==
--- NOTE | 2020-07-23 10:27 | Emergency Department Report ---
ED Fall HPI - General Stated Complaint: FALL Time Seen by Provider: 07/23/20 10:26 Source: patient Mode of arrival: Ambulatory Limitations: No Limitations - History of Present Illness Initial Comments: 74 yo comes to ER sp fall yesterday co r upper arm and shoulder pain. Pt tripped and fell at home. GLF. No LOC. No other injury. Witnessed by family Neurovasc intact with full rom on arrival to triage. co r shoulder and upper arm pain. Worse with movement. Ambulatory and to ER via POV -: Sudden, days(s) Fall From: standing Fall Witnessed: yes, by family Place Fall Occurred: home Loss of Consciousness: none Prolonged Down Time?: no Symptoms Prior to Fall: none Location - Extremities: Right: Shoulder, Arm Severity: mild Context: tripped/slipped Associated Symptoms: denies - Related Data Home Medications Medication Instructions Recorded Confirmed Last Taken Mirtazapine [Remeron] 45 mg PO QHS 08/04/15 05/05/20 Unknown calcitrioL [Rocaltrol] 0.25 mcg PO DAILY 05/19/18 05/05/20 Unknown clonazePAM [clonazePAM Rapdis] 0.25 mg PO BID 05/05/20 05/05/20 Unknown predniSONE [Deltasone] 4 mg PO QDAY 05/05/20 05/05/20 Unknown Previous Rx's Medication Instructions Recorded Last Taken Type Sertraline HCl [Zoloft] 50 mg PO DAILY #30 tablet 03/26/18 Unknown Rx AtorvaSTATin [Lipitor] 40 mg PO QHS #30 tablet 06/12/18 Unknown Rx Clopidogrel [Plavix] 75 mg PO QDAY #30 tablet 06/12/18 Unknown Rx Levothyroxine [Synthroid] 50 mcg PO QAM #30 tablet 06/12/18 Unknown Rx amLODIPine 5 mg PO QDAY #30 tablet 06/12/18 Unknown Rx carvediloL [Coreg] 25 mg PO BID #60 tablet 06/12/18 Unknown Rx lamoTRIgine [LaMICtal] 25 mg PO BID #30 tablet 06/12/18 Unknown Rx HYDROcodone/APAP 7.5-325 [[place] 1 each PO Q6HR PRN #12 tablet 11/12/19 Unknown Rx 7.5/325] Allergies Allergy/AdvReac Type Severity Reaction Status Date / Time captopril Allergy Rash Verified 05/05/20 08:12 clindamycin Allergy Diarrhea Verified 05/05/20 08:12 codeine Allergy Unknown Verified 05/05/20 08:12 [From Tylenol-Codeine #3] NSAIDS (Non-Steroidal Allergy Rash Verified 05/05/20 08:12 Anti-Inflamma Penicillins Allergy Rash Verified 05/05/20 08:12 Sulfa (Sulfonamide Allergy Rash Verified 05/05/20 08:12 Antibiotics) tramadol Allergy Unknown Verified 05/05/20 08:12 ED Review of Systems ROS: Stated complaint: FALL Other details as noted in HPI Comment: All other systems reviewed and negative ED Past Medical Hx - Past Medical History Previous Medical History?: Yes Hx Hypertension: Yes Hx CVA: Yes (07/07/14) Hx Heart Attack/AMI: Yes Hx Renal Disease: Yes (Stage III renal dx) Hx Arthritis: Yes Hx Psychiatric Treatment: Yes (Depression) Hx Dementia: Yes Additional medical history: 3 herniated discs. LUPUS. hypothyroid. Lung Nodules 01/2018 - Surgical History Past Surgical History?: Yes Hx Cholecystectomy: Yes Hx Appendectomy: Yes Additional Surgical History: vein stripping. oral surgery 07/31/18. No history of venous thromboembolism BLAADER SURGERY - Family History Family history: no significant - Social History Smoking Status: Current Every Day Smoker - Medications Home Medications: Home Medications Medication Instructions Recorded Confirmed Last Taken Type Mirtazapine [Remeron] 45 mg PO QHS 08/04/15 05/05/20 Unknown History Sertraline HCl [Zoloft] 50 mg PO DAILY #30 tablet 03/26/18 05/05/20 Unknown Rx calcitrioL [Rocaltrol] 0.25 mcg PO DAILY 05/19/18 05/05/20 Unknown History AtorvaSTATin [Lipitor] 40 mg PO QHS #30 tablet 06/12/18 05/05/20 Unknown Rx Clopidogrel [Plavix] 75 mg PO QDAY #30 tablet 06/12/18 05/05/20 Unknown Rx Levothyroxine [Synthroid] 50 mcg PO QAM #30 tablet 06/12/18 05/05/20 Unknown Rx amLODIPine 5 mg PO QDAY #30 tablet 06/12/18 05/05/20 Unknown Rx carvediloL [Coreg] 25 mg PO BID #60 tablet 06/12/18 05/05/20 Unknown Rx lamoTRIgine [LaMICtal] 25 mg PO BID #30 tablet 06/12/18 05/05/20 Unknown Rx HYDROcodone/APAP 7.5-325 [[place] 1 each PO Q6HR PRN #12 tablet 11/12/19 05/05/20 Unknown Rx 7.5/325] clonazePAM [clonazePAM Rapdis] 0.25 mg PO BID 05/05/20 05/05/20 Unknown History predniSONE [Deltasone] 4 mg PO QDAY 05/05/20 05/05/20 Unknown History ED Physical Exam - General General appearance: alert, in no apparent distress - Head Head exam: Present: atraumatic, normocephalic - Eye Eye exam: Present: normal appearance - ENT ENT exam: Present: mucous membranes moist - Neck Neck exam: Present: normal inspection - Respiratory Respiratory exam: Present: normal lung sounds bilaterally. Absent: respiratory distress - Cardiovascular Cardiovascular Exam: Present: regular rate, normal rhythm. Absent: systolic murmur, diastolic murmur, rubs, gallop - GI/Abdominal GI/Abdominal exam: Present: soft, normal bowel sounds - Extremities Exam Extremities exam: Present: normal inspection - Back Exam Back exam: Present: normal inspection - Neurological Exam Neurological exam: Present: alert, oriented X3 - Psychiatric Psychiatric exam: Present: normal affect, normal mood - Skin Skin exam: Present: warm, dry, intact, normal color. Absent: rash ED Course Vital Signs 07/23/20 07/23/20 10:28 11:57 Temperature 98.8 F Pulse Rate 87 Respiratory 20 16 Rate Blood Pressure 161/83 O2 Sat by Pulse 94 Oximetry ED Medical Decision Making - Radiology Data Radiology results: report reviewed, image reviewed nap - Medical Decision Making xray noted sling for comfort Vital Signs 07/23/20 07/23/20 10:28 11:57 Temperature 98.8 F Pulse Rate 87 Respiratory 20 16 Rate Blood Pressure 161/83 O2 Sat by Pulse 94 Oximetry mechanical GLF 24 hours ago. Witnessed. No LOC Neurovasc intact on exam. Dc home with dc plan of care including follow up. Pt verbalizes and understanding of plan of care. On dc pt ambulatory NAD and neurovasc intact. - Differential Diagnosis ro fx Critical care attestation.: If time is entered above; I have spent that time in minutes in the direct care of this critically ill patient, excluding procedure time. ED Disposition Clinical Impression: Fall, Contusion of arm, right, Accident due to mechanical fall without injury Disposition: TO HOME OR SELFCARE Is pt being admited?: No Does the pt Need Aspirin: No Condition: Stable Instructions: Contusion, [id number] Additional Instructions: ice and rest arm sling for 72 hours for comfort follow up with pcp or Dr Mcclure (ortho) on Tuesday tylenol for pain Referrals: PRIMARY CAREMD [Primary Care Provider] - 3-5 Days LIAM IRENE MD [Staff Physician] - 3-5 Days MIGUEL MCCLURE MD [Staff Physician] - 3-5 Days Time of Disposition: 11:35
[2020-07-23 10:31] VITALS: BP 161/83
--- NOTE | 2020-07-23 11:32 | XRay Report ---
Right shoulder radiograph, 3 views. Right humerus radiograph, 3 views. HISTORY: Pain status post fall. COMPARISON: None FINDINGS: 3 views of the right shoulder demonstrate no acute fracture or malalignment. Soft tissues are unremar kable. 3 views of the right humerus demonstrate no acute fracture or soft tissue abnormality. Partially imag ed right elbow appears intact. IMPRESSION: No acute process of the right shoulder or humerus. Signer Name: Jerson Rossi MD Signed: 07/23/2020 11:27 AM Workstation Name: [id number]
[2020-07-23] MEDS ORDERED: ACETAMINOPHEN 500 MG TAB PO ONE (11:34)
== END 2020-07-23 12:35 | disposition home or self-care (01) ==
LOC: ED 09:15
DX: S40.021A Contusion of right upper arm, initial encounter (principal); I10 Essential (primary) hypertension; I25.2 Old myocardial infarction; M19.91 Primary osteoarthritis, unspecified site; F32.9 Major depressive disorder, single episode, unspecified; F03.90 Unspecified dementia, unspecified severity, without behavioral disturbance, psychotic disturbance, mood disturbance, and anxiety; F17.200 Nicotine dependence, unspecified, uncomplicated; Z90.49 Acquired absence of other specified parts of digestive tract; Z98.890 Other specified postprocedural states; Z79.899 Other long term (current) drug therapy; Z88.8 Allergy status to other drugs, medicaments and biological substances; W01.0XXA Fall on same level from slipping, tripping and stumbling without subsequent striking against object, initial encounter; Y93.89 Activity, other specified; Y92.89 Other specified places as the place of occurrence of the external cause; Y99.8 Other external cause status

== ENCOUNTER 2020-12-12 16:33 | Emergency (ER) | payer MEDICARE ==
[2020-12-12 16:43] VITALS: BP 149/84
[2020-12-12] MEDS ORDERED: ACETAMINOPHEN 500 MG TAB PO ONE (18:37)
--- NOTE | 2020-12-12 18:41 | Emergency Department Report ---
ED Fall HPI - General Chief Complaint: Fall Stated Complaint: FELL DOWN Time Seen by Provider: 12/12/20 18:05 Source: patient Mode of arrival: Ambulatory - History of Present Illness Initial Comments: The patient was evaluated in the emergency department for symptoms described in the history of present illness. He/she was evaluated in the context of the global COVID-19 pandemic, which necessitated consideration that the patient might be at risk for infection with the virus that causes COVID-19. Institutional protocols and algorithms that pertain to the evaluation of nasir ents at risk for COVID-19 are in a state of rapid change based on information released by regulatory bodies including the CDC and federal and state organizations. These policies and algorithms were followed during the patient's care in the emergency department. Please note that these policies, procedures and recommendations changed on a rapid basis. 75-year-old -[place] female presents to the emergency room stating that she fell yesterday out of a chair when the leg gave out of the chair she was sitting in. She complains of neck pain right thigh pain. She states that she is able to ambulate. She reports she has a history of herniated disc in her lumbar area lupus discoid lupus hypertension fibromyalgia chronic kidney disease stage III arthritis of her right hip. She reports that she is followed by pain management. MD Complaint: fall Fall From: chair, other (Out of a chair) When Fall Occurred: [address] [address] Fall Occurred: home Loss of Consciousness: none Prolonged Down Time?: no Symptoms Prior to Fall: none Location: neck Location - Extremities: Right: Thigh Severity scale (0 -10): 7 Quality: aching Associated Symptoms: neck pain. denies: numbness, weakness, chest paint, shortness of breath, abdominal pain, hematuria, lightheaded, vertigo, confusion - Related Data Home Medications Medication Instructions Recorded Confirmed Last Taken Mirtazapine [Remeron] 45 mg PO QHS 08/04/15 05/05/20 Unknown calcitrioL [Rocaltrol] 0.25 mcg PO DAILY 05/19/18 05/05/20 Unknown clonazePAM [clonazePAM Rapdis] 0.25 mg PO BID 05/05/20 05/05/20 Unknown predniSONE [Deltasone] 4 mg PO QDAY 05/05/20 05/05/20 Unknown Previous Rx's Medication Instructions Recorded Last Taken Type Sertraline HCl [Zoloft] 50 mg PO DAILY #30 tablet 03/26/18 Unknown Rx AtorvaSTATin [Lipitor] 40 mg PO QHS #30 tablet 06/12/18 Unknown Rx Clopidogrel [Plavix] 75 mg PO QDAY #30 tablet 06/12/18 Unknown Rx Levothyroxine [Synthroid] 50 mcg PO QAM #30 tablet 06/12/18 Unknown Rx amLODIPine 5 mg PO QDAY #30 tablet 06/12/18 Unknown Rx carvediloL [Coreg] 25 mg PO BID #60 tablet 06/12/18 Unknown Rx lamoTRIgine [LaMICtal] 25 mg PO BID #30 tablet 06/12/18 Unknown Rx HYDROcodone/APAP 7.5-325 [[place] 1 each PO Q6HR PRN #12 tablet 11/12/19 Unknown Rx 7.5/325] Allergies Allergy/AdvReac Type Severity Reaction Status Date / Time captopril Allergy Rash Verified 05/05/20 08:12 clindamycin Allergy Diarrhea Verified 05/05/20 08:12 codeine Allergy Unknown Verified 05/05/20 08:12 [From Tylenol-Codeine #3] NSAIDS (Non-Steroidal Allergy Rash Verified 05/05/20 08:12 Anti-Inflamma Penicillins Allergy Rash Verified 05/05/20 08:12 Sulfa (Sulfonamide Allergy Rash Verified 05/05/20 08:12 Antibiotics) tramadol Allergy Unknown Verified 05/05/20 08:12 ED Review of Systems ROS: Stated complaint: FELL DOWN Other details as noted in HPI Comment: All other systems reviewed and negative ED Past Medical Hx - Past Medical History Previous Medical History?: Yes Hx Hypertension: Yes Hx CVA: Yes (07/07/14) Hx Heart Attack/AMI: Yes Hx Renal Disease: Yes (Stage III renal dx) Hx Arthritis: Yes Hx Psychiatric Treatment: Yes (Depression) Hx Dementia: Yes Additional medical history: 3 herniated discs. LUPUS. hypothyroid. Lung Nodules 01/2018 - Surgical History Past Surgical History?: Yes Hx Cholecystectomy: Yes Hx Appendectomy: Yes Additional Surgical History: vein stripping. oral surgery 07/31/18. No history of venous thromboembolism BLAADER SURGERY - Social History Smoking Status: Current Every Day Smoker - Medications Home Medications: Home Medications Medication Instructions Recorded Confirmed Last Taken Type Mirtazapine [Remeron] 45 mg PO QHS 08/04/15 05/05/20 Unknown History Sertraline HCl [Zoloft] 50 mg PO DAILY #30 tablet 03/26/18 05/05/20 Unknown Rx calcitrioL [Rocaltrol] 0.25 mcg PO DAILY 05/19/18 05/05/20 Unknown History AtorvaSTATin [Lipitor] 40 mg PO QHS #30 tablet 06/12/18 05/05/20 Unknown Rx Clopidogrel [Plavix] 75 mg PO QDAY #30 tablet 06/12/18 05/05/20 Unknown Rx Levothyroxine [Synthroid] 50 mcg PO QAM #30 tablet 06/12/18 05/05/20 Unknown Rx amLODIPine 5 mg PO QDAY #30 tablet 06/12/18 05/05/20 Unknown Rx carvediloL [Coreg] 25 mg PO BID #60 tablet 06/12/18 05/05/20 Unknown Rx lamoTRIgine [LaMICtal] 25 mg PO BID #30 tablet 06/12/18 05/05/20 Unknown Rx HYDROcodone/APAP 7.5-325 [[place] 1 each PO Q6HR PRN #12 tablet 11/12/19 05/05/20 Unknown Rx 7.5/325] clonazePAM [clonazePAM Rapdis] 0.25 mg PO BID 05/05/20 05/05/20 Unknown History predniSONE [Deltasone] 4 mg PO QDAY 05/05/20 05/05/20 Unknown History ED Physical Exam - General Limitations: No Limitations General appearance: alert, in no apparent distress - Head Head exam: Present: atraumatic, normocephalic - Eye Eye exam: Present: normal appearance - ENT ENT exam: Present: mucous membranes moist, normal external ear exam - Neck Neck exam: Present: tenderness (Cervical tenderness), full ROM - Respiratory Respiratory exam: Absent: respiratory distress, accessory muscle use - Cardiovascular Cardiovascular Exam: Present: regular rate, normal rhythm. Absent: systolic murmur, diastolic murmur, rubs, gallop - GI/Abdominal GI/Abdominal exam: Present: soft, normal bowel sounds. Absent: distended, tenderness - Extremities Exam Extremities exam: Present: normal inspection - Back Exam Back exam: Present: normal inspection - Neurological Exam Neurological exam: Present: alert, oriented X3, normal gait - Psychiatric Psychiatric exam: Present: normal affect, normal mood - Skin Skin exam: Present: warm, dry, intact, normal color. Absent: rash ED Course Vital Signs 12/12/20 12/12/20 16:42 19:29 Temperature 98.2 F Pulse Rate 79 Respiratory 16 16 Rate Blood Pressure 149/84 [Right] O2 Sat by Pulse 98 Oximetry ED Medical Decision Making - Radiology Data Radiology results: report reviewed [facility] [address] [place] [address] XRay Report Signed Patient: PRINCE WONG III MR#: [id number] : 08/11/1971 Acct:[id number] Age/Sex: 49 / M ADM Date: 12/12/20 Loc: ED Attending Dr: Ordering Physician: FAUSTO GIBSON Date of Service: 12/12/20 Procedure(s): XR shoulder 2+V RT Accession Number(s): [id number] cc: FAUSTO GIBSON Fluoro Time In Minutes: RIGHT SHOULDER 3 VIEW(S) INDICATION / CLINICAL INFORMATION: rt shoulder pain COMPARISON: None available. FINDINGS: BONES / JOINT(S): No acute fracture or subluxation. No significant arthritis. Amorphous calcification overlying the greater trochanter consistent with supraspinatus calcific tendinopathy. SOFT TISSUES: No significant abnormality. ADDITIONAL FINDINGS: None. Signer Name: Jerrell Pierce DO Signed: 12/12/2020 6:39 PM Workstation Name: [id number] Transcribed By: AIDEN Dictated By: JERRELL PIERCE DO Electronically Authenticated By: JERRELL PIERCE DO Signed Date/Time: 12/12/201838 DD/ 37 TD/TT: Print Cancel - Medical Decision Making 75-year-old -[place] female presents to the emergency room stating that she fell yesterday out of a chair when the leg gave out of the chair she was sitting in. She complains of neck pain right thigh pain. She states that she is able to ambulate. She reports she has a history of herniated disc in her lumbar area lupus discoid lupus hypertension fibromyalgia chronic kidney disease stage III arthritis of her right hip. She reports that she is followed by pain management. CT cervical. Acetaminophen [address] of cervical is negative for any acute fractures. Patient continue with her chronic pain medication from her pain management provider. Critical care attestation.: If time is entered above; I have spent that time in minutes in the direct care of this critically ill patient, excluding procedure time. ED Disposition Clinical Impression: Cervical pain (neck), Fall Disposition: 01 HOME / SELF CARE / HOMELESS Is pt being admited?: No Does the pt Need Aspirin: No Condition: Stable Additional Instructions: CT negative for any acute fractures or dislocation or injury. Continue with your chronic pain medication from your pain management provider. Referrals: Your, pain management provider [Other] - 3-5 Days Time of Disposition: 19:43
--- NOTE | 2020-12-12 19:01 | Cat Scan Report ---
CT cervical spine wo con INDICATION: Fall yesterday with cervical tenderness. TECHNIQUE: Axial CT images of the cervical spine were obtained. Sagittal and coronal reformatted images were pro duced. All CT scans at this location are performed using CT dose reduction for ALARA by means of auto mated exposure control. COMPARISON: None available. FINDINGS: ALIGNMENT: Normal alignment. VERTEBRAE: No fracture. Vertebral body heights are preserved. C1 and C2 are congruent. SPONDYLOSIS: Commensurate for age. SOFT TISSUES: No significant soft tissue abnormality. ADDITIONAL FINDINGS: No significant additional findings. IMPRESSION: 1. No fracture of the cervical spine. Signer Name: Evangelist Wang MD Signed: 12/12/2020 6:57 PM Workstation Name: [id number]
== END 2020-12-12 19:53 | disposition home or self-care (01) ==
LOC: ED 16:33
DX: M54.2 Cervicalgia (principal); I12.9 Hypertensive chronic kidney disease with stage 1 through stage 4 chronic kidney disease, or unspecified chronic kidney disease; N18.30 Chronic kidney disease, stage 3 unspecified; Z86.73 Personal history of transient ischemic attack (TIA), and cerebral infarction without residual deficits; M19.90 Unspecified osteoarthritis, unspecified site; Z90.49 Acquired absence of other specified parts of digestive tract; Z98.890 Other specified postprocedural states; M32.9 Systemic lupus erythematosus, unspecified; Z88.5 Allergy status to narcotic agent; Z88.1 Allergy status to other antibiotic agents; Z88.0 Allergy status to penicillin; Z88.8 Allergy status to other drugs, medicaments and biological substances
CPT/HCPCS: 72125

== ENCOUNTER 2021-02-28 10:49 | Emergency (ER) | payer MEDICARE ==
[2021-02-28] MEDS ORDERED: ACETAMINOPHEN 500 MG TAB PO ONE (10:58)
[2021-02-28 11:14] VITALS: BP 152/74
--- NOTE | 2021-02-28 11:43 | Emergency Department Report ---
ED Chest Pain HPI - General Chief Complaint: Chest Pain Stated Complaint: CHEST PAIN PUI?: No Time Seen by Provider: 02/28/21 10:56 Source: patient, EMS Mode of arrival: Stretcher Limitations: No Limitations - History of Present Illness Initial Comments: Chief complaint: "I hope it is just gas." HPI: This is a 75-year-old female history of coronary artery disease, dementia, hypertension, GI bleed, hypothyroidism, hyperlipidemia, CVA, SLE, chronic kidney disease who presents with chest pain rating to her back and neck for over 2 and half weeks. She explained that she was evaluated at [facility] for similar symptoms last week. She had a recent echocardiogram. She has a stress test scheduled for this . Pain is mild persistent. No association with exertion or eating. She was evaluated with 2 sets of blood tests x-ray at outside hospital according to her report. I reviewed electronic record. May 06, 2020 patient underwent myocardial perfusion scan. No ischemia was demonstrated with pharmacological stress testing. Normal perfusion on both stress and rest images. MD Complaint: chest pain -: Gradual, days(s) (20 days since February 08) Onset: during rest Severity: mild Severity scale (0 -10): 5 Quality: dull Consistency: constant Improves With: nothing Worsens With: nothing Treatments Prior to Arrival: other (EMS transport) - Related Data Home Medications Medication Instructions Recorded Confirmed Last Taken Mirtazapine [Remeron] 45 mg PO QHS 08/04/15 05/05/20 Unknown calcitrioL [Rocaltrol] 0.25 mcg PO DAILY 05/19/18 05/05/20 Unknown clonazePAM [clonazePAM Rapdis] 0.25 mg PO BID 05/05/20 05/05/20 Unknown predniSONE [Deltasone] 4 mg PO QDAY 05/05/20 05/05/20 Unknown Previous Rx's Medication Instructions Recorded Last Taken Type Sertraline HCl [Zoloft] 50 mg PO DAILY #30 tablet 03/26/18 Unknown Rx AtorvaSTATin [Lipitor] 40 mg PO QHS #30 tablet 06/12/18 Unknown Rx Clopidogrel [Plavix] 75 mg PO QDAY #30 tablet 06/12/18 Unknown Rx Levothyroxine [Synthroid] 50 mcg PO QAM #30 tablet 06/12/18 Unknown Rx amLODIPine 5 mg PO QDAY #30 tablet 06/12/18 Unknown Rx carvediloL [Coreg] 25 mg PO BID #60 tablet 06/12/18 Unknown Rx lamoTRIgine [LaMICtal] 25 mg PO BID #30 tablet 06/12/18 Unknown Rx HYDROcodone/APAP 7.5-325 [[place] 1 each PO Q6HR PRN #12 tablet 11/12/19 Unknown Rx 7.5/325] Allergies Allergy/AdvReac Type Severity Reaction Status Date / Time captopril Allergy Rash Verified 05/05/20 08:12 clindamycin Allergy Diarrhea Verified 05/05/20 08:12 codeine Allergy Unknown Verified 05/05/20 08:12 [From Tylenol-Codeine #3] NSAIDS (Non-Steroidal Allergy Rash Verified 05/05/20 08:12 Anti-Inflamma Penicillins Allergy Rash Verified 05/05/20 08:12 Sulfa (Sulfonamide Allergy Rash Verified 05/05/20 08:12 Antibiotics) tramadol Allergy Unknown Verified 05/05/20 08:12 Heart Score - HEART Score History: Slightly suspicious EKG: Non-specific Age: > 65 Risk factors: 1-2 risk factors Troponin: < normal limit HEART Score: 4 - EKG Read Time Time EKG Completed: 12:36 EKG Read Time: 12:36 - Critical Actions Critical Actions: 4-6 pts:12-16.6% risk of adverse cardiac event. Should be admitted ED Review of Systems ROS: Stated complaint: CHEST PAIN Other details as noted in HPI Comment: All other systems reviewed and negative Constitutional: denies: chills, fever, malaise Respiratory: denies: cough, shortness of breath Cardiovascular: chest pain Gastrointestinal: denies: abdominal pain, nausea, vomiting ED Past Medical Hx - Past Medical History Previous Medical History?: Yes Hx Hypertension: Yes Hx CVA: Yes (07/07/14) Hx Heart Attack/AMI: Yes Hx Renal Disease: Yes (Stage III renal dx) Hx Arthritis: Yes Hx Psychiatric Treatment: Yes (Depression) Hx Dementia: Yes Additional medical history: 3 herniated discs. LUPUS. hypothyroid. Lung Nodu les 01/2018 - Surgical History Past Surgical History?: Yes Hx Cholecystectomy: Yes Hx Appendectomy: Yes Additional Surgical History: vein stripping. oral surgery 07/31/18. No history of venous thromboembolism BLAADER SURGERY - Social History Smoking Status: Current Every Day Smoker Substance Use Type: None - Medications Home Medications: Home Medications Medication Instructions Recorded Confirmed Last Taken Type Mirtazapine [Remeron] 45 mg PO QHS 08/04/15 05/05/20 Unknown History Sertraline HCl [Zoloft] 50 mg PO DAILY #30 tablet 03/26/18 05/05/20 Unknown Rx calcitrioL [Rocaltrol] 0.25 mcg PO DAILY 05/19/18 05/05/20 Unknown History AtorvaSTATin [Lipitor] 40 mg PO QHS #30 tablet 06/12/18 05/05/20 Unknown Rx Clopidogrel [Plavix] 75 mg PO QDAY #30 tablet 06/12/18 05/05/20 Unknown Rx Levothyroxine [Synthroid] 50 mcg PO QAM #30 tablet 06/12/18 05/05/20 Unknown Rx amLODIPine 5 mg PO QDAY #30 tablet 06/12/18 05/05/20 Unknown Rx carvediloL [Coreg] 25 mg PO BID #60 tablet 06/12/18 05/05/20 Unknown Rx lamoTRIgine [LaMICtal] 25 mg PO BID #30 tablet 06/12/18 05/05/20 Unknown Rx HYDROcodone/APAP 7.5-325 [[place] 1 each PO Q6HR PRN #12 tablet 11/12/19 05/05/20 Unknown Rx 7.5/325] clonazePAM [clonazePAM Rapdis] 0.25 mg PO BID 05/05/20 05/05/20 Unknown History predniSONE [Deltasone] 4 mg PO QDAY 05/05/20 05/05/20 Unknown History ED Physical Exam - General Limitations: No Limitations General appearance: alert, in no apparent distress, other (Pleasant smiling appears comfortable) - Head Head exam: Present: atraumatic, normocephalic - Eye Eye exam: Present: normal appearance - ENT ENT exam: Present: mucous membranes moist - Neck Neck exam: Present: normal inspection, full ROM - Respiratory Respiratory exam: Present: normal lung sounds bilaterally. Absent: respiratory distress, wheezes, rales, rhonchi - Cardiovascular Cardiovascular Exam: Present: regular rate, normal rhythm, normal heart sounds. Absent: systolic murmur, diastolic murmur, rubs, gallop - GI/Abdominal GI/Abdominal exam: Present: soft, normal bowel sounds. Absent: distended, tenderness, guarding, rebound - Extremities Exam Extremities exam: Present: normal inspection - Neurological Exam Neurological exam: Present: alert, oriented X3 - Psychiatric Psychiatric exam: Present: normal affect, normal mood - Skin Skin exam: Present: warm, dry, intact, normal color. Absent: rash ED Course Vital Signs 02/28/21 11:13 Temperature 98.4 F Pulse Rate 75 Respiratory 12 Rate Blood Pressure 152/74 [Right] O2 Sat by Pulse 100 Oximetry LINETTE score - Linette Score Age > 65: (1) Yes Aspirin use within the Past 7 Days: (0) No 3 or more CAD Risk Factors: (1) Yes 2 or more Angina events in past 24 hrs: (0) No Known CAD with more than 50% Stenosis: (1) Yes Elevated Cardiac Markers: (0) No ST Deviation Greater than 0.5mm: (0) No LINETTE Score: 3 ED Medical Decision Making - Lab Data Result diagrams: 02/28/21 11:24 02/28/21 11:24 - EKG Data -: EKG Interpreted by Me - EKG Data 02/28/21 12:50 EKG obtained at 1236 EKG interpreted by me Rate 70 bpm normal sinus rhythm normal axis no ST elevation nonischemic T wave pattern normal QTC prolonged VT interval - Medical Decision Making Stable angina: Heart score 4. Patient has had cardiac evaluation here in an outside hospital. Presentation does not appear to be acute coronary syndrome pneumonia or PE or life-threatening condition. Patient encouraged to follow-up with her appointment for stress testing on . She appears well. Troponin negative. EKG unchanged. Troponin negative CBC chemistry within normal limits Critical care attestation.: If time is entered above; I have spent that time in minutes in the direct care of this critically ill patient, excluding procedure time. ED Disposition Clinical Impression: Stable angina Disposition: HOME / SELF CARE / HOMELESS Is pt being admited?: No Does the pt Need Aspirin: No Condition: Stable Instructions: Angina, [id number]
[2021-02-28 11:55] LABS: BUN/Creatinine Ratio 18; Blood Urea Nitrogen 16 mg/dL (7-17); Calcium 9.7 mg/dL (8.4-10.2); Hemolysis Index 1
[2021-02-28 12:29] LABS: Basophils % (Auto) 0.6 % (0.0-1.8); Eosinophils # (Auto) 0.1 K/mm3 (0.0-0.4); Eosinophils % (Auto) 1.7 % (0.0-4.3); Lymphocytes # (Auto) 2.2 K/mm3 (1.2-5.4); Lymphocytes % (Auto) 37.3 % (13.4-35.0); Mean Corpuscular HGB Conc 31 % (30-34); Mean Corpuscular Volume 76 fl (79-97); Monocytes # (Auto) 0.6 K/mm3 (0.0-0.8); Monocytes % (Auto) 9.9 % (0.0-7.3); Platelet Count 187 K/mm3 (140-440); Red Blood Count 4.92 M/mm3 (3.65-5.03); Red Cell Distribution Width 16.2 % (13.2-15.2)
[2021-02-28 12:30] LABS: Hematocrit 37.2 % (30.3-42.9); Hemoglobin 11.4 gm/dl (10.1-14.3)
== END 2021-02-28 13:20 | disposition home or self-care (01) ==
LOC: ED 10:49
DX: I20.8 Other forms of angina pectoris (principal); I12.0 Hypertensive chronic kidney disease with stage 5 chronic kidney disease or end stage renal disease; I21.9 Acute myocardial infarction, unspecified; N18.32 Chronic kidney disease, stage 3b; M19.90 Unspecified osteoarthritis, unspecified site; F32.A Depression, unspecified; F03.90 Unspecified dementia, unspecified severity, without behavioral disturbance, psychotic disturbance, mood disturbance, and anxiety; Z88.1 Allergy status to other antibiotic agents; Z88.0 Allergy status to penicillin; Z88.2 Allergy status to sulfonamides; Z86.73 Personal history of transient ischemic attack (TIA), and cerebral infarction without residual deficits; Z91.09 Other allergy status, other than to drugs and biological substances; Z90.710 Acquired absence of both cervix and uterus; Z98.890 Other specified postprocedural states; Z79.899 Other long term (current) drug therapy
CPT/HCPCS: 36415; 80048; 84484; 85025; 93005; 99283

== ENCOUNTER 2021-03-31 12:54 | Outpatient (CLI) | payer MEDICARE ==
[2021-03-31 13:33] LABS: Hematocrit 35.3 % (30.3-42.9); Hemoglobin 11.5 gm/dl (10.1-14.3); Mean Corpuscular HGB Conc 33 % (30-34); Mean Corpuscular Volume 75 fl (79-97); Platelet Count 185 K/mm3 (140-440); Red Blood Count 4.69 M/mm3 (3.65-5.03); Red Cell Distribution Width 15.8 % (13.2-15.2)
[2021-03-31 13:57] LABS: Albumin 3.8 g/dL (3.9-5); Calcium 9.7 mg/dL (8.4-10.2)
[2021-03-31 16:09] LABS: Creatinine,Urine 143.6 mg/dL (0.1-20.0); Protein/Creatinine Ratio,Urine 0.17
== END 2021-03-31 12:55 | disposition home or self-care (01) ==
LOC: LAB 12:54
PROVIDERS: ATTEND Internal Medicine
DX: N18.30 Chronic kidney disease, stage 3 unspecified (principal)
CPT/HCPCS: 36415; 80048; 82040; 82570; 84100; 84156; 85027

== ENCOUNTER 2021-05-06 12:04 | Observation (INO) | payer MEDICARE ==
--- NOTE | 2021-05-06 12:50 | XRay Report ---
CHEST 2 VIEWS INDICATION / CLINICAL INFORMATION: Chest Pain. COMPARISON: None available. FINDINGS: SUPPORT DEVICES: None. HEART / MEDIASTINUM: No significant abnormality. LUNGS / PLEURA: No significant pulmonary or pleural abnormality. No pneumothorax. ADDITIONAL FINDINGS: No significant additional findings. IMPRESSION: 1. No acute findings. Signer Name: Ricky Suarez MD Signed: 05/06/2021 12:45 PM Workstation Name: [id number]
[2021-05-06] MEDS ORDERED: ONDANSETRON 4 MG/2 ML INJ IV ONE (12:52)
[2021-05-06] MEDS ORDERED: fentaNYL 100 MCG/2 ML INJ IV ONE (12:52)
[2021-05-06] MEDS ORDERED: NITROGLYCERIN 2% OINT 1 GM TP ONE (12:52)
[2021-05-06] MEDS ORDERED: CLOPIDOGREL 300 MG TAB PO ONE (12:53)
--- NOTE | 2021-05-06 12:54 | Emergency Department Report ---
HPI - General Chief Complaint: Chest Pain Time Seen by Provider: 05/06/21 12:40 - HPI HPI: MSE 5 The patient is a 75-year-old female present with a chief complaint of chest pain. Patient states since yesterday she has had intermittent left-sided chest pain described as sharp in nature. Patient denies shortness of breath, nausea/vomiting but admits to diaphoresis with her pain. The patient states she took nitroglycerin today and it helped the pain. Patient admits to pleurisy. Patient currently gives her chest discomfort a score of 6/10. Patient states she had a normal stress test sometime in February or March of this year but her last cardiac catheterization occurred over 5 years ago. The patient states she was told by her scientist propagator Dr. Tam that if her pain continue that she would be set up for cardiac catheterization. ED Past Medical Hx - Past Medical History Hx Hypertension: Yes Hx CVA: Yes (07/07/14) Hx Heart Attack/AMI: Yes Hx Renal Disease: Yes (Stage III renal dx) Hx of Cancer: Yes (Skin cancer left hand) Hx Arthritis: Yes Hx Psychiatric Treatment: Yes (Depression) Hx Dementia: Yes Additional medical history: 3 herniated discs. LUPUS. hypothyroid. Lung Nodules 01/2018 - Surgical History Hx Cholecystectomy: Yes Hx Appendectomy: Yes Additional Surgical History: vein stripping. oral surgery 07/31/18. No history of venous thromboembolism BLADER SURGERY - Family History Family history: no significant - Social History Smoking Status: Current Every Day Smoker (1/2 pack/day) Substance Use Type: None (Denies illicit drug use) - Medications Home Medications: Home Medications Medication Instructions Recorded Confirmed Last Taken Type Mirtazapine [Remeron] 45 mg PO QHS 08/04/15 05/05/20 Unknown History Sertraline HCl [Zoloft] 50 mg PO DAILY #30 tablet 03/26/18 05/05/20 Unknown Rx calcitrioL [Rocaltrol] 0.25 mcg PO DAILY 05/19/18 05/05/20 Unknown History AtorvaSTATin [Lipitor] 40 mg PO QHS #30 tablet 06/12/18 05/05/20 Unknown Rx Clopidogrel [Plavix] 75 mg PO QDAY #30 tablet 06/12/18 05/05/20 Unknown Rx Levothyroxine [Synthroid] 50 mcg PO QAM #30 tablet 06/12/18 05/05/20 Unknown Rx amLODIPine 5 mg PO QDAY #30 tablet 06/12/18 05/05/20 Unknown Rx carvediloL [Coreg] 25 mg PO BID #60 tablet 06/12/18 05/05/20 Unknown Rx lamoTRIgine [LaMICtal] 25 mg PO BID #30 tablet 06/12/18 05/05/20 Unknown Rx HYDROcodone/APAP 7.5-325 [[place] 1 each PO Q6HR PRN #12 tablet 11/12/19 05/05/20 Unknown Rx 7.5/325] clonazePAM [clonazePAM Rapdis] 0.25 mg PO BID 05/05/20 05/05/20 Unknown History predniSONE [Deltasone] 4 mg PO QDAY 05/05/20 05/05/20 Unknown History ED Review of Systems ROS: Stated complaint: CHEST PAIN Other details as noted in HPI Constitutional: diaphoresis Eyes: denies: eye pain ENT: denies: throat pain Respiratory: denies: shortness of breath Cardiovascular: chest pain Endocrine: no symptoms reported Gastrointestinal: denies: nausea, vomiting Genitourinary: denies: dysuria Musculoskeletal: denies: back pain Neurological: denies: headache Physical Exam - Physical Exam Physical Exam: GENERAL: The patient is well-developed well-nourished female sitting in chair not appearing to be in acute distress. [] HEENT: Normocephalic. Atraumatic. Extraocular motions are intact. Patient has moist mucous membranes. NECK: Supple. Trachea midline CHEST/LUNGS: Clear to auscultation. There is no respiratory distress noted. HEART/CARDIOVASCULAR: Regular. There is no tachycardia. There is no gallop rub or murmur. ABDOMEN: Abdomen is soft, nontender. Patient has normal bowel sounds. There is no abdominal distention. SKIN: There is no rash. There is no edema. There is no diaphoresis. NEURO: The patient is awake, alert, and oriented. The patient is cooperative. The patient has no focal neurologic deficits. The patient has normal speech. GCS 15 MUSCULOSKELETAL: There is no evidence of acute injury. ED Course - Consultations Consultation #1: 05/06/21 13:06 Cardiology paged 05/06/21 13:37 Case discussed with scientist propagator Dr. Leon- can admit patient to the hospital ED Medical Decision Making - Lab Data Result diagrams: 05/06/21 13:29 05/06/21 13:29 Laboratory Tests 05/06/21 05/06/21 05/06/21 13:29 13:29 13:29 WBC 6.3 RBC 5.08 H Hgb 11.8 Hct 38.8 MCV 77 L MCH 23 L MCHC 31 RDW 16.4 H Plt Count 204 Lymph % (Auto) 39.7 H [place] % (Auto) 7.7 H Eos % (Auto) 1.5 Baso % (Auto) 2.0 H Lymph # (Auto) 2.5 [place] # (Auto) 0.5 Eos # (Auto) 0.1 Baso # (Auto) 0.1 Seg Neutrophils % 49.1 Seg Neutrophils # 3.1 D-Dimer 346.27 H Sodium 143 Potassium 4.2 Chloride 102.7 Carbon Dioxide 25 Anion Gap 20 BUN 20 H Creatinine 1.1 Estimated GFR 59 BUN/Creatinine Ratio 18 Glucose 61 L Calcium 9.4 Total Creatine Kinase CK-MB (CK-2) CK-MB (CK-2) Rel Index Troponin T < 0.010 05/06/21 13:29 WBC RBC Hgb Hct MCV MCH MCHC RDW Plt Count Lymph % (Auto) [place] % (Auto) Eos % (Auto) Baso % (Auto) Lymph # (Auto) [place] # (Auto) Eos # (Auto) Baso # (Auto) Seg Neutrophils % Seg Neutrophils # D-Dimer Sodium Potassium Chloride Carbon Dioxide Anion Gap BUN Creatinine Estimated GFR BUN/Creatinine Ratio Glucose Calcium Total Creatine Kinase 57 CK-MB (CK-2) 1.8 CK-MB (CK-2) Rel Index 3.1 Troponin T - EKG Data -: EKG Interpreted by Me EKG shows normal: sinus rhythm Rate: normal - EKG Data When compared to previous EKG there are: previous EKG unavailable Interpretation: other (No ischemic changes seen) - Radiology Data Radiology results: report reviewed (Chest x-ray, VQ scan), image reviewed (Chest x-ray, VQ scan) interpreted by me: Chest x-ray-no definite focal infiltrates, no pneumothorax [facility] [address] [place] [address] XRay Report Signed Patient: CHARLEE PATTON MR#: [id number] : 1945 Acct:[id number] Age/Sex: 75 / F ADM Date: 05/06/21 Loc: ED [address]: Ordering Physician: DEBBIE GOYAL MD Date of Service: 05/06/21 Procedure(s): XR chest routine 2V Accession Number(s): [id number] cc: DEBBIE GOYAL MD Fluoro Time In Minutes: CHEST 2 VIEWS INDICATION / CLINICAL INFORMATION: Chest Pain. COMPARISON: None available. FINDINGS: SUPPORT DEVICES: None. HEART / MEDIASTINUM: No significant abnormality. LUNGS / PLEURA: No significant pulmonary or pleural abnormality. No pneumothorax. ADDITIONAL FINDINGS: No significant additional findings. IMPRESSION: 1. No acute findings. Signer Name: Ricky Suarez MD Signed: 05/06/2021 12:45 PM Workstation Name: [id number] Transcribed By: LIONEL Dictated By: Ricky Suarez MD Electronically Authenticated By: Ricky Suarez MD Signed Date/Time: 05/06/21 1245 DD/ 124 TD/TT: IVONNE Zee [id number] Nuclear Medicine Report Signed Patient: CHARLEE PATTON MR#: [id number] : 1945 Acct:[id number] Age/Sex: 75 / F ADM Date: 05/06/21 Loc: 4A A475-[address]: CASANDRA DESHPANDE MD Ordering Physician: DEBBIE GOYAL MD Date of Service: 05/06/21 Procedure(s): NM perfusion only lung scan Accession Number(s): [id number] cc: DEBBIE GOYAL MD NUCLEAR MEDICINE PERFUSION LUNG SCAN INDICATION / CLINICAL INFORMATION: Chest pain. Shortness of breath. TECHNIQUE: 5.4 mCi of Tc-99m MAA were given by IV. COMPARISON: Chest radiograph dated today at 12:31 PM. Prior lung perfusion study 09/26/19.. FINDINGS: PERFUSION: No significant perfusion defects. ADDITIONAL FINDINGS: None. IMPRESSION: Low probability for pulmonary embolism. Signer Name: Ross Miranda MD Signed: 05/06/2021 5:04 PM Workstation Name: [id number] Transcribed By: RT Dictated By: Ross Miranda MD Electronically Authenticated By: Ross Miranda MD Signed Date/Time: 05/06/211703 DD/ 01 TD/TT: - Differential Diagnosis ACS, PE, pericarditis, GERD Critical care attestation.: If time is entered above; I have spent that time in minutes in the direct care of this critically ill patient, excluding procedure time. ED Disposition Clinical Impression: Chest pain Disposition: ADMITTED INPATIENT Is pt being admited?: Yes Does the pt Need Aspirin: Yes Condition: Fair Time of Disposition: 17:43 Heart Score - HEART Score History: Moderately suspicious EKG: Non-specific Age: > 65 Risk factors: > 3 risk factors or hx of atherosclerotic disease Troponin: < normal limit HEART Score: 6 - EKG Read Time Time EKG Completed: 12:14 EKG Read Time: 12:22
[2021-05-06 14:03] LABS: Basophils # (Auto) 0.1 K/mm3 (0.0-0.1); Eosinophils # (Auto) 0.1 K/mm3 (0.0-0.4); Eosinophils % (Auto) 1.5 % (0.0-4.3); Lymphocytes # (Auto) 2.5 K/mm3 (1.2-5.4); Lymphocytes % (Auto) 39.7 % (13.4-35.0); Mean Corpuscular HGB Conc 31 % (30-34); Mean Corpuscular Volume 77 fl (79-97); Monocytes # (Auto) 0.5 K/mm3 (0.0-0.8); Monocytes % (Auto) 7.7 % (0.0-7.3); Platelet Count 204 K/mm3 (140-440); Red Blood Count 5.08 M/mm3 (3.65-5.03); Red Cell Distribution Width 16.4 % (13.2-15.2)
[2021-05-06 14:08] LABS: Hemoglobin 11.8 gm/dl (10.1-14.3)
[2021-05-06 14:09] LABS: Hematocrit 38.8 % (30.3-42.9)
[2021-05-06 14:19] LABS: Creatine Kinase MB 1.8 ng/mL (0.0-4.0)
--- NOTE | 2021-05-06 14:51 | History and Physical Report ---
History of Present Illness Chief complaint: My chest hurts History of present illness: 75 YO Female with Obesity, HTN, CAD, CKD, Hypothyroidism, Metabolic Syndrome, Vascular Dementia, Cerebral Atherosclerosis, CVA, MDD, OA, IA, Skin Cancer, SLE, Nicotine Dependence presents to ED for evaluation. Patient reports "my chest hurts". Patient states that he has experienced chest pain over the past 1 day. Patient states the pain is 6/10, constant, worsened with exertion, relieved with rest, localized to the left chest, sharp, associated with diaphoresis. Patient knowledges dyspnea exertion, dyspnea at rest, decreased exercise tolerance. Patient transported to [facility] via private vehicle for further care and evaluation of the aforementioned symptoms. The patient was seen and evaluated in the emergency department. All lab and imaging studies reviewed. Patient found to have angina at rest as well as clinical symptoms consistent with CHF decompensation. The patient was admitted to telemetry and initiated on CHF protocol as well as ACS protocol. Cardiology team consulted in ED. Patient denies fever, chills, palpitation, productive cough, skin rash, recent contact, known exposure to COVID-19. Prior admission on 05/05/2020 reviewed. All medication listed at time of admission has been reconciled. Advanced care planning conducted in ED. Past History Past Medical History: acute IA, arthritis, cancer, hypertension, hypothyroidism, stroke, other (See HPI) Past Surgical History: appendectomy, cholecystectomy, Other (vein stripping. oral surgery 07/31/18. No history of venous thromboembolism BLADER SURGERY) Social history: , smoking. denies: alcohol abuse Family history: diabetes, hypertension Medications and Allergies Allergies Allergy/AdvReac Type Severity Reaction Status Date / Time captopril Allergy Rash Verified 05/05/20 08:12 clindamycin Allergy Diarrhea Verified 05/05/20 08:12 codeine Allergy Unknown Verified 05/05/20 08:12 [From Tylenol-Codeine #3] NSAIDS (Non-Steroidal Allergy Rash Verified 05/05/20 08:12 Anti-Inflamma Penicillins Allergy Rash Verified 05/05/20 08:12 Sulfa (Sulfonamide Allergy Rash Verified 05/05/20 08:12 Antibiotics) tramadol Allergy Unknown Verified 05/05/20 08:12 Home Medications Medication Instructions Recorded Confirmed Last Taken Type Mirtazapine [Remeron] 45 mg PO QHS 08/04/15 05/05/20 Unknown History Sertraline HCl [Zoloft] 50 mg PO DAILY #30 tablet 03/26/18 05/05/20 Unknown Rx calcitrioL [Rocaltrol] 0.25 mcg PO DAILY 05/19/18 05/05/20 Unknown History AtorvaSTATin [Lipitor] 40 mg PO QHS #30 tablet 06/12/18 05/05/20 Unknown Rx Clopidogrel [Plavix] 75 mg PO QDAY #30 tablet 06/12/18 05/05/20 Unknown Rx Levothyroxine [Synthroid] 50 mcg PO QAM #30 tablet 06/12/18 05/05/20 Unknown Rx amLODIPine 5 mg PO QDAY #30 tablet 06/12/18 05/05/20 Unknown Rx carvediloL [Coreg] 25 mg PO BID #60 tablet 06/12/18 05/05/20 Unknown Rx lamoTRIgine [LaMICtal] 25 mg PO BID #30 tablet 06/12/18 05/05/20 Unknown Rx HYDROcodone/APAP 7.5-325 [[place] 1 each PO Q6HR PRN #12 tablet 11/12/19 05/05/20 Unknown Rx 7.5/325] clonazePAM [clonazePAM Rapdis] 0.25 mg PO BID 05/05/20 05/05/20 Unknown History predniSONE [Deltasone] 4 mg PO QDAY 05/05/20 05/05/20 Unknown History Review of Systems Constitutional: no weight loss, no weight gain, no fever, no chills Ears, nose, mouth and throat: no ear pain, no ear discharge, no nose pain, no nasal congestion Cardiovascular: chest pain, dyspnea on exertion, decreased exercise tolerance, no orthopnea, no rapid/irregular heart beat Respiratory: no cough, no cough with sputum, no shortness of breath Gastrointestinal: no abdominal pain, no nausea, no vomiting, no diarrhea, no constipation Genitourinary Female: no pelvic pain, no flank pain, no dysuria, no urinary frequency, no urgency Rectal: no pain, no incontinence, no bleeding Musculoskeletal: no neck stiffness, no neck pain, no shooting arm pain, no arm numbness/tingling, no low back pain Integumentary: no rash, no pruritis, no redness, no sores, no wounds Neurological: no head injury, no transient paralysis, no weakness, no par athesias, no numbness, no seizures Psychiatric: no anxiety, no memory loss, no change in sleep habits, no insomnia, no change in appetite Endocrine: no cold intolerance, no heat intolerance, no polydipsia, no polyuria, no excessive sweating Hematologic/Lymphatic: no easy bruising, no easy bleeding Allergic/Immunologic: no urticaria, no wheezing Exam - Constitutional General appearance: Present: mild distress, obese - EENT Eyes: Present: PERRL ENT: hearing intact, clear oral mucosa - Neck Neck: Present: supple, normal ROM - Respiratory Respiratory effort: normal Respiratory: bilateral: CTA - Cardiovascular Heart Sounds: Present: S1 & S2. Absent: rub, click - Extremities Extremities: pulses symmetrical, No edema Peripheral Pulses: within normal limits - Abdominal General gastrointestinal: Present: soft, non-tender, non-distended, normal bowel sounds Female genitourinary: Present: normal - Integumentary Integumentary: Present: clear, warm, dry - Musculoskeletal Musculoskeletal: gait normal, strength equal bilaterally - Psychiatric Psychiatric: appropriate mood/affect, intact judgment & insight - Neurologic Neurologic: CNII-XII intact, moves all extremities Results - Labs CBC & Chem 7: 05/06/21 13:29 05/06/21 13:29 Labs: Abnormal lab results 05/06/21 05/06/21 Range/Units 13:29 13:29 RBC 5.08 H (3.65-5.03) M/mm3 MCV 77 L (79-97) fl MCH 23 L (28-32) pg RDW 16.4 H (13.2-15.2) % Lymph % (Auto) 39.7 H (13.4-35.0) % [place] % (Auto) 7.7 H (0.0-7.3) % Baso % (Auto) 2.0 H (0.0-1.8) % D-Dimer 346.27 H (0-234) ng/mlDDU Assessment and Plan - Patient Problems (1) Angina at rest Current Visit: Yes Status: Acute Plan to address problem: ACS protocol: Serial cardiac enzymes, EKG, telemetry monitoring, morphine, supplemental oxygen, nitro, aspirin, cardiology team consulted in ED. Further care evaluation and testing as per cardiology team. (2) Diastolic CHF Current Visit: Yes Status: Acute Qualifiers: Heart failure chronicity: acute Qualified Code(s): I50.31 - Acute diastolic (congestive) heart failure Plan to address problem: Strict I/O, monitor urine output every shift, afterload reduction, blood pressure control, supplemental oxygen, cardiology team consulted in ED, echocardiogram ordered and pending at time of admission. (3) Vascular dementia Current Visit: Yes Status: Acute Qualifiers: Dementia behavioral disturbance: without behavioral disturbance Qualified Code(s): F01.50 - Vascular dementia without behavioral disturbance Plan to address problem: Verbal prompting, verbal redirection, benzodiazepine therapy as clinically indicated. (4) Cerebral atherosclerosis Current Visit: Yes Status: Acute Plan to address problem: Antiplatelet therapy as clinically indicated, risk factor reduction. (5) Metabolic syndrome Current Visit: Yes Status: Acute Plan to address problem: Balanced diet, increase physical activity at discharge, low-cholesterol diet, supportive care. (6) HLD (hyperlipidemia) Current Visit: No Status: Chronic Qualifiers: Hyperlipidemia type: mixed hyperlipidemia Qualified Code(s): E78.2 - Mixed hyperlipidemia Plan to address problem: Statin therapy as clinically indicated, low-cholesterol diet. (7) Hypertension Current Visit: No Status: Chronic Qualifiers: Hypertension type: primary hypertension Qualified Code(s): I10 - Essential (primary) hypertension Plan to address problem: Monitor blood pressure every shift, continue medical management. (8) Hypothyroidism (acquired) Current Visit: No Status: Chronic Plan to address problem: Continue medical management, supportive care. (9) Nicotine dependence Current Visit: Yes Status: Acute Qualifiers: Nicotine product type: cigarettes Substance use status: in withdrawal Qualified Code(s): F17.213 - Nicotine dependence, cigarettes, with withdrawal Plan to address problem: Smoking cessation counseling, supportive care, behavior change counseling, +15 minutes. (10) SLE (systemic lupus erythematosus related syndrome) Current Visit: Yes Status: Acute Plan to address problem: Continue current care, outpatient rheumatology follow-up, continue steroid therapy, continue current management. (11) DVT prophylaxis Current Visit: Yes Status: Acute Plan to address problem: SCD to bilateral lower extremities while in bed, patient is ambulatory (12) Advance care planning Current Visit: Yes Status: Acute Plan to address problem: Disease education conducted, care plan discussed, diagnoses discussed, prognosis discussed, patient is full code, patient acknowledges understanding and agreement with care plan, +30 minutes.
[2021-05-06] MEDS ORDERED: oxyCODONE /ACETAMINOPHEN 5-325MG TAB PO PRN (14:53)
[2021-05-06] MEDS ORDERED: ACETAMINOPHEN 325 MG TAB PO PRN ×2 (14:53→14:54)
[2021-05-06] MEDS ORDERED: ONDANSETRON 4 MG/2 ML INJ IV PRN (14:53)
[2021-05-06] MEDS ORDERED: ALBUTEROL 2.5 MG/3 ML NEBU IH PRN (14:53)
[2021-05-06] MEDS ORDERED: traMADol 50 MG TAB PO PRN (14:54)
[2021-05-06] MEDS ORDERED: NITROGLYCERIN 0.4 MG TAB SUBL SL PRN (14:54)
[2021-05-06] MEDS ORDERED: ASPIRIN 81 MG TAB CHEW PO STA (15:01)
[2021-05-06 15:47] LABS: BUN/Creatinine Ratio 18; Blood Urea Nitrogen 20 mg/dL (7-17); Calcium 9.4 mg/dL (8.4-10.2); Hemolysis Index 39
--- NOTE | 2021-05-06 17:08 | Nuclear Medicine Report ---
NUCLEAR MEDICINE PERFUSION LUNG SCAN INDICATION / CLINICAL INFORMATION: Chest pain. Shortness of breath. TECHNIQUE: 5.4 mCi of Tc-99m MAA were given by IV. COMPARISON: Chest radiograph dated today at 12:31 PM. Prior lung perfusion study 09/26/19.. FINDINGS: PERFUSION: No significant perfusion defects. ADDITIONAL FINDINGS: None. IMPRESSION: Low probability for pulmonary embolism. Signer Name: Ross Miranda MD Signed: 05/06/2021 5:04 PM Workstation Name: [id number]
[2021-05-06] MEDS: carvediloL 25 MG TAB PO SCH (21:53)
[2021-05-06] MEDS: MIRTAZAPINE 15 MG TAB PO SCH (21:55)
[2021-05-06] MEDS: clonazePAM 0.5 MG TAB PO SCH (21:56)
[2021-05-06] MEDS ORDERED: RAPDIS PO SCH (22:00)
[2021-05-06] MEDS ORDERED: CLONAZEPAM PO SCH (22:00)
[2021-05-06] MEDS ORDERED: MIRTAZAPINE 45 MG PO SCH (22:00)
[2021-05-06] MEDS: lamoTRIgine 25 MG TAB PO SCH (23:00)
[2021-05-07] MEDS: CALCITRIOL 0.25 MCG CAP PO SCH (09:46)
[2021-05-07] MEDS: amLODIPine 5 MG TAB PO SCH (09:47)
[2021-05-07] MEDS: carvediloL 25 MG TAB PO SCH ×2 (09:48→21:13)
[2021-05-07] MEDS: clonazePAM 0.5 MG TAB PO SCH ×2 (09:48→21:14)
[2021-05-07] MEDS: CLOPIDOGREL 75 MG TAB PO SCH (09:48)
[2021-05-07] MEDS: lamoTRIgine 25 MG TAB PO SCH (09:48)
[2021-05-07] MEDS: LEVOTHYROXINE 50 MCG TAB PO SCH (09:50)
[2021-05-07] MEDS: SERTRALINE 50 MG TAB PO SCH (09:51)
[2021-05-07] MEDS ORDERED: predniSONE 20 MG TAB PO SCH (10:00)
--- NOTE | 2021-05-07 17:56 | Progress Note ---
Assessment and Plan (1) Angina at rest Current Visit: Yes Status: Acute Plan to address problem: ACS protocol: Serial cardiac enzymes, EKG, telemetry monitoring, morphine, supplemental oxygen, nitro, aspirin, cardiology team consulted in ED. Further care evaluation and testing as per cardiology team. (2) Diastolic CHF Current Visit: Yes Status: Acute Qualifiers: Heart failure chronicity: acute Qualified Code(s): I50.31 - Acute diastolic (congestive) heart failure Plan to address problem: Strict I/O, monitor urine output every shift, afterload reduction, blood pressure control, supplemental oxygen, cardiology team consulted in ED, echocardiogram ordered and pending at time of admission. (3) Vascular dementia Current Visit: Yes Status: Acute Qualifiers: Dementia behavioral disturbance: without behavioral disturbance Qualified Code(s): F01.50 - Vascular dementia without behavioral disturbance Plan to address problem: Verbal prompting, verbal redirection, benzodiazepine therapy as clinically indicated. (4) Cerebral atherosclerosis Current Visit: Yes Status: Acute Plan to address problem: Antiplatelet therapy as clinically indicated, risk factor reduction. (5) Metabolic syndrome Current Visit: Yes Status: Acute Plan to address problem: Balanced diet, increase physical activity at discharge, low-cholesterol diet, supportive care. (6) HLD (hyperlipidemia) Current Visit: No Status: Chronic Qualifiers: Hyperlipidemia type: mixed hyperlipidemia Qualified Code(s): E78.2 - Mixed hyperlipidemia Plan to address problem: Statin therapy as clinically indicated, low-cholesterol diet. (7) Hypertension Current Visit: No Status: Chronic Qualifiers: Hypertension type: primary hypertension Qualified Code(s): I10 - Essential (primary) hypertension Plan to address problem: Monitor blood pressure every shift, continue medical management. (8) Hypothyroidism (acquired) Current Visit: No Status: Chronic Plan to address problem: Continue medical management, supportive care. (9) Nicotine dependence Current Visit: Yes Status: Acute Qualifiers: Nicotine product type: cigarettes Substance use status: in withdrawal Qualified Code(s): F17.213 - Nicotine dependence, cigarettes, with withdrawal Plan to address problem: Smoking cessation counseling, supportive care, behavior change counseling, +15 minutes. (10) SLE (systemic lupus erythematosus related syndrome) Current Visit: Yes Status: Acute Plan to address problem: Continue current care, outpatient rheumatology follow-up, continue steroid therapy, continue current management. (11) DVT prophylaxis Current Visit: Yes Status: Acute Plan to address problem: SCD to bilateral lower extremities while in bed, patient is ambulatory (12) Advance care planning Current Visit: Yes Status: Acute Plan to address problem: Disease education conducted, care plan discussed, diagnoses discussed, prognosis discussed, patient is full code, patient acknowledges understanding and agreement with care plan, +30 minutes. 05/07: Patient did not have stress test as she had VQ scan yesterday. Cardiac enzymes are normal EKG did not show any ST elevation. 2D echo ordered and pending, patient continued to complains of intermittent chest pain. Continue to follow clinically. Stress test in the morning and consulted cardiology for further recommendation. Subjective Date of service: 05/07/21 Interval history: Patient seen and examined. Medical records and medication list reviewed. No acute event overnight noted by the RN. Patient denies intermittent chest pain but no difficulty breathing. Patient is tolerating diet. Discussed plan of care at bedside with patient. Objective - Exam Narrative Exam: GENERAL: well-developed and morbidly obese -[place] female lying on bed appeared to be in no discomfort. HEENT: Normocephalic. Atraumatic. No conjunctival congestion or icterus. Patient has moist mucous membranes. NECK: Supple. Trachea midline. CHEST/LUNGS: Clear to auscultated bilaterally, breathing nonlabored. No wheezes crackles or rhonchi. HEART/CARDIOVASCULAR: Regular in rate and rhythm. S1 and S2 positive. ABDOMEN: Abdomen is soft, nontender. Patient has normal bowel sounds. SKIN: There is no rash. Warm and dry. NEURO: No focal motor deficit. Follows command. MUSCULOSKELETAL: No joint effusion or tenderness. EXTRIMITY: No edema, no cyanosis or clubbing. PSYCH: Cooperative. - Constitutional Vitals: Vital Signs - 12hr 05/07/21 05/07/21 05/07/21 07:02 07:36 09:18 Temperature 98.5 F Pulse Rate 73 Respiratory 18 Rate Blood Pressure 135/87 O2 Sat by Pulse 100 94 100 Oximetry 05/07/21 05/07/21 05/07/21 09:24 09:47 09:48 Temperature Pulse Rate 74 74 Respiratory Rate Blood Pressure O2 Sat by Pulse 98 Oximetry 05/07/21 05/07/21 05/07/21 11:00 11:45 15:47 Temperature 98.4 F 98.8 F Pulse Rate 79 76 78 Respiratory 18 18 Rate Blood Pressure 137/81 125/61 O2 Sat by Pulse 96 97 Oximetry - Labs CBC & Chem 7: 05/06/21 13:29 05/06/21 13:29 HEART Score - HEART Score History: Moderately suspicious EKG: Non-specific Age: > 65 Risk factors: > 3 risk factors or hx of atherosclerotic disease Troponin: Troponin T < 0.010 ng/mL (0.00-0.029) 05/06/21 22:26 Troponin: < normal limit HEART Score: 6
[2021-05-07] MEDS: predniSONE 5 MG/5 ML ORAL LIQUID PO SCH (18:09)
[2021-05-07] MEDS: MIRTAZAPINE 15 MG TAB PO SCH (21:13)
[2021-05-07] MEDS ORDERED: IMIQUIMOD TP SCH (22:00)
[2021-05-07] MEDS ORDERED: NON-FORMULARY EACH (Clonazepam [Klonopin] 1 MG Tablet) PO SCH (22:00)
[2021-05-07] MEDS ORDERED: lamoTRIgine 100 MG TAB PO SCH (22:00)
[2021-05-08] MEDS: MORPHINE 4 MG/1 ML INJ IV PRN ×2 (00:16→10:27)
[2021-05-08] MEDS ORDERED: [UNRECOGNIZED DRUG - OTHER] OU SCH (10:00)
[2021-05-08] MEDS ORDERED: ARIPiprazole 10 MG TAB PO SCH (10:00)
[2021-05-08] MEDS ORDERED: DONEPEZIL 10 MG TAB PO SCH (10:00)
[2021-05-08] MEDS ORDERED: HYPROMELLOSE OU SCH (10:00)
[2021-05-08] MEDS ORDERED: SERTRALINE 100 MG TAB PO SCH (10:00)
[2021-05-08] MEDS ORDERED: DEXTRAN OU SCH (10:00)
[2021-05-08] MEDS: carvediloL 25 MG TAB PO SCH (10:28)
[2021-05-08] MEDS: CLOPIDOGREL 75 MG TAB PO SCH (10:28)
[2021-05-08] MEDS: SERTRALINE 50 MG TAB PO SCH (10:29)
[2021-05-08] MEDS: amLODIPine 5 MG TAB PO SCH (10:29)
[2021-05-08] MEDS: LEVOTHYROXINE 50 MCG TAB PO SCH (10:29)
[2021-05-08] MEDS: CALCITRIOL 0.25 MCG CAP PO SCH (10:30)
[2021-05-08] MEDS: predniSONE 5 MG/5 ML ORAL LIQUID PO SCH (10:32)
[2021-05-08] MEDS: clonazePAM 0.5 MG TAB PO SCH (12:36)
--- NOTE | 2021-05-08 14:28 | Consultation ---
History of Present Illness Consult date: 05/08/21 Consult reason: chest pain History of present illness: The patient is a 75-year-old woman admitted with chest pain. She has a history of chronic atypical chest pain syndrome, negative multiple cardiac ischemic evaluations in the past. Several years ago, she had a negative cardiac catheterization. More recently, 3 months ago she had a negative thallium stress test at [facility]. Serial left ventricular function assessments have demonstrated normal left ventricular systolic function, including an echocardiogram done on this current admission. She was admitted with chest pain. She describes left upper chest pain, which is nonexertional, but is positional with movement of the thorax, and aggravated by palpation over the top part of the left breast. On physical exam, she has point tenderness which reproduces her pain. Otherwise, she has no shortness of breath, no palpitations, no dizziness, no lower extremity edema. Serial ECG showing normal sinus rhythm, normal ECG. Serial troponin levels x2 were negative. The patient feels and looks well, wants to go home today and follow-up with her primary laborer [employer] Dr. Tam. Comorbidities include chronic tobacco abuse and chronic hypertension. Past History Past Medical History: arthritis, cancer, hypertension, hypothyroidism, stroke, other (See HPI) Past Surgical History: appendectomy, cholecystectomy, Other (vein stripping. oral surgery 07/31/18. No history of venous thromboembolism BLADER SURGERY) Social history: , smoking. denies: alcohol abuse Family history: diabetes, hypertension Medications and Allergies Allergies Allergy/AdvReac Type Severity Reaction Status Date / Time captopril Allergy Swelling Verified 05/07/21 10:04 clindamycin Allergy Rash Verified 05/07/21 10:04 codeine Allergy Hallucinati Verified 05/07/21 10:04 [From Tylenol-Codeine #3] ons NSAIDS (Non-Steroidal Allergy Rash Verified 05/07/21 10:04 Anti-Inflamma Penicillins Allergy Rash Verified 05/07/21 10:04 Sulfa (Sulfonamide Allergy Rash Verified 05/07/21 10:04 Antibiotics) tramadol Allergy Hallucinati Verified 05/07/21 10:04 ons Home Medications Medication Instructions Recorded Confirmed Last Taken Type Mirtazapine [Remeron] 45 mg PO QHS 08/04/15 05/07/21 1 Day Ago History ~05/06/21 calcitrioL [Rocaltrol] 0.25 mcg PO DAILY 04/12/19 03/31/22 1 Day Ago History ~05/06/21 AtorvaSTATin [Lipitor] 40 mg PO QHS #30 tablet 06/12/18 05/07/21 1 Day Ago Rx ~05/06/21 Clopidogrel [Plavix] 75 mg PO QDAY #30 tablet 06/12/18 05/07/21 05/02/21 Rx Levothyroxine [Synthroid] 50 mcg PO QAM #30 tablet 06/12/18 05/07/21 1 Day Ago Rx ~05/06/21 amLODIPine 5 mg PO QDAY #30 tablet 06/12/18 05/07/21 1 Day Ago Rx ~05/06/21 carvediloL [Coreg] 25 mg PO BID #60 tablet 06/12/18 05/07/21 1 Day Ago Rx ~05/06/21 ARIPiprazole [Abilify] 10 mg PO QAM 05/07/21 05/07/21 1 Day Ago History ~05/06/21 Acetaminophen [Acetaminophen 8 650 mg PO TID 05/07/21 05/07/21 1 Day Ago History Hour] ~05/06/21 Albuterol Mdi (or & Nicu Only) 2 puff IH QID PRN 05/07/21 05/07/21 1 Day Ago History [ProAir HFA Inhaler] ~05/06/21 Dextran 70/Hypromellose [Natural 1 drop OU QDAY 05/07/21 05/07/21 1 Day Ago History Balance Tears Eye Drop] ~05/06/21 Ergocalciferol [Vitamin D2] 1 cap PO 2XW 05/07/21 05/07/21 1 Day Ago History ~05/06/21 Furosemide [Lasix] 20 mg PO QDAY 05/07/21 05/07/21 1 Day Ago History ~05/06/21 HYDROcodone/APAP 10-325 [[place] 1 each PO Q8HR PRN 05/07/21 05/07/21 1 Day Ago History 10/325] ~05/06/21 Hyaluronate Sodium/Vit C [Sv 3 cap PO QDAY 05/07/21 05/07/21 1 Day Ago History Hyaluronic Acid-Vit C Cap] ~05/06/21 Imiquimod [[place] 5%] 1 applicatio TP BID 05/07/21 05/07/21 1 Day Ago History ~05/06/21 Multivitamin [Multiple Vitamins] 1 each PO QDAY 05/07/21 05/07/21 1 Day Ago History ~05/06/21 Nitroglycerin [Nitrostat] 0.4 mg SL Q5M PRN 05/07/21 05/07/21 1 Day Ago History ~05/06/21 Potassium Chloride [K-Dur] 10 meq PO QDAY 05/07/21 05/07/21 1 Day Ago History ~05/06/21 Sertraline [Zoloft] 100 mg PO QDAY 05/07/21 05/07/21 1 Day Ago History ~05/06/21 Tizanidine HCl [Zanaflex 2mg CAP] 2 mg PO BID 05/07/21 05/07/21 1 Day Ago History ~05/06/21 clonazePAM [Klonopin] 0.5 mg PO BID 05/07/21 05/07/21 1 Day Ago History ~05/06/21 donepeziL [Aricept] 10 mg PO QDAY 05/07/21 05/07/21 1 Day Ago History ~05/06/21 lamoTRIgine [LaMICtal] 100 mg PO HS 05/07/21 05/07/21 1 Day Ago History ~05/06/21 predniSONE [Deltasone] 5 mg PO QDAY 05/07/21 05/07/21 1 Day Ago History ~05/06/21 Active Meds: Active Medications Acetaminophen (Acetaminophen 325 Mg Tab) 650 mg PO Q6H PRN PRN Reason: Pain, Mild (1-3) Albuterol (Albuterol 2.5 Mg/3 Ml Nebu) 2.5 mg IH Q4HRT PRN PRN Reason: Shortness Of Breath Amlodipine Besylate (Amlodipine 5 Mg Tab) 5 mg PO QDAY [facility] Last Admin: 05/08/21 10:29 Dose: 5 mg Aripiprazole (Aripiprazole 10 Mg Tab) 10 mg PO QAM [facility] Last Admin: 05/08/21 10:29 Dose: 10 mg Atorvastatin Calcium (Atorvastatin 40 Mg Tab) 40 mg PO QHS [facility] Last Admin: 05/07/21 21:15 Dose: 40 mg Calcitriol (Calcitriol 0.25 Mcg Cap) 0.25 mcg PO DAILY [facility] Last Admin: 05/08/21 10:30 Dose: 0.25 mcg Carvedilol (Carvedilol 25 Mg Tab) 25 mg PO BID [facility] Last Admin: 05/08/21 10:28 Dose: 25 mg Clonazepam (Clonazepam 0.5 Mg Tab) 0.25 mg PO BID [facility] Last Admin: 05/08/21 12:36 Dose: 0.25 mg Clopidogrel Bisulfate (Clopidogrel 75 Mg Tab) 75 mg PO QDAY [facility] Last Admin: 05/08/21 10:28 Dose: 75 mg Donepezil HCl (Donepezil 10 Mg Tab) 10 mg PO QDAY [facility] Last Admin: 05/08/21 10:29 Dose: 10 mg Ergocalciferol (Ergocalciferol (Vit D2) 50,000 Unit Cap) 50,000 unit PO MoTh [facility] Lamotrigine (Lamotrigine 100 Mg Tab) 100 mg PO HS [facility] Last Admin: 05/07/21 21:13 Dose: 100 mg Levothyroxine Sodium (Levothyroxine 50 Mcg Tab) 50 mcg PO QAM [facility] Last Admin: 05/08/21 10:29 Dose: 50 mcg Mirtazapine (Mirtazapine 15 Mg Tab) 45 mg PO QHS [facility] Last Admin: 05/07/21 21:13 Dose: 45 mg Miscellaneous Medication (Clonazepam [Klonopin]) 0.5 mg PO BID [facility] Last Admin: 05/08/21 13:49 Dose: Not Given Miscellaneous Medication (Dextran 70/Hypromellose [Natural Balance Tears Eye Drop]) 1 drop OU QDAY [facility] Miscellaneous Medication (Imiquimod [[place] 5%]) 1 applicatio TP BID [facility] Morphine Sulfate (Morphine 4 Mg/1 Ml Inj) 2 mg IV Q8H PRN PRN Reason: Pain , Severe (7-10) Last Admin: 05/08/21 10:27 Dose: 2 mg Nitroglycerin (Nitroglycerin 0.4 Mg Tab Subl) 0.4 mg SL Q5M PRN PRN Reason: Chest Pain Ondansetron HCl (Ondansetron 4 Mg/2 Ml Inj) 4 mg IV Q8H PRN PRN Reason: Nausea And Vomiting Oxycodone/Acetaminophen (Oxycodone /Acetaminophen 5-325mg Tab) 1 tab PO Q6H PRN PRN Reason: Pain, Moderate (4-6) Last Admin: 05/07/21 07:06 Dose: 1 tab Prednisone (Prednisone 5 Mg/5 Ml Oral Liquid) 4 mg PO QDAY [facility] Last Admin: 05/08/21 10:32 Dose: 4 mg Sertraline HCl (Sertraline 50 Mg Tab) 50 mg PO DAILY [facility] Last Admin: 05/08/21 10:29 Dose: 50 mg Sertraline HCl (Sertraline 100 Mg Tab) 100 mg PO QDAY [facility] Last Admin: 05/08/21 10:29 Dose: 100 mg Sodium Chloride (Sodium Chloride 0.9% 10 Ml Flush Syringe) 10 ml IV BID [facility] Last Admin: 05/08/21 10:29 Dose: 10 ml Sodium Chloride (Sodium Chloride 0.9% 10 Ml Flush Syringe) 10 ml IV PRN PRN PRN Reason: LINE FLUSH Tramadol HCl (Tramadol 50 Mg Tab) 50 mg PO Q6H PRN PRN Reason: Pain, Moderate (4-6) Review of Systems Cardiovascular: chest pain, shortness of breath, no orthopnea, no palpitations, no rapid/irregular heart beat, no edema, no syncope, no lightheadedness Physical Examination Vital Signs Temp Pulse Resp BP Pulse Ox 97.6 F 81 18 180/98 97 05/06/21 12:08 05/06/21 12:08 05/06/21 12:08 05/06/21 12:08 05/06/21 12:08 General appearance: no acute distress HEENT: Positive: PERRL Neck: Positive: neck supple Cardiac: Positive: Reg Rate and Rhythm Lungs: Positive: Decreased Breath Sounds Neuro: Positive: Grossly Intact Abdomen: Positive: Soft Female genitourinary: deferred Skin: Positive: Clear Extremities: Absent: edema Results 05/06/21 13:29 05/06/21 13:29 EKG interpretations - Telemetry EKG Rhythm: Sinus Rhythm (Normal ECG) Assessment and Plan - Patient Problems (1) Atypical chest pain Current Visit: Yes Status: Acute Plan to address problem: Patient presents with atypical, musculoskeletal type pain of the left upper chest. Serial ECGs are normal, serial troponin levels are normal. Chest x-ray demonstrates normal size cardiac silhouette and clear lungs. Echocardiogram demonstrates normal left ventricular systolic function, ejection fraction 50 to 55%. Patient also had a negative thallium stress test in recent months at [facility]. Patient is stable for cardiac discharge, follow-up with her primary laborer [employer] Dr. Tam in 3 to 5 days.
--- NOTE | 2021-05-08 16:15 | Discharge Summary ---
Providers - Providers Date of Admission: 05/06/21 14:53 Date of discharge: 05/08/21 Attending physician: KT MENDOZA 05/06/21 Consult to Cardiac Rehabilitation [CONS] Routine Reason For Exam: Phase I 05/07/21 16:20 Physical Therapy Evaluation and Treat [CONS] Routine Comment: Reason For Exam: Eval and Treat 05/07/21 17:38 Consult to Physician [CONS] Routine Comment: Consulting Provider: GREGORIA VINES Physician Instructions: Reason For Exam: chest pain Primary care physician: PLANT ENGINEER Hospitalization Condition: Fair Hospital course: The patient is a 75-year-old woman with a history of chronic atypical chest pain syndrome, negative multiple cardiac ischemic evaluations in the past, hypertension hypothyroidism, SLE, hypertension hyperlipidemia presented to the hospital with complaints of recurrent intermittent chest pain. Several years ago, she had a negative cardiac catheterization. More recently, 3 months ago she had a negative thallium stress test at [facility]. Serial left ventricular function assessments have demonstrated normal left ventricular systolic function, including an echocardiogram done on this current admission. Serial ECG showing normal sinus rhythm, normal ECG. Serial troponin levels x2 were negative. VQ scan is negative for any possibility for PE. The patient feels and looks well, wants to go home today and follow-up with her primary clinical applications specialist Dr. Tam. Comorbidities include chronic tobacco abuse and chronic hypertension. Patient was cleared by her clinical applications specialist and recommended to follow-up as an outpatient. Disposition: HOME / SELF CARE / HOMELESS Final Discharge Diagnosis (Prints w/discharge instructions): --Atypical chest pain, likely musculoskeletal due to costochondritis. --Diastolic CHF, compensated, 2D echo showed EF is preserved. --History of vascular dementia. --Morbid obesity with metabolic syndrome. --hyperlipidemia. --Hypertension. --Hypothyroidism. --Nicotine dependence. --SLE, history of Time spent for discharge: 34 minutes Core Measure Documentation - Palliative Care Palliative Care/ Comfort Measures: Not Applicable - Core Measures Any of the following diagnoses?: none Exam - Physical Exam Narrative exam: GENERAL: well-developed and morbidly obese -[place] female lying on bed appeared to be in no discomfort. HEENT: Normocephalic. Atraumatic. No conjunctival congestion or icterus. Patient has moist mucous membranes. NECK: Supple. Trachea midline. CHEST/LUNGS: Clear to auscultated bilaterally, breathing nonlabored. No wheezes crackles or rhonchi. HEART/CARDIOVASCULAR: Regular in rate and rhythm. S1 and S2 positive. ABDOMEN: Abdomen is soft, nontender. Patient has normal bowel sounds. SKIN: There is no rash. Warm and dry. NEURO: No focal motor deficit. Follows command. MUSCULOSKELETAL: No joint effusion or tenderness. EXTRIMITY: No edema, no cyanosis or clubbing. PSYCH: Cooperative. - Constitutional Vitals: Temp Pulse Resp BP Pulse Ox 97.3 F L 76 18 172/95 95 05/08/21 08:00 05/08/21 12:00 05/08/21 08:00 05/08/21 10:19 05/08/21 12:00 Plan Activity: advance as tolerated Weight Bearing Status: Weight Bear as Tolerated Diet: low fat, low salt Additional Instructions: Follow-up with your clinical applications specialist in 1 week Follow up with: PRIMARY MD ANA LAURA [Primary Care Provider] - 3-5 Days
[2021-05-08 17:38] VITALS: BP 133/61
--- NOTE | 2021-05-08 17:50 | Electrocardiograph Report ---
[facility] Test Date: 2021-05-06 Test Time: 12:14:51 Pat Name: CHARLEE PATTON Department: Room: A475 Gender: F Laborer Pipeline: MOHIT : 1945 Requested By: DEBBIE GOYAL Order Number: [id number] Reading MD: Sheree Leon Measurements Intervals [place] Rate: 73 P: 47 GA: 160 QRS: -10 QRSD: 77 T: 33 QT: 373 QTc: 412 Interpretive Statements Sinus rhythm Left ventricular hypertrophy Compared to ECG 02/28/2021 12:36:03 No significant change Electronically Signed On 05-08-2021 17:50:24 EDT by Sheree Leon
--- NOTE | 2021-05-08 17:57 | Electrocardiograph Report ---
[facility] Test Date: 2021-05-07 Test Time: 07:46:47 Pat Name: CHARLEE PATTON Department: Room: A475 1 Gender: F Refrigeration Mechanic: BEAU : 1945 Requested By: CASANDRA DESHPANDE Order Number: [id number] Reading MD: Sheree Leon Measurements Intervals [place] Rate: 71 P: 64 TN: 207 QRS: 17 QRSD: 75 T: 48 QT: 383 QTc: 416 Interpretive Statements Sinus rhythm Compared to ECG 05/06/2021 12:14:51 No significant changes Electronically Signed On 05-08-2021 17:57:00 EDT by Sheree Leon
[2021-05-11] MEDS ORDERED: ERGOCALCIFEROL (VIT D2) 50,000 UNIT CAP PO SCH (10:00)
== END 2021-05-08 18:06 | disposition home or self-care (01) ==
LOC: ED 12:04 → INTOOBSV 14:53 → 4A 14:53
PROVIDERS: ADMIT Internal Medicine; ATTEND Internal Medicine
DX: I20.8 Other forms of angina pectoris (principal); F01.50 Vascular dementia, unspecified severity, without behavioral disturbance, psychotic disturbance, mood disturbance, and anxiety; I13.0 Hypertensive heart and chronic kidney disease with heart failure and stage 1 through stage 4 chronic kidney disease, or unspecified chronic kidney disease; I50.31 Acute diastolic (congestive) heart failure; N18.30 Chronic kidney disease, stage 3 unspecified; I67.2 Cerebral atherosclerosis; E88.81 Metabolic syndrome and other insulin resistance; E78.2 Mixed hyperlipidemia; E03.9 Hypothyroidism, unspecified; M32.9 Systemic lupus erythematosus, unspecified; I25.2 Old myocardial infarction; M19.90 Unspecified osteoarthritis, unspecified site; E66.01 Morbid (severe) obesity due to excess calories; R07.89 Other chest pain; R91.1 Solitary pulmonary nodule; F32.9 Major depressive disorder, single episode, unspecified; F17.213 Nicotine dependence, cigarettes, with withdrawal; Z86.73 Personal history of transient ischemic attack (TIA), and cerebral infarction without residual deficits; Z90.49 Acquired absence of other specified parts of digestive tract; Z79.899 Other long term (current) drug therapy; Z98.890 Other specified postprocedural states; Z85.828 Personal history of other malignant neoplasm of skin; Z68.32 Body mass index [BMI] 32.0-32.9, adult
CPT/HCPCS: 36415; 71046; 78580; 80048; 82550; 82553; 84484; 85025; 85379; 93005; 96374; 96375; 96376; 97161; 97530; 99285; 99406; A9540; C8929; G0378; J2270; J2405; J3010; J3490; J7512; 93306

== ENCOUNTER 2021-09-03 12:37 | Outpatient (CLI) | payer MEDICARE ==
[2021-09-03 13:47] LABS: Hematocrit 38.5 % (30.3-42.9); Hemoglobin 12.5 gm/dl (10.1-14.3); Mean Corpuscular HGB Conc 33 % (30-34); Mean Corpuscular Volume 75 fl (79-97); Platelet Count 186 K/mm3 (140-440); Red Blood Count 5.11 M/mm3 (3.65-5.03); Red Cell Distribution Width 16.6 % (13.2-15.2)
[2021-09-03 14:22] LABS: Albumin 3.9 g/dL (3.9-5); Calcium 9.6 mg/dL (8.4-10.2)
[2021-09-03 14:40] LABS: Creatinine,Urine 163.4 mg/dL (0.1-20.0); Protein/Creatinine Ratio,Urine 0.15
== END 2021-09-03 12:38 | disposition home or self-care (01) ==
LOC: LAB 12:37
PROVIDERS: ATTEND Internal Medicine
DX: N18.30 Chronic kidney disease, stage 3 unspecified (principal)
CPT/HCPCS: 36415; 80048; 82040; 82570; 84100; 84156; 85027

== ENCOUNTER 2021-10-27 11:38 | Outpatient (CLI) | payer MEDICARE ==
[2021-10-27 12:32] LABS: Basophils % (Auto) 0.6 % (0.0-1.8); Eosinophils # (Auto) 0.1 K/mm3 (0.0-0.4); Eosinophils % (Auto) 0.8 % (0.0-4.3); Hematocrit 38.3 % (30.3-42.9); Hemoglobin 12.1 gm/dl (10.1-14.3); Lymphocytes # (Auto) 1.5 K/mm3 (1.2-5.4); Lymphocytes % (Auto) 19.9 % (13.4-35.0); Mean Corpuscular HGB Conc 32 % (30-34); Mean Corpuscular Volume 75 fl (79-97); Monocytes # (Auto) 0.6 K/mm3 (0.0-0.8); Monocytes % (Auto) 8.4 % (0.0-7.3); Platelet Count 183 K/mm3 (140-440); Red Blood Count 5.09 M/mm3 (3.65-5.03); Red Cell Distribution Width 15.2 % (13.2-15.2)
[2021-10-27 12:50] LABS: Alanine Aminotransferase 37 units/L (7-56); Albumin 4.2 g/dL (3.9-5); BUN/Creatinine Ratio 13; Blood Urea Nitrogen 13 mg/dL (7-17); Calcium 9.2 mg/dL (8.4-10.2); Hemolysis Index 10
[2021-10-27 12:59] LABS: Bacteria,Urine 1+ /HPF (Negative); Mucus,Urine FEW /HPF
[2021-10-27 13:39] LABS: Creatinine,Urine 114.7 mg/dL (0.1-20.0)
[2021-10-27 13:56] LABS: Protein/Creatinine Ratio,Urine TNR
[2021-10-27 14:52] LABS: Color,Urine Yellow (Yellow)
== END 2021-10-27 11:39 | disposition home or self-care (01) ==
LOC: LAB 11:38
PROVIDERS: ATTEND Internal Medicine Rheumatology
DX: M32.8 Other forms of systemic lupus erythematosus (principal)
CPT/HCPCS: 36415; 80053; 81001; 82570; 85025